=== PATIENT | female | born 1970 | race Caucasian/White ===

== ENCOUNTER 2021-12-11 14:05 | Emergency (ER) | payer SELFPAY ==
[2021-12-11 14:08] VITALS: BP 148/84; PULSE 100; RESP 25; TEMP 36; O2SAT 97; BMI 58.3
[2021-12-11 14:09] VITALS: BP 148/84; PULSE 100; RESP 25; TEMP 36; O2SAT 97
--- NOTE | 2021-12-11 14:31 | EKG12_ITS ---
Test Reason : Blood Pressure : / mmHG Vent. Rate : 095 BPM Atrial Rate : 095 BPM P-R Int : 192 ms QRS Dur : 074 ms QT Int : 350 ms P-R-T Axes : 057 062 051 degrees QTc Int : 439 ms Normal sinus rhythm Normal ECG Confirmed by ELVIN MIRANDA, INGA ([id number]), editorial clerk GIOVANI WYATT ([id number]) on 12/13/2021 10:22:29 AM Referred By: Confirmed By:INGA OCONNOR MD
--- NOTE | 2021-12-11 14:31 | RAD_ITS ---
STUDY: X-RAY CHEST REASON FOR EXAM: Female, 51 years old. One week history of shortness of breath. TECHNIQUE: Single AP portable view of the chest. COMPARISON: None. FINDINGS: EKG electrodes are seen. There is evidence of vascular congestion and CHF. There is no demonstrated pleural abnormality. There is borderline cardiomegaly. Normal mediastinum and ruthie. Normal visualized pulmonary arteries. Normal visualized aortic arch and descending thoracic aorta. There are diffuse degenerative changes of the visualized thoracic spine. Normal visualized ribs, clavicles, and shoulders. There is no demonstrated abnormality of the visualized soft tissue structures of the upper abdomen. RAD/Chest 1 View (Portable) IMPRESSION: Mesenteric congestion and CHF. Borderline cardiomegaly. Electronically Signed: Donal Wagner MD at 15:23 EDT ,
--- NOTE | 2021-12-11 14:32 | EDS_ITS ---
HPI History of Present Illness Chief Complaint: Shortness of Breath Informant: patient Narrative Narrative: 51-year-old female presenting to the emergency department with dyspnea. Patient states that she has had difficulty catching her breath and chest tightness for the past week. Is exacerbated with exertion. She denies any cough or fever. She notes chronic leg swelling. She is not able to lay flat but that is not a new issue. She currently states she has not taken any medications. She does report a smoking history was told several years ago she had the beginning of COPD. She denies any chest pain. [facility] Medical History (Updated 12/11/21 @ 16:[address] Bert Holley DO) COPD (chronic obstructive pulmonary disease) Lymphedema Tobacco abuse Home Medications furosemide [Lasix] 40 mg PO BID #14 tab 12/11/21 [Rx Last Taken Unknown] Allergy/AdvReac Type Severity Reaction Status Date / Time latex AdvReac Hives Verified 12/11/21 14:08 Penicillins [PCN] AdvReac Hives Verified 12/11/21 14:08 Surgical History Hx of cholecystectomy Previous section Social History (Updated 12/11/21 @ 14:[address] Bert Holley DO) current gender identity: female Smoking Status: Current every day smoker tobacco type: cigarettes ROS ROS ED Constitutional Constitutional ED: Denies chills, fever(s) or weight loss Eyes Eyes: Denies change in vision or diplopia ENT ENT ED: Denies ear pain, rhinorrhea or sore throat Cardiovascular Cardiovascular: Denies chest pain, orthopnea, palpitations or racing heartbeat Respiratory/Chest Respiratory/Chest: Reports dyspnea and dyspnea on exertion; Denies cough, orthopnea or sputum Gastrointestinal Gastrointestinal: Denies abdominal pain, diarrhea, nausea or vomiting Genitourinary Genitourinary ED: Denies dysuria, hematuria or urinary frequency Musculoskeletal Musculoskeletal: Denies arthralgias or myalgias Integumentary Denies abscess or rash Neurologic Neurologic: Denies headache(s) or weakness Psychiatric Psychiatric: Denies anxiety, depression, suicidal ideation or suicidal thoughts Endocrine Endocrinology: Denies polydipsia, polyphagia or polyuria Allergic/Immunologic Allergic/Immunologic ED: Denies mouth swelling, tongue swelling or urticaria EXAM Physical Exam Const Vital Signs: 12/11/21 14:08 12/11/21 14:09 12/11/21 14:48 Temperature 96.8 F L 96.8 F L Temperature Source Temporal Temporal Pulse Rate 100 100 Respiratory Rate 25 H 25 H Respiratory Effort Short of Breath Respiratory Depth Normal Respiratory Pattern Tachypnea Blood Pressure 148/84 H 148/84 H Blood Pressure Mean 105 105 Pulse Ox 97 97 Oxygen Delivery Method Room Air Room Air Room Air 12/11/21 15:55 12/11/21 15:57 Temperature 96.8 F L Temperature Source Temporal Pulse Rate 89 89 Respiratory Rate 31 H 31 H Respiratory Effort Respiratory Depth Respiratory Pattern Blood Pressure 143/68 H 143/68 H Blood Pressure Mean 93 93 Pulse Ox 94 94 Oxygen Delivery Method Room Air Room Air Positive well nourished, well developed and obese General Appearance ED: well developed Nutritional Appearance: obese HEENT Reports normocephalic, head/scalp atraumatic, TM's clear and moist mucous membranes atraumatic Tympanic Membrane ED: Yes TM's clear Eyes PERRL and EOMs intact bilaterally Neck no lymphadenopathy, supple and no JVD Resp normal respiratory effort and clear to auscultation bilaterally Cardio regular rate, regular rhythm and no murmurs GI normal to inspection, nondistended, normoactive bowel sounds and non-tender Palpation: soft Back/Spine no CVA tenderness and normal ROM Extremity Extremity Narrative: Bilateral lower extremity swelling symmetric General Extremety ED: Negative for edema General Extremity: Negative for edema Neuro oriented x3 and CN's II-XII intact bilaterally Sensorium / Orientation: alert Motor Exam: strength 5/5 throughout Psych mental status grossly normal Mood & Affect: Negative for depressed or tearful Skin no rashes or lesions noted and no wounds MDM MDM MDM Narrative Medical decision making narrative: Basic blood work was obtained which shows a hemoglobin of 14.4. D-dimer is elevated 1.06. Creatinine is normal. Troponin is normal beta natruretic peptide is also normal. My interpretation of the chest x-ray is pulmonary edema. Because the elevated D-dimer and her dyspnea CTA of the chest was ordered which does not demonstrate any pulmonary embolism. This is consistent with some mild pulmonary edema. The patient is not hypoxic or requiring supplemental oxygen. Lab Data Attestation: I reviewed the patient's lab results. Labs: Laboratory Results - last 24 hr 12/11/21 12/11/21 12/11/21 14:45 14:45 14:45 WBC 9.9 RBC 5.06 Hgb 14.4 Hct 47.3 H MCV 93.5 MCH 28.5 MCHC 30.4 L RDW Std Deviation 50.7 H RDW Coeff of Castillo 14.7 H Plt Count 354 MPV 10.6 Immature Gran % (Auto) 0.400 Neut % (Auto) 71.3 H Lymph % (Auto) 19.7 [place] % (Auto) 6.0 Eos % (Auto) 2.0 Baso % (Auto) 0.6 Absolute Neuts (auto) 7.1 Absolute Lymphs (auto) 1.95 Nucleated RBC % 0 D-Dimer Quant (PE/DVT) 1.06 H* Sodium 142 Potassium 3.7 Chloride 104 Carbon Dioxide 36.0 H Anion Gap 2 L BUN 14 Creatinine 0.69 Estim Creat Clear Calc 98.40 Est GFR (MDRD) Af Amer 115 Est GFR (MDRD) Non-Af 95 BUN/Creatinine Ratio 20.2 H Glucose 104 Calcium 9.3 Total Bilirubin 0.30 AST 15 ALT 19 Alkaline Phosphatase 104 Troponin I High Sens 4 B-Natriuretic Peptide Total Protein 7.8 Albumin 3.2 Globulin 4.6 H Albumin/Globulin Ratio 0.7 L 12/11/21 14:45 WBC RBC Hgb Hct MCV MCH MCHC RDW Std Deviation RDW Coeff of Castillo Plt Count MPV Immature Gran % (Auto) Neut % (Auto) Lymph % (Auto) [place] % (Auto) Eos % (Auto) Baso % (Auto) Absolute Neuts (auto) Absolute Lymphs (auto) Nucleated RBC % D-Dimer Quant (PE/DVT) Sodium Potassium Chloride Carbon Dioxide Anion Gap BUN Creatinine Estim Creat Clear Calc Est GFR (MDRD) Af Amer Est GFR (MDRD) Non-Af BUN/Creatinine Ratio Glucose Calcium Total Bilirubin AST ALT Alkaline Phosphatase Troponin I High Sens B-Natriuretic Peptide 11.9 Total Protein Albumin Globulin Albumin/Globulin Ratio Radiography Diagnostic Testing: Clinical Impression(s) from Imaging Studies Chest X-Ray 12/11/21 14:31 IMPRESSION: Mesenteric congestion and CHF. Borderline cardiomegaly. Electronically Signed: Donal Wagner MD at 15:23 EDT , Chest CTA 12/11/21 15:42 IMPRESSION: No demonstrated pulmonary embolism or arterial dissection. Bilateral ground glass opacities, a nonspecific finding may be secondary to underlying edema and/or an infectious process. Atherosclerosis. Degenerative changes of the thoracic spine. Electronically Signed: Summer Driver MD at 16:30 EDT , EKG Initial EKG: Attestation: I personally reviewed and interpreted this EKG as follows: Comments: Normal sinus rhythm with a ventricular rate of 95 bpm Discharge Plan Triage Chief Complaint: Shortness of Breath ED Provider: Bert Holley Dx/Rx/DC Orders Clinical Impression: Acute dyspnea, Lymphedema, Pulmonary edema Instructions: Pulmonary Edema, ED Peripheral Edema, Bilateral Prescriptions: New furosemide [Lasix] 40 mg tablet 40 mg PO BID Qty: 14 RF: 0 Primary Care Provider: Care Physician,No Primary Referrals: Yelena Cabrera [NON-STAFF] - 1 Week Care Physician,No Primary [Primary Care Provider] - Disposition Disposition: Home, Self Care
[2021-12-11 14:59] LABS: Absolute Lymphocyte Count 1.95 X10^3/uL (0.83-4.51); Absolute Neutrophil Count 7.1 X10^3/uL (2.0-7.7); Basophil# 0.06 X10^3/uL; Basophil% 0.6 % (0-1); Hematocrit 47.3 % (37-47); Hemoglobin 14.4 g/dL (12.0-15.0); Lymphocyte # 1.95 X10^3/ul (0.83-4.51); Lymphocyte % 19.7 % (19-41); Mean Corp Hgb Conc 30.4 g/dL (32-36); Mean Corpuscular Hgb 28.5 pg (27.0-32.0); Mean Corpuscular Volume 93.5 fL (81-99); Mean Platelet Vol. 10.6 fl (6.2-12.0); Monocyte# 0.59 X10^3/uL; NRBC Flagged by Analyzer 0 % (0-5); Neutrophil # 7.06 X10^3/uL (2.7-7.7); Neutrophil % 71.3 % (47-70); Platelet Count 354 K/mm3 (150-450); RBC Distribution Width CV 14.7 % (11.6-14.6); RBC Distribution Width SD 50.7 fl (35.1-43.9); Red Blood Count 5.06 M/mm3 (4.2-5.4); White Blood Count 9.9 K/mm3 (4.4-11.0)
[2021-12-11 15:17] LABS: ALB/GLOB Ratio 0.7 RATIO (0.9-2.4); AST(SGOT) 15 U/L (15-37); Alanine Aminotransfer ALT/SGPT 19 U/L (13-56); Albumin, Serum 3.2 g/dL (3.2-5.0); Alkaline Phosphatase 104 U/L (45-117); Anion Gap 2 (5-15); BUN 14 mg/dL (7-18); BUN/Creat Ratio 20.2 RATIO (10-20); Calcium,Total 9.3 mg/dL (8.5-10.1); Chloride 104 mmol/L (98-107); Creatinine, Serum 0.69 mg/dL (0.55-1.02); EST Glomerular Filtration Rate 95 mL/min (>60); Est Glom Filt Rate - Afr Amer 115 mL/min (>60); Globulin 4.6 g/dL (2.2-4.2); Glucose 104 mg/dL (74-106); Potassium 3.7 mmol/L (3.5-5.1); Protein, Total 7.8 g/dL (6.4-8.2); Sodium Level 142 mmol/L (136-145); Troponin-I HS 4 pg/mL (3.0-54.0)
--- NOTE | 2021-12-11 15:21 | CM.ED ---
Social Work Consult: No PCP, Self-pay Referral source: Dr. Rubio Met with patient in room. Introduced self and clinical social work therapist role. Patient agreeable to speak with this clinical social work therapist. This clinical social work therapist broached topic of insurance status for patient. Patient reports to be employed and to have dental and vision insurance through employer but not medical. Patient reports to be following with [facility] for medical care currently. Patient states to have had [employer]IG[employer] in the past but to now make too much money through work. Patient reports to have adequate housing, transportation, food, and a support system. Patient denies concerns in the community. This clinical social work therapist encouraged patient to pursue medicaid application again if patient medical bills are more than patient can afford as patient might qualify due to medical expenses, patient voiced understanding. Active support and listening provided. No further services requested or indicated. Claire RIVERA, JANICE
[2021-12-11 15:34] LABS: D-Dimer Quantitative (DVT/PE) 1.06 FEU/ug/m (0.27-0.49)
--- NOTE | 2021-12-11 15:42 | CT_ITS ---
STUDY: CTA CHEST REASON FOR EXAM: Female, 51 years old. Pulmonary embolism elevated d dimer RADIATION DOSAGE (If Supplied By Facility): CTDIvol = ( 12.79 ) mGy, DLP = ( 425.92 ) mGycm TECHNIQUE: The examination was performed with the intravenous administration of IV 100mL Isovue-370. Post-processing of the angiographic images was performed, with multiplanar reformation and 3D reconstruction. Individualized dose optimization techniques were used for this CT. COMPARISON: None. FINDINGS: Motion artifact degrades anatomic detail. There are bilateral groundglass opacities scattered throughout the lungs. Normal enhancement of the main pulmonary artery and right and left pulmonary arteries. Normal enhancement of the bilateral peripheral pulmonary arteries. There is no demonstrated pulmonary embolism. There is atherosclerotic calcification of the aortic arch. There is no demonstrated aortic dissection. Normal heart and pericardium. There are no coronary artery calcifications. Normal mediastinum. Normal hilar regions. Normal visualized trachea and bronchi. Normal chest wall structures. There are degenerative changes of thoracic spine. Normal visualized upper abdomen. CT/CTA Chest W/WO Contrast IMPRESSION: No demonstrated pulmonary embolism or arterial dissection. Bilateral ground glass opacities, a nonspecific finding may be secondary to underlying edema and/or an infectious process. Atherosclerosis. Degenerative changes of the thoracic spine. Electronically Signed: Summer Driver MD at 16:30 EDT ,
[2021-12-11 15:55] VITALS: BP 143/68; PULSE 89; RESP 31; O2SAT 94
[2021-12-11 15:56] VITALS: O2SAT 93
[2021-12-11 15:57] VITALS: BP 143/68; PULSE 89; RESP 31; TEMP 36; O2SAT 94
[2021-12-11 16:24] LABS: BNP,B-Type NATRIURETIC PEPTIDE 11.9 pg/mL (0-100)
[2021-12-11 17:06] VITALS: BP 120/74; PULSE 89; RESP 22; O2SAT 96
[2021-12-11] MEDS: Furosemide 40 MG Tablet PO (17:13)
== END 2021-12-11 17:24 | disposition home or self-care (01) ==
PROVIDERS: Emergency Provider Emergency Medicine; Visit Provider Emergency Medicine
DX: R06.00 Dyspnea, unspecified (principal); J81.1 Chronic pulmonary edema; I89.0 Lymphedema, not elsewhere classified; J44.9 Chronic obstructive pulmonary disease, unspecified; F17.210 Nicotine dependence, cigarettes, uncomplicated; E66.9 Obesity, unspecified
CPT/HCPCS: 71045; 71275; 80053; 83880; 84484; 85025; 85379; 93005; 99285; Q9967; A4216

== ENCOUNTER 2022-01-26 19:15 | Emergency (ER) | payer SELFPAY ==
[2022-01-26 19:16] VITALS: BP 147/82; PULSE 104; RESP 18; TEMP 36.7; O2SAT 94; BMI 56.9
--- NOTE | 2022-01-26 19:30 | EKG12_ITS ---
Test Reason : DYSRYTHMIA Blood Pressure : / mmHG Vent. Rate : 099 BPM Atrial Rate : 099 BPM P-R Int : 190 ms QRS Dur : 072 ms QT Int : 338 ms P-R-T Axes : 053 063 049 degrees QTc Int : 433 ms Normal sinus rhythm Normal ECG Confirmed by ARYAN MIRANDA, ROSE ([id number]), supervising editor news reel GIOVANI WYATT ([id number]) on 01/27/2022 11:25:06 AM Referred By: LUCINDA Confirmed By:ROSE BAEZA MD
--- NOTE | 2022-01-26 19:31 | EDS_ITS ---
HPI History of Present Illness Chief Complaint: Edema Detail of Chief Complaint: Patient presents with edema of both lower extremities Informant: patient Narrative Narrative: Patient presents to the emergency department complaint of lower leg edema times several months. She was initially seen in the emergency department about 2 months ago and started on Lasix 40 mg twice a day. A week later she was seen by her primary care physician who changed her to Lasix 40 mg once a day. Patient states that her legs have gotten progressively more swollen. Patient states that she did develop some redness and was started on antibiotics doxycycl ine which she just finished yesterday. She denies any fevers. She does complain of shortness of breath and feeling like she is drowning at times. She does have history of lymphedema. No history of CHF or kidney disease. Patient does have the beginning stages of COPD. Patient is a smoker. Prior similar symptoms: No PFSH PFSH Medical History (Updated 01/26/22 @ 22:[address] Josafat Wilson DO) COPD (chronic obstructive pulmonary disease) Lymphedema Tobacco abuse Home Medications furosemide [Lasix] 40 mg PO BID #20 tab 01/26/22 [Rx Last Taken Unknown] furosemide [Lasix] 40 mg PO DAILY 01/26/22 [History Last Taken Unknown] Allergy/AdvReac Type Severity Reaction Status Date / Time latex AdvReac Hives Verified 01/26/22 19:21 Penicillins [PCN] AdvReac Hives Verified 01/26/22 19:21 Surgical History Hx of cholecystectomy Previous section Social History (Updated 12/11/21 @ 14:[address] Bert Holley DO) Smoking Status: Current every day smoker tobacco type: cigarettes ROS ROS ED Constitutional Constitutional ED: Reports systems reviewed and no addt'l complaints, except as documented; Denies body ache(s), change in weight or chills Eyes Eyes: Denies acute decrease in peripheral vision, change in vision, double vision or loss of vision ENT ENT ED: Reports none; Denies ear pain, lip swelling, loss taste/smell, neck pain, otalgia or sore throat Cardiovascular Cardiovascular: Reports none; Denies abdominal pain, chest pain with activity, leg edema, lightheadedness, palpitations, rapid heart rate or syncope Respiratory/Chest Respiratory/Chest: Reports none and dyspnea; Denies change in mental status, dry cough, hemoptysis, shortness of breath at rest or shortness of breath with exer tion Gastrointestinal Gastrointestinal: Reports none; Denies abdominal pain, change in stool character, diarrhea, hematemesis, hematochezia, melena, rectal bleeding or vomiting Genitourinary Genitourinary ED: Reports none; Denies abdominal discomfort, anuria, dysuria, genital pain or polyuria Musculoskeletal Musculoskeletal: Reports none and other Details: Leg edema ; Denies arthralgias, back pain, difficulty walking, extremity pain, muscle weakness or myalgias Integumentary Reports none; Denies abscess or rash Neurologic Neurologic: Reports none; Denies abnormal gait, confusion, focal weakness, frequent falls, headache(s), loss of vision, numbness, paresthesias, radicular pain, vertigo or weakness Psychiatric Psychiatric: Reports systems reviewed and no addt'l complaints, except as documented and none; Denies behavioral changes, confusion, difficulty concentrating, hallucinations, suicidal ideation, tactile hallucinations or visual hallucinations Endocrine Endocrinology: Denies none, cold intolerance, excessive sweating, fatigue or heat intolerance Hematologic/Lymphatic Hematologic/Lymphatic: Reports none; Denies anemia, easy bleeding or easy bruising Allergic/Immunologic Allergic/Immunologic ED: Denies as per HPI, none, lip swelling, mouth swelling, throat swelling, tongue swelling or hives EXAM Physical Exam Const Vital Signs: 01/26/22 19:16 01/26/22 19:26 01/26/22 21:38 Temperature 98.0 F Temperature Source Temporal Pulse Rate 104 H 97 Respiratory Rate 18 15 Respiratory Effort Short of Breath Blood Pressure 147/82 H 155/81 H Blood Pressure Mean 103 105 Pulse Ox 94 96 Oxygen Delivery Method Room Air Room Air Positive well nourished and well developed General Appearance ED: well developed and NAD HEENT Reports TM's clear and moist mucous membranes normocephalic and atraumatic; Negative for trauma or tenderness Tympanic Membrane ED: Yes TM's clear Eyes PERRL and EOMs intact bilaterally General Eye ED: Negative for pale conjunctiva or scleral icterus Neck no lymphadenopathy, supple and no JVD General: Negative for tenderness Chest Wall inspection of chest normal and palpation of chest normal Chest: Negative for tenderness Resp normal respiratory effort and clear to auscultation bilaterally Effort and Inspection: Negative for respiratory distress or pain with movement Auscultation: Negative for rhonchi, wheezes or diminished lung sounds Cardio regular rate, regular rhythm, S1 normal heart sound, S2 normal heart sound and n o murmurs Peripheral Pulses: pulses 2+ throughout GI normal to inspection, nondistended, normoactive bowel sounds, soft to palpation, non-tender, non-distended and no masses Back/Spine no CVA tenderness and no thoracic nor lumbar tenderness Extremity Extremity Narrative: Patient has +3 edema both lower extremities that is pitting. Edema goes up to the thighs. Patient does have some diffuse areas of erythema to both lower extremities. Normal pulses. General Extremety ED: Negative for edema General Extremity: Negative for edema Neuro oriented x3, CN's II-XII intact bilaterally, no sensory deficits noted and gait normal Sensorium / Orientation: awake, alert, oriented to person, oriented to place and oriented to time Motor Exam: strength 5/5 throughout and strength abnormal Psych mental status grossly normal Skin no rashes or lesions noted and no wounds MDM MDM MDM Narrative Medical decision making narrative: Established on arrival. Patient had labs that showed a normal white count of 10.9. Chemistry reason remarkable. BNP was 14.3. D-dimer was elevated 1.32 chest x-ray 1 view obtained interpreted by m yself no acute disease process. Radiology in agreement. I will order CT of the chest to rule out PE. I did give patient 80 mg of Lasix IV. Care of patient will be turned over to ED physician awaiting results of CT scan. For scans negative for PE I feel she can be discharged to home with plan to increase her Lasix to 80 mg daily. Patient will then have to follow-up with primary care physician. At this point I do not feel she needs any further antibiotics for her legs she just recently finished antibiotics. She does not have a fever and has a normal white count and is not ill-appearing. I suspect some of the erythema may be related to the increased edema and skin changes related to lymphedema. Lab Data Attestation: I reviewed the patient's lab results. Labs: Laboratory Results - last 24 hr 01/26/22 01/26/22 01/26/22 19:40 19:40 19:40 WBC 10.9 RBC 4.95 Hgb 13.4 Hct 45.5 MCV 91.9 MCH 27.1 MCHC 29.5 L RDW Std Deviation 54.0 H RDW Coeff of Castillo 16.2 H Plt Count 372 MPV 10.0 Immature Gran % (Auto) 0.400 Neut % (Auto) 70.1 H Lymph % (Auto) 19.7 [place] % (Auto) 7.3 Eos % (Auto) 2.0 Baso % (Auto) 0.5 Absolute Neuts (auto) 7.7 Absolute Lymphs (auto) 2.14 Nucleated RBC % 0 D-Dimer Quant (PE/DVT) Cancelled Sodium Cancelled Potassium Cancelled Chloride Cancelled Carbon Dioxide Cancelled Anion Gap Cancelled BUN Cancelled Creatinine Cancelled Estim Creat Clear Calc Cancelled Est GFR (MDRD) Af Amer Cancelled Est GFR (MDRD) Non-Af Cancelled BUN/Creatinine Ratio Cancelled Glucose Cancelled Calcium Cancelled Troponin I High Sens Cancelled B-Natriuretic Peptide 01/26/22 01/26/22 01/26/22 19:40 20:17 20:17 WBC RBC Hgb Hct MCV MCH MCHC RDW Std Deviation RDW Coeff of Castillo Plt Count MPV Immature Gran % (Auto) Neut % (Auto) Lymph % (Auto) [place] % (Auto) Eos % (Auto) Baso % (Auto) Absolute Neuts (auto) Absolute Lymphs (auto) Nucleated RBC % D-Dimer Quant (PE/DVT) 1.32 H* Sodium 141 Potassium 3.7 Chloride 102 Carbon Dioxide 38.0 H Anion Gap 1 L BUN 17 Creatinine 0.70 Estim Creat Clear Calc 96.99 Est GFR (MDRD) Af Amer 114 Est GFR (MDRD) Non-Af 94 BUN/Creatinine Ratio 24.4 H Glucose 120 H Calcium 8.8 Troponin I High Sens 4 B-Natriuretic Peptide 14.3 Radiography Chest X-Ray - ED: 1 View Diagnostic Testing: Clinical Impression(s) from Imaging Studies Chest X-Ray 01/26/22 19:53 IMPRESSION: Stable chest. Electronically Signed: Rivka Martinez MD at 21:08 EDT , 1 view chest are obtained interpreted by myself as no acute disease process. Radiology in agreement. Discharge Plan Triage Chief Complaint: Edema ED Provider: Josafat Wilson Dx/Rx/DC Orders Clinical Impression: Lymphedema, Leg edema Instructions: ED Peripheral Edema, Bilateral, ED Lymphedema Prescriptions: New furosemide [Lasix] 40 mg tablet 40 mg PO BID Qty: 20 RF: 0 No Action furosemide [Lasix] 40 mg tablet 40 mg PO DAILY RF: 0 Primary Care Provider: Yelena Cabrera Referrals: Yelena Cabrera [Primary Care Provider] - 3-5 Days
[2022-01-26 19:53] LABS: Absolute Lymphocyte Count 2.14 X10^3/uL (0.83-4.51); Absolute Neutrophil Count 7.7 X10^3/uL (2.0-7.7); Basophil# 0.05 X10^3/uL; Basophil% 0.5 % (0-1); Eosinophil# 0.22 X10^3/uL; Hematocrit 45.5 % (37-47); Hemoglobin 13.4 g/dL (12.0-15.0); Lymphocyte # 2.14 X10^3/ul (0.83-4.51); Lymphocyte % 19.7 % (19-41); Mean Corp Hgb Conc 29.5 g/dL (32-36); Mean Corpuscular Hgb 27.1 pg (27.0-32.0); Mean Corpuscular Volume 91.9 fL (81-99); Monocyte# 0.79 X10^3/uL; Monocyte% 7.3 % (0-10); NRBC Flagged by Analyzer 0 % (0-5); Neutrophil # 7.65 X10^3/uL (2.7-7.7); Neutrophil % 70.1 % (47-70); Platelet Count 372 K/mm3 (150-450); RBC Distribution Width CV 16.2 % (11.6-14.6); Red Blood Count 4.95 M/mm3 (4.2-5.4); White Blood Count 10.9 K/mm3 (4.4-11.0)
--- NOTE | 2022-01-26 19:53 | RAD_ITS ---
EXAM: XR CHEST, 1 VIEW CLINICAL INDICATION: dyspnea TECHNIQUE: Frontal view of the chest. This report was created using [employer] report generation technology. COMPARISON: December 11, 2021. FINDINGS: LUNGS AND PLEURAL SPACES: Stable mild pulmonary vascular prominence without mame CHF. No pneumothorax. No effusion. HEART: Stable borderline cardiomegaly. MEDIASTINUM: Central airways and mediastinal contour are unremarkable. BONES/JOINTS: Unremarkable. SOFT TISSUES: Unremarkable. RAD/Chest 1 View (Portable) IMPRESSION: Stable chest. Electronically Signed: Rivka Martinez MD at 21:08 EDT ,
[2022-01-26 20:12] LABS: BNP,B-Type NATRIURETIC PEPTIDE 14.3 pg/mL (0-100)
[2022-01-26 21:38] VITALS: BP 155/81; PULSE 97; RESP 15; O2SAT 96
[2022-01-26 21:58] LABS: Anion Gap 1 (5-15); BUN 17 mg/dL (7-18); BUN/Creat Ratio 24.4 RATIO (10-20); Calcium,Total 8.8 mg/dL (8.5-10.1); Chloride 102 mmol/L (98-107); EST Glomerular Filtration Rate 94 mL/min (>60); Est Glom Filt Rate - Afr Amer 114 mL/min (>60); Estimated Creatinine Clearance 96.99 ml/min; Glucose 120 mg/dL (74-106); Potassium 3.7 mmol/L (3.5-5.1); Sodium Level 141 mmol/L (136-145); Troponin-I HS 4 pg/mL (3.0-54.0)
[2022-01-26 22:00] LABS: D-Dimer Quantitative (DVT/PE) 1.32 FEU/ug/m (0.27-0.49)
--- NOTE | 2022-01-26 22:01 | CT_ITS ---
EXAM: CTA Chest WO/W Contrast Injection HISTORY: dyspnea, elevated d-dimer TECHNIQUE: CTA Chest WO/W Contrast Injection 3D reconstructions were reviewed. A radiation dose optimization technique was used for this scan. COMPARISON: None. LIMITATIONS: None. LUNGS: No pneumonia or edema. Bilateral mosaic attenuation.. AORTA/GREAT VESSELS: No aneurysm.. PULMONARY VESSELS: Main pulmonary artery is enlarged measuring 3.4 cm in diameter. No pulmonary embolus to the subsegmental level.. PLEURA: Normal. MEDIASTINUM: Normal. UPPER ABDOMEN: Normal. BONES/SOFT TISSUES: Normal. OTHER: None. CT/CTA Chest W/WO Contrast IMPRESSION: 1. No pulmonary embolism to the subsegmental level. 2. Bilateral mosaic attenuation, suggestive of small airways disease. 3. Pulmonary artery enlargement, suggestive of pulmonary hypertension. Electronically Signed: Yo Wagoner MD at 23:19 EDT ,
[2022-01-26 23:53] VITALS: BP 137/89; PULSE 102; RESP 15; O2SAT 98
[2022-01-26] MEDS: Furosemide 100 MG/10 ML Vial 80 MG IV (23:54)
== END 2022-01-27 00:06 | disposition home or self-care (01) ==
PROVIDERS: Emergency Provider Emergency Medicine; Visit Provider Emergency Medicine
DX: I89.0 Lymphedema, not elsewhere classified (principal); J44.9 Chronic obstructive pulmonary disease, unspecified; R60.0 Localized edema; F17.210 Nicotine dependence, cigarettes, uncomplicated
CPT/HCPCS: 36415; 71045; 71275; 80048; 83605; 83880; 84484; 85025; 85379; 87040; 93005; 96374; 99284; Q9967; A4216; J1940

== ENCOUNTER 2022-02-08 10:33 | Inpatient (IN) | payer MEDICAID, SELFPAY ==
[2022-02-08] VITALS (25 sets, daily range): BP systolic 99–144; BP diastolic 70–99; PULSE 81–104; RESP 12–20; TEMP 36.3–36.7; O2SAT 82–100; BMI 52.1; BMI 63.6; BMI 63.1
--- NOTE | 2022-02-08 10:39 | ED.RN ---
O2 SATURATION READING 77-82% RA. WAVE FORM PERFECT DURING READINGS. SENT BACK TO ROOM AND NURSING STAFF IN UNIT NOTIFIED. PT DENIES RESPIRATORY SX. REPORTS FLUID RETENTION.
--- NOTE | 2022-02-08 10:57 | CT_ITS ---
STUDY: CTA CHEST REASON FOR EXAM: Female, 51 years old. Hypoxia RADIATION DOSAGE (If Supplied By Facility): CTDIvol = ( 49.35 ) mGy, DLP = ( 646.96 ) mGycm TECHNIQUE: The examination was performed with the intravenous administration of IV 100mL Isovue-370. Post-processing of the angiographic images was performed, with multiplanar reformation and 3D reconstruction. Individualized dose optimization techniques were used for this CT. COMPARISON: 01/26/2022. FINDINGS: Normal enhancement of the main pulmonary artery and right and left pulmonary arteries. There is limited enhancement of the bilateral peripheral pulmonary arteries. No evidence of central pulmonary embolism. There is prominence of the main pulmonary arteries without peripheral pulmonary vascular congestion, suggesting pulmonary hypertension. There is atherosclerotic tortuosity of the aortic arch. There is no demonstrated aortic dissection. Normal heart and pericardium. Normal mediastinum. Normal hilar regions. Normal visualized trachea and bronchi. Bilateral hazy groundglass opacities/infiltrates could reflect pulmonary edema worse than the previous exam. There are no pleural effusions. Normal chest wall structures. No demonstrated acute osseous changes. The visualized upper abdomen is essentially unremarkable. CT/CTA Chest W/WO Contrast IMPRESSION: 1. No evidence of central pulmonary embolism. Limited evaluation of the peripheral branches. 2. Bilateral hazy groundglass opacities/infiltrates could reflect pulmonary edema worse than the previous exam. 3. Prominent main pulmonary arteries which may reflect pulmonary arterial hypertension. Electronically Signed: Greg Hobson MD at 13:10 EDT ,
--- NOTE | 2022-02-08 10:57 | CT_ITS ---
STUDY: CT BRAIN WITHOUT CONTRAST REASON FOR EXAM: Female, 51 years old. 3 falls in a week D/T neuropathy RADIATION DOSAGE (If Supplied By Facility): CTDIvol = ( 44.99 ) mGy, DLP = ( 829.85 ) mGycm TECHNIQUE: Transaxial CT imaging of the brain was performed without administration of intravenous contrast material. Individualized dose optimization techniques were used for this CT. COMPARISON: No relevant priors. FINDINGS: Normal soft tissue structures. Normal calvarium. Bilateral hyperostosis frontalis. Normal size ventricles and extra-axial spaces for the patient''s age. Normal white matter tracts of the cerebral hemispheres. Normal basal ganglia and thalami. Normal brainstem. Normal cerebellum. No hydrocephalus. There is no intracranial hemorrhage. There are no findings of an acute ischemic infarction. Normal visualized paranasal sinuses. CT/Brain/Head without Contrast IMPRESSION: No evidence of acute intracranial process. Electronically Signed: Anibal Michel MD at 12:42 EDT ,
--- NOTE | 2022-02-08 10:58 | EKG12_ITS ---
Test Reason : Blood Pressure : / mmHG Vent. Rate : 101 BPM Atrial Rate : 101 BPM P-R Int : 180 ms QRS Dur : 078 ms QT Int : 350 ms P-R-T Axes : 044 065 048 degrees QTc Int : 453 ms Sinus tachycardia with occasional Premature ventricular complexes Low voltage QRS Borderline ECG Confirmed by ELVIN MIRANDA, INGA ([id number]), book or script editor GIOVANI WYATT ([id number]) on 02/11/2022 8:15:17 AM Referred By: ILA Confirmed By:INGA OCONNOR MD
--- NOTE | 2022-02-08 10:59 | EDS_ITS ---
HPI <Dr. Diana Rubio MD - Last Filed: 02/08/22 20:00> History of Present Illness Chief Complaint: Fall Informant: patient Narrative Narrative: Patient presents with generalized weakness and states she has fallen 3 times in the past week. Most recent fall was this morning. She states she fell out of her chair and EMS had to be called to help her up. She reports striking her forehead and her nose on the floor. No loss of consciousness. Her first fall also involved sliding out of her chair. Second fall was at her son's house when her leg suddenly gave out on her and fell. She denies injury from that fall. Patient does report that she was recently diagnosed with diabetes and neuropathy. She states that she is unable to take care of herself at home. PFSH <Dr. Diana Rubio MD - Last Filed: 02/08/22 20:00> [facility] Medical History COPD (chronic obstructive pulmonary disease) Diabetes Lymphedema Neuropathic pain Tobacco abuse Medical History unable to obtain Home Medications furosemide 40 mg tablet (Lasix) 40 mg PO BID #20 tabs 01/26/22 [Rx Last Taken Unknown] furosemide 40 mg tablet (Lasix) 40 mg PO DAILY 01/26/22 [History Last Taken Unknown] Allergy/AdvReac Type Severity Reaction Status Date / Time latex AdvReac Hives Verified 01/26/22 19:21 Penicillins [PCN] AdvReac Hives Verified 01/26/22 19:21 Family History unable to obtain Surgical History Hx of cholecystectomy Previous section Social History Smoking Status: Current every day smoker tobacco type: cigarettes ROS <Dr. Diana Rubio MD - Last Filed: 02/08/22 20:00> ROS ED Constitutional Constitutional ED: Denies chills or fever(s) Eyes Eyes: Denies change in vision or discharge from eye(s) ENT ENT ED: Denies discharge from eye(s), rhinorrhea or sore throat Cardiovascular Cardiovascular: Reports chest pain and other Details: Chest pain with exertion ; Denies palpitations Respiratory/Chest Respiratory/Chest: Reports dyspnea; Denies cough Gastrointestinal Gastrointestinal: Denies abdominal pain, diarrhea, nausea or vomiting Genitourinary Genitourinary ED: Denies difficulty urinating or dysuria Musculoskeletal Musculoskeletal: Denies back pain or extremity pain Integumentary Denies Abrasions or rash Neurologic Neurologic: Reports weakness; Denies headache(s) Psychiatric Psychiatric: Denies anxiety or depression Allergic/Immunologic Allergic/Immunologic ED: Denies lip swelling or urticaria EXAM <Dr. Diana Rubio MD - Last Filed: 02/08/22 20:00> Physical Exam Const Vital Signs: 02/08/22 10:33 02/08/22 10:51 02/08/22 10:53 Temperature 97.5 F L Temperature Source Temporal Pulse Rate 103 H Respiratory Rate 18 Respiratory Effort Short of Breath Respiratory Depth Shallow Blood Pressure 126/78 H Blood Pressure Mean 94 Pulse Ox 82 95 Oxygen Delivery Method Room Air Nasal Cannula Oxygen Flow Rate (L/min) 2 Fraction of Inspired Oxygen (FIO2) 02/08/22 10:53 02/08/22 11:32 02/08/22 11:32 Temperature Temperature Source Pulse Rate 98 Respiratory Rate 15 Respiratory Effort Respiratory Depth Blood Pressure Blood Pressure Mean Pulse Ox 97 97 Oxygen Delivery Method Nasal Cannula Bi-pap Oxygen Flow Rate (L/min) 2 Fraction of Inspired Oxygen (FIO2) 35 35 02/08/22 12:45 02/08/22 12:45 02/08/22 14:22 Temperature Temperature Source Pulse Rate 99 93 Respiratory Rate 16 20 H Respiratory Effort Respiratory Depth Blood Pressure 144/99 H Blood Pressure Mean 114 Pulse Ox 93 94 99 Oxygen Delivery Method Bi-pap Bi-pap Bi-pap Oxygen Flow Rate (L/min) Fraction of Inspired Oxygen (FIO2) 02/08/22 15:13 02/08/22 15:15 02/08/22 13:30 Temperature Temperature Source Pulse Rate 104 H 103 H 96 Respiratory Rate 17 14 16 Respiratory Effort Respiratory Depth Blood Pressure 117/84 H Blood Pressure Mean 95 Pulse Ox 98 100 93 Oxygen Delivery Method Mechanical Ventilator Oxygen Flow Rate (L/min) Fraction of Inspired Oxygen (FIO2) 100 100 35 Positive obese Nutritional Appearance: obese HEENT Reports normocephalic and head/scalp atraumatic Eyes PERRL and EOMs intact bilaterally Neck supple Chest Wall inspection of chest normal and palpation of chest normal Resp normal respiratory effort and clear to auscultation bilaterally Cardio regular rate and regular rhythm GI normal to inspection, nondistended, normoactive bowel sounds Palpation: soft Extremity normal to inspection Extremity Narrative: Bilateral lower extremity edema. Neuro oriented x3 and no sensory deficits noted Sensorium / Orientation: alert Motor Exam: strength 5/5 throughout Psych Psych Narrative: Sleepy but arouses to voice and answers questions. Able to carry on a conversation. Skin no rashes or lesions noted <Dr. Torin Melton MD - Last Filed: 02/09/22 07:12> Physical Exam Const Vital Signs: 02/08/22 10:33 02/08/22 10:51 02/08/22 10:53 Temperature 97.5 F L Temperature Source Temporal Pulse Rate 103 H Respiratory Rate 18 Respiratory Effort Short of Breath Respiratory Depth Shallow Blood Pressure 126/78 H Blood Pressure Mean 94 Pulse Ox 82 95 Oxygen Delivery Method Room Air Nasal Cannula Oxygen Flow Rate (L/min) 2 Fraction of Inspired Oxygen (FIO2) 02/08/22 10:53 02/08/22 11:32 02/08/22 11:32 Temperature Temperature Source Pulse Rate 98 Respiratory Rate 15 Respiratory Effort Respiratory Depth Blood Pressure Blood Pressure Mean Pulse Ox 97 97 Oxygen Delivery Method Nasal Cannula Bi-pap Oxygen Flow Rate (L/min) 2 Fraction of Inspired Oxygen (FIO2) 35 35 02/08/22 12:45 02/08/22 12:45 02/08/22 14:22 Temperature Temperature Source Pulse Rate 99 93 Respiratory Rate 16 20 H Respiratory Effort Respiratory Depth Blood Pressure 144/99 H Blood Pressure Mean 114 Pulse Ox 93 94 99 Oxygen Delivery Method Bi-pap Bi-pap Bi-pap Oxygen Flow Rate (L/min) Fraction of Inspired Oxygen (FIO2) 02/08/22 15:13 02/08/22 15:15 02/08/22 13:30 Temperature Temperature Source Pulse Rate 104 H 103 H 96 Respiratory Rate 17 14 16 Respiratory Effort Respiratory Depth Blood Pressure 117/84 H Blood Pressure Mean 95 Pulse Ox 98 100 93 Oxygen Delivery Method Mechanical Ventilator Oxygen Flow Rate (L/min) Fraction of Inspired Oxygen (FIO2) 100 100 35 MDM <Dr. Diana Rubio MD - Last Filed: 02/08/22 20:00> MDM MDM Narrative Medical decision making narrative: Head CT along with CTA of the chest ordered. EKG and lab work obtained. ABG obtained. Lab Data Attestation: I reviewed the patient's lab results. Labs: Laboratory Results - last 24 hr 02/08/22 02/08/22 11:25 11:25 WBC 12.4 H RBC 4.53 Hgb 12.3 Hct 42.6 MCV 94.0 MCH 27.2 MCHC 28.9 L RDW Std Deviation 54.6 H RDW Coeff of Castillo 16.0 H Plt Count 372 MPV 9.7 Immature Gran % (Auto) 0.600 Neut % (Auto) 73.8 H Lymph % (Auto) 17.6 L [place] % (Auto) 6.4 Eos % (Auto) 1.0 Baso % (Auto) 0.6 Absolute Neuts (auto) 9.2 H Absolute Lymphs (auto) 2.18 Nucleated RBC % 0.2 Sodium 142 Potassium 3.3 L Chloride 99 Carbon Dioxide 39.0 H Anion Gap 4 L BUN 17 Creatinine 0.94 Estim Creat Clear Calc 72.23 Est GFR (MDRD) Af Amer 81 Est GFR (MDRD) Non-Af 67 BUN/Creatinine Ratio 18.0 Glucose 160 H Calcium 8.8 Troponin I High Sens 21 ABG Data ABG results: ABG 02/08/22 02/08/22 11:21 14:05 Specimen Type ART ART Sample Site L Radial L Radial pH 7.29 L 7.23 L Bicarbonate Actual 40.7 H 41.8 H Total CO2 43 45 Base Excess 14 H 14 H O2 Saturation 91 L 92 L O2 % 35 ABG pCO2 84.1 H* 100.9 H* ABG pO2 72 L 82 Erickson Test Positive O2 Delivery Device Cannula Liter Flow 2.0 Tidal Volume 450 POC PEEP 8 Crit Call To/Read Back Yes Yes Blood Gas Notified Arabella RUBIO Clinical Comments Radiography Diagnostic Testing: Clinical Impression(s) from Imaging Studies Brain CT 02/08/22 10:57 IMPRESSION: No evidence of acute intracranial process. Electronically Signed: Anibal Michel MD at 12:42 EDT , Chest CTA 02/08/22 10:57 IMPRESSION: 1. No evidence of central pulmonary embolism. Limited evaluation of the peripheral branches. 2. Bilateral hazy groundglass opacities/infiltrates could reflect pulmonary edema worse than the previous exam. 3. Prominent main pulmonary arteries which may reflect pulmonary arterial hypertension. Electronically Signed: Greg Hobson MD at 13:10 EDT , Chest X-Ray 02/08/22 14:40 IMPRESSION: Endotracheal tube with its tip approximately 1.9 cm proximal to the cortney. No significant change. Electronically Signed: Greg Hobson MD at 15:56 EDT , Chest X-Ray 02/08/22 14:40 IMPRESSION: No significant change. Electronically Signed: Greg Hobson MD at 15:54 EDT , Chest X-Ray 02/08/22 14:40 IMPRESSION: Endotracheal tube with its tip just above the cortney. Patchy bilateral infiltrates/edema. Electronically Signed: Greg Hobson MD at 15:57 EDT , EKG Initial EKG: Attestation: I personally reviewed and interpreted this EKG as follows: Interpretation: Sinus Tachycardia (Sinus tach at 101. PVCs noted. No acute ischemia.) Treatment and Re-Evaluation Narrative: When respiratory therapy went to obtain patient's EKG they noted that her O2 sat was still reading low on 2 L and bumped her up. She seemed very sleepy. ABG was obtained and her PCO2 was elevated to 84. Her PO2 is 72. She was placed on BiPAP and then because of low tidal volumes she was placed on AVAPS. At this time she is resting comfortably will awaken and answer questions. She is on 35% FiO2 with O2 sats between 88 and 95%. Head CT reveals no acute findings. CTA of the chest reveals no obvious PE. Lab work reveals white count of 12.4 and potassium is slightly low at 3.3. Troponin is normal at 21. BNP was just checked 2 weeks ago and was normal at 12. When I went back into reevaluate the patient she was more difficult to arouse. She would shake her head but not open her eyes or follow other commands. Repeat ABG is obtained and her PCO2 has increased to 100. In light of that she does require intubation. Patient intubated on third attempt with difficult airway secondary to anterior lie. She was given 40 mg of etomidate followed by another 20 mg at the time of third elevation attempt. Chest x-ray confirms good ET tube position. Lungs remained clear. I will speak with hospitalist regarding admission. Initial chest x-ray following intubation did reveal low-lying distal ET tube. This was pulled back 1 cm and repeat chest x-ray did not show significant change. Tube was pulled back an additional 1 cm at at this time tube is in good position just proximal to the cortney. <Dr. Torin Melton MD - Last Filed: 02/09/22 07:12> MDM MDM Narrative Medical decision making narrative: Head CT along with CTA of the chest ordered. EKG and lab work obtained. ABG obtained. Assistance with intubation: I assisted with intubation of this difficult airway patient. After etomidate, ambu, and increased oxygenation, we are able to use glide scope with cricoid pressure and pass a 7.5 endotracheal tube. This was witnessed going through the cords. Stylette was removed. Good ETCO2 Change. No sounds over the gastric area. Bilateral breath sounds. We did expect this tube to be in farther than average. But because of her difficult intubation we wanted to make sure it was in. Chest x-ray then showed the tube was right above the cortney. This was removed back 1 cm and then 1 more centimeter with repeat x-rays to verify good position. Her sats dropped to the high 60s immediately after tube passage but then came back very quickly. Lab Data Labs: Laboratory Results - last 24 hr 02/08/22 02/08/22 11:25 11:25 WBC 12.4 H RBC 4.53 Hgb 12.3 Hct 42.6 MCV 94.0 MCH 27.2 MCHC 28.9 L RDW Std Deviation 54.6 H RDW Coeff of Castillo 16.0 H Plt Count 372 MPV 9.7 Immature Gran % (Auto) 0.600 Neut % (Auto) 73.8 H Lymph % (Auto) 17.6 L [place] % (Auto) 6.4 Eos % (Auto) 1.0 Baso % (Auto) 0.6 Absolute Neuts (auto) 9.2 H Absolute Lymphs (auto) 2.18 Nucleated RBC % 0.2 Sodium 142 Potassium 3.3 L Chloride 99 Carbon Dioxide 39.0 H Anion Gap 4 L BUN 17 Creatinine 0.94 Estim Creat Clear Calc 72.23 Est GFR (MDRD) Af Amer 81 Est GFR (MDRD) Non-Af 67 BUN/Creatinine Ratio 18.0 Glucose 160 H Calcium 8.8 Troponin I High Sens 21 ABG Data ABG results: ABG 02/08/22 02/08/22 11:21 14:05 Specimen Type ART ART Sample Site L Radial L Radial pH 7.29 L 7.23 L Bicarbonate Actual 40.7 H 41.8 H Total CO2 43 45 Base Excess 14 H 14 H O2 Saturation 91 L 92 L O2 % 35 ABG pCO2 84.1 H* 100.9 H* ABG pO2 72 L 82 [place]on Test Positive O2 Delivery Device Cannula Liter Flow 2.0 Tidal Volume 450 POC PEEP 8 Crit Call To/Read Back Yes Yes Blood Gas Notified Whom Ramiro RUBIO Clinical Comments Radiography Diagnostic Testing: Clinical Impression(s) from Imaging Studies Brain CT 02/08/22 10:57 IMPRESSION: No evidence of acute intracranial process. Electronically Signed: Anibal Michel MD at 12:42 EDT Reading Location ID and State: [facility] / [place] Tel , Service support , Chest CTA 02/08/22 10:57 IMPRESSION: 1. No evidence of central pulmonary embolism. Limited evaluation of the peripheral branches. 2. Bilateral hazy groundglass opacities/infiltrates could reflect pulmonary edema worse than the previous exam. 3. Prominent main pulmonary arteries which may reflect pulmonary arterial hypertension. Electronically Signed: Greg Hobson MD at 13:10 EDT , Chest X-Ray 02/08/22 14:40 IMPRESSION: Endotracheal tube with its tip approximately 1.9 cm proximal to the cortney. No significant change. Electronically Signed: Greg Hobson MD at 15:56 EDT , Chest X-Ray 02/08/22 14:40 IMPRESSION: No significant change. Electronically Signed: Greg Hobson MD at 15:54 EDT , Chest X-Ray 02/08/22 14:40 IMPRESSION: Endotracheal tube with its tip just above the cortney. Patchy bilateral infiltrates/edema. Electronically Signed: Greg Hobson MD at 15:57 EDT , <Dr. Diana Rubio MD - Last Filed: 02/08/22 20:00> Critical Care Time Critical Care Time: Yes Critical care time (excluding procedures): 30-74 minutes (40 mins), Discussing w/Patient &/or Family/Change Coordinator, Arranging Admission or Transfer and Performing Direct Patient Care at Bedside Discharge Plan Dx/Rx/DC Orders Clinical Impression: Carbon dioxide retention, Respiratory failure Disposition Disposition: Acute Care [facility]
[2022-02-08 11:25] LABS: Allen Test Positive; Base Excess 14 mmol/L (-2 to +2); Bicarbonate 40.7 mmol/L (22-26); Blood Gas Specimen Type ART; O2 Delivery Device Cannula; PO2 72 mmHG (75-100); SITE L Radial; SO2 91 % (95-99); Total Carbon Dioxide 43 mmol/L; pCO2 84.1 mmHg (35-45); pH 7.29 (7.35-7.45)
[2022-02-08 11:33] LABS: Absolute Lymphocyte Count 2.18 X10^3/uL (0.83-4.51); Absolute Neutrophil Count 9.2 X10^3/uL (2.0-7.7); Basophil# 0.07 X10^3/uL; Basophil% 0.6 % (0-1); Eosinophil# 0.12 X10^3/uL; Hematocrit 42.6 % (37-47); Hemoglobin 12.3 g/dL (12.0-15.0); Lymphocyte # 2.18 X10^3/ul (0.83-4.51); Lymphocyte % 17.6 % (19-41); Mean Corp Hgb Conc 28.9 g/dL (32-36); Mean Corpuscular Hgb 27.2 pg (27.0-32.0); Mean Platelet Vol. 9.7 fl (6.2-12.0); Monocyte# 0.79 X10^3/uL; Monocyte% 6.4 % (0-10); NRBC Flagged by Analyzer 0.2 % (0-5); Neutrophil # 9.16 X10^3/uL (2.7-7.7); Neutrophil % 73.8 % (47-70); Platelet Count 372 K/mm3 (150-450); RBC Distribution Width SD 54.6 fl (35.1-43.9); Red Blood Count 4.53 M/mm3 (4.2-5.4); White Blood Count 12.4 K/mm3 (4.4-11.0)
[2022-02-08 11:52] LABS: Anion Gap 4 (5-15); BUN 17 mg/dL (7-18); Calcium,Total 8.8 mg/dL (8.5-10.1); Chloride 99 mmol/L (98-107); Creatinine, Serum 0.94 mg/dL (0.55-1.02); EST Glomerular Filtration Rate 67 mL/min (>60); Est Glom Filt Rate - Afr Amer 81 mL/min (>60); Estimated Creatinine Clearance 72.23 ml/min; Glucose 160 mg/dL (74-106); Potassium 3.3 mmol/L (3.5-5.1); Sodium Level 142 mmol/L (136-145); Troponin-I HS 21 pg/mL (3.0-54.0)
--- NOTE | 2022-02-08 12:54 | ED.RN ---
SATS BETWEEN 88-91% ON BIPAP. PT CO2 RETAINER. RESPIRATORY AWARE. DR THORPE NOTIFIED.
--- NOTE | 2022-02-08 13:30 | CPS ---
PATIENT NOTED TO BE MORE LETHARGIC, DR. THORPE NOTIFIED. REPEAT ABG ORDER OBTAINED.
[2022-02-08 14:11] LABS: Base Excess 14 mmol/L (-2 to +2); Bicarbonate 41.8 mmol/L (22-26); Blood Gas Specimen Type ART; FI02 35; PEEP 8; PO2 82 mmHG (75-100); SITE L Radial; SO2 92 % (95-99); Total Carbon Dioxide 45 mmol/L; Vt 450; pCO2 100.9 mmHg (35-45); pH 7.23 (7.35-7.45)
--- NOTE | 2022-02-08 14:15 | ED.RN ---
SECOND BLOOD GAS SHOWED PT WORSENING ON BIPAP. MOVED TO RM 2, PREPPED FOR INTUBATION. REPORTS GIVEN TO CARLOS RN TO ASSUME CARE. DR THORPE AT BEDSIDE.
[2022-02-08] MEDS: Etomidate 20 MG/10 ML Vial 40 MG IV (14:31)
[2022-02-08] MEDS: Etomidate 20 MG/10 ML Vial IV (14:40)
--- NOTE | 2022-02-08 14:40 | RAD_ITS ---
STUDY: X-RAY CHEST REASON FOR EXAM: Female, 51 years old. INTUBATION #3 TECHNIQUE: Single AP portable view of the chest. COMPARISON: Previous of the same day done earlier. FINDINGS: Endotracheal tube and nasogastric tube is stable position. Patchy bilateral infiltrates/edema are again seen unchanged. There is no demonstrated pleural abnormality. Persistent enlargement of the cardiac silhouette. The soft tissues and mediastinal structures. RAD/CXR for Line Placement IMPRESSION: No significant change. Electronically Signed: Greg Hobson MD at 15:54 EDT ,
--- NOTE | 2022-02-08 14:40 | RAD_ITS ---
STUDY: X-RAY CHEST REASON FOR EXAM: Female, 51 years old. Intubation TECHNIQUE: Single AP portable view of the chest. COMPARISON: 01/26/2022. FINDINGS: Endotracheal tube with its tip just above the cortney. Nasogastric tube extends below the level of diaphragm. Patchy bilateral infiltrates/edema markedly worse than the previous exam. There is no demonstrated pleural abnormality. Persistent enlargement of the cardiac silhouette. Stable mediastinal and osseous structures. RAD/CXR for Line Placement IMPRESSION: Endotracheal tube with its tip just above the cortney. Patchy bilateral infiltrates/edema. Electronically Signed: Greg Hobson MD at 15:57 EDT ,
--- NOTE | 2022-02-08 14:40 | RAD_ITS ---
STUDY: X-RAY CHEST REASON FOR EXAM: Female, 51 years old. INTUBATION #2 TECHNIQUE: Single AP portable view of the chest. COMPARISON: 02/08/2022. FINDINGS: Endotracheal tube with its tip approximately 1.9 cm proximal to the cortney. Nasogastric tube extends below the level of the diaphragm. Patchy bilateral infiltrates unchanged. There is no demonstrated pleural abnormality. Persistent enlargement of the cardiac silhouette. Unchanged mediastinum and osseous structures. RAD/CXR for Line Placement IMPRESSION: Endotracheal tube with its tip approximately 1.9 cm proximal to the cortney. No significant change. Electronically Signed: Greg Hobson MD at 15:56 EDT ,
[2022-02-08] MEDS: Propofol 200 MG/20 ML Vial 60 MG IV BOLUS (15:05)
[2022-02-08] MEDS: Propofol 10MG/Ml 1,000 MG/100 ML Bottle 11.4 MG CONT INF (15:10)
--- NOTE | 2022-02-08 15:44 | PCM.HP.STD ---
HPI - General General Date of Admission: 02/08/22 HPI Narrative GIOVANI VELEZ, is a 51 F who presents to the hospital with fatigue as well as frequent falls. She had been into the hospital about 2 weeks ago and was started on Lasix for edema. During her work-up today it was noticed that she was hypoxic in the ER to 82% so she was placed on BiPAP and had an ABG drawn which demonstrated a PCO2 of 84.1 and then a repeat was drawn about 2-1/2 hours later with a PCO2 of 100.9 at which point she was intubated. There is no family at bedside so most of the history is obtained by chart review and discussion with ED physician. She did have a fall this morning which is what preempted her arrival to the ER where she had called EMS. She had hit her head but denies loss of consciousness. CT of the brain was unremarkable with no bleed in the CTA of the chest did not show any PEs, there are signs of pulmonary edema however. She also has prominent pulmonary arteries consistent with pulmonary hypertension. [facility] Medical History COPD (chronic obstructive pulmonary disease) Diabetes Lymphedema Neuropathic pain Tobacco abuse Home Medications furosemide 40 mg tablet (Lasix) 40 mg PO BID #20 tabs 01/26/22 [Rx Last Taken Unknown] furosemide 40 mg tablet (Lasix) 40 mg PO DAILY 01/26/22 [History Last Taken Unknown] Allergy/AdvReac Type Severity Reaction Status Date / Time latex AdvReac Hives Verified 01/26/22 19:21 Penicillins [PCN] AdvReac Hives Verified 01/26/22 19:21 unable to obtain Surgical History Hx of cholecystectomy Previous section Social History Smoking Status: Current every day smoker tobacco type: cigarettes ROS Review of Systems ROS Unobtainable: due to endotracheal tube Vital Signs Vital Signs Vital Signs: 02/08/22 10:33 02/08/22 10:51 02/08/22 10:53 Temperature 97.5 F L Temperature Source Temporal Pulse Rate 103 H Respiratory Rate 18 Respiratory Effort Short of Breath Respiratory Depth Shallow Blood Pressure 126/78 H Blood Pressure Mean 94 Pulse Ox 82 95 Oxygen Delivery Method Room Air Nasal Cannula Oxygen Flow Rate (L/min) 2 Fraction of Inspired Oxygen (FIO2) 02/08/22 10:53 02/08/22 11:32 02/08/22 11:32 Temperature Temperature Source Pulse Rate 98 Respiratory Rate 15 Respiratory Effort Respiratory Depth Blood Pressure Blood Pressure Mean Pulse Ox 97 97 Oxygen Delivery Method Nasal Cannula Bi-pap Oxygen Flow Rate (L/min) 2 Fraction of Inspired Oxygen (FIO2) 35 35 02/08/22 12:45 02/08/22 12:45 02/08/22 14:22 Temperature Temperature Source Pulse Rate 99 93 Respiratory Rate 16 20 H Respiratory Effort Respiratory Depth Blood Pressure 144/99 H Blood Pressure Mean 114 Pulse Ox 93 94 99 Oxygen Delivery Method Bi-pap Bi-pap Bi-pap Oxygen Flow Rate (L/min) Fraction of Inspired Oxygen (FIO2) 02/08/22 15:13 02/08/22 15:15 02/08/22 13:30 Temperature Temperature Source Pulse Rate 104 H 103 H 96 Respiratory Rate 17 14 16 Respiratory Effort Respiratory Depth Blood Pressure 117/84 H Blood Pressure Mean 95 Pulse Ox 98 100 93 Oxygen Delivery Method Mechanical Ventilator Oxygen Flow Rate (L/min) Fraction of Inspired Oxygen (FIO2) 100 100 35 Weight Weight: 418 lb 3.47 oz Body Mass Index (BMI) 63.6 Physical Exam Const General Appearance: intubated and patient mechanically ventilated HEENT normocephalic Eyes PERRL and conjunctivae normal Neck supple and no JVD Resp normal respiratory effort, no retractions and no use of accessory muscles Auscultation: diminished lung sounds; Negative for crackles, rales, rhonchi or wheezes Cardio regular rate, regular rhythm, S1 normal heart sound, S2 normal heart sound and no murmurs GI soft to palpation and non-distended; Negative for hepatosplenomegaly Extremity General Extremity: edema Skin Skin Narrative: Bilateral venous stasis changes Neuro Sensorium / Orientation: sedated on vent Psych Appearance: intubated Results Lab / Micro Data Result Diagrams: 02/08/22 11:25 02/08/22 11:25 Labs: Laboratory Results - last 24 hr 02/08/22 11:25: WBC 12.4 H, RBC 4.53, Hgb 12.3, Hct 42.6, MCV 94.0, MCH 27.2, MCHC 28.9 L, RDW Std Deviation 54.6 H, RDW Coeff of Castillo 16.0 H, Plt Count 372, MPV 9.7, Immature Gran % (Auto) 0.600, Neut % (Auto) 73.8 H, Lymph % (Auto) 17.6 L, [place] % (Auto) 6.4, Eos % (Auto) 1.0, Baso % (Auto) 0.6, Absolute Neuts (auto) 9.2 H, Absolute Lymphs (auto) 2.18, Nucleated RBC % 0.2 02/08/22 11:25: Sodium 142, Potassium 3.3 L, Chloride 99, Carbon Dioxide 39.0 H, Anion Gap 4 L, BUN 17, Creatinine 0.94, Estim Creat Clear Calc 72.23, Est GFR (MDRD) Af Amer 81, Est GFR (MDRD) Non-Af 67, BUN/Creatinine Ratio 18.0, Glucose 160 H, Calcium 8.8, Troponin I High Sens 21 ABG Data ABG results: ABG 02/08/22 02/08/22 11:21 14:05 Specimen Type ART ART Sample Site L Radial L Radial pH 7.29 L 7.23 L Bicarbonate Actual 40.7 H 41.8 H Total CO2 43 45 Base Excess 14 H 14 H O2 Saturation 91 L 92 L O2 % 35 ABG pCO2 84.1 H* 100.9 H* ABG pO2 72 L 82 Erickson Test Positive O2 Delivery Device Cannula Liter Flow 2.0 Tidal Volume 450 POC PEEP 8 Crit Call To/Read Back Yes Yes Blood Gas Notified Whom Ramiro RUBIO Clinical Comments Radiology Impression Brain CT 02/08/22 10:57 IMPRESSION: No evidence of acute intracranial process. Electronically Signed: Anibal Michel MD at 12:42 EDT Reading Location ID and State: [facility] / [place] Tel , Service support , Chest CTA 02/08/22 10:57 IMPRESSION: 1. No evidence of central pulmonary embolism. Limited evaluation of the peripheral branches. 2. Bilateral hazy groundglass opacities/infiltrates could reflect pulmonary edema worse than the previous exam. 3. Prominent main pulmonary arteries which may reflect pulmonary arterial hypertension. Electronically Signed: Greg Hobson MD at 13:10 EDT , Assessment & Plan Assessment/Plan (1) Acute respiratory failure with hypoxia and hypercapnia: PLAN: Plan 1. Acute hypoxic and hypercapnic respiratory failure secondary to possible pulmonary edema due to pulmonary hypertension ? We will start her on Lasix ? We will obtain an echo ? Continue with intubation and Young placement ? We will admit to the ICU and consult the corn sheller operator ? Continue with Pepcid for prophylaxis ? CT of the chest with indications of pulmonary edema and pulmonary hypertension 2. Super morbid obesity ? BMI is 63.6 ? Once extubated and alert we will discussed lifestyle modifications DVT: Lovenox Charges/Coding Visit Charges Inpatient E&M: 41699 Init Hosp L2
[2022-02-08 16:25] LABS: Base Excess 13 mmol/L (-2 to +2); Bicarbonate 39.5 mmol/L (22-26); Blood Gas Specimen Type ART; FI02 45; Mode AC; O2 Delivery Device Adult Vent; PEEP 5; PO2 80 mmHG (75-100); RR 14; SITE L Brach; SO2 93 % (95-99); Total Carbon Dioxide 42 mmol/L; Vt 450; pCO2 85.3 mmHg (35-45); pH 7.27 (7.35-7.45)
--- NOTE | 2022-02-08 16:43 | ECHOCS_ITS ---
Reason For Study: PHTN Procedure This was a 2D Doppler, Color Flow transthoracic echocardiogram. The study was technically difficult. Contrast injection was performed. Exam performed portable in ICU/CCU. Left Ventricle Based upon the 2D echocardiographic and contrast enhanced images obtained there appears to be grossly normal left ventricular size, wall motion, and systolic function. The estimated ejection fraction is 65 %. No evidence for diastolic dysfunction. Right Ventricle Based upon the 2D echocardiographic images obtained there appears to be grossly normal right ventricular size and systolic function. Atria Normal left atrium. Normal right atrium. No doppler evidence for ASD. Mitral Valve There is no mitral annular calcification. Normal mitral valve. Tricuspid Valve The tricuspid valve is not well visualized. Aortic Valve The aortic valve is not well visualized. Pulmonic Valve The pulmonic valve is not well visualized. Great Vessels The aortic root is not well visualized. Pericardium/Pleural No pericardial effusion. Medication Diluted definity 3ml given slow IV push to enhance endocardial definition. Doppler Measurements & Calculations MV E max ibrahima: 111.6 cm/sec Lat Peak E' Ibrahima: 11.7 cm/sec Med Peak E' Ibrahima: 9.3 cm/sec MV A max ibrahima: 83.4 cm/sec E/E' lat: 9.6 E/E' med: 12.0 MV E/A: 1.3 Ao V2 max: 142.3 cm/sec LV V1 max: 129.7 cm/sec PA V2 max: 85.7 cm/sec Ao max P.1 mmHg LV V1 max P.7 mmHg ECHO/Echo Complete W/ Contrast Interpretation Summary The study was technically difficult. Contrast injection was performed. Based upon the 2D echocardiographic and contrast enhanced images obtained there appears to be grossly normal left ventricular size, wall motion, and systolic function. The estimated ejection fraction is 65 %. No evidence for diastolic dysfunction. Ordering Physician: David Aj Performed By: Sonam Art RCS
--- NOTE | 2022-02-08 17:10 | CM.ED ---
SW Noted that patient has no insurance. However, patient is being intubated and sent to ICU2. Acute SW can follow as needed. Plan: Acute Erika RAE
[2022-02-08 17:44] LABS: Time Given 1630
[2022-02-08] MEDS: Furosemide 40 MG/4 ML Vial IV (18:05)
[2022-02-08] MEDS: Propofol 10MG/Ml 1,000 MG/100 ML Bottle 34.1 MG CONT INF ×3 (18:05→23:33)
[2022-02-08] MEDS: Nystatin Powder 15gm Bottle 1 APPLIC TOPICAL (21:25)
[2022-02-08] MEDS: Enoxaparin 30 MG/0.3 ML Syringe SC (21:25)
[2022-02-08] MEDS: Chlorhexidine 15 ML PO (21:25)
[2022-02-08] MEDS: Famotidine 200 MG/20 ML MDV 20 MG in 0.9% Normal Saline (Pres. free 8 ML 300 MG IV (21:26)
[2022-02-08] MEDS: 0.9% Saline Lock 10 ML Syringe IV (21:27)
[2022-02-09] VITALS (39 sets, daily range): BP systolic 88–123; BP diastolic 61–82; PULSE 64–92; RESP 14–21; TEMP 36.9–37.5; O2SAT 88–96
[2022-02-09] MEDS: Propofol 10MG/Ml 1,000 MG/100 ML Bottle 34.1 MG CONT INF ×3 (02:29→06:36)
[2022-02-09 04:18] LABS: Absolute Lymphocyte Count 1.57 X10^3/uL (0.83-4.51); Absolute Neutrophil Count 9.7 X10^3/uL (2.0-7.7); Basophil# 0.05 X10^3/uL; Basophil% 0.4 % (0-1); Eosinophil# 0.34 X10^3/uL; Eosinophils% 2.7 % (0-5); Hematocrit 38.7 % (37-47); Hemoglobin 11.3 g/dL (12.0-15.0); Lymphocyte # 1.57 X10^3/ul (0.83-4.51); Lymphocyte % 12.5 % (19-41); Mean Corp Hgb Conc 29.2 g/dL (32-36); Mean Corpuscular Hgb 27.2 pg (27.0-32.0); Mean Platelet Vol. 10.3 fl (6.2-12.0); Monocyte# 0.83 X10^3/uL; Monocyte% 6.6 % (0-10); NRBC Flagged by Analyzer 0.3 % (0-5); Neutrophil # 9.73 X10^3/uL (2.7-7.7); Neutrophil % 77.4 % (47-70); Platelet Count 319 K/mm3 (150-450); RBC Distribution Width CV 16.2 % (11.6-14.6); RBC Distribution Width SD 55.1 fl (35.1-43.9); Red Blood Count 4.16 M/mm3 (4.2-5.4); White Blood Count 12.6 K/mm3 (4.4-11.0)
[2022-02-09 05:08] LABS: Anion Gap 5 (5-15); BUN 15 mg/dL (7-18); BUN/Creat Ratio 22.5 RATIO (10-20); Calcium,Total 8.5 mg/dL (8.5-10.1); Chloride 99 mmol/L (98-107); Creatinine, Serum 0.67 mg/dL (0.55-1.02); EST Glomerular Filtration Rate 99 mL/min (>60); Est Glom Filt Rate - Afr Amer 120 mL/min (>60); Estimated Creatinine Clearance 101.33 ml/min; Glucose 119 mg/dL (74-106); Potassium 3.1 mmol/L (3.5-5.1); Sodium Level 143 mmol/L (136-145)
[2022-02-09] MEDS: Potassium Chloride Oral Soln 20 MEQ/15 ML UDC 40 MEQ PO (06:29)
[2022-02-09] MEDS: Potassium Chloride 10mEq/100mL 10 MEQ/100 ML IV.SOLN. 100 MEQ IV BOLUS ×4 (06:29→10:40)
--- NOTE | 2022-02-09 06:29 | CON.PCM.CC_ITS ---
Assessment & Plan Assessment/Plan (1) Acute respiratory failure with hypoxia and hypercapnia: (2) Tobacco abuse: (3) Lymphedema: PLAN: Plan RECOMMENDATIONS: 1. Transition from propofol to Precedex 2. Okay to start tube feeds 3. Add blood sugars and sliding scale insulin 4. Initiate Solu-Medrol 6. Await echocardiogram 7. Initiate Levaquin pending sputum culture IMPRESSIONS: 1. Acute on chronic combined respiratory failure Clinical suspicion for multiple processes at work. Patient does have significant bilateral infiltrates, so infection would be a consideration given leukocytosis on presentation. Patient likely also has an element of pulmonary hypertension given dilated pulmonary arteries and presentation of significant hypoxia. Patient has a smoking history with reported diagnosis of COPD. Will initiate patient on bronchodilators and IV steroids. To facilitate spontaneous breathing trials, patient will be transition to Precedex therapy. Do anticipate patient will require an ABG after a spontaneous breathing trial given significant baseline retention. Patient will likely also need to comply with noninvasive ventilation/BiPAP therapy with sleep following extubation 2. Lymphedema/morbid obesity Clinical suspicion for an element of pulmonary hypertension leading to lymphedema of the lower extremities. Patient likely also has an element of untreated obstructive sleep apnea. Patient is normotensive at this point. Could attempt diuresis. 3. Tobacco abuse/poor history/recurrent falls/diabetes mellitus Complicates care, management, recovery and prognosis. Patient will need therapy evaluations. Patient would benefit from lifestyle modification including smoking cessation and weight loss. Case management and social work will be notified. We will start with sliding scale insulin, but anticipate the need for basal insulin once tube feeds are initiated in the setting of steroid therapy TIME: 32 minutes critical care time spent addressing patient's acute on chronic respiratory failure, diabetes mellitus, lymphedema, review of all data and collaboration with care team HPI Consult Data Date of Consult: 02/09/22 HPI Narrative Reason for Consultation: Respiratory failure HPI Narrative: GIOVANI VELEZ is a 51 F, with past medical history listed below, who presents to [facility] on 02/08/2022 secondary to generalized weakness and multiple falls. Patient had fallen on the day of presentation and had called EMS for help. Patient reportedly had struck her forehead and nose on the floor but denied loss of consciousness. Patient reportedly had issues with her leg giving out previously and denied any injury from that fall. Patient was recently diagnosed with diabetes and neuropathy and reportedly had attributed her previous falls to this. Patient does carry a diagnosis of COPD, but does not appear to be on any home inhalers. In the ER patient was afebrile, but tachycardic to 103 bpm. Patient was noted to be 82% on room air and was significantly tachypneic. Patient was attempted on BiPAP, but ultimately required intubation. Laboratory work-up showed a white blood cell count of 12.4, hemoglobin of 12.3 and platelets of 372. Potassium was low at 3.3 and bicarbonate was elevated at 39. Renal function was within normal limits and glucose was elevated at 160. ABG showed significant CO2 retention with inability to compensate leading to intubation. CT of the head showed no acute process. CTA of the chest showed no PE, but hazy bilateral groundglass opacities and significant dilation of the pulmonary artery. Chest x-rays following procedures showed appropriate positioning of supportive devices. Since being in the intensive care unit, patient has done okay. Patient is oxygenating well on minimal FiO2. However, patient became very agitated this morning on spontaneous breathing trial. Patient is currently intubated and sedated and unable to provide any additional history. Review of the medical record shows patient was in the ER in November and earlier this month, but has never been hospitalized. It does not appear that the patient has had pulmonary function testing, sleep study or echocardiogram. [facility] Medical History COPD (chronic obstructive pulmonary disease) Diabetes Lymphedema Neuropathic pain Tobacco abuse Medical History unable to obtain Home Medications furosemide 40 mg tablet (Lasix) 40 mg PO BID #20 tabs 01/26/22 [Rx Last Taken Unknown] furosemide 40 mg tablet (Lasix) 40 mg PO DAILY 01/26/22 [History Last Taken Unknown] Allergy/AdvReac Type Severity Reaction Status Date / Time latex AdvReac Hives Verified 01/26/22 19:21 Penicillins [PCN] AdvReac Hives Verified 01/26/22 19:21 Family History unable to obtain unable to obtain Surgical History Hx of cholecystectomy Previous section Social History Smoking Status: Current every day smoker tobacco type: cigarettes ROS Review of Systems ROS Unobtainable: due to endotracheal tube and due to mental status Medical Records Data Attestation: I reviewed the patient's medical records Medical records narrative: Little information available at this time Lab / Micro Data Attestation: I reviewed the patient's lab results. Result Diagrams: 02/09/22 04:05 02/09/22 04:05 Labs: Laboratory Results - last 24 hr 02/08/22 11:25: WBC 12.4 H, RBC 4.53, Hgb 12.3, Hct 42.6, MCV 94.0, MCH 27.2, MCHC 28.9 L, RDW Std Deviation 54.6 H, RDW Coeff of Castillo 16.0 H, Plt Count 372, MPV 9.7, Immature Gran % (Auto) 0.600, Neut % (Auto) 73.8 H, Lymph % (Auto) 17.6 L, [place] % (Auto) 6.4, Eos % (Auto) 1.0, Baso % (Auto) 0.6, Absolute Neuts (auto) 9.2 H, Absolute Lymphs (auto) 2.18, Nucleated RBC % 0.2 02/08/22 11:25: Sodium 142, Potassium 3.3 L, Chloride 99, Carbon Dioxide 39.0 H, Anion Gap 4 L, BUN 17, Creatinine 0.94, Estim Creat Clear Calc 72.23, Est GFR (MDRD) Af Amer 81, Est GFR (MDRD) Non-Af 67, BUN/Creatinine Ratio 18.0, Glucose 160 H, Calcium 8.8, Troponin I High Sens 21 02/09/22 04:05: WBC 12.6 H, RBC 4.16 L, Hgb 11.3 L, Hct 38.7, MCV 93.0, MCH 27. 2, MCHC 29.2 L, RDW Std Deviation 55.1 H, RDW Coeff of Castillo 16.2 H, Plt Count 319, MPV 10.3, Immature Gran % (Auto) 0.400, Neut % (Auto) 77.4 H, Lymph % (Auto) 12.5 L, [place] % (Auto) 6.6, Eos % (Auto) 2.7, Baso % (Auto) 0.4, Absolute Neuts (auto) 9.7 H, Absolute Lymphs (auto) 1.57, Nucleated RBC % 0.3 02/09/22 04:05: Sodium 143, Potassium 3.1 L, Chloride 99, Carbon Dioxide 39.0 H, Anion Gap 5, BUN 15, Creatinine 0.67, Estim Creat Clear Calc 101.33, Est GFR (MDRD) Af Amer 120, Est GFR (MDRD) Non-Af 99, BUN/Creatinine Ratio 22.5 H, Glucose 119 H, Calcium 8.5 ABG Data ABG results: ABG 02/08/22 02/08/22 02/08/22 11:21 14:05 16:21 Specimen Type ART ART ART Sample Site L Radial L Radial L Brach pH 7.29 L 7.23 L 7.27 L Bicarbonate Actual 40.7 H 41.8 H 39.5 H Total CO2 43 45 42 Base Excess 14 H 14 H 13 H O2 Saturation 91 L 92 L 93 L O2 % 35 45 ABG pCO2 84.1 H* 100.9 H* 85.3 H* ABG pO2 72 L 82 80 Erickson Test Positive Respiration Rate 14 O2 Delivery Device Cannula Adult Vent Liter Flow 2.0 Vent Mode AC Tidal Volume 450 450 POC PEEP 8 5 Crit Call To/Read Back Yes Yes Yes Blood Gas Notified Whom Ramiro Rubio Blood Gas Notified Time 1630 Clinical Comments Attestation: I personally reviewed and interpreted this ABG as follows: Interpretation: Poorly compensated acute on chronic respiratory acidosis with increased AA gradient Rhythm Strip Rhythm Strip: Sinus Rhythm Rate: 86 Ectopy: None Radiology Impression Brain CT 02/08/22 10:57 IMPRESSION: No evidence of acute intracranial process. Electronically Signed: Anibal Michel MD at 12:42 EDT , Chest CTA 02/08/22 10:57 IMPRESSION: 1. No evidence of central pulmonary embolism. Limited evaluation of the peripheral branches. 2. Bilateral hazy groundglass opacities/infiltrates could reflect pulmonary edema worse than the previous exam. 3. Prominent main pulmonary arteries which may reflect pulmonary arterial hypertension. Electronically Signed: Greg Hobson MD at 13:10 EDT , Chest X-Ray 02/08/22 14:40 IMPRESSION: Endotracheal tube with its tip approximately 1.9 cm proximal to the cortney. No significant change. Electronically Signed: Greg Hobson MD at 15:56 EDT , Chest X-Ray 02/08/22 14:40 IMPRESSION: No significant change. Electronically Signed: Greg Hobson MD at 15:54 EDT , Chest X-Ray 02/08/22 14:40 IMPRESSION: Endotracheal tube with its tip just above the cortney. Patchy bilateral infiltrates/edema. Electronically Signed: Greg Hobson MD at 15:57 EDT , Charges/Coding Procedures Hospitalists Procedures: 09687 Critial Care 1st Hr
[2022-02-09] MEDS: 0.9% Saline Lock 10 ML Syringe IV ×2 (06:54→20:02)
[2022-02-09] MEDS: Ipratropium/Albuterol Sulfate 3 ML AMPUL.NEB INHALATION ×3 (07:29→19:07)
[2022-02-09] MEDS: Chlorhexidine 15 ML PO ×2 (08:37→19:57)
[2022-02-09] MEDS: Enoxaparin 30 MG/0.3 ML Syringe SC ×2 (08:52→20:01)
[2022-02-09] MEDS: Propofol 10MG/Ml 1,000 MG/100 ML Bottle 28.5 MG CONT INF (08:58)
--- NOTE | 2022-02-09 10:17 | PCM.PN.HOSP ---
Subjective Subjective Intubated and sedated, no issues overnight Objective Data Objective Data Vital Signs: Vital Signs Temp Pulse Resp BP Pulse Ox FiO2 99 F 71 14 94/73 90 50 02/09/22 04:00 02/09/22 09:24 02/09/22 09:24 02/09/22 07:00 02/09/22 09:24 02/09/22 09:24 Oxygen Flow Rate (L/min) 2 Oxygen Delivery Method Mechanical Ventilator Weight: 416 lb 10.778 oz Body Mass Index (BMI) 63.1 Intake & Output: Intake and Output for Last 24 Hours 02/08/22 02/09/22 02/10/22 03:59 03:59 03:59 Intake Total 498.08 / 569.68 598.98 / 598.98 Output Total 2400 / 2550 475 / 475 Balance -1901.92 / -1980.32 123.98 / 123.98 Lab / Micro Data Result Diagrams: 02/09/22 04:05 02/09/22 04:05 Labs: Laboratory Results - last 24 hr 02/08/22 11:25: WBC 12.4 H, RBC 4.53, Hgb 12.3, Hct 42.6, MCV 94.0, MCH 27.2, MCHC 28.9 L, RDW Std Deviation 54.6 H, RDW Coeff of Castillo 16.0 H, Plt Count 372, MPV 9.7, Immature Gran % (Auto) 0.600, Neut % (Auto) 73.8 H, Lymph % (Auto) 17.6 L, [place] % (Auto) 6.4, Eos % (Auto) 1.0, Baso % (Auto) 0.6, Absolute Neuts (auto) 9.2 H, Absolute Lymphs (auto) 2.18, Nucleated RBC % 0.2 02/08/22 11:25: Sodium 142, Potassium 3.3 L, Chloride 99, Carbon Dioxide 39.0 H, Anion Gap 4 L, BUN 17, Creatinine 0.94, Estim Creat Clear Calc 72.23, Est GFR (MDRD) Af Amer 81, Est GFR (MDRD) Non-Af 67, BUN/Creatinine Ratio 18.0, Glucose 160 H, Calcium 8.8, Troponin I High Sens 21 02/09/22 04:05: WBC 12.6 H, RBC 4.16 L, Hgb 11.3 L, Hct 38.7, MCV 93.0, MCH 27.2, MCHC 29.2 L, RDW Std Deviation 55.1 H, RDW Coeff of Castillo 16.2 H, Plt Count 319, MPV 10.3, Immature Gran % (Auto) 0.400, Neut % (Auto) 77.4 H, Lymph % (Auto) 12.5 L, [place] % (Auto) 6.6, Eos % (Auto) 2.7, Baso % (Auto) 0.4, Absolute Neuts (auto) 9.7 H, Absolute Lymphs (auto) 1.57, Nucleated RBC % 0.3 02/09/22 04:05: Sodium 143, Potassium 3.1 L, Chloride 99, Carbon Dioxide 39.0 H, Anion Gap 5, BUN 15, Creatinine 0.67, Estim Creat Clear Calc 101.33, Est GFR (MDRD) Af Amer 120, Est GFR (MDRD) Non-Af 99, BUN/Creatinine Ratio 22.5 H, Glucose 119 H, Calcium 8.5 ABG Data ABG results: ABG 02/08/22 02/08/22 02/08/22 11:21 14:05 16:21 Specimen Type ART ART ART Sample Site L Radial L Radial L Brach pH 7.29 L 7.23 L 7.27 L Bicarbonate Actual 40.7 H 41.8 H 39.5 H Total CO2 43 45 42 Base Excess 14 H 14 H 13 H O2 Saturation 91 L 92 L 93 L O2 % 35 45 ABG pCO2 84.1 H* 100.9 H* 85.3 H* ABG pO2 72 L 82 80 Erickson Test Positive Respiration Rate 14 O2 Delivery Device Cannula Adult Vent Liter Flow 2.0 Vent Mode AC Tidal Volume 450 450 POC PEEP 8 5 Crit Call To/Read Back Yes Yes Yes Blood Gas Notified Whom Ramiro Rubio Blood Gas Notified Time 1630 Clinical Comments Radiography Diagnostic Testing: Radiology Impression Brain CT 02/08/22 10:57 IMPRESSION: No evidence of acute intracranial process. Electronically Signed: Anibal Michel MD at 12:42 EDT , Chest CTA 02/08/22 10:57 IMPRESSION: 1. No evidence of central pulmonary embolism. Limited evaluation of the peripheral branches. 2. Bilateral hazy groundglass opacities/infiltrates could reflect pulmonary edema worse than the previous exam. 3. Prominent main pulmonary arteries which may reflect pulmonary arterial hypertension. Electronically Signed: Greg Hobson MD at 13:10 EDT , Chest X-Ray 02/08/22 14:40 IMPRESSION: Endotracheal tube with its tip approximately 1.9 cm proximal to the cortney. No significant change. Electronically Signed: Greg Hobson MD at 15:56 EDT Reading Location ID and State: [facility] / [place] Tel , Service support , Chest X-Ray 02/08/22 14:40 IMPRESSION: No significant change. Electronically Signed: Greg Hobson MD at 15:54 EDT Reading Location ID and State: [employer] / [place] Tel , Service support , Chest X-Ray 02/08/22 14:40 IMPRESSION: Endotracheal tube with its tip just above the cortney. Patchy bilateral infiltrates/edema. Electronically Signed: Greg Hobson MD at 15:57 EDT , Rhythm Strip Rhythm Strip: Sinus Rhythm Rate: 86 Ectopy: None Physical Exam Const General Appearance: intubated and patient mechanically ventilated HEENT normocephalic Eyes PERRL and conjunctivae normal Neck supple and no JVD Resp normal respiratory effort, no retractions and no use of accessory muscles Auscultation: diminished lung sounds; Negative for crackles, rales, rhonchi or wheezes Cardio regular rate, regular rhythm, S1 normal heart sound, S2 normal heart sound and no murmurs GI soft to palpation and non-distended; Negative for hepatosplenomegaly Extremity General Extremity: edema Skin Skin Narrative: Bilateral venous stasis changes Neuro Sensorium / Orientation: sedated on vent Psych Appearance: intubated Assessment & Plan Assessment/Plan (1) Acute respiratory failure with hypoxia and hypercapnia: PLAN: Plan 1. Acute hypoxic and hypercapnic respiratory failure secondary to possible pulmonary edema due to pulmonary hypertension ? We will start her on Lasix ? We will obtain an echo, she was also started on antibiotics and steroids given the possibility for infection and COPD ? Continue with intubation and Young placement ? We will admit to the ICU and consult the hospital nurse liaison ? Continue with Pepcid for prophylaxis ? CT of the chest with indications of pulmonary edema and pulmonary hypertension 2. Super morbid obesity ? BMI is 63.6 ? Once extubated and alert we will discussed lifestyle modifications DVT: Lovenox Charges/Coding Visit Charges Inpatient E&M: 99296 Subs Hosp L2
[2022-02-09] MEDS: Nystatin Powder 15gm Bottle 1 APPLIC TOPICAL ×2 (11:17→20:02)
[2022-02-09] MEDS: Famotidine 200 MG/20 ML MDV 20 MG in 0.9% Normal Saline (Pres. free 8 ML 300 MG IV ×2 (11:17→20:02)
[2022-02-09] MEDS: Propofol 10MG/Ml 1,000 MG/100 ML Bottle 22.8 MG CONT INF ×4 (11:19→22:14)
[2022-02-09] MEDS: Albuterol 2.5 MG/3 ML VIAL.NEB. INHALATION (11:20)
[2022-02-09] MEDS: levoFLOXacin IV 750 MG/150 ML BAG 100 MG IV (11:43)
[2022-02-09] MEDS: Insulin Lispro 100 UNIT/ML INSULN.PEN SC ×2 (11:49→17:32)
[2022-02-09 11:51] LABS: Bedside Glucose 195 mg/dL (74-106)
--- NOTE | 2022-02-09 16:10 | RAD_ITS ---
EXAM: XR ABDOMEN, 1 VIEW CLINICAL INDICATION: ng placement TECHNIQUE: Frontal supine view of the abdomen/pelvis. This report was created using [employer] report generation technology. COMPARISON: None. FINDINGS: See Impression. RAD/Abdomen Single View (Portable) IMPRESSION: 1. Transesophageal catheter identified with side-port below the GE junction and tip off the examination but probably within the distal stomach. 2. Prior cholecystectomy. 3. Unchanged appearance of the ET tube 4. Unchanged appearance of the chest including widening of the cardiomediastinal structures and hilar structures. Electronically Signed: Wil Orellana MD at 22:46 EDT ,
[2022-02-09 17:30] LABS: Bedside Glucose 215 mg/dL (74-106)
[2022-02-09] MEDS: Vital High Protein 1,000 ML 20 ML GT (17:33)
[2022-02-10] VITALS (40 sets, daily range): BP systolic 112–146; BP diastolic 58–90; PULSE 60–77; RESP 14–25; TEMP 36.9–37.7; O2SAT 90–100
[2022-02-10] MEDS: Insulin Lispro 100 UNIT/ML INSULN.PEN SC ×4 (00:30→17:06)
[2022-02-10 00:36] LABS: Bedside Glucose 202 mg/dL (74-106)
[2022-02-10] MEDS: Ipratropium/Albuterol Sulfate 3 ML AMPUL.NEB INHALATION ×4 (01:54→19:10)
[2022-02-10] MEDS: Propofol 10MG/Ml 1,000 MG/100 ML Bottle 22.8 MG CONT INF (02:15)
[2022-02-10] MEDS: Dexmedetomidine 1,000 mcg in 0.9% NS 240 mL 47.3 MCG CONT INF ×3 (03:15→15:28)
[2022-02-10 03:21] LABS: Absolute Lymphocyte Count 0.79 X10^3/uL (0.83-4.51); Absolute Neutrophil Count 11.8 X10^3/uL (2.0-7.7); Basophil# 0.02 X10^3/uL; Basophil% 0.2 % (0-1); Hematocrit 41.9 % (37-47); Hemoglobin 12.6 g/dL (12.0-15.0); Lymphocyte # 0.79 X10^3/ul (0.83-4.51); Lymphocyte % 6.1 % (19-41); Mean Corp Hgb Conc 30.1 g/dL (32-36); Mean Corpuscular Hgb 27.3 pg (27.0-32.0); Mean Corpuscular Volume 90.7 fL (81-99); Mean Platelet Vol. 10.6 fl (6.2-12.0); Monocyte# 0.36 X10^3/uL; Monocyte% 2.8 % (0-10); NRBC Flagged by Analyzer 0 % (0-5); Neutrophil # 11.81 X10^3/uL (2.7-7.7); Neutrophil % 90.4 % (47-70); Platelet Count 351 K/mm3 (150-450); RBC Distribution Width CV 16.5 % (11.6-14.6); RBC Distribution Width SD 53.7 fl (35.1-43.9); Red Blood Count 4.62 M/mm3 (4.2-5.4); White Blood Count 13.1 K/mm3 (4.4-11.0)
[2022-02-10 03:42] LABS: ALB/GLOB Ratio 0.6 RATIO (0.9-2.4); AST(SGOT) 16 U/L (15-37); Alanine Aminotransfer ALT/SGPT 17 U/L (13-56); Albumin, Serum 2.4 g/dL (3.2-5.0); Alkaline Phosphatase 91 U/L (45-117); Anion Gap 5 (5-15); BUN 14 mg/dL (7-18); BUN/Creat Ratio 18.4 RATIO (10-20); Calcium,Total 8.8 mg/dL (8.5-10.1); Chloride 100 mmol/L (98-107); Creatinine, Serum 0.76 mg/dL (0.55-1.02); EST Glomerular Filtration Rate 85 mL/min (>60); Est Glom Filt Rate - Afr Amer 103 mL/min (>60); Estimated Creatinine Clearance 89.33 ml/min; Globulin 4.2 g/dL (2.2-4.2); Glucose 206 mg/dL (74-106); Potassium 3.3 mmol/L (3.5-5.1); Protein, Total 6.6 g/dL (6.4-8.2); Sodium Level 143 mmol/L (136-145); Triglycerides 146 mg/dL
[2022-02-10] MEDS: 0.9% Saline Lock 10 ML Syringe IV ×2 (05:43→21:06)
[2022-02-10 05:51] LABS: Bedside Glucose 191 mg/dL (74-106)
--- NOTE | 2022-02-10 06:31 | PN.CC_ITS ---
Assessment & Plan Assessment/Plan (1) Acute respiratory failure with hypoxia and hypercapnia: PLAN: Plan RECOMMENDATIONS: 1. Continue antimicrobials, pending finalized culture results. 2. Obtain echocardiogram. 3. Check procalcitonin and arterial blood gas. 4. Obtain repeat chest x-ray. 5. Potassium repletion as ordered. 6. Continue bronchodilators and steroids. 7. Continue tube feeds as tolerated. 8. Continue appropriate DVT and GI prophylaxis. IMPRESSIONS: 1. Acute on chronic combined respiratory failure Possible etiologies for acute decompensation include decompensated heart failure versus COPD exacerbation secondary to bilateral pneumonia. The patient apparently has an extensive tobacco abuse history along with a questionable history of obstructive lung disease. In addition, she likely has underlying pul monary hypertension. Plan to continue empiric antimicrobials while awaiting infectious work-up. In addition, the patient will be continued on scheduled bronchodilators and IV steroids. Echocardiogram is still pending. Given stability in the patient's renal function, will also consider a trial of diuretic therapy. Plan to continue tube feeds as tolerated. The patient likely has underlying sleep disordered breathing along with alveolar hypoventilation secondary to obesity. She would benefit from outpatient pulmonary follow-up and smoking cessation. 2. Super morbid obesity/suspected sleep apnea/chronic tobacco dependency/diabetes mellitus Complicates care, management, recovery and prognosis. Continue sliding scale insulin coverage along with tube feeds as tolerated. Physical therapy will need to work with the patient once respiratory status improves. TIME: 36 minutes of critical care time, independent of procedures, was spent addressing the patient's acute on chronic combined respiratory failure, COPD with exacerbation, review of all data and collaboration with the care team. Subjective Subjective The patient was seen and examined at the bedside this morning. Events from the last 24 hours have been reviewed. Today is vent day #3. The patient remains on assist control mode mechanical ventilation with an FiO2 requirement of 60% and PEEP of 5. She is currently sedated on a combination of propofol, fentanyl and Precedex. She is currently tolerating tube feeds. The patient is documented to be overall net -1.7 L for the hospitalization. White count is elevated at 13,000. Potassium is low at 3.3. Creatinine is within normal limits. Objective Data Objective Data The patient's most recent lab work, culture data and imaging studies have all been personally reviewed. Blood and sputum cultures are pending. Vital Signs: Vital Signs Temp Pulse Resp BP Pulse Ox FiO2 98.5 F 60 14 125/80 H 92 60 02/10/22 04:00 02/10/22 06:00 02/10/22 06:00 02/10/22 06:00 02/10/22 06:00 02/10/22 06:00 Oxygen Flow Rate (L/min) 2 Oxygen Delivery Method Mechanical Ventilator Weight: 416 lb 10.778 oz Body Mass Index (BMI) 63.1 Intake & Output: Intake and Output for Last 24 Hours 02/08/22 02/09/22 02/10/22 23:59 23:59 23:59 Intake Total 320.46 / 373.31 2309.03 / 2439.33 781.67 / 781.67 Output Total 2050 / 2250 2225 / 2350 900 / 900 Balance -1729.54 / -1876.69 84.03 / 89.33 -118.33 / -118.33 Lab / Micro Data Attestation: I reviewed the patient's lab results. Result Diagrams: 02/10/22 03:10 02/10/22 03:10 Labs: Laboratory Results - last 24 hr 02/09/22 11:43: POC Glucose 195 H 02/09/22 17:14: POC Glucose 215 H 02/10/22 00:29: POC Glucose 202 H 02/10/22 03:10: WBC 13.1 H, RBC 4.62, Hgb 12.6, Hct 41.9, MCV 90.7, MCH 27.3, MCHC 30.1 L, RDW Std Deviation 53.7 H, RDW Coeff of Castillo 16.5 H, Plt Count 351, MPV 10.6, Immature Gran % (Auto) 0.500, Neut % (Auto) 90.4 H, Lymph % (Auto) 6.1 L, [place] % (Auto) 2.8, Eos % (Auto) 0.0, Baso % (Auto) 0.2, Absolute Neuts (auto) 11.8 H, Absolute Lymphs (auto) 0.79 L, Nucleated RBC % 0 02/10/22 03:10: Sodium 143, Potassium 3.3 L, Chloride 100, Carbon Dioxide 38.0 H , Anion Gap 5, BUN 14, Creatinine 0.76, Estim Creat Clear Calc 89.33, Est GFR (MDRD) Af Amer 103, Est GFR (MDRD) Non-Af 85, BUN/Creatinine Ratio 18.4, Glucose 206 H, Calcium 8.8, Total Bilirubin 0.40, AST 16, ALT 17, Alkaline Phosphatase 91, Total Protein 6.6, Albumin 2.4 L, Globulin 4.2, Albumin/Globulin Ratio 0.6 L , Triglycerides 146 02/10/22 05:43: POC Glucose 191 H Micro: Microbiology 02/08/22 17:32 Sputum, Induced/Lukens Gram Stain - Final Radiography Diagnostic Testing: Radiology Impression KUB X-Ray 02/09/22 16:10 IMPRESSION: 1. Transesophageal catheter identified with side-port below the GE junction and tip off the examination but probably within the distal stomach. 2. Prior cholecystectomy. 3. Unchanged appearance of the ET tube 4. Unchanged appearance of the chest including widening of the cardiomediastinal structures and hilar structures. Electronically Signed: Wil Orellana MD at 22:46 EDT Reading Location ID and State: [facility] / [place] Tel , Service support , Rhythm Strip Rhythm Strip: Sinus Rhythm Rate: 86 Ectopy: None Physical Exam Const General Appearance: ill appearing, intubated and patient mechanically ventilated Nutritional Appearance: morbidly obese HEENT normocephalic and head/scalp atraumatic Mouth: endotracheal tube in place and OG tube in place Eyes PERRL and EOMs intact bilaterally Neck supple General: trachea midline Chest inspection of chest normal Resp Auscultation: diminished lung sounds Cardio regular rate and regular rhythm GI normal to inspection, nondistended, normoactive bowel sounds Extremity General Extremity: edema bilateral lower extremity; Negative for clubbing Skin General Skin Exam: venous stasis and dermatitis Neuro Sensorium / Orientation: sedated on vent Charges/Coding Procedures Hospitalists Procedures: [id number] Critial Care 1st Hr
--- NOTE | 2022-02-10 06:37 | RAD_ITS ---
STUDY: X-RAY CHEST REASON FOR EXAM: Female, 51 years old. Respiratory Failure TECHNIQUE: Single AP portable view of the chest. COMPARISON: Comparison is made with prior examination dated 02/08/2022. FINDINGS: The endotracheal tube is in situ. The tip is at 2.1 cm proximal to the cortney. An orogastric tube is seen with the tip in the body of the stomach. Small right pleural effusion with atelectasis and/or infiltrate in the right lower lobe and right upper lobe. There has been improvement as compared to prior study. Mild residual changes are seen at the left lung base. There is no demonstrated pleural abnormality. Normal size heart. Normal mediastinum and ruthie. Normal visualized pulmonary arteries. Normal visualized aortic arch and descending thoracic aorta. There is a dextroscoliosis of the thoracic spine. Normal visualized ribs, clavicles, and shoulders. There is no demonstrated abnormality of the visualized soft tissue structures of the upper abdomen. RAD/Chest 1 View (Portable) IMPRESSION: Residual atelectasis and/or infiltrate in the right lung and left lung base although there has been improvement as compared to prior study. The tip of the endotracheal tube is at 2.1 cm proximal to the cortney. Electronically Signed: Donal Wagner MD at 8:31 EDT ,
[2022-02-10 06:55] LABS: Allen Test Positive; Base Excess 10 mmol/L (-2 to +2); Bicarbonate 34.3 mmol/L (22-26); Blood Gas Specimen Type ART; FI02 60; Mode AC; O2 Delivery Device Adult Vent; PEEP 5; PO2 70 mmHG (75-100); RR 14; SITE L Radial; SO2 94 % (95-99); Total Carbon Dioxide 36 mmol/L; Vt 450; pCO2 50.1 mmHg (35-45); pH 7.44 (7.35-7.45)
[2022-02-10] MEDS: Propofol 10MG/Ml 1,000 MG/100 ML Bottle 11.4 MG CONT INF ×4 (07:00→21:11)
[2022-02-10] MEDS: Potassium Chloride 10mEq/100mL 10 MEQ/100 ML IV.SOLN. 100 MEQ IV BOLUS ×4 (07:21→11:16)
[2022-02-10] MEDS: Chlorhexidine 15 ML PO ×2 (07:54→21:06)
[2022-02-10] MEDS: Enoxaparin 30 MG/0.3 ML Syringe SC ×2 (07:54→21:07)
[2022-02-10] MEDS: Famotidine 200 MG/20 ML MDV 20 MG in 0.9% Normal Saline (Pres. free 8 ML 300 MG IV ×2 (08:41→21:04)
[2022-02-10] MEDS: Furosemide 40 MG/4 ML Vial IV ×2 (08:41→17:08)
[2022-02-10] MEDS: Nystatin Powder 15gm Bottle 1 APPLIC TOPICAL ×2 (08:41→21:06)
[2022-02-10 09:21] LABS: Procalcitonin < 0.04 ng/mL (0.00-0.09)
--- NOTE | 2022-02-10 10:13 | PCM.PN.HOSP ---
Subjective Subjective Intubated and sedated. No issues overnight Objective Data Objective Data Vital Signs: Vital Signs Temp Pulse Resp BP Pulse Ox FiO2 99.1 F 71 25 H 146/58 H 100 60 02/10/22 08:58 02/10/22 08:58 02/10/22 08:58 02/10/22 08:58 02/10/22 08:58 02/10/22 08:00 Oxygen Flow Rate (L/min) 2 Oxygen Delivery Method Nasal Cannula Weight: 416 lb 10.778 oz Body Mass Index (BMI) 63.1 Intake & Output: Intake and Output for Last 24 Hours 02/09/22 02/10/22 02/11/22 03:59 03:59 03:59 Intake Total 498.08 / 569.68 2645.65 / 2769.26 610.83 / 610.83 Output Total 2400 / 2550 2125 / 2375 825 / 825 Balance -1901.92 / -1980.32 520.65 / 394.26 -214.17 / -214.17 Lab / Micro Data Result Diagrams: 02/10/22 03:10 02/10/22 03:10 Labs: Laboratory Results - last 24 hr 02/09/22 11:43: POC Glucose 195 H 02/09/22 17:14: POC Glucose 215 H 02/10/22 00:29: POC Glucose 202 H 02/10/22 03:10: WBC 13.1 H, RBC 4.62, Hgb 12.6, Hct 41.9, MCV 90.7, MCH 27.3, MCHC 30.1 L, RDW Std Deviation 53.7 H, RDW Coeff of Castillo 16.5 H, Plt Count 351, MPV 10.6, Immature Gran % (Auto) 0.500, Neut % (Auto) 90.4 H, Lymph % (Auto) 6.1 L, [place] % (Auto) 2.8, Eos % (Auto) 0.0, Baso % (Auto) 0.2, Absolute Neuts (auto) 11.8 H, Absolute Lymphs (auto) 0.79 L, Nucleated RBC % 0 02/10/22 03:10: Sodium 143, Potassium 3.3 L, Chloride 100, Carbon Dioxide 38.0 H, Anion Gap 5, BUN 14, Creatinine 0.76, Estim Creat Clear Calc 89.33, Est GFR (MDRD) Af Amer 103, Est GFR (MDRD) Non-Af 85, BUN/Creatinine Ratio 18.4, Glucose 206 H, Calcium 8.8, Total Bilirubin 0.40, AST 16, ALT 17, Alkaline Phosphatase 91, Total Protein 6.6, Albumin 2.4 L, Globulin 4.2, Albumin/Globulin Ratio 0.6 L, Triglycerides 146 02/10/22 05:43: POC Glucose 191 H 02/10/22 06:55: Procalcitonin < 0.04 Micro: Microbiology 02/08/22 17:32 Sputum, Induced/Lukens Gram Stain - Final 02/08/22 17:32 Sputum, Induced/Lukens Respiratory Culture - Preliminary Appears to be normal respiratory pierce. Further studies to follow. ABG Data ABG results: ABG 02/10/22 06:53 Specimen Type ART Sample Site L Radial pH 7.44 Bicarbonate Actual 34.3 H Total CO2 36 Base Excess 10 H O2 Saturation 94 L O2 % 60 ABG pCO2 50.1 H ABG pO2 70 L Erickson Test Positive Respiration Rate 14 O2 Delivery Device Adult Vent Vent Mode AC Tidal Volume 450 POC PEEP 5 Radiography Diagnostic Testing: Radiology Impression KUB X-Ray 02/09/22 16:10 IMPRESSION: 1. Transesophageal catheter identified with side-port below the GE junction and tip off the examination but probably within the distal stomach. 2. Prior cholecystectomy. 3. Unchanged appearance of the ET tube 4. Unchanged appearance of the chest including widening of the cardiomediastinal structures and hilar structures. Electronically Signed: Wil Orellana MD at 22:46 EDT , Chest X-Ray 02/10/22 06:37 IMPRESSION: Residual atelectasis and/or infiltrate in the right lung and left lung base although there has been improvement as compared to prior study. The tip of the endotracheal tube is at 2.1 cm proximal to the cortney. Electronically Signed: Donal Wagner MD at 8:31 EDT , Rhythm Strip Rhythm Strip: Sinus Rhythm Rate: 86 Ectopy: None Physical Exam Const General Appearance: intubated and patient mechanically ventilated HEENT normocephalic Eyes PERRL and conjunctivae normal Neck supple and no JVD Resp normal respiratory effort, no retractions and no use of accessory muscles Auscultation: diminished lung sounds; Negative for crackles, rales, rhonchi or wheezes Cardio regular rate, regular rhythm, S1 normal heart sound, S2 normal heart sound and no murmurs GI soft to palpation and non-distended; Negative for hepatosplenomegaly Extremity General Extremity: edema Skin Skin Narrative: Bilateral venous stasis changes Neuro Sensorium / Orientation: sedated on vent Psych Appearance: intubated Assessment & Plan Assessment/Plan (1) Acute respiratory failure with hypoxia and hypercapnia: PLAN: Plan 1. Acute hypoxic and hypercapnic respiratory failure secondary to possible pulmonary edema due to pulmonary hypertension ? We will start her on Lasix ? We will obtain an echo, she was also started on antibiotics and steroids given the possibility for infection and COPD ? Continue with intubation and Young placement ? We will admit to the ICU and consult the hydrologic modeler ? Continue with Pepcid for prophylaxis ? CT of the chest with indications of pulmonary edema and pulmonary hypertension 2. Super morbid obesity ? BMI is 63.6 ? Once extubated and alert we will discussed lifestyle modifications DVT: Lovenox Charges/Coding Visit Charges Inpatient E&M: 09081 Subs Hosp L2
--- NOTE | 2022-02-10 11:30 | CASEMGMT ---
RN CM called friend Olivia for initial transition planning/care coordination assessment as patient is currently intubated. LILIAN VERNON introduced self and role at [facility]. Olivia Dale is patient's cousin, whom lives with patient. Olivia willing to participate in assessment and is able to answer all questions appropriately. Care providers, pharmacy, and demographics verified. Discharge disposition unable to be determined at this time, will monitor course of treatment and progress with therapy. Per Olivia, patient had been falling at home and having difficulty ambulating stairs to second floor apartment. Dorothy has 2 sons, see contact info below. Olivia states she has no further needs or concerns at this time. CM to follow for discharge planning needs that may arise. PCP: Yelena Grider Specialists: none Preferred Pharmacy: [facility] Anabel Insurance: none Prescription Benefit: none Living Will/HPOA: none LNOK: juan carlos Irizarry [phone]; Ilda Irizarry [phone] Living Arrangements: Patient lives with cousin Olivia in a second floor apartment. Patient was independent at home and ambulating stairs. Per Olivia, patient has been having more difficulty with stairs. Patient has also fallen 3 times in the last 2 weeks. Transportation: self, cousin DME/HHC: Patient has cane and walker at home. No previous HHC or SNF. Patient smokes appoximately 1/2 pack of cigarettes per day and drinks alcohol on special occasions. Disposition Plan: TBD by course of treatment and progress with therapy. Kyra ZAVALA, RN, CM
[2022-02-10 11:51] LABS: Bedside Glucose 207 mg/dL (74-106)
[2022-02-10] MEDS: levoFLOXacin IV 750 MG/150 ML BAG 100 MG IV (12:35)
[2022-02-10] MEDS: Vital High Protein 1,000 ML 65 ML GT (14:20)
[2022-02-10 17:06] LABS: Bedside Glucose 223 mg/dL (74-106)
[2022-02-10] MEDS: Dexmedetomidine 1,000 mcg in 0.9% NS 240 mL 56.7 MCG CONT INF (21:00)
[2022-02-11] VITALS (33 sets, daily range): BP systolic 113–145; BP diastolic 51–89; PULSE 66–80; RESP 14–115; TEMP 37.7–38.6; O2SAT 91–96
[2022-02-11 00:20] LABS: Bedside Glucose 220 mg/dL (74-106)
[2022-02-11] MEDS: Insulin Lispro 100 UNIT/ML INSULN.PEN SC ×5 (00:26→23:37)
[2022-02-11] MEDS: Dexmedetomidine 1,000 mcg in 0.9% NS 240 mL 70.9 MCG CONT INF ×7 (00:55→23:40)
[2022-02-11] MEDS: Ipratropium/Albuterol Sulfate 3 ML AMPUL.NEB INHALATION ×3 (01:35→19:27)
[2022-02-11 02:58] LABS: Absolute Lymphocyte Count 0.94 X10^3/uL (0.83-4.51); Absolute Neutrophil Count 13.7 X10^3/uL (2.0-7.7); Basophil# 0.02 X10^3/uL; Basophil% 0.1 % (0-1); Hematocrit 43.3 % (37-47); Hemoglobin 12.8 g/dL (12.0-15.0); Lymphocyte # 0.94 X10^3/ul (0.83-4.51); Lymphocyte % 6.1 % (19-41); Mean Corp Hgb Conc 29.6 g/dL (32-36); Mean Corpuscular Volume 91.4 fL (81-99); Mean Platelet Vol. 10.7 fl (6.2-12.0); Monocyte# 0.66 X10^3/uL; Monocyte% 4.3 % (0-10); NRBC Flagged by Analyzer 0 % (0-5); Neutrophil # 13.69 X10^3/uL (2.7-7.7); Neutrophil % 89.1 % (47-70); Platelet Count 358 K/mm3 (150-450); RBC Distribution Width CV 16.7 % (11.6-14.6); RBC Distribution Width SD 55.3 fl (35.1-43.9); Red Blood Count 4.74 M/mm3 (4.2-5.4); White Blood Count 15.4 K/mm3 (4.4-11.0)
[2022-02-11] MEDS: Propofol 10MG/Ml 1,000 MG/100 ML Bottle 11.4 MG CONT INF ×4 (03:00→21:15)
[2022-02-11 03:14] LABS: ALB/GLOB Ratio 0.6 RATIO (0.9-2.4); AST(SGOT) 12 U/L (15-37); Alanine Aminotransfer ALT/SGPT 17 U/L (13-56); Albumin, Serum 2.4 g/dL (3.2-5.0); Alkaline Phosphatase 79 U/L (45-117); Anion Gap 4 (5-15); BUN 21 mg/dL (7-18); BUN/Creat Ratio 24.4 RATIO (10-20); Calcium,Total 8.5 mg/dL (8.5-10.1); Chloride 102 mmol/L (98-107); Creatinine, Serum 0.86 mg/dL (0.55-1.02); EST Glomerular Filtration Rate 74 mL/min (>60); Est Glom Filt Rate - Afr Amer 90 mL/min (>60); Estimated Creatinine Clearance 78.95 ml/min; Globulin 4.1 g/dL (2.2-4.2); Glucose 250 mg/dL (74-106); Potassium 3.8 mmol/L (3.5-5.1); Protein, Total 6.5 g/dL (6.4-8.2); Sodium Level 144 mmol/L (136-145)
[2022-02-11] MEDS: Vital High Protein 1,000 ML 65 ML GT ×2 (05:00→16:48)
[2022-02-11] MEDS: 0.9% Saline Lock 10 ML Syringe IV ×2 (06:14→20:35)
[2022-02-11 06:20] LABS: Bedside Glucose 215 mg/dL (74-106)
--- NOTE | 2022-02-11 06:28 | PN.CC_ITS ---
Assessment & Plan Assessment/Plan (1) Acute respiratory failure with hypoxia and hypercapnia: PLAN: Plan RECOMMENDATIONS: 1. Broaden antimicrobials and obtain MRSA screen. 2. Continue diuresis as tolerated by hemodynamics and renal function. 3. Continue tube feeds as tolerated. 4. Start bowel regimen today. 5. Continue bronchodilators and steroids. 6. Continue appropriate DVT and GI prophylaxis. IMPRESSIONS: 1. Acute on chronic combined respiratory failure Possible etiologies for acute decompensation include decompensated heart failure versus COPD exacerbation secondary to bilateral pneumonia. The patient apparently has an extensive tobacco abuse history along with a questionable history of obstructive lung disease. In addition, she likely has underlying pulmonary hypertension. Plan to continue empiric antimicrobials while awaiting infectious work-up. In addition, the patient will be continued on scheduled bronchodilators and IV steroids. Continue gentle diuresis as tolerated by hemodynamics and renal function. Plan to continue tube feeds as tolerated. The patient likely has underlying sleep disordered breathing along with alveolar hypoventilation secondary to obesity. She would benefit from outpatient pulmonary follow-up and smoking cessation. 2. Super morbid obesity/suspected sleep apnea/chronic tobacco dependency/diabetes mellitus Complicates care, management, recovery and prognosis. Continue sliding scale insulin coverage along with tube feeds as tolerated. Physical therapy will need to work with the patient once respiratory status improves. TIME: 33 minutes of critical care time, independent of procedures, was spent addressin g the patient's acute on chronic combined respiratory failure, COPD with exacerbation, review of all data and collaboration with the care team. Subjective Subjective The patient was seen and examined at the bedside this morning. Events from the last 24 hours have been reviewed. The patient did spike a fever overnight to 101.2 ?F. She remains otherwise hemodynamically stable. The patient remains on assist control mode of mechanical ventilation with an FiO2 requirement of 55% and PEEP of 5. She is currently tolerating tube feeds. The patient is currently documented to be overall net -4 L for the hospitalization. White count is elevated at 15,000. Creatinine is stable. Objective Data Objective Data The patient's most recent lab work, culture data and imaging studies have all been personally reviewed. Surface echocardiogram demonstrated an ejection fraction of 65%. Blood, urine and sputum cultures are pending. Strep and urine Legionella antigens were negative. Vital Signs: Vital Signs Temp Pulse Resp BP Pulse Ox FiO2 100 F H 68 16 134/79 H 93 55 02/11/22 04:00 02/11/22 06:00 02/11/22 06:00 02/11/22 06:00 02/11/22 06:00 02/11/22 06:00 Oxygen Flow Rate (L/min) 2 Oxygen Delivery Method Mechanical Ventilator Weight: 416 lb 10.778 oz Body Mass Index (BMI) 63.1 Intake & Output: Intake and Output for Last 24 Hours 02/09/22 02/10/22 02/11/22 23:59 23:59 23:59 Intake Total 2309.03 / 2439.33 3232.89 / 3430.19 1771.10 / 1771.10 Output Total 2225 / 2350 6100 / 6350 1350 / 1350 Balance 84.03 / 89.33 -2867.11 / -2919.81 421.10 / 421.10 Lab / Micro Data Attestation: I reviewed the patient's lab results. Result Diagrams: 02/11/22 02:42 02/11/22 02:42 Labs: Laboratory Results - last 24 hr 02/10/22 06:55: Procalcitonin < 0.04 02/10/22 11:36: POC Glucose 207 H 02/10/22 16:58: POC Glucose 223 H 02/11/22 00:16: POC Glucose 220 H 02/11/22 02:42: WBC 15.4 H, RBC 4.74, Hgb 12.8, Hct 43.3, MCV 91.4, MCH 27.0, MCHC 29.6 L, RDW Std Deviation 55.3 H, RDW Coeff of Castillo 16.7 H, Plt Count 358, MPV 10.7, Immature Gran % (Auto) 0.400, Neut % (Auto) 89.1 H, Lymph % (Auto) 6.1 L, [place] % (Auto) 4.3, Eos % (Auto) 0.0, Baso % (Auto) 0.1, Absolute Neuts (auto) 13.7 H, Absolute Lymphs (auto) 0.94, Nucleated RBC % 0 02/11/22 02:42: Sodium 144, Potassium 3.8, Chloride 102, Carbon Dioxide 38.0 H, Anion Gap 4 L, BUN 21 H, Creatinine 0.86, Estim Creat Clear Calc 78.95, Est GFR (MDRD) Af Amer 90, Est GFR (MDRD) Non-Af 74, BUN/Creatinine Ratio 24.4 H, Glucose 250 H, Calcium 8.5, Total Bilirubin 0.30, AST 12 L, ALT 17, Alkaline Phosphatase 79, Total Protein 6.5, Albumin 2.4 L, Globulin 4.1, Albumin/Globulin Ratio 0.6 L 02/11/22 06:13: POC Glucose 215 H Micro: Microbiology 02/11/22 02:45 Urine Catheter - Young Legionella Antigen - Final 02/11/22 02:45 Urine Catheter - Young Streptococcus pneumoniae Antigen (M - Final 02/08/22 17:32 Sputum, Induced/Lukens Gram Stain - Final 02/08/22 17:32 Sputum, Induced/Lukens Respiratory Culture - Preliminary Appears to be normal respiratory pierce. Further studies to follow. ABG Data ABG results: ABG 02/10/22 06:53 Specimen Type ART Sample Site L Radial pH 7.44 Bicarbonate Actual 34.3 H Total CO2 36 Base Excess 10 H O2 Saturation 94 L O2 % 60 ABG pCO2 50.1 H ABG pO2 70 L Erickson Test Positive Respiration Rate 14 O2 Delivery Device Adult Vent Vent Mode AC Tidal Volume 450 POC PEEP 5 Radiography Diagnostic Testing: Radiology Impression Echocardiogram 02/08/22 16:43 Interpretation Summary The study was technically difficult. Contrast injection was performed. Based upon the 2D echocardiographic and contrast enhanced images obtained there appears to be grossly normal left ventricular size, wall motion, and systolic function. The estimated ejection fraction is 65 %. No evidence for diastolic dysfunction. Ordering Physician: David Aj Performed By: Sonam Art RCS Chest X-Ray 02/10/22 06:37 IMPRESSION: Residual atelectasis and/or infiltrate in the right lung and left lung base although there has been improvement as compared to prior study. The tip of the endotracheal tube is at 2.1 cm proximal to the cortney. Electronically Signed: Donal Wagner MD at 8:31 EDT , Rhythm Strip Rhythm Strip: Sinus Rhythm Rate: 86 Ectopy: None Physical Exam Const General Appearance: ill appearing, intubated and patient mechanically ventilated Nutritional Appearance: morbidly obese HEENT normocephalic and head/scalp atraumatic Mouth: endotracheal tube in place and OG tube in place Eyes PERRL and EOMs intact bilaterally Neck supple General: trachea midline Chest inspection of chest normal Resp Auscultation: diminished lung sounds Cardio regular rate and regular rhythm GI normal to inspection, nondistended, normoactive bowel sounds Extremity General Extremity: edema bilateral lower extremity; Negative for clubbing Skin General Skin Exam: venous stasis and dermatitis Neuro Sensorium / Orientation: sedated on vent Charges/Coding Procedures Hospitalists Procedures: [id number] Critial Care 1st Hr
[2022-02-11] MEDS: Furosemide 40 MG/4 ML Vial IV ×2 (08:18→16:50)
[2022-02-11] MEDS: Chlorhexidine 15 ML PO ×2 (08:18→20:33)
[2022-02-11] MEDS: Enoxaparin 30 MG/0.3 ML Syringe SC ×2 (08:20→20:33)
[2022-02-11] MEDS: Nystatin Powder 15gm Bottle 1 APPLIC TOPICAL ×2 (08:21→20:33)
[2022-02-11] MEDS: Famotidine 200 MG/20 ML MDV 20 MG in 0.9% Normal Saline (Pres. free 8 ML 330 MG IV ×2 (08:36→20:34)
[2022-02-11] MEDS: Senna/Docusate Sodium 1 Tablet 2 TABLET PO ×2 (08:36→20:36)
--- NOTE | 2022-02-11 08:56 | PCM.RX.CS ---
Consult Pharmacy has been consulted to manage selected antiobiotic: Vancomycin Type of Consult: New start Labs: Sodium 144 mmol/L (136-145) 02/11/22 02:42 Potassium 3.8 mmol/L (3.5-5.1) 02/11/22 02:42 Chloride 102 mmol/L (98-107) 02/11/22 02:42 Carbon Dioxide 38.0 mmol/L (21.0-32.0) H 02/11/22 02:42 Anion Gap 4 (5-15) L 02/11/22 02:42 BUN 21 mg/dL (7-18) H 02/11/22 02:42 Creatinine 0.86 mg/dL (0.55-1.02) 02/11/22 02:42 Est GFR (MDRD) Af Amer 90 mL/min (>60) 02/11/22 02:42 Est GFR (MDRD) Non-Af 74 mL/min (>60) 02/11/22 02:42 BUN/Creatinine Ratio 24.4 RATIO (10-20) H 02/11/22 02:42 Glucose 250 mg/dL (74-106) H 02/11/22 02:42 Microbiology: Microbiology 02/08/22 17:32 Sputum, Induced/Lukens Gram Stain - Final 02/08/22 17:32 Sputum, Induced/Lukens Respiratory Culture - Final Presumptive C albicans Mixed Rani 02/11/22 02:45 Urine Catheter - Young Legionella Antigen - Final 02/11/22 02:45 Urine Catheter - Young Streptococcus pneumoniae Antigen (M - Final Weight used for dosin kg Estimated Creatinine Clearance: 140ML/MIN Goal Trough: 15-20 mcg/mL Pharmacy Plan for Drug Dosing: Give initial load dose of 2000mg IV x1, then will continue with 2000mg IV q12h. The patient's CrCl of 140ml/min was calculated using an adjusted body weight of 113.9kg which was a large difference from the CrCl of 79 ml/min using ideal body weight. Noting that and also noting that the patient is on several more IV's at this time, elected to dose at 2000mg q12h instead of another dose using an q8h frequency. Can always adjust to a dose at q8h later if levels indicate to go to that. Pharmacy Service will continue to monitor and adjust dosing as required. Follow-Up Labs: Trough Vancomycin Labs to be done on [date and time ordered]: 02/12/22 18:30
--- NOTE | 2022-02-11 08:59 | PN.HOSP_ITS ---
Subjective Subjective No issues overnight. EF of 65% on echo. We will continue to try to diurese and get her off the vent Objective Data Objective Data Vital Signs: Vital Signs Temp Pulse Resp BP Pulse Ox FiO2 100 F H 68 21 H 120/64 91 50 02/11/22 04:00 02/11/22 07:00 02/11/22 07:00 02/11/22 07:00 02/11/22 07:00 02/11/22 07:00 Oxygen Flow Rate (L/min) 2 Oxygen Delivery Method Mechanical Ventilator Weight: 416 lb 10.778 oz Body Mass Index (BMI) 63.1 Intake & Output: Intake and Output for Last 24 Hours 02/10/22 02/11/22 02/12/22 03:59 03:59 03:59 Intake Total 2645.65 / 2769.26 3185.98 / 3372.07 1492.23 / 1492.23 Output Total 2125 / 2375 6400 / 6800 800 / 800 Balance 520.65 / 394.26 -3214.02 / -3427.93 692.23 / 692.23 Lab / Micro Data Result Diagrams: 02/11/22 02:42 02/11/22 02:42 Labs: Laboratory Results - last 24 hr 02/10/22 06:55: Procalcitonin < 0.04 02/10/22 11:36: POC Glucose 207 H 02/10/22 16:58: POC Glucose 223 H 02/11/22 00:16: POC Glucose 220 H 02/11/22 02:42: WBC 15.4 H, RBC 4.74, Hgb 12.8, Hct 43.3, MCV 91.4, MCH 27.0, MCHC 29.6 L, RDW Std Deviation 55.3 H, RDW Coeff of Castillo 16.7 H, Plt Count 358, MPV 10.7, Immature Gran % (Auto) 0.400, Neut % (Auto) 89.1 H, Lymph % (Auto) 6.1 L, [place] % (Auto) 4.3, Eos % (Auto) 0.0, Baso % (Auto) 0.1, Absolute Neuts (auto) 13.7 H, Absolute Lymphs (auto) 0.94, Nucleated RBC % 0 02/11/22 02:42: Sodium 144, Potassium 3.8, Chloride 102, Carbon Dioxide 38.0 H, Anion Gap 4 L, BUN 21 H, Creatinine 0.86, Estim Creat Clear Calc 78.95, Est GFR (MDRD) Af Amer 90, Est GFR (MDRD) Non-Af 74, BUN/Creatinine Ratio 24.4 H, Glucose 250 H, Calcium 8.5, Total Bilirubin 0.30, AST 12 L, ALT 17, Alkaline Phosphatase 79, Total Protein 6.5, Albumin 2.4 L, Globulin 4.1, Albumin/Globulin Ratio 0.6 L 02/11/22 06:13: POC Glucose 215 H Micro: Microbiology 02/08/22 17:32 Sputum, Induced/Lukens Gram Stain - Final 02/08/22 17:32 Sputum, Induced/Lukens Respiratory Culture - Final Presumptive C albicans Mixed Rani 02/11/22 02:45 Urine Catheter - Young Legionella Antigen - Final 02/11/22 02:45 Urine Catheter - Young Streptococcus pneumoniae Antigen (M - Final Radiography Diagnostic Testing: Radiology Impression Echocardiogram 02/08/22 16:43 Interpretation Summary The study was technically difficult. Contrast injection was performed. Based upon the 2D echocardiographic and contrast enhanced images obtained there appears to be grossly normal left ventricular size, wall motion, and systolic function. The estimated ejection fraction is 65 %. No evidence for diastolic dysfunction. Ordering Physician: David Aj Performed By: Sonam Art RCS Rhythm Strip Rhythm Strip: Sinus Rhythm Rate: 86 Ectopy: None Physical Exam Narrative Const General Appearance: intubated and patient mechanically ventilated HEENT normocephalic Eyes PERRL and conjunctivae normal Neck supple and no JVD Resp normal respiratory effort, no retractions and no use of accessory muscles Auscultation: diminished lung sounds; Negative for crackles, rales, rhonchi or wheezes Cardio regular rate, regular rhythm, S1 normal heart sound, S2 normal heart sound and no murmurs GI soft to palpation and non-distended; Negative for hepatosplenomegaly Extremity General Extremity: edema Skin Skin Narrative: Bilateral venous stasis changes Neuro Sensorium / Orientation: sedated on vent Psych Appearance: intubated Assessment & Plan Assessment/Plan (1) Acute respiratory failure with hypoxia and hypercapnia: PLAN: Plan 1. Acute hypoxic and hypercapnic respiratory failure secondary to possible pulmonary edema due to pulmonary hypertension ? We will start her on Lasix ? Echo with an EF of 65% ? She was also started on antibiotics and steroids given the possibility for infection and COPD ? Continue with intubation and Young placement ? We will admit to the ICU and consult the visual associate ? Continue with Pepcid for prophylaxis ? CT of the chest with indications of pulmonary edema and pulmonary hypertension 2. Super morbid obesity ? BMI is 63.6 ? Once extubated and alert we will discussed lifestyle modifications DVT: Lovenox Charges/Coding Visit Charges Inpatient E&M: 94215 Subs Hosp L2
[2022-02-11 10:34] LABS: M R Staph aureus DNA By PCR Negative (Negative); Probe Check PASS; Specimen Processing Control PASS
[2022-02-11 11:21] LABS: Bedside Glucose 226 mg/dL (74-106)
[2022-02-11] MEDS: Acetaminophen 650 MG/20 ML UDC NG ×2 (12:54→20:34)
[2022-02-11 17:01] LABS: Bedside Glucose 194 mg/dL (74-106)
[2022-02-11 23:46] LABS: Bedside Glucose 257 mg/dL (74-106)
[2022-02-12] VITALS (38 sets, daily range): BP systolic 110–146; BP diastolic 46–91; PULSE 69–87; RESP 14–23; TEMP 37.7–38.6; O2SAT 90–97
[2022-02-12] MEDS: Ipratropium/Albuterol Sulfate 3 ML AMPUL.NEB INHALATION ×4 (01:36→18:51)
[2022-02-12] MEDS: Dexmedetomidine 1,000 mcg in 0.9% NS 240 mL 70.9 MCG CONT INF ×6 (03:30→22:12)
[2022-02-12] MEDS: Propofol 10MG/Ml 1,000 MG/100 ML Bottle 5.7 MG CONT INF (03:30)
[2022-02-12 04:23] LABS: Absolute Lymphocyte Count 1.35 X10^3/uL (0.83-4.51); Absolute Neutrophil Count 11.6 X10^3/uL (2.0-7.7); Basophil# 0.03 X10^3/uL; Basophil% 0.2 % (0-1); Hemoglobin 12.5 g/dL (12.0-15.0); Lymphocyte # 1.35 X10^3/ul (0.83-4.51); Lymphocyte % 9.7 % (19-41); Mean Corp Hgb Conc 29.8 g/dL (32-36); Mean Corpuscular Hgb 27.2 pg (27.0-32.0); Mean Corpuscular Volume 91.3 fL (81-99); Mean Platelet Vol. 10.2 fl (6.2-12.0); Monocyte# 0.87 X10^3/uL; Monocyte% 6.3 % (0-10); NRBC Flagged by Analyzer 0 % (0-5); Neutrophil # 11.56 X10^3/uL (2.7-7.7); Neutrophil % 83.4 % (47-70); Platelet Count 309 K/mm3 (150-450); RBC Distribution Width CV 16.9 % (11.6-14.6); RBC Distribution Width SD 56.4 fl (35.1-43.9); White Blood Count 13.9 K/mm3 (4.4-11.0)
[2022-02-12 04:40] LABS: ALB/GLOB Ratio 0.6 RATIO (0.9-2.4); AST(SGOT) 16 U/L (15-37); Alanine Aminotransfer ALT/SGPT 18 U/L (13-56); Albumin, Serum 2.4 g/dL (3.2-5.0); Alkaline Phosphatase 66 U/L (45-117); Anion Gap 6 (5-15); BUN 23 mg/dL (7-18); BUN/Creat Ratio 35.3 RATIO (10-20); Calcium,Total 8.5 mg/dL (8.5-10.1); Chloride 102 mmol/L (98-107); Creatinine, Serum 0.65 mg/dL (0.55-1.02); EST Glomerular Filtration Rate 102 mL/min (>60); Est Glom Filt Rate - Afr Amer 124 mL/min (>60); Estimated Creatinine Clearance 104.45 ml/min; Globulin 3.9 g/dL (2.2-4.2); Glucose 222 mg/dL (74-106); Potassium 4.1 mmol/L (3.5-5.1); Protein, Total 6.3 g/dL (6.4-8.2); Sodium Level 145 mmol/L (136-145)
[2022-02-12 04:59] LABS: Magnesium 2.3 mg/dL (1.6-2.6); Phosphorus 3.5 mg/dL (2.5-4.9)
[2022-02-12] MEDS: Insulin Lispro 100 UNIT/ML INSULN.PEN SC ×4 (05:29→23:52)
[2022-02-12 05:46] LABS: Bedside Glucose 199 mg/dL (74-106)
--- NOTE | 2022-02-12 05:48 | PN.CC_ITS ---
Assessment & Plan Assessment/Plan (1) Acute respiratory failure with hypoxia and hypercapnia: PLAN: Plan RECOMMENDATIONS: 1. Continue antimicrobials. Okay to discontinue vancomycin given negative MRSA screen. 2. Continue diuresis as tolerated by hemodynamics and renal function. 3. Continue tube feeds as tolerated. 4. Continue bronchodilators and steroids. 5. Continue appropriate DVT and GI prophylaxis. 6. Aggressive bowel regimen. IMPRESSIONS: 1. Acute on chronic combined respiratory failure Possible etiologies for acute decompensation include decompensated heart failure versus COPD exacerbation secondary to bilateral pneumonia. The patient apparently has an extensive tobacco abuse history along with a questionable history of obstructive lung disease. In addition, she likely has underlying pulmonary hypertension. Plan to continue empiric antimicrobials while awaiting infectious work-up. In addition, the patient will be continued on scheduled bronchodilators and IV steroids. Continue gentle diuresis as tolerated by hemodynamics and renal function. Plan to continue tube feeds as tolerated. The patient likely has underlying sleep disordered breathing along with alveolar hypoventilation secondary to obesity. She would benefit from outpatient pulmonary follow-up and smoking cessation. 2. Super morbid obesity/suspected sleep apnea/chronic tobacco dependency/diabetes mellitus Complicates care, management, recovery and prognosis. Continue sliding scale insulin coverage along with tube feeds as tolerated. Physical therapy will need to work with the patient once respiratory status improves. TIME: 31 minutes of critical care time, independent of procedures, was spent addressing the patient's acute on chronic combined respiratory failure, COPD with exacerbation, review of all data and collaboration with the care team. Subjective Subjective The patient was seen and examined at the bedside this morning. Events from the last 24 hours have been reviewed. The patient continues to have low-grade fevers but remains otherwise hemodynamically stable. She remains on assist control mode mechanical ventilation with an FiO2 requirement of 55% and PEEP of 5. The patient is documented to be overall net -6.5 L for the hospitalization. No overnight events were noted by the nursing staff. Objective Data Objective Data The patient's most recent lab work, culture data and imaging studies have all been personally reviewed. Surface echocardiogram demonstrated an ejection fraction of 65%. Blood, urine and sputum cultures are pending. Strep and urine Legionella antigens were negative. Vital Signs: Vital Signs Temp Pulse Resp BP Pulse Ox FiO2 100.3 F H 77 14 146/91 H 95 50 02/12/22 04:00 02/12/22 05:02 02/12/22 05:02 02/12/22 05:00 02/12/22 05:02 02/12/22 05:02 Oxygen Flow Rate (L/min) 2 Oxygen Delivery Method Mechanical Ventilator Weight: 416 lb 10.778 oz Body Mass Index (BMI) 63.1 Intake & Output: Intake and Output for Last 24 Hours 02/10/22 02/11/22 02/12/22 23:59 23:59 23:59 Intake Total 3232.89 / 3430.19 5820.51 / 5975.54 834.27 / 834.27 Output Total 6100 / 6350 7750 / 8100 950 / 950 Balance -2867.11 / -2919.81 -1929.49 / -2124.46 -115.73 / -115.73 Lab / Micro Data Attestation: I reviewed the patient's lab results. Result Diagrams: 02/12/22 03:55 02/12/22 03:55 Labs: Laboratory Results - last 24 hr 02/11/22 06:13: POC Glucose 215 H 02/11/22 06:40: MRSA (PCR) Negative 02/11/22 11:16: POC Glucose 226 H 02/11/22 16:53: POC Glucose 194 H 02/11/22 23:35: POC Glucose 257 H 02/12/22 03:55: WBC 13.9 H, RBC 4.60, Hgb 12.5, Hct 42.0, MCV 91.3, MCH 27.2, MCHC 29.8 L, RDW Std Deviation 56.4 H, RDW Coeff of Castillo 16.9 H, Plt Count 309, MPV 10.2, Immature Gran % (Auto) 0.400, Neut % (Auto) 83.4 H, Lymph % (Auto) 9.7 L, [place] % (Auto) 6.3, Eos % (Auto) 0.0, Baso % (Auto) 0.2, Absolute Neuts (auto) 11.6 H, Absolute Lymphs (auto) 1.35, Nucleated RBC % 0 02/12/22 03:55: Sodium 145, Potassium 4.1, Chloride 102, Carbon Dioxide 37.0 H, Anion Gap 6, BUN 23 H, Creatinine 0.65, Estim Creat Clear Calc 104.45, Est GFR (MDRD) Af Amer 124, Est GFR (MDRD) Non-Af 102, BUN/Creatinine Ratio 35.3 H, Glucose 222 H, Calcium 8.5, Total Bilirubin 0.40, AST 16, ALT 18, Alkaline Phosphatase 66, Total Protein 6.3 L, Albumin 2.4 L, Globulin 3.9, Albumin/Globulin Ratio 0.6 L 02/12/22 03:55: Phosphorus 3.5, Magnesium 2.3 02/12/22 05:27: POC Glucose 199 H Micro: Microbiology 02/08/22 17:32 Sputum, Induced/Lukens Gram Stain - Final 02/08/22 17:32 Sputum, Induced/Lukens Respiratory Culture - Final Presumptive C albicans Mixed Rani 02/11/22 02:45 Urine Catheter - Young Legionella Antigen - Final 02/11/22 02:45 Urine Catheter - Young Streptococcus pneumoniae Antigen (M - Final ABG Data ABG results: ABG 02/10/22 06:53 Specimen Type ART Sample Site L Radial pH 7.44 Bicarbonate Actual 34.3 H Total CO2 36 Base Excess 10 H O2 Saturation 94 L O2 % 60 ABG pCO2 50.1 H ABG pO2 70 L Erickson Test Positive Respiration Rate 14 O2 Delivery Device Adult Vent Vent Mode AC Tidal Volume 450 POC PEEP 5 Radiography Diagnostic Testing: Radiology Impression Echocardiogram 02/08/22 16:43 Interpretation Summary The study was technically difficult. Contrast injection was performed. Based upon the 2D echocardiographic and contrast enhanced images obtained there appears to be grossly normal left ventricular size, wall motion, and systolic function. The estimated ejection fraction is 65 %. No evidence for diastolic dysfunction. Ordering Physician: David Aj Performed By: Sonam Art RCS Chest X-Ray 02/10/22 06:37 IMPRESSION: Residual atelectasis and/or infiltrate in the right lung and left lung base although there has been improvement as compared to prior study. The tip of the endotracheal tube is at 2.1 cm proximal to the cortney. Electronically Signed: Donal Wagner MD at 8:31 EDT , Rhythm Strip Rhythm Strip: Sinus Rhythm Rate: 86 Ectopy: None Physical Exam Const General Appearance: intubated and patient mechanically ventilated Nutritional Appearance: morbidly obese HEENT normocephalic and head/scalp atraumatic Mouth: endotracheal tube in place and OG tube in place Eyes PERRL and EOMs intact bilaterally Neck supple General: trachea midline Chest inspection of chest normal Resp Auscultation: diminished lung sounds Cardio regular rate and regular rhythm GI normal to inspection, nondistended, normoactive bowel sounds Extremity General Extremity: edema bilateral lower extremity; Negative for clubbing Skin General Skin Exam: venous stasis and dermatitis Neuro Neuro Narrative: Able to follow simple commands. Sensorium / Orientation: sedated on vent Charges/Coding Procedures Hospitalists Procedures: [id number] Critial Care 1st Hr
[2022-02-12] MEDS: Acetaminophen 650 MG/20 ML UDC NG ×3 (06:14→23:24)
[2022-02-12] MEDS: Vital High Protein 1,000 ML 65 ML GT (08:23)
[2022-02-12] MEDS: Chlorhexidine 15 ML PO ×2 (08:24→21:59)
[2022-02-12] MEDS: Enoxaparin 30 MG/0.3 ML Syringe SC ×2 (08:50→21:58)
[2022-02-12] MEDS: Nystatin Powder 15gm Bottle 1 APPLIC TOPICAL ×2 (08:50→21:59)
[2022-02-12] MEDS: Furosemide 40 MG/4 ML Vial IV ×2 (08:50→17:42)
[2022-02-12] MEDS: Senna/Docusate Sodium 1 Tablet 2 TABLET PO ×2 (08:51→21:58)
[2022-02-12] MEDS: Famotidine 200 MG/20 ML MDV 20 MG in 0.9% Normal Saline (Pres. free 8 ML 330 MG IV (08:51)
--- NOTE | 2022-02-12 08:55 | PCM.PN.HOSP ---
Subjective Subjective Remains intubated and sedated, no issues overnight. Objective Data Objective Data Vital Signs: Vital Signs Temp Pulse Resp BP Pulse Ox FiO2 101.0 F H 80 14 132/82 H 91 55 02/12/22 08:00 02/12/22 08:00 02/12/22 08:00 02/12/22 08:00 02/12/22 08:00 02/12/22 08:00 Oxygen Flow Rate (L/min) 2 Oxygen Delivery Method Mechanical Ventilator Weight: 416 lb 10.778 oz Body Mass Index (BMI) 63.1 Intake & Output: Intake and Output for Last 24 Hours 02/11/22 02/12/22 02/13/22 03:59 03:59 03:59 Intake Total 3185.98 / 3372.07 5932.55 / 6090.85 1548.41 / 1548.41 Output Total 6400 / 6800 7800 / 8150 600 / 600 Balance -3214.02 / -3427.93 -1867.45 / -2059.15 948.41 / 948.41 Lab / Micro Data Result Diagrams: 02/12/22 03:55 02/12/22 03:55 Labs: Laboratory Results - last 24 hr 02/11/22 06:40: MRSA (PCR) Negative 02/11/22 11:16: POC Glucose 226 H 02/11/22 16:53: POC Glucose 194 H 02/11/22 23:35: POC Glucose 257 H 02/12/22 03:55: WBC 13.9 H, RBC 4.60, Hgb 12.5, Hct 42.0, MCV 91.3, MCH 27.2, MCHC 29.8 L, RDW Std Deviation 56.4 H, RDW Coeff of Castillo 16.9 H, Plt Count 309, MPV 10.2, Immature Gran % (Auto) 0.400, Neut % (Auto) 83.4 H, Lymph % (Auto) 9.7 L, [place] % (Auto) 6.3, Eos % (Auto) 0.0, Baso % (Auto) 0.2, Absolute Neuts (auto) 11.6 H, Absolute Lymphs (auto) 1.35, Nucleated RBC % 0 02/12/22 03:55: Sodium 145, Potassium 4.1, Chloride 102, Carbon Dioxide 37.0 H, Anion Gap 6, BUN 23 H, Creatinine 0.65, Estim Creat Clear Calc 104.45, Est GFR (MDRD) Af Amer 124, Est GFR (MDRD) Non-Af 102, BUN/Creatinine Ratio 35.3 H, Glucose 222 H, Calcium 8.5, Total Bilirubin 0.40, AST 16, ALT 18, Alkaline Phosphatase 66, Total Protein 6.3 L, Albumin 2.4 L, Globulin 3.9, Albumin/Globulin Ratio 0.6 L 02/12/22 03:55: Phosphorus 3.5, Magnesium 2.3 02/12/22 05:27: POC Glucose 199 H Micro: Microbiology 02/08/22 17:32 Sputum, Induced/Lukens Gram Stain - Final 02/08/22 17:32 Sputum, Induced/Lukens Respiratory Culture - Final Presumptive C albicans Mixed Rani 02/11/22 02:45 Urine Catheter - Young Legionella Antigen - Final 02/11/22 02:45 Urine Catheter - Young Streptococcus pneumoniae Antigen (M - Final Rhythm Strip Rhythm Strip: Sinus Rhythm Rate: 86 Ectopy: None Physical Exam Narrative Const General Appearance: intubated and patient mechanically ventilated HEENT normocephalic Eyes PERRL and conjunctivae normal Neck supple and no JVD Resp normal respiratory effort, no retractions and no use of accessory muscles Auscultation: diminished lung sounds; Negative for crackles, rales, rhonchi or wheezes Cardio regular rate, regular rhythm, S1 normal heart sound, S2 normal heart sound and no murmurs GI soft to palpation and non-distended; Negative for hepatosplenomegaly Extremity General Extremity: edema Skin Skin Narrative: Bilateral venous stasis changes Neuro Sensorium / Orientation: sedated on vent Psych Appearance: intubated Assessment & Plan Assessment/Plan (1) Acute respiratory failure with hypoxia and hypercapnia: PLAN: Plan 1. Acute hypoxic and hypercapnic respiratory failure secondary to possible pulmonary edema due to pulmonary hypertension ? We will start her on Lasix ? Echo with an EF of 65% ? She was also started on antibiotics and steroids given the possibility for infection and COPD ? Continue with intubation and Young placement ? We will admit to the ICU and consult the guest experience representative ? Continue with Pepcid for prophylaxis ? CT of the chest with indications of pulmonary edema and pulmonary hypertension 2. Super morbid obesity ? BMI is 63.6 ? Once extubated and alert we will discussed lifestyle modifications DVT: Lovenox Charges/Coding Visit Charges Inpatient E&M: 30106 Subs Hosp L2
[2022-02-12] MEDS: Polyethylene Glycol 3350 17 GM PACKET 34 GM PO (09:28)
[2022-02-12 12:06] LABS: Bedside Glucose 241 mg/dL (74-106)
--- NOTE | 2022-02-12 14:12 | CASEMGMT ---
ISATU called patient's cousin, Olivia. 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 Patient is currently on FMLA. Patient contacted [employer] and she can't complete Medicaid application until she gets her last check. She should have her last check this week. ISATU will assist patient with completing a Medicaid application when she is able. Ana Rosa COATES
[2022-02-12 17:51] LABS: Bedside Glucose 192 mg/dL (74-106)
[2022-02-12] MEDS: QUEtiapine 25 MG Tablet 50 MG PO (21:58)
[2022-02-12] MEDS: Famotidine 200 MG/20 ML MDV 20 MG in 0.9% Normal Saline (Pres. free 8 ML 300 MG IV (21:59)
[2022-02-12] MEDS: 0.9% Saline Lock 10 ML Syringe IV (22:00)
[2022-02-12] MEDS: CHLORHEXIDINE GLUC 2% CLOTH 1 EACH TOWELETTE TOPICAL (23:44)
[2022-02-13] VITALS (42 sets, daily range): BP systolic 90–122; BP diastolic 54–75; PULSE 69–99; RESP 14–29; TEMP 37–38.6; O2SAT 89–95
[2022-02-13 00:01] LABS: Bedside Glucose 216 mg/dL (74-106)
[2022-02-13] MEDS: Vital High Protein 1,000 ML 65 ML GT ×2 (00:03→20:38)
[2022-02-13] MEDS: Ipratropium/Albuterol Sulfate 3 ML AMPUL.NEB INHALATION ×4 (01:15→19:26)
[2022-02-13] MEDS: Dexmedetomidine 1,000 mcg in 0.9% NS 240 mL 56.7 MCG CONT INF (01:39)
[2022-02-13] MEDS: 0.9% Saline Lock 10 ML Syringe IV (05:32)
--- NOTE | 2022-02-13 05:47 | PN.CC_ITS ---
Assessment & Plan Assessment/Plan (1) Acute respiratory failure with hypoxia and hypercapnia: PLAN: Plan RECOMMENDATIONS: 1. Continue antimicrobials to complete 7 days of therapy. 2. Continue diuresis as tolerated by hemodynamics and renal function. 3. Maintain patient on spontaneous mode of mechanical ventilation, pending improvement in oxygenation and mentation. 4. Hold tube feeds for now. If the patient is not extubated today, tube feeds can be resumed. 5. Continue bronchodilators and steroids. 6. Continue appropriate DVT and GI prophylaxis. IMPRESSIONS: 1. Acute on chronic combined respiratory failure Possible etiologies for acute decompensation include decompensated heart failure versus COPD exacerbation secondary to bilateral pneumonia. The patient apparently has an extensive tobacco abuse history along with a questionable history of obstructive lung disease. In addition, she likely has underlying pul monary hypertension. Plan to continue empiric antimicrobials to complete 7 days of therapy. In addition, the patient will be continued on scheduled bronchodilators and IV steroids. Continue gentle diuresis as tolerated by hemodynamics and renal function. The patient likely has underlying sleep di sordered breathing along with alveolar hypoventilation secondary to obesity. She would benefit from outpatient pulmonary follow-up and smoking cessation. 2. Super morbid obesity/suspected sleep apnea/chronic tobacco dependency/diabetes mellitus Complicates care, management, recovery and prognosis. Continue sliding scale insulin coverage along with tube feeds as tolerated. Physical therapy to continue to work with the patient. TIME: 32 minutes of critical care time, independent of procedures, was spent addressing the patient's acute on chronic combined respiratory failure, COPD with exacerbation, review of all data and collaboration with the care team. Subjective Subjective The patient was seen and examined at the bedside this morning. Events from the last 24 hours have been reviewed. The patient currently has a low-grade fever but remains otherwise hemodynamically stable on assist control mode of mechanical ventilation with an FiO2 requirement of 40% and PEEP of 5. The patient is documented to be overall net -5.6 L for the hospitalization. Renal function remains stable. The patient has done relatively well on her breathing trial. However, her oxygen saturations are somewhat marginal and she is still somewhat sleepy. Objective Data Objective Data The patient's most recent lab work, culture data and imaging studies have all been personally reviewed. Surface echocardiogram demonstrated an ejection fraction of 65%. Blood, urine and sputum cultures have been unrevealing to date. Strep and urine Legionella antigens were negative. Vital Signs: Vital Signs Temp Pulse Resp BP Pulse Ox O2 Del Method O2 Flow Rate 100.2 F H 79 16 111/66 91 Mechanical Ventilator 2 02/13/22 05:00 02/13/22 05:00 02/13/22 05:17 02/13/22 05:00 02/13/22 05:00 02/13/22 05:00 02/10/22 08:00 FiO2 40 02/13/22 05:00 Oxygen Flow Rate (L/min) 2 Oxygen Delivery Method Mechanical Ventilator Weight: 416 lb 10.778 oz Body Mass Index (BMI) 63.1 Intake & Output: Intake and Output for Last 24 Hours 02/11/22 02/12/22 02/13/22 23:59 23:59 23:59 Intake Total 5820.51 / 5975.54 5212.61 / 5335.26 1826.37 / 1826.37 Output Total 7750 / 8100 5850 / 5850 350 / 350 Balance -1929.49 / -2124.46 -637.39 / -514.74 1476.37 / 1476.37 Lab / Micro Data Attestation: I reviewed the patient's lab results. Result Diagrams: 02/12/22 03:55 02/13/22 03:00 Labs: Laboratory Results - last 24 hr 02/12/22 12:00: POC Glucose 241 H 02/12/22 17:40: POC Glucose 192 H 02/12/22 23:51: POC Glucose 216 H Micro: Microbiology 02/11/22 02:45 Urine Catheter - Young Urine Culture - Preliminary Culture exhibits no growth. 02/11/22 02:45 Urine Catheter - Young Legionella Antigen - Final 02/11/22 02:45 Urine Catheter - Young Streptococcus pneumoniae Antigen (M - Final 02/08/22 17:32 Sputum, Induced/Lukens Gram Stain - Final 02/08/22 17:32 Sputum, Induced/Lukens Respiratory Culture - Final Presumptive C albicans Mixed Rani ABG Data ABG results: ABG 02/10/22 06:53 Specimen Type ART Sample Site L Radial pH 7.44 Bicarbonate Actual 34.3 H Total CO2 36 Base Excess 10 H O2 Saturation 94 L O2 % 60 ABG pCO2 50.1 H ABG pO2 70 L Erickson Test Positive Respiration Rate 14 O2 Delivery Device Adult Vent Vent Mode AC Tidal Volume 450 POC PEEP 5 Radiography Diagnostic Testing: Radiology Impression Echocardiogram 02/08/22 16:43 Interpretation Summary The study was technically difficult. Contrast injection was performed. Based upon the 2D echocardiographic and contrast enhanced images obtained there appears to be grossly normal left ventricular size, wall motion, and systolic function. The estimated ejection fraction is 65 %. No evidence for diastolic dysfunction. Ordering Physician: David Aj Performed By: Sonam Art RCS Chest X-Ray 02/10/22 06:37 IMPRESSION: Residual atelectasis and/or infiltrate in the right lung and left lung base although there has been improvement as compared to prior study. The tip of the endotracheal tube is at 2.1 cm proximal to the cortney. Electronically Signed: Donal Wagner MD at 8:31 EDT , Rhythm Strip Rhythm Strip: Sinus Rhythm Rate: 86 Ectopy: None Physical Exam Const alert General Appearance: cooperative, intubated and patient mechanically ventilated Nutritional Appearance: morbidly obese HEENT normocephalic and head/scalp atraumatic Mouth: endotracheal tube in place and OG tube in place Eyes PERRL and EOMs intact bilaterally Neck supple General: trachea midline Chest inspection of chest normal Resp Auscultation: diminished lung sounds Cardio regular rate and regular rhythm GI normal to inspection, nondistended, normoactive bowel sounds Extremity General Extremity: edema bilateral lower extremity; Negative for clubbing Skin General Skin Exam: venous stasis and dermatitis Neuro Neuro Narrative: Able to follow simple commands. Sensorium / Orientation: sedated on vent Charges/Coding Procedures Hospitalists Procedures: [id number] Critial Care 1st Hr
[2022-02-13] MEDS: Insulin Lispro 100 UNIT/ML INSULN.PEN SC ×4 (06:12→23:36)
[2022-02-13 06:15] LABS: Anion Gap 6 (5-15); BUN 28 mg/dL (7-18); BUN/Creat Ratio 37.6 RATIO (10-20); Calcium,Total 8.6 mg/dL (8.5-10.1); Chloride 102 mmol/L (98-107); Creatinine, Serum 0.74 mg/dL (0.55-1.02); EST Glomerular Filtration Rate 88 mL/min (>60); Est Glom Filt Rate - Afr Amer 106 mL/min (>60); Estimated Creatinine Clearance 91.75 ml/min; Glucose 242 mg/dL (74-106); Potassium 4.5 mmol/L (3.5-5.1); Sodium Level 144 mmol/L (136-145)
[2022-02-13 07:16] LABS: Bedside Glucose 199 mg/dL (74-106)
[2022-02-13] MEDS: Chlorhexidine 15 ML PO ×2 (10:09→20:36)
[2022-02-13] MEDS: CHLORHEXIDINE GLUC 2% CLOTH 1 EACH TOWELETTE TOPICAL (10:10)
[2022-02-13] MEDS: Furosemide 40 MG/4 ML Vial IV ×2 (10:10→18:16)
[2022-02-13] MEDS: Nystatin Powder 15gm Bottle 1 APPLIC TOPICAL ×2 (10:10→20:37)
[2022-02-13] MEDS: Senna/Docusate Sodium 1 Tablet 2 TABLET PO ×2 (10:10→20:35)
[2022-02-13] MEDS: Enoxaparin 30 MG/0.3 ML Syringe SC ×2 (10:10→20:36)
[2022-02-13] MEDS: QUEtiapine 25 MG Tablet 50 MG PO ×2 (10:11→20:36)
[2022-02-13] MEDS: Famotidine 200 MG/20 ML MDV 20 MG in 0.9% Normal Saline (Pres. free 8 ML 300 MG IV ×2 (10:13→21:01)
[2022-02-13] MEDS: Dexmedetomidine 1,000 mcg in 0.9% NS 240 mL 23.6 MCG CONT INF ×2 (13:24→23:45)
[2022-02-13 13:26] LABS: Bedside Glucose 196 mg/dL (74-106)
--- NOTE | 2022-02-13 17:58 | PN.HOSP_ITS ---
Subjective Subjective Seen and examined today in ICU, she remains on the ventilator at this time, she is lightly sedated and does answer some questions by nodding her head. Objective Data Objective Data Vital Signs: Vital Signs Temp Pulse Resp BP Pulse Ox O2 Del Method O2 Flow Rate 99.2 F H 75 15 109/59 L 90 Mechanical Ventilator 2 02/13/22 16:00 02/13/22 17:02 02/13/22 17:02 02/13/22 16:00 02/13/22 17:02 02/13/22 16:00 02/10/22 08:00 FiO2 50 02/13/22 17:02 Oxygen Flow Rate (L/min) 2 Oxygen Delivery Method Mechanical Ventilator Weight: 189 kg Body Mass Index (BMI) 63.1 Intake & Output: Intake and Output for Last 24 Hours 02/11/22 02/12/22 02/13/22 23:59 23:59 23:59 Intake Total 5820.51 / 5975.54 5212.61 / 5335.26 2142.36 / 2142.36 Output Total 7750 / 8100 5850 / 5850 2650 / 2650 Balance -1929.49 / -2124.46 -637.39 / -514.74 -507.64 / -507.64 Lab / Micro Data Result Diagrams: 02/12/22 03:55 02/13/22 03:00 Labs: Laboratory Results - last 24 hr 02/12/22 23:51: POC Glucose 216 H 02/13/22 03:00: Sodium 144, Potassium 4.5, Chloride 102, Carbon Dioxide 36.0 H, Anion Gap 6, BUN 28 H, Creatinine 0.74, Estim Creat Clear Calc 91.75, Est GFR (MDRD) Af Amer 106, Est GFR (MDRD) Non-Af 88, BUN/Creatinine Ratio 37.6 H, Glucose 242 H, Calcium 8.6 02/13/22 06:11: POC Glucose 199 H 02/13/22 13:23: POC Glucose 196 H Micro: Microbiology 02/11/22 02:41 Blood Culture (Wb) - Right Forearm Blood Culture - Preliminary No growth in 48 hours. 02/11/22 02:40 Blood Culture (Wb) - Left Forearm Blood Culture - Preliminary No growth in 48 hours. 02/11/22 02:45 Urine Catheter - Young Urine Culture - Final Culture exhibits no growth. 02/11/22 02:45 Urine Catheter - Young Legionella Antigen - Final 02/11/22 02:45 Urine Catheter - Young Streptococcus pneumoniae Antigen (M - Final 02/08/22 17:32 Sputum, Induced/Lukens Gram Stain - Final 02/08/22 17:32 Sputum, Induced/Lukens Respiratory Culture - Final Presumptive C albicans Mixed Rani Rhythm Strip Rhythm Strip: Sinus Rhythm Rate: 86 Ectopy: None Physical Exam Const alert and no apparent distress General Appearance: cooperative, well kempt and well developed HEENT normocephalic, head/scalp atraumatic and moist oral mucous membranes Eyes PERRL, EOMs intact bilaterally and conjunctivae normal Neck nuchal rigidity, supple, no JVD, thyroid normal and no carotid bruits General: trachea midline Resp normal respiratory effort, no retractions, no use of accessory muscles and clear to auscultation bilaterally Auscultation: Negative for rales, rhonchi or wheezes Cardio regular rate, regular rhythm, no murmurs, no rub and no gallops GI normal to inspection, nondistended, normoactive bowel sounds, soft to palpation, non-tender and non-distended GI Narrative: Patient is morbidly obese Extremity no clubbing, cyanosis or edema Skin no rashes or lesions noted General Skin Exam: no breakdown Neuro oriented x3, CN's II-XII intact bilaterally, no focal motor deficits and no sensory deficits noted Neuro Narrative: Patient is under light sedation, she does respond appropriately to most questions by nodding her head Speech: speech normal Psych Psych Narrative: Patient is under light sedation at this time Assessment & Plan Assessment/Plan (1) Acute respiratory failure with hypoxia and hypercapnia: PLAN: Plan 1. Acute on chronic combined respiratory failure secondary to COPD exacerbation, bilateral pneumonia, and acute diastolic congestive heart failure- continue present management, patient remains on IV Solu-Medrol, IV Lasix, and meropenem. Pulmonary medicine is participating in her care #2 bilateral community-acquired pneumonia-patient remains on meropenem at this time #3 acute exacerbation of COPD-patient is on IV Solu-Medrol and DuoNeb aerosols #4 morbid obesity-complicates care, recovery, and prognosis #5 type 2 diabetes-continue to monitor blood sugars, sliding scale insulin is being given Charges/Coding Visit Charges Inpatient E&M: 27236 Subs Hosp L3
[2022-02-13 18:26] LABS: Bedside Glucose 243 mg/dL (74-106)
[2022-02-13 23:41] LABS: Bedside Glucose 239 mg/dL (74-106)
[2022-02-14] VITALS (37 sets, daily range): BP systolic 80–159; BP diastolic 45–105; PULSE 69–120; RESP 12–28; TEMP 36.6–37.7; O2SAT 92–100
[2022-02-14] MEDS: Ipratropium/Albuterol Sulfate 3 ML AMPUL.NEB INHALATION ×4 (01:42→19:10)
[2022-02-14 03:31] LABS: Absolute Lymphocyte Count 1.44 X10^3/uL (0.83-4.51); Absolute Neutrophil Count 9.3 X10^3/uL (2.0-7.7); Basophil# 0.02 X10^3/uL; Basophil% 0.2 % (0-1); Eosinophil# 0.01 X10^3/uL; Eosinophils% 0.1 % (0-5); Hemoglobin 12.8 g/dL (12.0-15.0); Lymphocyte # 1.44 X10^3/ul (0.83-4.51); Lymphocyte % 12.6 % (19-41); Mean Corp Hgb Conc 29.8 g/dL (32-36); Mean Corpuscular Hgb 27.2 pg (27.0-32.0); Mean Corpuscular Volume 91.3 fL (81-99); Mean Platelet Vol. 10.5 fl (6.2-12.0); Monocyte# 0.58 X10^3/uL; Monocyte% 5.1 % (0-10); NRBC Flagged by Analyzer 0 % (0-5); Neutrophil % 81.6 % (47-70); Platelet Count 270 K/mm3 (150-450); RBC Distribution Width CV 16.9 % (11.6-14.6); RBC Distribution Width SD 56.1 fl (35.1-43.9); Red Blood Count 4.71 M/mm3 (4.2-5.4); White Blood Count 11.4 K/mm3 (4.4-11.0)
[2022-02-14 04:12] LABS: ALB/GLOB Ratio 0.6 RATIO (0.9-2.4); AST(SGOT) 27 U/L (15-37); Alanine Aminotransfer ALT/SGPT 43 U/L (13-56); Albumin, Serum 2.5 g/dL (3.2-5.0); Alkaline Phosphatase 61 U/L (45-117); Anion Gap 5 (5-15); BUN 33 mg/dL (7-18); BUN/Creat Ratio 48.5 RATIO (10-20); Calcium,Total 8.8 mg/dL (8.5-10.1); Chloride 102 mmol/L (98-107); Creatinine, Serum 0.68 mg/dL (0.55-1.02); EST Glomerular Filtration Rate 97 mL/min (>60); Est Glom Filt Rate - Afr Amer 118 mL/min (>60); Estimated Creatinine Clearance 99.84 ml/min; Globulin 3.9 g/dL (2.2-4.2); Glucose 262 mg/dL (74-106); Potassium 4.1 mmol/L (3.5-5.1); Protein, Total 6.4 g/dL (6.4-8.2); Sodium Level 143 mmol/L (136-145)
[2022-02-14 05:11] LABS: Bedside Glucose 236 mg/dL (74-106)
[2022-02-14] MEDS: Insulin Lispro 100 UNIT/ML INSULN.PEN SC ×2 (05:14→11:28)
--- NOTE | 2022-02-14 06:10 | PN.CC_ITS ---
Assessment & Plan Assessment/Plan (1) Acute respiratory failure with hypoxia and hypercapnia: PLAN: Plan RECOMMENDATIONS: 1. Continue antimicrobials to complete 7 days of therapy. 2. Proceed with a trial of extubation this morning. 3. Plan to extubate directly to BiPAP as a bridge to nasal cannula oxygen. 4. Speech therapy evaluation prior to advancing diet. 5. Wean oxygen for saturations greater than 90%. 6. Continue diuretic therapy as tolerated by hemodynamics and renal function. 7. Continue bronchodilators and steroids. 8. Continue appropriate DVT and GI prophylaxis. 9. Recommend empiric use of BiPAP therapy with naps and nightly. IMPRESSIONS: 1. Acute on chronic combined respiratory failure Improved. Possible etiologies for acute decompensation include decompensated heart failure versus COPD exacerbation secondary to bilateral pneumonia. The patient apparently has an extensive tobacco abuse history along with a questionable history of obstructive lung disease. In addition, she likely has underlying pulmonary hypertension. Plan to continue empiric antimicrobials to complete 7 days of therapy. In addition, the patient will be continued on scheduled bronchodilators and IV steroids. Continue gentle diuresis as tolerated by hemodynamics and renal function. The patient likely has underlying sleep disordered breathing along with alveolar hypoventilation secondary to obesity. She would benefit from outpatient pulmonary follow-up and smoking cessation. This morning, the patient did well on her breathing trial. Accordingly, we will plan to extubate directly to BiPAP therapy as a bridge to nasal cannula oxygen. 2. Super morbid obesity/suspected sleep apnea/chronic tobacco dependency/diabetes mellitus Complicates care, management, recovery and prognosis. Continue sliding scale insulin coverage. Physical therapy to continue to work with the patient. TIME: 34 minutes of critical care time, independent of procedures, was spent add ressing the patient's acute on chronic combined respiratory failure, COPD with exacerbation, review of all data and collaboration with the care team. Subjective Subjective The patient was seen and examined at the bedside this morning. Events from the last 24 hours have been reviewed. The patient is currently afebrile, he modynamically stable and maintaining appropriate oxygen saturations on spontaneous mode of mechanical ventilation with an FiO2 requirement of 45% and PEEP of 5. The patient has done well this morning on her spontaneous breathing trial. She is currently documented to be overall net -6.7 L for the h ospitalization. Renal function remains stable. Arterial blood gas obtained on her spontaneous breathing trial this morning revealed a pH of 7.43 with a PCO2 of 53 and PO2 of 68. The patient is alert and following commands appropriately. Objective Data Objective Data The patient's most recent lab work, culture data and imaging studies have all been personally reviewed. Surface echocardiogram demonstrated an ejection f raction of 65%. Blood, urine and sputum cultures have been unrevealing to date. Strep and urine Legionella antigens were negative. Vital Signs: Vital Signs Temp Pulse Resp BP Pulse Ox O2 Del Method O2 Flow Rate 99.5 F H 78 19 H 104/58 L 93 Mechanical Ventilator 2 02/14/22 00:00 02/14/22 05:06 02/14/22 05:06 02/14/22 05:00 02/14/22 05:06 02/14/22 05:00 02/10/22 08:00 FiO2 45 02/14/22 05:00 Oxygen Flow Rate (L/min) 2 Oxygen Delivery Method Mechanical Ventilator Weight: 416 lb 10.778 oz Body Mass Index (BMI) 63.1 Intake & Output: Intake and Output for Last 24 Hours 02/12/22 02/13/22 02/14/22 23:59 23:59 23:59 Intake Total 5212.61 / 5335.26 3899.97 / 3913.37 1291.83 / 1291.83 Output Total 5850 / 5850 4475 / 4475 350 / 350 Balance -637.39 / -514.74 -575.03 / -561.63 941.83 / 941.83 Lab / Micro Data Attestation: I reviewed the patient's lab results. Result Diagrams: 02/14/22 03:18 02/14/22 03:18 Labs: Laboratory Results - last 24 hr 02/13/22 03:00: Sodium 144, Potassium 4.5, Chloride 102, Carbon Dioxide 36.0 H, Anion Gap 6, BUN 28 H, Creatinine 0.74, Estim Creat Clear Calc 91.75, Est GFR (MDRD) Af Amer 106, Est GFR (MDRD) Non-Af 88, BUN/Creatinine Ratio 37.6 H, Glucose 242 H, Calcium 8.6 02/13/22 06:11: POC Glucose 199 H 02/13/22 13:23: POC Glucose 196 H 02/13/22 18:15: POC Glucose 243 H 02/13/22 23:34: POC Glucose 239 H 02/14/22 03:18: WBC 11.4 H, RBC 4.71, Hgb 12.8, Hct 43.0, MCV 91.3, MCH 27.2, MCHC 29.8 L, RDW Std Deviation 56.1 H, RDW Coeff of Castillo 16.9 H, Plt Count 270, MPV 10.5, Immature Gran % (Auto) 0.400, Neut % (Auto) 81.6 H, Lymph % (Auto) 12.6 L, [place] % (Auto) 5.1, Eos % (Auto) 0.1, Baso % (Auto) 0.2, Absolute Neuts (auto) 9.3 H, Absolute Lymphs (auto) 1.44, Nucleated RBC % 0 02/14/22 03:18: Sodium 143, Potassium 4.1, Chloride 102, Carbon Dioxide 36.0 H, Anion Gap 5, BUN 33 H, Creatinine 0.68, Estim Creat Clear Calc 99.84, Est GFR (MDRD) Af Amer 118, Est GFR (MDRD) Non-Af 97, BUN/Creatinine Ratio 48.5 H, Glucose 262 H, Calcium 8.8, Total Bilirubin 0.40, AST 27, ALT 43, Alkaline Phosphatase 61, Total Protein 6.4, Albumin 2.5 L, Globulin 3.9, Albumin/Globulin Ratio 0.6 L 02/14/22 05:08: POC Glucose 236 H Micro: Microbiology 02/11/22 02:41 Blood Culture (Wb) - Right Forearm Blood Culture - Preliminary No growth in 48 hours. 02/11/22 02:40 Blood Culture (Wb) - Left Forearm Blood Culture - Preliminary No growth in 48 hours. 02/11/22 02:45 Urine Catheter - Young Urine Culture - Final Culture exhibits no growth. 02/11/22 02:45 Urine Catheter - Young Legionella Antigen - Final 02/11/22 02:45 Urine Catheter - Young Streptococcus pneumoniae Antigen (M - Final 02/08/22 17:32 Sputum, Induced/Lukens Gram Stain - Final 02/08/22 17:32 Sputum, Induced/Lukens Respiratory Culture - Final Presumptive C albicans Mixed Rani ABG Data ABG results: ABG 02/10/22 06:53 Specimen Type ART Sample Site L Radial pH 7.44 Bicarbonate Actual 34.3 H Total CO2 36 Base Excess 10 H O2 Saturation 94 L O2 % 60 ABG pCO2 50.1 H ABG pO2 70 L Erickson Test Positive Respiration Rate 14 O2 Delivery Device Adult Vent Vent Mode AC Tidal Volume 450 POC PEEP 5 Radiography Diagnostic Testing: Radiology Impression Echocardiogram 02/08/22 16:43 Interpretation Summary The study was technically difficult. Contrast injection was performed. Based upon the 2D echocardiographic and contrast enhanced images obtained there appears to be grossly normal left ventricular size, wall motion, and systolic function. The estimated ejection fraction is 65 %. No evidence for diastolic dysfunction. Ordering Physician: David Aj Performed By: Sonam Art RCS Chest X-Ray 02/10/22 06:37 IMPRESSION: Residual atelectasis and/or infiltrate in the right lung and left lung base although there has been improvement as compared to prior study. The tip of the endotracheal tube is at 2.1 cm proximal to the cortney. Electronically Signed: Donal Wagner MD at 8:31 EDT , Rhythm Strip Rhythm Strip: Sinus Rhythm Rate: 86 Ectopy: None Physical Exam Const alert General Appearance: cooperative, intubated and patient mechanically ventilated Nutritional Appearance: morbidly obese HEENT normocephalic and head/scalp atraumatic Mouth: endotracheal tube in place and OG tube in place Eyes PERRL and EOMs intact bilaterally Neck supple General: trachea midline Chest inspection of chest normal Resp Auscultation: diminished lung sounds Cardio regular rate and regular rhythm GI normal to inspection, nondistended, normoactive bowel sounds Extremity General Extremity: edema bilateral lower extremity; Negative for clubbing Skin General Skin Exam: venous stasis and dermatitis Neuro Neuro Narrative: Able to follow simple commands. Charges/Coding Procedures Hospitalists Procedures: [id number]
[2022-02-14 07:16] LABS: Allen Test Positive; Base Excess 11 mmol/L (-2 to +2); Bicarbonate 35.5 mmol/L (22-26); Blood Gas Specimen Type ART; FI02 40; Mode PS; O2 Delivery Device Adult Vent; PEEP 5; PO2 68 mmHG (75-100); PS 5; SITE L Radial; SO2 93 % (95-99); Total Carbon Dioxide 37 mmol/L; pCO2 53.6 mmHg (35-45); pH 7.43 (7.35-7.45)
[2022-02-14] MEDS: Furosemide 40 MG/4 ML Vial IV ×2 (10:54→18:10)
[2022-02-14] MEDS: Enoxaparin 30 MG/0.3 ML Syringe SC ×2 (10:54→20:39)
[2022-02-14] MEDS: Famotidine 200 MG/20 ML MDV 20 MG in 0.9% Normal Saline (Pres. free 8 ML 300 MG IV ×2 (10:54→20:39)
[2022-02-14] MEDS: 0.9% Saline Lock 10 ML Syringe IV ×2 (10:55→18:10)
[2022-02-14] MEDS: Nystatin Powder 15gm Bottle 1 APPLIC TOPICAL ×2 (10:55→20:39)
--- NOTE | 2022-02-14 11:22 | CASEMGMT ---
SW met with patient. Introduced self and role at [facility]. Patient confirmed she was getting ready to complete a Medicaid application right before she came into the hospital. SW assisted patient in completing application and faxed it to S. SW told patient it is likely she will have to go to a [place] [facility] facility [facility] term for rehab. Patient agreed, however today is the first day she has been off the vent and awake. SW will continue to follow. Ana Rosa COATES
[2022-02-14 11:35] LABS: Bedside Glucose 197 mg/dL (74-106)
[2022-02-14] MEDS: CHLORHEXIDINE GLUC 2% CLOTH 1 EACH TOWELETTE TOPICAL (11:49)
[2022-02-14] MEDS: Polyethylene Glycol 3350 17 GM PACKET PO (13:12)
[2022-02-14] MEDS: Senna/Docusate Sodium 1 Tablet 2 TABLET PO (13:12)
--- NOTE | 2022-02-14 15:00 | CASEMGMT ---
SW received an e-mail from [facility] with patient's pending case number for Medicaid: [id number]. Ana Rosa COATES
--- NOTE | 2022-02-14 16:24 | PCM.PN.HOSP ---
Subjective Subjective Pain and examined today in ICU, she was extubated today and is currently on supplemental oxygen, she does not complain of any shortness of breath or chest discomfort. I talked briefly with critical care about her medical condition. Objective Data Objective Data Vital Signs: Vital Signs Temp Pulse Resp BP Pulse Ox O2 Del Method O2 Flow Rate 99.2 F H 114 H 18 102/73 98 Nasal Cannula 2 02/14/22 14:00 02/14/22 15:01 02/14/22 15:00 02/14/22 15:00 02/14/22 15:00 02/14/22 15:00 02/14/22 15:00 FiO2 35 02/14/22 10:00 Oxygen Flow Rate (L/min) 2 Oxygen Delivery Method Nasal Cannula Weight: 189 kg Body Mass Index (BMI) 63.1 Intake & Output: Intake and Output for Last 24 Hours 02/12/22 02/13/22 02/14/22 23:59 23:59 23:59 Intake Total 5212.61 / 5335.26 3899.97 / 3913.37 1421.83 / 1421.83 Output Total 5850 / 5850 4475 / 4475 3100 / 3100 Balance -637.39 / -514.74 -575.03 / -561.63 -1678.17 / -1678.17 Lab / Micro Data Result Diagrams: 02/14/22 03:18 02/14/22 03:18 Labs: Laboratory Results - last 24 hr 02/13/22 18:15: POC Glucose 243 H 02/13/22 23:34: POC Glucose 239 H 02/14/22 03:18: WBC 11.4 H, RBC 4.71, Hgb 12.8, Hct 43.0, MCV 91.3, MCH 27.2, MCHC 29.8 L, RDW Std Deviation 56.1 H, RDW Coeff of Castillo 16.9 H, Plt Count 270, MPV 10.5, Immature Gran % (Auto) 0.400, Neut % (Auto) 81.6 H, Lymph % (Auto) 12.6 L, [place] % (Auto) 5.1, Eos % (Auto) 0.1, Baso % (Auto) 0.2, Absolute Neuts (auto) 9.3 H, Absolute Lymphs (auto) 1.44, Nucleated RBC % 0 07/01/22 03:18: Sodium 143, Potassium 4.1, Chloride 102, Carbon Dioxide 36.0 H, Anion Gap 5, BUN 33 H, Creatinine 0.68, Estim Creat Clear Calc 99.84, Est GFR (MDRD) Af Amer 118, Est GFR (MDRD) Non-Af 97, BUN/Creatinine Ratio 48.5 H, Glucose 262 H, Calcium 8.8, Total Bilirubin 0.40, AST 27, ALT 43, Alkaline Phosphatase 61, Total Protein 6.4, Albumin 2.5 L, Globulin 3.9, Albumin/Globulin Ratio 0.6 L 02/14/22 05:08: POC Glucose 236 H 02/14/22 11:27: POC Glucose 197 H Micro: Microbiology 02/11/22 02:41 Blood Culture (Wb) - Right Forearm Blood Culture - Preliminary No growth in 48 hours. 02/11/22 02:40 Blood Culture (Wb) - Left Forearm Blood Culture - Preliminary No growth in 48 hours. 02/11/22 02:45 Urine Catheter - Young Urine Culture - Final Culture exhibits no growth. 02/11/22 02:45 Urine Catheter - Young Legionella Antigen - Final 02/11/22 02:45 Urine Catheter - Young Streptococcus pneumoniae Antigen (M - Final 02/08/22 17:32 Sputum, Induced/Lukens Gram Stain - Final 02/08/22 17:32 Sputum, Induced/Lukens Respiratory Culture - Final Presumptive C albicans Mixed Rani ABG Data ABG results: ABG 02/14/22 07:10 Specimen Type ART Sample Site L Radial pH 7.43 Bicarbonate Actual 35.5 H Total CO2 37 Base Excess 11 H O2 Saturation 93 L O2 % 40 ABG pCO2 53.6 H ABG pO2 68 L Erickson Test Positive O2 Delivery Device Adult Vent Vent Mode PS POC PEEP 5 POC Pressure Suppt 5 Rhythm Strip Rhythm Strip: Sinus Rhythm Rate: 86 Ectopy: None Physical Exam Const alert, oriented x3 and no apparent distress Constitutional Narrative: Patient is morbidly obese HEENT head/scalp atraumatic and moist oral mucous membranes Head and Scalp: normocephalic Mouth: oral and palatal mucosa normal Eyes PERRL, EOMs intact bilaterally and conjunctivae normal Neck supple and no JVD Resp normal respiratory effort, no retractions and no use of accessory muscles Cardio regular rate, regular rhythm, S1 normal heart sound and S2 normal heart sound GI normal to inspection, nondistended, normoactive bowel sounds, soft to palpation and non-tender Extremity Extremity Narrative: Patient has lymphedematous changes over her lower legs bilaterally Neuro oriented x3, CN's II-XII intact bilaterally, moves all extremities and no focal motor deficits Sensorium / Orientation: awake, alert, oriented to person and oriented to place Psych affect normal Assessment & Plan Assessment/Plan (1) Acute respiratory failure with hypoxia and hypercapnia: PLAN: Plan 1. Acute on chronic combined respiratory failure secondary to COPD exacerbation, bilateral pneumonia, and acute diastolic congestive heart failure-continue present management, patient remains on IV Solu-Medrol, IV Lasix, and meropenem. Pulmonary medicine is participating in her care, again patient was extubated this morning #2 bilateral community-acquired pneumonia-patient remains on meropenem at this time #3 acute exacerbation of COPD-patient is on IV Solu-Medrol and DuoNeb aerosols #4 morbid obesity-complicates care, recovery, and prognosis #5 type 2 diabetes-continue to monitor blood sugars, sliding scale insulin is being given Charges/Coding Visit Charges Inpatient E&M: 33201 Subs Hosp L2
[2022-02-14 18:20] LABS: Bedside Glucose 114 mg/dL (74-106)
[2022-02-14] MEDS: Acetaminophen 650 MG/20 ML UDC NG (19:49)
[2022-02-15] VITALS (23 sets, daily range): BP systolic 111–140; BP diastolic 59–78; PULSE 95–115; RESP 12–29; TEMP 36.2–37.6; O2SAT 92–100
[2022-02-15 00:31] LABS: Bedside Glucose 105 mg/dL (74-106)
[2022-02-15] MEDS: Ipratropium/Albuterol Sulfate 3 ML AMPUL.NEB INHALATION ×4 (00:49→19:17)
[2022-02-15 05:36] LABS: Bedside Glucose 118 mg/dL (74-106)
--- NOTE | 2022-02-15 05:42 | PCM.PN.INT ---
Assessment & Plan Assessment/Plan (1) Acute respiratory failure with hypoxia and hypercapnia: PLAN: Plan RECOMMENDATIONS: 1. Continue antimicrobials to complete 7 days of therapy. 2. Dietary advancement per speech therapy recommendations. 3. Recommend empiric use of BiPAP therapy with naps and nightly. 4. Wean supplemental oxygen to maintain saturations at or above 90%. 5. Continue diuretic therapy as tolerated by hemodynamics and renal function. 6. Continue bronchodilators and steroids. 7. Continue appropriate DVT prophylaxis. 8. Obtain left upper extremity duplex. 9. The patient is medically stable for transfer out of the intensive care unit. IMPRESSIONS: 1. Acute on chronic combined respiratory failure Improved. Possible etiologies for acute decompensation include decompensated heart failure versus COPD exacerbation secondary to bilateral pneumonia. The patient apparently has an extensive tobacco abuse history along with a questionable history of obstructive lung disease. In addition, she likely has underlying pulmonary hypertension. The patient will complete 7 days of antimicrobials today. She will be continued on scheduled bronchodilators and IV steroids. When she passes her swallow evaluation by speech therapy, her steroids will be transition to prednisone. Plan to continue gentle diuresis as tolerated by hemodynamics and renal function. The patient does have a history of sleep apnea for which she is noncompliant with the use of nocturnal Pap therapy. In addition, I do suspect that she likely has a component of alveolar hypoventilation secondary to her obesity. She would benefit from outpatient pulmonary follow-up and smoking cessation. 2. Super morbid obesity/sleep apnea/chronic tobacco dependency/diabetes mellitus Complicates care, management, recovery and prognosis. Continue sliding scale insulin coverage. Physical therapy to continue to work with the patient. I personally spent 3 minutes discussing the deleterious effects of continued tobacco use with the patient, including modalities which could be utilized to achieve a smoke-free lifestyle. The patient should ultimately follow-up in the pulmonary medicine clinic after discharge. This note was generated with [employer] dictation software. It may contain incorrect words, spelling, and punctuation that were not noted in checking the note before signing. Subjective Subjective The patient was seen and examined at the bedside this morning. Events from the last 24 hours have been reviewed. The patient currently has a low-grade fever but remains otherwise hemodynamically stable. She has done well from a respiratory perspective following extubation yesterday. The patient is currently maintaining appropriate oxygen saturations on 2 L/min via nasal cannula. She is documented to be overall net -10.7 L for the hospitalization. The patient remains n.p.o. following initial evaluation by speech therapy yesterday. The patient only wore her BiPAP overnight for approximately 2 hours. She does report a mild degree of shortness of breath this morning and also reports left upper extremity pain and swelling. The patient does confirm that prior to her hospitalization she was smoking 0.5 packs of cigarettes per day. She also reported that she was previously diagnosed with sleep apnea, but is noncompliant with the use of nocturnal Pap therapy in her home environment. Objective Data Objective Data The patient's most recent lab work, culture data and imaging studies have all been personally reviewed. Surface echocardiogram demonstrated an ejection fraction of 65%. Blood, urine and sputum cultures have been unrevealing to date. Strep and urine Legionella antigens were negative. Vital Signs: Vital Signs Temp Pulse Resp BP Pulse Ox O2 Del Method O2 Flow Rate 99.6 F H 106 H 22 H 132/66 H 96 Nasal Cannula 2 02/15/22 04:00 02/15/22 04:00 02/15/22 04:00 02/15/22 04:00 02/15/22 04:00 02/15/22 04:00 02/15/22 04:00 FiO2 35 02/15/22 02:00 Oxygen Flow Rate (L/min) 2 Oxygen Delivery Method Nasal Cannula Weight: 416 lb 10.778 oz Body Mass Index (BMI) 63.1 Intake & Output: Intake and Output for Last 24 Hours 02/13/22 02/14/22 02/15/22 23:59 23:59 23:59 Intake Total 3899.97 / 3913.37 1751.83 / 1751.83 120 / 120 Output Total 4475 / 4475 5000 / 5000 Balance -575.03 / -561.63 -3248.17 / -3248.17 120 / 120 Lab / Micro Data Attestation: I reviewed the patient's lab results. Result Diagrams: 02/15/22 03:50 02/14/22 03:18 Labs: Laboratory Results - last 24 hr 02/14/22 11:27: POC Glucose 197 H 02/14/22 18:08: POC Glucose 114 H 02/14/22 23:30: POC Glucose 105 02/15/22 05:30: POC Glucose 118 H Micro: Microbiology 02/11/22 02:41 Blood Culture (Wb) - Right Forearm Blood Culture - Preliminary No growth in 48 hours. 02/11/22 02:40 Blood Culture (Wb) - Left Forearm Blood Culture - Preliminary No growth in 48 hours. 02/11/22 02:45 Urine Catheter - Young Urine Culture - Final Culture exhibits no growth. 02/11/22 02:45 Urine Catheter - Young Legionella Antigen - Final 02/11/22 02:45 Urine Catheter - Young Streptococcus pneumoniae Antigen (M - Final 02/08/22 17:32 Sputum, Induced/Lukens Gram Stain - Final 02/08/22 17:32 Sputum, Induced/Lukens Respiratory Culture - Final Presumptive C albicans Mixed Rani ABG Data ABG results: ABG 02/14/22 07:10 Specimen Type ART Sample Site L Radial pH 7.43 Bicarbonate Actual 35.5 H Total CO2 37 Base Excess 11 H O2 Saturation 93 L O2 % 40 ABG pCO2 53.6 H ABG pO2 68 L Erickson Test Positive O2 Delivery Device Adult Vent Vent Mode PS POC PEEP 5 POC Pressure Suppt 5 Radiography Diagnostic Testing: Radiology Impression Echocardiogram 02/08/22 16:43 Interpretation Summary The study was technically difficult. Contrast injection was performed. Based upon the 2D echocardiographic and contrast enhanced images obtained there appears to be grossly normal left ventricular size, wall motion, and systolic function. The estimated ejection fraction is 65 %. No evidence for diastolic dysfunction. Ordering Physician: David Aj Performed By: Sonam Art RCS Chest X-Ray 02/10/22 06:37 IMPRESSION: Residual atelectasis and/or infiltrate in the right lung and left lung base although there has been improvement as compared to prior study. The tip of the endotracheal tube is at 2.1 cm proximal to the cortney. Electronically Signed: Donal Wagner MD at 8:31 EDT , Rhythm Strip Rhythm Strip: Sinus Rhythm Rate: 86 Ectopy: None Physical Exam Const alert and no apparent distress General Appearance: cooperative Nutritional Appearance: morbidly obese HEENT normocephalic, head/scalp atraumatic and moist oral mucous membranes Teeth and Gingiva: poor dentition Eyes PERRL and EOMs intact bilaterally Neck supple General: trachea midline Chest inspection of chest normal Resp normal respiratory effort Auscultation: diminished lung sounds Cardio regular rate and regular rhythm GI normal to inspection, nondistended, normoactive bowel sounds Extremity Extremity Narrative: Left upper extremity is edematous when compared to right. General Extremity: edema bilateral lower extremity; Negative for clubbing Skin General Skin Exam: venous stasis and dermatitis Neuro CN's II-XII intact bilaterally and no focal motor deficits Psych cooperative and affect normal Charges/Coding Visit Charges Inpatient E&M: 45409 Subs Hosp L3 Behavior Interventions Behavior Intervention: 26778 Smoking Cessation 3-10 min
[2022-02-15 06:12] LABS: Absolute Lymphocyte Count 3.39 X10^3/uL (0.83-4.51); Basophil# 0.03 X10^3/uL; Basophil% 0.2 % (0-1); Eosinophil# 0.19 X10^3/uL; Eosinophils% 1.1 % (0-5); Hemoglobin 12.4 g/dL (12.0-15.0); Lymphocyte # 3.39 X10^3/ul (0.83-4.51); Mean Corp Hgb Conc 28.8 g/dL (32-36); Mean Corpuscular Hgb 26.6 pg (27.0-32.0); Mean Corpuscular Volume 92.1 fL (81-99); Mean Platelet Vol. 11.4 fl (6.2-12.0); Monocyte# 1.29 X10^3/uL; Monocyte% 7.6 % (0-10); NRBC Flagged by Analyzer 0 % (0-5); Neutrophil # 11.96 X10^3/uL (2.7-7.7); Neutrophil % 70.6 % (47-70); Platelet Count 347 K/mm3 (150-450); RBC Distribution Width CV 17.2 % (11.6-14.6); Red Blood Count 4.67 M/mm3 (4.2-5.4); White Blood Count 16.9 K/mm3 (4.4-11.0)
--- NOTE | 2022-02-15 06:26 | VDUE_ITS ---
Reason For Study: Pain Left Proximal Left jugular vein is spontaneous, widely patent, phasic, with no intraluminal echogenicity noted. Left subclavian vein is spontaneous, widely patent, phasic, with no intraluminal echogenicity noted. Left Arm Left axillary vein is spontaneous, patent, phasic, competent, compressible and demonstrates augmentation. Left brachial vein is compressible. Superficial vein thrombosis is noted in the left Cephalic vein from mid bicep to antecube. Thrombus filled accessory vein noted in the proximal forearm. Left basilic vein is compressible. Left Lower Arm Left radial vein is compressible. Left ulnar vein is compressible. Patient Safety Preliminary sent to [facility]. VL/Venous Duplex US, Unilateral Interpretation Summary Superficial thrombophlebitis left cephalic vein from the mid biceps to the ante cubital space with thrombus involving accessory vein proximal forearm No evidence for acute deep vein thrombosis left upper extremity Ordering Physician: Sukhdeep Celeste Referring Physician: [facility] Performed By: Kyra Taylor RVT ?
[2022-02-15 06:30] LABS: Anion Gap 7 (5-15); BUN 29 mg/dL (7-18); BUN/Creat Ratio 42.6 RATIO (10-20); Calcium,Total 8.8 mg/dL (8.5-10.1); Chloride 103 mmol/L (98-107); Creatinine, Serum 0.68 mg/dL (0.55-1.02); EST Glomerular Filtration Rate 97 mL/min (>60); Est Glom Filt Rate - Afr Amer 117 mL/min (>60); Estimated Creatinine Clearance 99.84 ml/min; Glucose 115 mg/dL (74-106); Potassium 3.2 mmol/L (3.5-5.1); Sodium Level 147 mmol/L (136-145)
[2022-02-15] MEDS: Potassium Chloride 10mEq/100mL 10 MEQ/100 ML IV.SOLN. 100 MEQ IV BOLUS ×4 (06:52→12:00)
[2022-02-15] MEDS: CHLORHEXIDINE GLUC 2% CLOTH 1 EACH TOWELETTE TOPICAL (08:32)
[2022-02-15] MEDS: Furosemide 40 MG/4 ML Vial IV (10:33)
[2022-02-15] MEDS: Famotidine 200 MG/20 ML MDV 20 MG in 0.9% Normal Saline (Pres. free 8 ML 300 MG IV ×2 (10:37→21:05)
[2022-02-15] MEDS: Nystatin Powder 15gm Bottle 1 APPLIC TOPICAL ×2 (10:39→21:07)
[2022-02-15] MEDS: Enoxaparin 30 MG/0.3 ML Syringe SC ×2 (10:39→21:07)
--- NOTE | 2022-02-15 11:32 | PCM.PN.HOSP ---
Subjective Subjective Patient was seen and examined today, nursing states that she is very weak and will need physical therapy, patient is on 2 L of oxygen at the present time does not complain of any shortness of breath or chest discomfort. Objective Data Objective Data Vital Signs: Vital Signs Temp Pulse Resp BP Pulse Ox O2 Del Method O2 Flow Rate 99.4 F H 108 H 18 112/66 97 Nasal Cannula 2 02/15/22 09:00 02/15/22 09:00 02/15/22 09:00 02/15/22 09:00 02/15/22 09:00 02/15/22 09:00 02/15/22 09:00 FiO2 35 02/15/22 02:00 Oxygen Flow Rate (L/min) 2 Oxygen Delivery Method Nasal Cannula Weight: 189 kg Body Mass Index (BMI) 63.1 Intake & Output: Intake and Output for Last 24 Hours 02/13/22 02/14/22 02/15/22 23:59 23:59 23:59 Intake Total 3899.97 / 3913.37 1751.83 / 1751.83 740 / 740 Output Total 4475 / 4475 5000 / 5000 1100 / 1100 Balance -575.03 / -561.63 -3248.17 / -3248.17 -360 / -360 Lab / Micro Data Result Diagrams: 02/15/22 03:50 02/15/22 03:50 Labs: Laboratory Results - last 24 hr 02/14/22 11:27: POC Glucose 197 H 02/14/22 18:08: POC Glucose 114 H 02/14/22 23:30: POC Glucose 105 02/15/22 03:50: WBC 16.9 H, RBC 4.67, Hgb 12.4, Hct 43.0, MCV 92.1, MCH 26.6 L, MCHC 28.8 L, RDW Std Deviation 57.0 H, RDW Coeff of Castillo 17.2 H, Plt Count 347, MPV 11.4, Immature Gran % (Auto) 0.500, Neut % (Auto) 70.6 H, Lymph % (Auto) 20.0, [place] % (Auto) 7.6, Eos % (Auto) 1.1, Baso % (Auto) 0.2, Absolute Neuts (auto) 12.0 H, Absolute Lymphs (auto) 3.39, Nucleated RBC % 0 02/15/22 03:50: Sodium 147 H, Potassium 3.2 L, Chloride 103, Carbon Dioxide 37.0 H, Anion Gap 7, BUN 29 H, Creatinine 0.68, Estim Creat Clear Calc 99.84, Est GFR (MDRD) Af Amer 117, Est GFR (MDRD) Non-Af 97, BUN/Creatinine Ratio 42.6 H, Glucose 115 H, Calcium 8.8 02/15/22 05:30: POC Glucose 118 H Micro: Microbiology 02/11/22 02:41 Blood Culture (Wb) - Right Forearm Blood Culture - Preliminary No growth in 48 hours. 02/11/22 02:40 Blood Culture (Wb) - Left Forearm Blood Culture - Preliminary No growth in 48 hours. 02/11/22 02:45 Urine Catheter - Young Urine Culture - Final Culture exhibits no growth. 02/11/22 02:45 Urine Catheter - Young Legionella Antigen - Final 02/11/22 02:45 Urine Catheter - Young Streptococcus pneumoniae Antigen (M - Final 02/08/22 17:32 Sputum, Induced/Lukens Gram Stain - Final 02/08/22 17:32 Sputum, Induced/Lukens Respiratory Culture - Final Presumptive C albicans Mixed Rani Rhythm Strip Rhythm Strip: Sinus Rhythm Rate: 86 Ectopy: None Physical Exam Const alert, oriented x3 and no apparent distress Constitutional Narrative: Patient is morbidly obese General Appearance: cooperative, well kempt, well developed and intubated HEENT normocephalic, head/scalp atraumatic and moist oral mucous membranes Eyes PERRL, EOMs intact bilaterally and conjunctivae normal Neck supple, no JVD and thyroid normal General: trachea midline Resp normal respiratory effort, no retractions, no use of accessory muscles and clear to auscultation bilaterally Auscultation: diminished lung sounds; Negative for crackles, rales, rhonchi or wheezes Cardio regular rate, regular rhythm, S1 normal heart sound, S2 normal heart sound, no murmurs, no rub and no gallops GI normal to inspection, nondistended, normoactive bowel sounds, soft to palpation, non-tender and non-distended; Negative for hepatosplenomegaly GI Narrative: Patient is morbidly obese Extremity Extremity Narrative: Patient has lymphedematous changes over her lower legs bilaterally General Extremity: edema Skin no rashes or lesions noted Skin Narrative: Bilateral venous stasis changes General Skin Exam: no breakdown Neuro oriented x3, CN's II-XII intact bilaterally, moves all extremities, no focal motor deficits and no sensory deficits noted Neuro Narrative: Patient is under light sedation, she does respond appropriately to most questions by nodding her head Sensorium / Orientation: awake, alert, oriented to person and oriented to place Speech: speech normal Psych affect normal Psych Narrative: Patient is under light sedation at this time Assessment & Plan Assessment/Plan (1) Acute respiratory failure with hypoxia and hypercapnia: PLAN: Plan 1. Acute on chronic combined respiratory failure secondary to COPD exacerbation, bilateral pneumonia, and acute diastolic congestive heart failure-continue present management, patient remains on IV Solu-Medrol, IV Lasix, and meropenem. Pulmonary medicine is participating in her care, patient is stable for transfer to PCU at this time, she will need PT and OT #2 bilateral community-acquired pneumonia-patient remains on meropenem at this time #3 acute exacerbation of COPD-patient is on IV Solu-Medrol and DuoNeb aerosols #4 morbid obesity-complicates care, recovery, and prognosis #5 type 2 diabetes-continue to monitor blood sugars, sliding scale insulin is being given Charges/Coding Visit Charges Inpatient E&M: 24002 Subs Hosp L2
[2022-02-15] MEDS: Insulin Lispro 100 UNIT/ML INSULN.PEN SC ×3 (11:58→21:13)
[2022-02-15 12:06] LABS: Bedside Glucose 156 mg/dL (74-106)
[2022-02-15 17:56] LABS: Bedside Glucose 177 mg/dL (74-106)
[2022-02-16] VITALS (16 sets, daily range): BP systolic 114–133; BP diastolic 45–83; PULSE 54–110; RESP 12–24; TEMP 36.4–36.7; O2SAT 94–97
[2022-02-16] LABS: Bedside Glucose 156 mg/dL (74-106)
[2022-02-16 06:46] LABS: Bedside Glucose 131 mg/dL (74-106)
--- NOTE | 2022-02-16 07:01 | PCM.PN.INT ---
Assessment & Plan Assessment/Plan (1) Acute respiratory failure with hypoxia and hypercapnia: PLAN: Plan RECOMMENDATIONS: 1. Completed 7 days of antibiotics. 2. Recommend empiric use of BiPAP therapy with naps and nightly. 3. Wean supplemental oxygen to maintain saturations at or above 90%. 4. Continue bronchodilators and prednisone. Anticipate need for taper at discharge. 5. Continue appropriate DVT prophylaxis. 6. Perform walking oximetry study prior to consideration for discharge. 7. Encourage incentive spirometer use and mobilize patient as tolerated. IMPRESSIONS: 1. Acute on chronic combined respiratory failure Improved. Possible etiologies for acute decompensation include decompensated heart failure versus COPD exacerbation secondary to bilateral pneumonia. The patient apparently has an extensive tobacco abuse history along with a questionable history of obstructive lung disease. In addition, she likely has underlying pulmonary hypertension. The patient has completed 7 days of antimicrobials. She will be continued on scheduled bronchodilators and steroids. The patient does have a history of sleep apnea for which she is noncompliant with the use of nocturnal Pap therapy. In addition, I do suspect that she likely has a component of alveolar hypoventilation secondary to her obesity. She would benefit from outpatient pulmonary follow-up and smoking cessation. 2. Super morbid obesity/sleep apnea/chronic tobacco dependency/diabetes mellitus Complicates care, management, recovery and prognosis. Continue sliding scale insulin coverage. Physical therapy to continue to work with the patient. Smoking cessation counseling was provided. The patient should ultimately follow-up in the pulmonary medicine clinic after discharge. This note was generated with [employer] dictation software. It may contain incorrect words, spelling, and punctuation that were not noted in checking the note before signing. Subjective Subjective The patient was seen and examined at the bedside this morning. Events from the last 24 hours have been reviewed. The patient is currently afebrile, hemodynamically stable and maintaining appropriate oxygen saturations on nasal cannula oxygen at 2 to 3 L/min. The patient was tolerant of BiPAP overnight. She is currently documented to be overall net -12 L for the hospitalization. Objective Data Objective Data The patient's most recent lab work, culture data and imaging studies have all been personally reviewed. Surface echocardiogram demonstrated an ejection fraction of 65%. Blood, urine and sputum cultures have been unrevealing to date. Strep and urine Legionella antigens were negative. Vital Signs: Vital Signs Temp Pulse Resp BP Pulse Ox O2 Del Method O2 Flow Rate 97.9 F 102 H 24 H 132/57 H 95 Bi-pap 2 02/16/22 03:00 02/16/22 03:29 02/16/22 03:23 02/16/22 03:00 02/16/22 03:23 02/16/22 03:00 02/15/22 21:00 FiO2 30 02/16/22 03:23 Oxygen Flow Rate (L/min) 2 Oxygen Delivery Method Bi-pap Weight: 414 lb 14.559 oz Body Mass Index (BMI) 63.1 Intake & Output: Intake and Output for Last 24 Hours 02/14/22 02/15/22 02/16/22 23:59 23:59 23:59 Intake Total 1751.83 / 1751.83 1552.75 / 1552.75 240 / 240 Output Total 5000 / 5000 2650 / 2650 350 / 350 Balance -3248.17 / -3248.17 -1097.25 / -1097.25 -110 / -110 Lab / Micro Data Attestation: I reviewed the patient's lab results. Result Diagrams: 02/15/22 03:50 02/15/22 03:50 Labs: Laboratory Results - last 24 hr 02/15/22 11:58: POC Glucose 156 H 02/15/22 16:29: POC Glucose 177 H 02/15/22 21:12: POC Glucose 156 H 02/16/22 06:18: POC Glucose 131 H Micro: Microbiology 02/11/22 02:40 Blood Culture (Wb) - Left Forearm Blood Culture - Final No growth in 5 days. 02/11/22 02:41 Blood Culture (Wb) - Right Forearm Blood Culture - Final No growth in 5 days. 02/15/22 13:47 Nasal Secretion SARS-CoV-2 Antigen (Rapid) - Final 02/11/22 02:45 Urine Catheter - Young Urine Culture - Final Culture exhibits no growth. 02/11/22 02:45 Urine Catheter - Young Legionella Antigen - Final 02/11/22 02:45 Urine Catheter - Young Streptococcus pneumoniae Antigen (M - Final 02/08/22 17:32 Sputum, Induced/Lukens Gram Stain - Final 02/08/22 17:32 Sputum, Induced/Lukens Respiratory Culture - Final Presumptive C albicans Mixed Rani ABG Data ABG results: ABG 02/14/22 07:10 Specimen Type ART Sample Site L Radial pH 7.43 Bicarbonate Actual 35.5 H Total CO2 37 Base Excess 11 H O2 Saturation 93 L O2 % 40 ABG pCO2 53.6 H ABG pO2 68 L Erickson Test Positive O2 Delivery Device Adult Vent Vent Mode PS POC PEEP 5 POC Pressure Suppt 5 Radiography Diagnostic Testing: Radiology Impression Echocardiogram 02/08/22 16:43 Interpretation Summary The study was technically difficult. Contrast injection was performed. Based upon the 2D echocardiographic and contrast enhanced images obtained there appears to be grossly normal left ventricular size, wall motion, and systolic function. The estimated ejection fraction is 65 %. No evidence for diastolic dysfunction. Ordering Physician: David Aj Performed By: Sonam Art RCS Chest X-Ray 02/10/22 06:37 IMPRESSION: Residual atelectasis and/or infiltrate in the right lung and left lung base although there has been improvement as compared to prior study. The tip of the endotracheal tube is at 2.1 cm proximal to the cortney. Electronically Signed: Donal Wagner MD at 8:31 EDT , Rhythm Strip Rhythm Strip: Sinus Rhythm Rate: 86 Ectopy: None Physical Exam Const alert and no apparent distress General Appearance: cooperative Nutritional Appearance: morbidly obese HEENT normocephalic, head/scalp atraumatic and moist oral mucous membranes Teeth and Gingiva: poor dentition Eyes PERRL and EOMs intact bilaterally Neck supple General: trachea midline Chest inspection of chest normal Resp normal respiratory effort Auscultation: diminished lung sounds Cardio regular rate and regular rhythm GI normal to inspection, nondistended, normoactive bowel sounds Extremity Extremity Narrative: Left upper extremity is edematous when compared to right. General Extremity: edema bilateral lower extremity; Negative for clubbing Skin General Skin Exam: venous stasis and dermatitis Neuro CN's II-XII intact bilaterally and no focal motor deficits Psych cooperative and affect normal Charges/Coding Visit Charges Inpatient E&M: 53226 Subs Hosp L2
[2022-02-16] MEDS: Ipratropium/Albuterol Sulfate 3 ML AMPUL.NEB INHALATION ×3 (07:34→19:20)
[2022-02-16] MEDS: Nystatin Powder 15gm Bottle 1 APPLIC TOPICAL ×2 (08:23→21:18)
[2022-02-16] MEDS: Enoxaparin 30 MG/0.3 ML Syringe SC ×2 (08:23→21:17)
[2022-02-16] MEDS: predniSONE 20 MG Tablet 40 MG PO (08:27)
[2022-02-16] MEDS: Famotidine 20 MG Tablet PO ×2 (08:27→21:18)
--- NOTE | 2022-02-16 10:52 | PCM.PN.HOSP ---
Subjective Subjective Patient was seen and examined today, she remains on nasal cannula oxygen at, she has no complaints of any respiratory distress. Objective Data Objective Data Vital Signs: Vital Signs Temp Pulse Resp BP Pulse Ox O2 Del Method O2 Flow Rate 97.7 F L 105 H 18 114/45 L 95 Nasal Cannula 2 02/16/22 09:00 02/16/22 09:00 02/16/22 09:00 02/16/22 09:00 02/16/22 09:00 02/16/22 09:00 02/15/22 21:00 FiO2 30 02/16/22 07:24 Oxygen Flow Rate (L/min) 2 Oxygen Delivery Method Nasal Cannula Weight: 188.2 kg Body Mass Index (BMI) 63.1 Intake & Output: Intake and Output for Last 24 Hours 02/14/22 02/15/22 02/16/22 23:59 23:59 23:59 Intake Total 1751.83 / 1751.83 1552.75 / 1552.75 240 / 240 Output Total 5000 / 5000 2650 / 2650 350 / 350 Balance -3248.17 / -3248.17 -1097.25 / -1097.25 -110 / -110 Lab / Micro Data Result Diagrams: 02/15/22 03:50 02/15/22 03:50 Labs: Laboratory Results - last 24 hr 02/15/22 11:58: POC Glucose 156 H 02/15/22 16:29: POC Glucose 177 H 02/15/22 21:12: POC Glucose 156 H 02/16/22 06:18: POC Glucose 131 H Micro: Microbiology 02/11/22 02:40 Blood Culture (Wb) - Left Forearm Blood Culture - Final No growth in 5 days. 02/11/22 02:41 Blood Culture (Wb) - Right Forearm Blood Culture - Final No growth in 5 days. 02/15/22 13:47 Nasal Secretion SARS-CoV-2 Antigen (Rapid) - Final 02/11/22 02:45 Urine Catheter - Young Urine Culture - Final Culture exhibits no growth. 02/11/22 02:45 Urine Catheter - Young Legionella Antigen - Final 02/11/22 02:45 Urine Catheter - Young Streptococcus pneumoniae Antigen (M - Final 02/08/22 17:32 Sputum, Induced/Lukens Gram Stain - Final 06/25/22 17:32 Sputum, Induced/Lukens Respiratory Culture - Final Presumptive C albicans Mixed Rani Rhythm Strip Rhythm Strip: Sinus Rhythm Rate: 86 Ectopy: None Physical Exam Const alert, oriented x3 and no apparent distress Constitutional Narrative: Patient is morbidly obese General Appearance: cooperative, well kempt and well developed HEENT normocephalic, head/scalp atraumatic and moist oral mucous membranes Eyes PERRL, EOMs intact bilaterally and conjunctivae normal Neck nuchal rigidity, supple, no JVD, thyroid normal and no carotid bruits General: trachea midline Resp normal respiratory effort, no retractions, no use of accessory muscles and clear to auscultation bilaterally Auscultation: diminished lung sounds; Negative for crackles, rales, rhonchi or wheezes Cardio regular rate, regular rhythm, S1 normal heart sound, S2 normal heart sound, no murmurs, no rub and no gallops GI normal to inspection, nondistended, normoactive bowel sounds, soft to palpation, non-tender and non-distended; Negative for hepatosplenomegaly GI Narrative: Patient is morbidly obese Extremity no clubbing, cyanosis or edema Extremity Narrative: Patient has lymphedematous changes over her lower legs bilaterally General Extremity: edema Skin no rashes or lesions noted Skin Narrative: Bilateral venous stasis changes General Skin Exam: no breakdown Neuro oriented x3, CN's II-XII intact bilaterally, moves all extremities, no focal motor deficits and no sensory deficits noted Neuro Narrative: Patient is under light sedation, she does respond appropriately to most questions by nodding her head Sensorium / Orientation: awake, alert, oriented to person, oriented to place and sedated on vent Speech: speech normal Psych affect normal Appearance: intubated Assessment & Plan Assessment/Plan (1) Acute respiratory failure with hypoxia and hypercapnia: PLAN: Plan 1. Acute on chronic combined respiratory failure secondary to COPD exacerbation, bilateral pneumonia, and acute diastolic congestive heart failure-continue present management, patient remains on IV Solu-Medrol, IV Lasix, and meropenem. Pulmonary medicine is participating in her care, patient will need PT and OT, she will most likely need placement in a group home facility for short-term rehab services. #2 bilateral community-acquired pneumonia-patient is no longer on any antibiotic coverage at this time, patient completed 7 days of antibiotic treatment #3 acute exacerbation of COPD-patient is on prednisone and DuoNeb aerosol treatments #4 morbid obesity-complicates care, recovery, and prognosis #5 type 2 diabetes-continue to monitor blood sugars, sliding scale insulin is being given, I will start the patient on metformin at this time Charges/Coding Visit Charges Inpatient E&M: 89610 Subs Hosp L2
[2022-02-16 11:15] LABS: Bedside Glucose 233 mg/dL (74-106)
[2022-02-16] MEDS: Insulin Lispro 100 UNIT/ML INSULN.PEN SC ×3 (11:15→21:18)
[2022-02-16] MEDS: metFORMIN HCl 500 MG Tablet PO ×2 (11:27→16:09)
[2022-02-16 16:21] LABS: Bedside Glucose 297 mg/dL (74-106)
[2022-02-16 20:33] LABS: Anion Gap 5 (5-15); BUN 26 mg/dL (7-18); BUN/Creat Ratio 34.6 RATIO (10-20); Calcium,Total 9.4 mg/dL (8.5-10.1); Chloride 103 mmol/L (98-107); Creatinine, Serum 0.75 mg/dL (0.55-1.02); EST Glomerular Filtration Rate 87 mL/min (>60); Est Glom Filt Rate - Afr Amer 105 mL/min (>60); Estimated Creatinine Clearance 90.53 ml/min; Glucose 200 mg/dL (74-106); Magnesium 2.6 mg/dL (1.6-2.6); Potassium 4.5 mmol/L (3.5-5.1); Sodium Level 142 mmol/L (136-145)
[2022-02-16 21:46] LABS: Bedside Glucose 155 mg/dL (74-106)
[2022-02-17] VITALS (15 sets, daily range): BP systolic 124–158; BP diastolic 56–77; PULSE 49–102; RESP 12–21; TEMP 35.9–36.9; O2SAT 94–98
[2022-02-17 06:51] LABS: Bedside Glucose 118 mg/dL (74-106)
[2022-02-17 07:16] LABS: Anion Gap 3 (5-15); BUN 26 mg/dL (7-18); BUN/Creat Ratio 45.1 RATIO (10-20); Calcium,Total 8.9 mg/dL (8.5-10.1); Chloride 105 mmol/L (98-107); Creatinine, Serum 0.58 mg/dL (0.55-1.02); EST Glomerular Filtration Rate 118 mL/min (>60); Est Glom Filt Rate - Afr Amer 142 mL/min (>60); Estimated Creatinine Clearance 117.06 ml/min; Glucose 133 mg/dL (74-106); Potassium 3.9 mmol/L (3.5-5.1); Sodium Level 143 mmol/L (136-145)
[2022-02-17] MEDS: Ipratropium/Albuterol Sulfate 3 ML AMPUL.NEB INHALATION ×3 (07:22→19:38)
--- NOTE | 2022-02-17 08:29 | PCM.PN.INT ---
Assessment & Plan Assessment/Plan (1) Acute respiratory failure with hypoxia and hypercapnia: PLAN: Plan RECOMMENDATIONS: 1. Completed 7 days of antibiotics. 2. Recommend empiric use of BiPAP therapy with naps and nightly. 3. Wean supplemental oxygen to maintain saturations at or above 90%. 4. Continue bronchodilators and prednisone. Anticipate need for 10 to 12-day taper at discharge. 5. Continue appropriate DVT prophylaxis. 6. Perform walking oximetry study prior to consideration for discharge. 7. Encourage incentive spirometer use and mobilize patient as tolerated. IMPRESSIONS: 1. Acute on chronic combined respiratory failure Improved. Possible etiologies for acute decompensation include decompensated heart failure versus COPD exacerbation secondary to bilateral pneumonia or combination of both. The patient apparently has an extensive tobacco abuse history along with a questionable history of obstructive lung disease. In addition, she likely has underlying pulmonary hypertension. The patient has completed 7 days of antimicrobials. We will continue to monitor clinically. She will be continued on scheduled bronchodilators and steroids. The patient does have a history of sleep apnea for which she is noncompliant with the use of nocturnal Pap therapy. Patient likely has a component of alveolar hypoventilation secondary to her obesity. She would benefit from outpatient pulmonary follow-up and smoking cessation if agreeable. 2. Super morbid obesity/sleep apnea/chronic tobacco dependency/diabetes mellitus Complicates care, management, recovery and prognosis. Continue sliding scale insulin coverage. Physical therapy to continue to work with the patient. Smoking cessation counseling was provided. The patient should ultimately follow-up in the pulmonary medicine clinic after discharge. This note was generated with [employer] dictation software. It may contain incorrect words, spelling, and punctuation that were not noted in checking the note before signing. Subjective Subjective Patient did well overnight. No acute issues were reported. Patient was able to tolerate BiPAP with sleep. Nursing reports no complications with therapy. Objective Data Objective Data Vital Signs: Vital Signs Temp Pulse Resp BP Pulse Ox O2 Del Method O2 Flow Rate 35.9 C L 61 20 H 158/77 H 98 Bi-pap 2 02/17/22 04:44 02/17/22 07:23 02/17/22 07:23 02/17/22 04:44 02/17/22 07:23 02/17/22 04:50 02/16/22 21:15 FiO2 30 02/17/22 07:23 Oxygen Flow Rate (L/min) 2 Oxygen Delivery Method Bi-pap Weight: 188.2 kg Body Mass Index (BMI) 63.1 Intake & Output: Intake and Output for Last 24 Hours 02/15/22 02/16/22 02/17/22 23:59 23:59 23:59 Intake Total 1552.75 / 1552.75 600 / 660 60 / 60 Output Total 2650 / 2650 600 / 850 500 / 500 Balance -1097.25 / -1097.25 0 / -190 -440 / -440 Lab / Micro Data Attestation: I reviewed the patient's lab results. Result Diagrams: 02/15/22 03:50 02/17/22 06:26 Labs: Laboratory Results - last 24 hr 02/16/22 11:10: POC Glucose 233 H 02/16/22 16:03: POC Glucose 297 H 02/16/22 20:00: Sodium 142, Potassium 4.5, Chloride 103, Carbon Dioxide 34.0 H, Anion Gap 5, BUN 26 H, Creatinine 0.75, Estim Creat Clear Calc 90.53, Est GFR (MDRD) Af Amer 105, Est GFR (MDRD) Non-Af 87, BUN/Creatinine Ratio 34.6 H, Glucose 200 H, Calcium 9.4, Magnesium 2.6 02/16/22 21:15: POC Glucose 155 H 02/17/22 06:26: Sodium 143, Potassium 3.9, Chloride 105, Carbon Dioxide 35.0 H, Anion Gap 3 L, BUN 26 H, Creatinine 0.58, Estim Creat Clear Calc 117.06, Est GFR (MDRD) Af Amer 142, Est GFR (MDRD) Non-Af 118, BUN/Creatinine Ratio 45.1 H, Glucose 133 H, Calcium 8.9 02/17/22 06:41: POC Glucose 118 H Micro: Microbiology 02/11/22 02:40 Blood Culture (Wb) - Left Forearm Blood Culture - Final No growth in 5 days. 02/11/22 02:41 Blood Culture (Wb) - Right Forearm Blood Culture - Final No growth in 5 days. 02/15/22 13:47 Nasal Secretion SARS-CoV-2 Antigen (Rapid) - Final 02/11/22 02:45 Urine Catheter - Young Urine Culture - Final Culture exhibits no growth. 02/11/22 02:45 Urine Catheter - Young Legionella Antigen - Final 02/11/22 02:45 Urine Catheter - Young Streptococcus pneumoniae Antigen (M - Final 02/08/22 17:32 Sputum, Induced/Lukens Gram Stain - Final 02/08/22 17:32 Sputum, Induced/Lukens Respiratory Culture - Final Presumptive C albicans Mixed Rani Rhythm Strip Rhythm Strip: Sinus Rhythm Rate: 98 Ectopy: None Physical Exam Const alert and no apparent distress Constitutional Narrative: Good synchrony with BiPAP General Appearance: cooperative and on BiPAP Nutritional Appearance: morbidly obese HEENT normocephalic, head/scalp atraumatic and moist oral mucous membranes Eyes PERRL and EOMs intact bilaterally Neck supple General: trachea midline Chest inspection of chest normal Resp normal respiratory effort Auscultation: diminished lung sounds; Negative for rales, rhonchi or wheezes Cardio regular rate, regular rhythm, S1 normal heart sound, S2 normal heart sound, no murmurs, no rub and no gallops GI normal to inspection, nondistended, normoactive bowel sounds Extremity Extremity Narrative: Left upper extremity is edematous when compared to right. General Extremity: edema bilateral lower extremity; Negative for clubbing Skin General Skin Exam: venous stasis and dermatitis Neuro CN's II-XII intact bilaterally and no focal motor deficits Neuro Narrative: Able to follow simple commands. Psych cooperative and affect normal Charges/Coding Visit Charges Inpatient E&M: 26856 Subs Hosp L2
[2022-02-17] MEDS: metFORMIN HCl 500 MG Tablet PO ×2 (09:00→17:52)
[2022-02-17] MEDS: predniSONE 20 MG Tablet 40 MG PO (09:01)
[2022-02-17] MEDS: Famotidine 20 MG Tablet PO ×2 (09:02→21:06)
[2022-02-17] MEDS: Enoxaparin 30 MG/0.3 ML Syringe SC ×2 (09:02→21:06)
[2022-02-17] MEDS: Senna/Docusate Sodium 1 Tablet 2 TABLET PO (09:02)
[2022-02-17] MEDS: CHLORHEXIDINE GLUC 2% CLOTH 1 EACH TOWELETTE TOPICAL (09:04)
[2022-02-17] MEDS: Nystatin Powder 15gm Bottle 1 APPLIC TOPICAL ×2 (09:05→21:06)
[2022-02-17] MEDS: Polyethylene Glycol 3350 17 GM PACKET PO (09:06)
[2022-02-17 11:00] LABS: Bedside Glucose 131 mg/dL (74-106)
--- NOTE | 2022-02-17 13:32 | PCM.PN.HOSP ---
Subjective Subjective Doing well, no issues overnight. Maintaining her oxygen saturations on 2 L nasal cannula. Objective Data Objective Data Vital Signs: Vital Signs Temp Pulse Resp BP Pulse Ox O2 Del Method O2 Flow Rate 96.6 F L 101 H 20 H 158/77 H 98 Bi-pap 2 02/17/22 04:44 02/17/22 11:00 02/17/22 07:23 02/17/22 04:44 02/17/22 07:23 02/17/22 04:50 02/17/22 12:29 FiO2 30 02/17/22 07:23 Oxygen Flow Rate (L/min) 2 Oxygen Delivery Method Bi-pap Weight: 414 lb 14.559 oz Body Mass Index (BMI) 63.1 Intake & Output: Intake and Output for Last 24 Hours 02/16/22 02/17/22 02/18/22 03:59 03:59 03:59 Intake Total 1552.75 / 1552.75 540 / 540 Output Total 2650 / 2650 850 / 850 250 / 250 Balance -1097.25 / -1097.25 -310 / -310 -250 / -250 Lab / Micro Data Result Diagrams: 02/15/22 03:50 02/17/22 06:26 Labs: Laboratory Results - last 24 hr 02/16/22 16:03: POC Glucose 297 H 02/16/22 20:00: Sodium 142, Potassium 4.5, Chloride 103, Carbon Dioxide 34.0 H, Anion Gap 5, BUN 26 H, Creatinine 0.75, Estim Creat Clear Calc 90.53, Est GFR (MDRD) Af Amer 105, Est GFR (MDRD) Non-Af 87, BUN/Creatinine Ratio 34.6 H, Glucose 200 H, Calcium 9.4, Magnesium 2.6 02/16/22 21:15: POC Glucose 155 H 02/17/22 06:26: Sodium 143, Potassium 3.9, Chloride 105, Carbon Dioxide 35.0 H, Anion Gap 3 L, BUN 26 H, Creatinine 0.58, Estim Creat Clear Calc 117.06, Est GFR (MDRD) Af Amer 142, Est GFR (MDRD) Non-Af 118, BUN/Creatinine Ratio 45.1 H, Glucose 133 H, Calcium 8.9 02/17/22 06:41: POC Glucose 118 H 02/17/22 10:47: POC Glucose 131 H Micro: Microbiology 02/11/22 02:40 Blood Culture (Wb) - Left Forearm Blood Culture - Final No growth in 5 days. 02/11/22 02:41 Blood Culture (Wb) - Right Forearm Blood Culture - Final No growth in 5 days. 02/15/22 13:47 Nasal Secretion SARS-CoV-2 Antigen (Rapid) - Final 02/11/22 02:45 Urine Catheter - Young Urine Culture - Final Culture exhibits no growth. 02/11/22 02:45 Urine Catheter - Young Legionella Antigen - Final 02/11/22 02:45 Urine Catheter - Young Streptococcus pneumoniae Antigen (M - Final 02/08/22 17:32 Sputum, Induced/Lukens Gram Stain - Final 02/08/22 17:32 Sputum, Induced/Lukens Respiratory Culture - Final Presumptive C albicans Mixed Rani Rhythm Strip Rhythm Strip: Sinus Rhythm Rate: 98 Ectopy: None Physical Exam Const alert, oriented x3 and no apparent distress General Appearance: cooperative HEENT normocephalic and moist oral mucous membranes Eyes PERRL, EOMs intact bilaterally and conjunctivae normal Neck supple and no JVD Resp normal respiratory effort, no retractions and no use of accessory muscles Auscultation: diminished lung sounds; Negative for crackles, rales, rhonchi or wheezes Cardio regular rate, regular rhythm, S1 normal heart sound, S2 normal heart sound and no murmurs GI soft to palpation, non-tender and non-distended; Negative for hepatosplenomegaly Extremity General Extremity: edema Skin Skin Narrative: Chronic venous stasis Neuro no focal motor deficits and no sensory deficits noted Psych affect normal Appearance: appropriate Assessment & Plan Assessment/Plan (1) Acute respiratory failure with hypoxia and hypercapnia: PLAN: Plan 1.? Acute hypoxic and hypercapnic respiratory failure secondary to possible pulmonary edema due to pulmonary hypertension/COPD exacerbation/bilateral community-acquired pneumonia ?Continue with Lasix ? Echo with an EF of 65% ?She completed an antibiotic course ?Extubated on 02/14/2022 ?Appreciate pulmonology's assistance, continue with inhalers ? Continue with p.o. prednisone ? Continue with Pepcid for prophylaxis ? CT of the chest with indications of pulmonary edema and pulmonary hypertension 2.? DM2/super morbid obesity ? BMI is 63.6 ?Discussed lifestyle modifications ? Started metformin Disposition: SNF DVT: Lovenox Charges/Coding Visit Charges Inpatient E&M: 51834 Subs Hosp L2
[2022-02-17] MEDS: Insulin Lispro 100 UNIT/ML INSULN.PEN SC ×2 (17:52→21:05)
[2022-02-17 17:56] LABS: Bedside Glucose 180 mg/dL (74-106)
[2022-02-17 20:41] LABS: Bedside Glucose 162 mg/dL (74-106)
[2022-02-17] MEDS: Menthol/Lanolin/Calamine/Znox 113 GM Tube 1 APPLIC TOPICAL (21:05)
[2022-02-18] VITALS (17 sets, daily range): BP systolic 104–151; BP diastolic 74–94; PULSE 52–104; RESP 12–21; TEMP 36.5–36.7; O2SAT 87–98
[2022-02-18] MEDS: Ipratropium/Albuterol Sulfate 3 ML AMPUL.NEB INHALATION ×3 (01:57→19:29)
--- NOTE | 2022-02-18 03:35 | NURSING ---
pt took bipap off pt 87% on ra. )2 at 2lnc appilied
[2022-02-18] MEDS: Menthol/Lanolin/Calamine/Znox 113 GM Tube 1 APPLIC TOPICAL ×3 (06:42→20:47)
[2022-02-18 06:50] LABS: Bedside Glucose 103 mg/dL (74-106)
[2022-02-18 07:14] LABS: Anion Gap 2 (5-15); BUN 21 mg/dL (7-18); BUN/Creat Ratio 39.5 RATIO (10-20); Calcium,Total 8.9 mg/dL (8.5-10.1); Chloride 106 mmol/L (98-107); Creatinine, Serum 0.53 mg/dL (0.55-1.02); EST Glomerular Filtration Rate 129 mL/min (>60); Est Glom Filt Rate - Afr Amer 156 mL/min (>60); Glucose 121 mg/dL (74-106); Potassium 3.7 mmol/L (3.5-5.1); Sodium Level 143 mmol/L (136-145)
--- NOTE | 2022-02-18 08:17 | PCM.PN.INT ---
Assessment & Plan Assessment/Plan (1) Acute respiratory failure with hypoxia and hypercapnia: PLAN: Plan RECOMMENDATIONS: 1. Completed 7 days of antibiotics. 2. Recommend empiric use of BiPAP therapy with naps and nightly. Outpatient sleep study would be indicated 3. Wean supplemental oxygen to maintain saturations at or above 90%. 4. Continue bronchodilators and prednisone. Anticipate need for 10 to 12-day taper at discharge. 5. Continue appropriate DVT prophylaxis. 6. Perform walking oximetry study prior to consideration for discharge. 7. Encourage incentive spirometer use and mobilize patient as tolerated. 8. Continue with discharge planning IMPRESSIONS: 1. Acute on chronic combined respiratory failure Improved. Possible etiologies for acute decompensation include decompensated heart failure versus COPD exacerbation secondary to bilateral pneumonia or combination of both. The patient apparently has an extensive tobacco abuse history along with a questionable history of obstructive lung disease. In addition, she likely has underlying pulmonary hypertension. The patient has completed 7 days of antimicrobials. We will continue to monitor clinically. She will be continued on scheduled bronchodilators and steroids. The patient does have a history of sleep apnea for which she is noncompliant with the use of nocturnal Pap therapy. Patient likely has a component of alveolar hypoventilation secondary to her obesity. She would benefit from outpatient pulmonary follow-up and smoking cessation if agreeable. Patient should be discharged on empiric BiPAP. Sleep study as an outpatient. Anticipate continue diuresis as patient tolerates. BMP daily to monitor for complications. 2. Super morbid obesity/sleep apnea/chronic tobacco dependency/diabetes mellitus Complicates care, management, recovery and prognosis. Continue sliding scale insulin coverage. Physical therapy to continue to work with the patient. Smoking cessation counseling was provided. The patient should ultimately follow-up in the pulmonary medicine clinic after discharge. This note was generated with [employer] dictation software. It may contain incorrect words, spelling, and punctuation that were not noted in checking the note before signing. Subjective Subjective Patient did well overnight. Patient was in the bedside chair during my evaluation and reported subjective improvement in symptomatology. Patient still has shortness of breath with minimal exertion. Patient is not reporting any significant cough. Patient is attempting to elevate her legs. Objective Data Objective Data Vital Signs: Vital Signs Temp Pulse Resp BP Pulse Ox O2 Del Method O2 Flow Rate 36.6 C 100 17 120/74 96 Nasal Cannula 2 02/18/22 03:36 02/18/22 08:00 02/18/22 03:36 02/18/22 03:36 02/18/22 05:08 02/18/22 05:08 02/18/22 05:08 FiO2 30 02/18/22 01:57 Oxygen Flow Rate (L/min) 2 Oxygen Delivery Method Nasal Cannula Weight: 188.2 kg Body Mass Index (BMI) 63.1 Intake & Output: Intake and Output for Last 24 Hours 02/16/22 02/17/22 02/18/22 23:59 23:59 23:59 Intake Total 600 / 660 400 / 400 60 / 60 Output Total 600 / 850 1840 / 1840 300 / 300 Balance 0 / -190 -1440 / -1440 -240 / -240 Lab / Micro Data Attestation: I reviewed the patient's lab results. Result Diagrams: 02/15/22 03:50 02/18/22 06:30 Labs: Laboratory Results - last 24 hr 02/17/22 10:47: POC Glucose 131 H 02/17/22 17:44: POC Glucose 180 H 02/17/22 20:36: POC Glucose 162 H 02/18/22 06:30: Sodium 143, Potassium 3.7, Chloride 106, Carbon Dioxide 35.0 H, Anion Gap 2 L, BUN 21 H, Creatinine 0.53 L, Estim Creat Clear Calc 128.10, Est GFR (MDRD) Af Amer 156, Est GFR (MDRD) Non-Af 129, BUN/Creatinine Ratio 39.5 H, Glucose 121 H, Calcium 8.9 02/18/22 06:41: POC Glucose 103 Micro: Microbiology 02/11/22 02:40 Blood Culture (Wb) - Left Forearm Blood Culture - Final No growth in 5 days. 02/11/22 02:41 Blood Culture (Wb) - Right Forearm Blood Culture - Final No growth in 5 days. 02/15/22 13:47 Nasal Secretion SARS-CoV-2 Antigen (Rapid) - Final 02/11/22 02:45 Urine Catheter - Young Urine Culture - Final Culture exhibits no growth. 02/11/22 02:45 Urine Catheter - Young Legionella Antigen - Final 02/11/22 02:45 Urine Catheter - Young Streptococcus pneumoniae Antigen (M - Final 02/08/22 17:32 Sputum, Induced/Lukens Gram Stain - Final 02/08/22 17:32 Sputum, Induced/Lukens Respiratory Culture - Final Presumptive C albicans Mixed Rani Rhythm Strip Rhythm Strip: Sinus Rhythm Rate: 64 Ectopy: None Physical Exam Const alert and no apparent distress Constitutional Narrative: No conversational dyspnea on nasal cannula. Hirsutism noted. General Appearance: cooperative, intubated and patient mechanically ventilated Nutritional Appearance: morbidly obese HEENT normocephalic, head/scalp atraumatic and moist oral mucous membranes Eyes PERRL and EOMs intact bilaterally Neck supple General: trachea midline Chest inspection of chest normal Resp normal respiratory effort Auscultation: diminished lung sounds; Negative for rales, rhonchi or wheezes Cardio regular rate, regular rhythm, S1 normal heart sound, S2 normal heart sound, no murmurs, no rub and no gallops GI normal to inspection, nondistended, normoactive bowel sounds Extremity Extremity Narrative: Left upper extremity is edematous when compared to right. General Extremity: edema bilateral lower extremity; Negative for clubbing Skin General Skin Exam: venous stasis and dermatitis Neuro CN's II-XII intact bilaterally and no focal motor deficits Neuro Narrative: Able to follow simple commands. Psych cooperative and affect normal Charges/Coding Visit Charges Inpatient E&M: 47398 Subs Hosp L2
[2022-02-18] MEDS: metFORMIN HCl 500 MG Tablet PO ×2 (08:22→16:53)
[2022-02-18] MEDS: predniSONE 20 MG Tablet 40 MG PO (08:22)
--- NOTE | 2022-02-18 08:40 | NURSING ---
spo2 on 2l this am was 97%. o2 weaned down to 1l and will monitor.
[2022-02-18] MEDS: CHLORHEXIDINE GLUC 2% CLOTH 1 EACH TOWELETTE TOPICAL (09:56)
[2022-02-18] MEDS: Enoxaparin 30 MG/0.3 ML Syringe SC ×2 (09:56→20:48)
[2022-02-18] MEDS: Nystatin Powder 15gm Bottle 1 APPLIC TOPICAL ×2 (09:57→20:47)
[2022-02-18] MEDS: Famotidine 20 MG Tablet PO ×2 (09:57→20:49)
--- NOTE | 2022-02-18 10:37 | PCM.PN.HOSP ---
Subjective Subjective Doing well, remains much the same as yesterday. No issues overnight Objective Data Objective Data Vital Signs: Vital Signs Temp Pulse Resp BP Pulse Ox O2 Del Method O2 Flow Rate 97.8 F 100 20 H 120/74 95 Nasal Cannula 2 02/18/22 03:36 02/18/22 08:00 02/18/22 06:57 02/18/22 03:36 02/18/22 06:57 02/18/22 06:57 02/18/22 06:57 FiO2 30 02/18/22 01:57 Oxygen Flow Rate (L/min) 2 Oxygen Delivery Method Nasal Cannula Weight: 414 lb 14.559 oz Body Mass Index (BMI) 63.1 Intake & Output: Intake and Output for Last 24 Hours 02/17/22 02/18/22 02/19/22 03:59 03:59 03:59 Intake Total 540 / 540 340 / 340 60 / 60 Output Total 850 / 850 1590 / 1590 300 / 300 Balance -310 / -310 -1250 / -1250 -240 / -240 Lab / Micro Data Result Diagrams: 02/15/22 03:50 02/18/22 06:30 Labs: Laboratory Results - last 24 hr 02/17/22 10:47: POC Glucose 131 H 02/17/22 17:44: POC Glucose 180 H 02/17/22 20:36: POC Glucose 162 H 02/18/22 06:30: Sodium 143, Potassium 3.7, Chloride 106, Carbon Dioxide 35.0 H, Anion Gap 2 L, BUN 21 H, Creatinine 0.53 L, Estim Creat Clear Calc 128.10, Est GFR (MDRD) Af Amer 156, Est GFR (MDRD) Non-Af 129, BUN/Creatinine Ratio 39.5 H, Glucose 121 H, Calcium 8.9 02/18/22 06:41: POC Glucose 103 Micro: Microbiology 02/11/22 02:40 Blood Culture (Wb) - Left Forearm Blood Culture - Final No growth in 5 days. 02/11/22 02:41 Blood Culture (Wb) - Right Forearm Blood Culture - Final No growth in 5 days. 02/15/22 13:47 Nasal Secretion SARS-CoV-2 Antigen (Rapid) - Final 02/11/22 02:45 Urine Catheter - Young Urine Culture - Final Culture exhibits no growth. 02/11/22 02:45 Urine Catheter - Young Legionella Antigen - Final 02/11/22 02:45 Urine Catheter - Young Streptococcus pneumoniae Antigen (M - Final 02/08/22 17:32 Sputum, Induced/Lukens Gram Stain - Final 02/08/22 17:32 Sputum, Induced/Lukens Respiratory Culture - Final Presumptive C albicans Mixed Rani Rhythm Strip Rhythm Strip: Sinus Rhythm Rate: 64 Ectopy: None Physical Exam Narrative Const alert, oriented x3 and no apparent distress General Appearance: cooperative HEENT normocephalic and moist oral mucous membranes Eyes PERRL, EOMs intact bilaterally and conjunctivae normal Neck supple and no JVD Resp normal respiratory effort, no retractions and no use of accessory muscles Auscultation: diminished lung sounds; Negative for crackles, rales, rhonchi or wheezes Cardio regular rate, regular rhythm, S1 normal heart sound, S2 normal heart sound and no murmurs GI soft to palpation, non-tender and non-distended; Negative for hepatosplenomegaly Extremity General Extremity: edema Skin Skin Narrative: Chronic venous stasis Neuro no focal motor deficits and no sensory deficits noted Psych affect normal Appearance: appropriate Assessment & Plan Assessment/Plan (1) Acute respiratory failure with hypoxia and hypercapnia: PLAN: Plan 1.? Acute hypoxic and hypercapnic respiratory failure secondary to possible pulmonary edema due to pulmonary hypertension/COPD exacerbation/bilateral community-acquired pneumonia ? She is negative overall 13 L ? Echo with an EF of 65% ?She completed an antibiotic course ?Extubated on 02/14/2022 ?Appreciate pulmonology's assistance, continue with inhalers ? Continue with p.o. prednisone ? Continue with Pepcid for prophylaxis ? CT of the chest with indications of pulmonary edema and pulmonary hypertension 2.? DM2/super morbid obesity ? BMI is 63.6 ?Discussed lifestyle modifications ? Started metformin Disposition: SNF DVT: Lovenox Charges/Coding Visit Charges Inpatient E&M: 18188 Subs Hosp L2
[2022-02-18] MEDS: Insulin Lispro 100 UNIT/ML INSULN.PEN SC ×2 (11:28→16:49)
[2022-02-18 11:56] LABS: Bedside Glucose 166 mg/dL (74-106)
--- NOTE | 2022-02-18 12:01 | CASEMGMT ---
Social Work This licensed clinical social worker following up with patient in room. This licensed clinical social worker provided patient with supportive documentation for Medicaid application that was sent from [employer]. Patient voiced understanding and ability to be able to complete paperwork. This licensed clinical social worker then broached conversation about jail placement and limitations of bariatric status and medicaid pending. This licensed clinical social worker provided patient with list of nursing homes that accept bariatric patients and medicaid pending. Patient plans to look over list and is agreeable to this licensed clinical social worker coming back later today to inquire about patient choices for nursing facility. Patient with no further questions. Patient plans to look over list and call family to assist in decision making. Will continue to follow. PLAN: [facility] placement. Claire RIVERA, JANICE
--- NOTE | 2022-02-18 13:38 | CASEMGMT ---
Social Work This health and social care teacher following up with patient in room on [facility] choices. Patient reports that first choice is [facility] and second choice is [facility]. This health and social care teacher noting that patient has not completed medicaid application supportive documentation, this health and social care teacher encouraged patient to complete paperwork. Patient with no further questions. This health and social care teacher notified discharge planning assistance, Taylor. Gonsales to make referral to [facility]. PLAN: [facility], pending approval. Will continue to follow. Claire RIVERA, EULALIAS
--- NOTE | 2022-02-18 13:43 | CASEMGMT ---
Addendum entered by Ilda Urban 02/18/22 15:33: [facility] is still reviewing referral. Original Note: Discharge Medical Doctor Discharge Medical Doctor sent referral over to [facility]. Ilda Urban Discharge Medical Doctor
[2022-02-18 16:26] LABS: Bedside Glucose 185 mg/dL (74-106)
--- NOTE | 2022-02-18 17:36 | NURSING ---
agree with assessment and finding per funeral car driver lesvia
[2022-02-18] MEDS: Senna/Docusate Sodium 1 Tablet 2 TABLET PO (20:49)
[2022-02-18 22:25] LABS: Bedside Glucose 135 mg/dL (74-106)
[2022-02-19] VITALS (13 sets, daily range): BP systolic 116–130; BP diastolic 57–84; PULSE 78–111; RESP 12–21; TEMP 36.3–36.6; O2SAT 93–98
[2022-02-19] MEDS: Menthol/Lanolin/Calamine/Znox 113 GM Tube 1 APPLIC TOPICAL ×3 (06:23→21:21)
[2022-02-19 06:30] LABS: Bedside Glucose 120 mg/dL (74-106)
[2022-02-19] MEDS: Ipratropium/Albuterol Sulfate 3 ML AMPUL.NEB INHALATION ×2 (06:51→19:52)
[2022-02-19 08:00] LABS: Anion Gap 4 (5-15); BUN 18 mg/dL (7-18); BUN/Creat Ratio 33.2 RATIO (10-20); Calcium,Total 9.2 mg/dL (8.5-10.1); Chloride 106 mmol/L (98-107); Creatinine, Serum 0.54 mg/dL (0.55-1.02); EST Glomerular Filtration Rate 126 mL/min (>60); Est Glom Filt Rate - Afr Amer 153 mL/min (>60); Estimated Creatinine Clearance 125.73 ml/min; Glucose 107 mg/dL (74-106); Sodium Level 142 mmol/L (136-145)
--- NOTE | 2022-02-19 08:18 | PN.CC_ITS ---
Assessment & Plan Assessment/Plan (1) Acute respiratory failure with hypoxia and hypercapnia: PLAN: Plan RECOMMENDATIONS: 1. Completed 7 days of antibiotics. 2. Recommend empiric use of BiPAP therapy with naps and nightly. Outpatient sleep study would be indicated 3. Wean supplemental oxygen to maintain saturations at or above 90%. 4. Continue bronchodilators and wean prednisone. Anticipate need for 8-10 day taper at discharge. 5. Continue appropriate DVT prophylaxis. 6. Perform walking oximetry study prior to consideration for discharge. 7. Encourage incentive spirometer use and mobilize patient as tolerated. 8. Continue with discharge planning IMPRESSIONS: 1. Acute on chronic combined respiratory failure Improved. Possible etiologies for acute decompensation include decompensated heart failure versus COPD exacerbation secondary to bilateral pneumonia or combination of both. The patient apparently has an extensive tobacco abuse history along with a questionable history of obstructive lung disease. In addition, she likely has underlying pulmonary hypertension. The patient has completed 7 days of antimicrobials. We will continue to monitor clinically. She will be continued on scheduled bronchodilators and steroids. The patient does have a history of sleep apnea for which she is noncompliant with the use of nocturnal Pap therapy. Patient likely has a component of alveolar hypoventilation secondary to her obesity. She would benefit from outpatient pulmonary follow-up and smoking cessation if agreeable. Patient should be discharged on empiric BiPAP. Sleep study as an outpatient. May need to increase Lasix to p.o. twice daily. BMP daily to monitor for complications. 2. Super morbid obesity/sleep apnea/chronic tobacco dependency/diabetes mellitus Complicates care, management, recovery and prognosis. Continue sliding scale insulin coverage. Physical therapy to continue to work with the patient. Smoking cessation counseling was provided. The patient should ultimately follow-up in the pulmonary medicine clinic after discharge. This note was generated with [employer] dictation software. It may contain incorrect words, spelling, and punctuation that were not noted in checking the note before signing. Subjective Subjective Patient did well overnight. No acute issues were reported. Patient has been tolerating 2 L nasal cannula at rest. Patient still having significant dyspnea on exertion and feels globally weak. Objective Data Objective Data Vital Signs: Vital Signs Temp Pulse Resp BP Pulse Ox O2 Del Method O2 Flow Rate 36.5 C L 110 H 21 H 130/75 H 97 Bi-pap 2 02/19/22 04:20 02/19/22 07:26 02/19/22 07:26 02/19/22 04:20 02/19/22 07:26 02/19/22 04:23 02/18/22 20:44 FiO2 30 02/19/22 07:26 Oxygen Flow Rate (L/min) 2 Oxygen Delivery Method Bi-pap Weight: 188.2 kg Body Mass Index (BMI) 63.1 Intake & Output: Intake and Output for Last 24 Hours 02/17/22 02/18/22 02/19/22 23:59 23:59 23:59 Intake Total 400 / 400 980 / 980 0 / 0 Output Total 1840 / 1840 600 / 600 Balance -1440 / -1440 380 / 380 0 / 0 Lab / Micro Data Attestation: I reviewed the patient's lab results. Result Diagrams: 02/15/22 03:50 02/19/22 06:30 Labs: Laboratory Results - last 24 hr 02/18/22 11:26: POC Glucose 166 H 02/18/22 16:19: POC Glucose 185 H 02/18/22 20:43: POC Glucose 135 H 02/19/22 06:22: POC Glucose 120 H 02/19/22 06:30: Sodium 142, Potassium 4.0, Chloride 106, Carbon Dioxide 32.0, An ion Gap 4 L, BUN 18, Creatinine 0.54 L, Estim Creat Clear Calc 125.73, Est GFR (MDRD) Af Amer 153, Est GFR (MDRD) Non-Af 126, BUN/Creatinine Ratio 33.2 H, Glucose 107 H, Calcium 9.2 Micro: Microbiology 02/11/22 02:40 Blood Culture (Wb) - Left Forearm Blood Culture - Final No growth in 5 days. 02/11/22 02:41 Blood Culture (Wb) - Right Forearm Blood Culture - Final No growth in 5 days. 02/15/22 13:47 Nasal Secretion SARS-CoV-2 Antigen (Rapid) - Final 02/11/22 02:45 Urine Catheter - Young Urine Culture - Final Culture exhibits no growth. 02/11/22 02:45 Urine Catheter - Young Legionella Antigen - Final 02/11/22 02:45 Urine Catheter - Young Streptococcus pneumoniae Antigen (M - Final 02/08/22 17:32 Sputum, Induced/Lukens Gram Stain - Final 02/08/22 17:32 Sputum, Induced/Lukens Respiratory Culture - Final Presumptive C albicans Mixed Rani Radiography Diagnostic Testing: Radiology Impression Venous Doppler Study 02/15/22 06:26 Interpretation Summary Superficial thrombophlebitis left cephalic vein from the mid biceps to the antecubital space with thrombus involving accessory vein proximal forearm No evidence for acute deep vein thrombosis left upper extremity Ordering Physician: Sukhdeep Celeste Referring Physician: [facility] Performed By: Kyra Taylor RVT ? Rhythm Strip Rhythm Strip: Sinus Tach Rate: 100 Ectopy: None Physical Exam Const alert and no apparent distress Constitutional Narrative: No conversational dyspnea on nasal cannula. Hirsutism noted. General Appearance: cooperative, intubated, patient mechanically ventilated and on BiPAP Nutritional Appearance: morbidly obese HEENT normocephalic, head/scalp atraumatic and moist oral mucous membranes Eyes PERRL and EOMs intact bilaterally Neck supple General: trachea midline Chest inspection of chest normal Resp normal respiratory effort Auscultation: diminished lung sounds; Negative for rales, rhonchi or wheezes Cardio regular rate, regular rhythm, S1 normal heart sound, S2 normal heart sound, no murmurs, no rub and no gallops GI normal to inspection, nondistended, normoactive bowel sounds Extremity Extremity Narrative: Left upper extremity is edematous when compared to right. General Extremity: edema bilateral lower extremity; Negative for clubbing Skin General Skin Exam: venous stasis and dermatitis Neuro CN's II-XII intact bilaterally and no focal motor deficits Neuro Narrative: Able to follow simple commands. Psych cooperative and affect normal Charges/Coding Visit Charges Inpatient E&M: 77825 Subs Hosp L2
--- NOTE | 2022-02-19 09:46 | CASEMGMT ---
Discharge Timing Adjuster Ilda Discharge Timing Adjuster called Leonela at [facility] [place]. Leonela is looking over referral now and will take the referral to her care team. Leonela asked Ilda again if she was a Pao or not. Ilda explained to Leonela that she should not be a Pao at all. Ilda Urban Discharge Timing Adjuster
[2022-02-19] MEDS: Famotidine 20 MG Tablet PO ×2 (10:17→21:20)
[2022-02-19] MEDS: metFORMIN HCl 500 MG Tablet PO ×2 (10:17→17:19)
[2022-02-19] MEDS: Nystatin Powder 15gm Bottle 1 APPLIC TOPICAL ×2 (10:17→21:21)
[2022-02-19] MEDS: Furosemide 40 MG Tablet PO (10:17)
[2022-02-19] MEDS: Enoxaparin 30 MG/0.3 ML Syringe SC ×2 (10:17→21:21)
[2022-02-19] MEDS: predniSONE 20 MG Tablet 40 MG PO (10:32)
--- NOTE | 2022-02-19 11:55 | CASEMGMT ---
Discharge Lead Athlete Leonela from [facility] called. Patient has been declined due to [facility] not having the adequate staff. Ilda Discharge Lead Athlete called Marie at [facility]. Ilda faxed over referral on patient. Will continue to follow. Ilda Urban Discharge Lead Athlete
--- NOTE | 2022-02-19 11:57 | CASEMGMT ---
Social Work This social work specialist met with patient in room. Patient able to provide this social work specialist with supportive documentation for Medicaid application and included two pay stubs. This social work specialist obtaining copies of pay stubs. Pay stubs and documentation faxed to [employer], [facility]. Will continue to follow. PLAN: SNF, waiting acceptance. Claire RIVERA, JAXON-S
[2022-02-19 12:16] LABS: Bedside Glucose 122 mg/dL (74-106)
--- NOTE | 2022-02-19 12:46 | PCM.PN.HOSP ---
Subjective Subjective Doing well, no issues overnight. Objective Data Objective Data Vital Signs: Vital Signs Temp Pulse Resp BP Pulse Ox O2 Del Method O2 Flow Rate 97.9 F 98 18 116/57 L 96 Nasal Cannula 2 02/19/22 10:13 02/19/22 10:13 02/19/22 10:13 02/19/22 10:13 02/19/22 10:13 02/19/22 10:13 02/19/22 10:13 FiO2 30 02/19/22 07:26 Oxygen Flow Rate (L/min) 2 Oxygen Delivery Method Nasal Cannula Weight: 414 lb 14.559 oz Body Mass Index (BMI) 63.1 Intake & Output: Intake and Output for Last 24 Hours 02/18/22 02/19/22 02/20/22 03:59 03:59 03:59 Intake Total 340 / 340 980 / 980 480 / 480 Output Total 1590 / 1590 600 / 600 Balance -1250 / -1250 380 / 380 480 / 480 Lab / Micro Data Result Diagrams: 02/15/22 03:50 02/19/22 06:30 Labs: Laboratory Results - last 24 hr 02/18/22 16:19: POC Glucose 185 H 02/18/22 20:43: POC Glucose 135 H 02/19/22 06:22: POC Glucose 120 H 02/19/22 06:30: Sodium 142, Potassium 4.0, Chloride 106, Carbon Dioxide 32.0, Anion Gap 4 L, BUN 18, Creatinine 0.54 L, Estim Creat Clear Calc 125.73, Est GFR (MDRD) Af Amer 153, Est GFR (MDRD) Non-Af 126, BUN/Creatinine Ratio 33.2 H, Glucose 107 H, Calcium 9.2 02/19/22 11:27: POC Glucose 122 H Micro: Microbiology 02/11/22 02:40 Blood Culture (Wb) - Left Forearm Blood Culture - Final No growth in 5 days. 02/11/22 02:41 Blood Culture (Wb) - Right Forearm Blood Culture - Final No growth in 5 days. 02/15/22 13:47 Nasal Secretion SARS-CoV-2 Antigen (Rapid) - Final 02/11/22 02:45 Urine Catheter - Young Urine Culture - Final Culture exhibits no growth. 02/11/22 02:45 Urine Catheter - Young Legionella Antigen - Final 02/11/22 02:45 Urine Catheter - Young Streptococcus pneumoniae Antigen (M - Final 02/08/22 17:32 Sputum, Induced/Lukens Gram Stain - Final 02/08/22 17:32 Sputum, Induced/Lukens Respiratory Culture - Final Presumptive C albicans Mixed Rani Radiography Diagnostic Testing: Radiology Impression Venous Doppler Study 02/15/22 06:26 Interpretation Summary Superficial thrombophlebitis left cephalic vein from the mid biceps to the antecubital space with thrombus involving accessory vein proximal forearm No evidence for acute deep vein thrombosis left upper extremity Ordering Physician: Sukhdeep Celeste Referring Physician: [facility] Performed By: Kyra Taylor RVT ? Rhythm Strip Rhythm Strip: Sinus Tach Rate: 100 Ectopy: None Physical Exam Narrative Const alert, oriented x3 and no apparent distress General Appearance: cooperative HEENT normocephalic and moist oral mucous membranes Eyes PERRL, EOMs intact bilaterally and conjunctivae normal Neck supple and no JVD Resp normal respiratory effort, no retractions and no use of accessory muscles Auscultation: diminished lung sounds; Negative for crackles, rales, rhonchi or wheezes Cardio regular rate, regular rhythm, S1 normal heart sound, S2 normal heart sound and no murmurs GI soft to palpation, non-tender and non-distended; Negative for hepatosplenomegaly Extremity General Extremity: edema Skin Skin Narrative: Chronic venous stasis Neuro no focal motor deficits and no sensory deficits noted Psych affect normal Appearance: appropriate Assessment & Plan Assessment/Plan (1) Acute respiratory failure with hypoxia and hypercapnia: PLAN: Plan 1.? Acute hypoxic and hypercapnic respiratory failure secondary to possible pulmonary edema due to pulmonary hypertension/COPD exacerbation/bilateral community-acquired pneumonia ? She is negative overall 13 L, will resume her home oral Lasix ? Echo with an EF of 65% ?She completed an antibiotic course ?Extubated on 02/14/2022 ?Appreciate pulmonology's assistance, continue with inhalers ? Continue with p.o. prednisone ? Continue with Pepcid for prophylaxis ? CT of the chest with indications of pulmonary edema and pulmonary hypertension 2.? DM2/super morbid obesity ? BMI is 63.6 ?Discussed lifestyle modifications ? Started metformin Disposition: SNF DVT: Lovenox Charges/Coding Visit Charges Inpatient E&M: 48109 Subs Hosp L2
--- NOTE | 2022-02-19 13:48 | CASEMGMT ---
Discharge Quality Control Head Ilda Discharge Quality Control Head called Marie at [facility]. Left a voicemail regarding the referral. Will follow up. Ilda Urban Discharge Quality Control Head
--- NOTE | 2022-02-19 13:48 | CCN.REFER ---
Discharge K 9 Handler/ Deputy Ilda Discharge K 9 Handler/ Deputy called Marie at [place]. Left a voicemail regarding the referral. Will follow up. Ilda Urban Discharge K 9 Handler/ Deputy
[2022-02-19] MEDS: Insulin Lispro 100 UNIT/ML INSULN.PEN SC ×2 (17:19→21:22)
[2022-02-19 17:40] LABS: Bedside Glucose 166 mg/dL (74-106)
[2022-02-19] MEDS: Senna/Docusate Sodium 1 Tablet 2 TABLET PO (21:20)
[2022-02-19 22:10] LABS: Bedside Glucose 194 mg/dL (74-106)
[2022-02-20] VITALS (14 sets, daily range): BP systolic 115–145; BP diastolic 52–77; PULSE 19–108; RESP 12–94; TEMP 36.2–36.9; O2SAT 92–97
[2022-02-20] MEDS: Menthol/Lanolin/Calamine/Znox 113 GM Tube 1 APPLIC TOPICAL ×3 (05:45→20:44)
[2022-02-20 06:35] LABS: Bedside Glucose 119 mg/dL (74-106)
[2022-02-20] MEDS: Ipratropium/Albuterol Sulfate 3 ML AMPUL.NEB INHALATION ×3 (06:43→19:14)
--- NOTE | 2022-02-20 08:28 | PCM.PN.INT ---
Assessment & Plan Assessment/Plan (1) Acute respiratory failure with hypoxia and hypercapnia: PLAN: Plan RECOMMENDATIONS: 1. Completed 7 days of antibiotics. 2. Recommend empiric use of BiPAP therapy with naps and nightly. Outpatient sleep study would be indicated once at intermediate 3. Wean supplemental oxygen to maintain saturations at or above 90%. 4. Continue bronchodilators and wean prednisone. Anticipate need for 8-10 day taper at discharge. 5. Continue appropriate DVT prophylaxis. 6. Increased diuretics given positive fluid balance 7. Encourage incentive spirometer use and mobilize patient as tolerated. 8. Continue with discharge planning IMPRESSIONS: 1. Acute on chronic combined respiratory failure Improved. Possible etiologies for acute decompensation include decompensated heart failure versus COPD exacerbation secondary to bilateral pneumonia or combination of both. The patient apparently has an extensive tobacco abuse history along with a questionable history of obstructive lung disease. In addition, she likely has underlying pulmonary hypertension. The patient has completed 7 days of antimicrobials. We will continue to monitor clinically. She will be continued on scheduled bronchodilators and steroids. The patient does have a history of sleep apnea for which she is noncompliant with the use of nocturnal Pap therapy. Patient likely has a component of alveolar hypoventilation secondary to her obesity. She would benefit from outpatient pulmonary follow-up and smoking cessation if agreeable. Patient should be discharged on empiric BiPAP. Sleep study as an outpatient. Patient with positive fluid balance on daily p.o. Lasix. Will increase to twice daily. BMP daily to monitor for complications. 2. Super morbid obesity/sleep apnea/chronic tobacco dependency/diabetes mellitus Complicates care, management, recovery and prognosis. Continue sliding scale insulin coverage. Physical therapy to continue to work with the patient. Smoking cessation counseling was provided. The patient should ultimately follow-up in the pulmonary medicine clinic after discharge. This note was generated with [employer] dictation software. It may contain incorrect words, spelling, and punctuation that were not noted in checking the note before signing. Subjective Subjective Patient did well overnight. No acute issues were reported. Patient feels subjectively strong enough to be discharged. Patient denies any current chest pain. Patient has been working with therapy but gets short of breath on minimal exertion. Discharge has been delayed secondary to placement issues. Objective Data Objective Data Vital Signs: Vital Signs Temp Pulse Resp BP Pulse Ox O2 Del Method O2 Flow Rate 36.9 C 105 H 20 H 145/71 H 97 Nasal Cannula 6 02/20/22 03:03 02/20/22 07:04 02/20/22 06:43 02/20/22 03:03 02/20/22 06:43 02/20/22 06:43 02/20/22 06:43 FiO2 30 02/20/22 03:03 Oxygen Flow Rate (L/min) 6 Oxygen Delivery Method Nasal Cannula Weight: 188.2 kg Body Mass Index (BMI) 63.1 Intake & Output: Intake and Output for Last 24 Hours 02/18/22 02/19/22 02/20/22 23:59 23:59 23:59 Intake Total 980 / 980 1180 / 1180 100 / 100 Output Total 600 / 600 400 / 400 Balance 380 / 380 780 / 780 100 / 100 Lab / Micro Data Attestation: I reviewed the patient's lab results. Result Diagrams: 02/15/22 03:50 02/19/22 06:30 Labs: Laboratory Results - last 24 hr 02/19/22 11:27: POC Glucose 122 H 02/19/22 17:16: POC Glucose 166 H 02/19/22 21:16: POC Glucose 194 H 02/20/22 06:15: POC Glucose 119 H Micro: Microbiology 02/11/22 02:40 Blood Culture (Wb) - Left Forearm Blood Culture - Final No growth in 5 days. 02/11/22 02:41 Blood Culture (Wb) - Right Forearm Blood Culture - Final No growth in 5 days. 02/15/22 13:47 Nasal Secretion SARS-CoV-2 Antigen (Rapid) - Final 02/11/22 02:45 Urine Catheter - Young Urine Culture - Final Culture exhibits no growth. 02/11/22 02:45 Urine Catheter - Young Legionella Antigen - Final 02/11/22 02:45 Urine Catheter - Young Streptococcus pneumoniae Antigen (M - Final 02/08/22 17:32 Sputum, Induced/Lukens Gram Stain - Final 02/08/22 17:32 Sputum, Induced/Lukens Respiratory Culture - Final Presumptive C albicans Mixed Rani Rhythm Strip Rhythm Strip: Sinus Tach Rate: 100 Ectopy: None Physical Exam Const alert and no apparent distress Constitutional Narrative: No conversational dyspnea on nasal cannula. Hirsutism noted. General Appearance: cooperative Nutritional Appearance: morbidly obese HEENT normocephalic, head/scalp atraumatic and moist oral mucous membranes Eyes PERRL and EOMs intact bilaterally Neck supple General: trachea midline Chest inspection of chest normal Resp normal respiratory effort Auscultation: diminished lung sounds; Negative for rales, rhonchi or wheezes Cardio regular rate, regular rhythm, S1 normal heart sound, S2 normal heart sound, no murmurs, no rub and no gallops GI normal to inspection, nondistended, normoactive bowel sounds Extremity Extremity Narrative: Left upper extremity is edematous when compared to right. General Extremity: edema bilateral lower extremity; Negative for clubbing Skin General Skin Exam: venous stasis and dermatitis Neuro CN's II-XII intact bilaterally and no focal motor deficits Neuro Narrative: Able to follow simple commands. Psych cooperative and affect normal Charges/Coding Visit Charges Inpatient E&M: 68324 Subs Hosp L2
[2022-02-20 08:31] LABS: Anion Gap 6 (5-15); BUN 18 mg/dL (7-18); BUN/Creat Ratio 36.2 RATIO (10-20); Calcium,Total 8.9 mg/dL (8.5-10.1); Chloride 105 mmol/L (98-107); EST Glomerular Filtration Rate 140 mL/min (>60); Est Glom Filt Rate - Afr Amer 169 mL/min (>60); Estimated Creatinine Clearance 135.79 ml/min; Glucose 101 mg/dL (74-106); Potassium 4.3 mmol/L (3.5-5.1); Sodium Level 141 mmol/L (136-145)
--- NOTE | 2022-02-20 09:10 | CASEMGMT ---
Discharge Information Technology Assistant Ilda Discharge Information Technology Assistant called Leonela at [facility] to see if Leonela could look at patients referral again since she is CGA with a walker. Leonela said no due to staffing reasonings and if she were for some reason to decline or fall they do not have the staff to be able to help in those situations. ISATU Crisostomo notified. Ilda Urban Discharge Information Technology Assistant
--- NOTE | 2022-02-20 09:14 | CASEMGMT ---
Discharge Guidance Consultant Ilda Discharge Guidance Consultant called Marie at [place]. Voicemail box is full. Ilda will keep calling to see if facility can accept patient or not. Will keep following. Ilda Urban Discharge Guidance Consultant
[2022-02-20] MEDS: Nystatin Powder 15gm Bottle 1 APPLIC TOPICAL ×2 (09:38→20:53)
[2022-02-20] MEDS: Enoxaparin 30 MG/0.3 ML Syringe SC ×2 (09:38→20:41)
[2022-02-20] MEDS: Famotidine 20 MG Tablet PO ×2 (09:39→20:41)
--- NOTE | 2022-02-20 09:39 | CASEMGMT ---
Social Work E-mail received from [employer], [employer]. [employer] request for patient to sign a release for [employer] to speak with patient employer. This aids social worker printed form attached to e-mail. This aids social worker to patient room to give patient form and explain reason for form. Patient signing form. This aids social worker secure e-mailed signed form back to [facility]. Patient continues to be pending approval at [facility]. Will continue to follow. PLAN: [facility] pending acceptance. Claire RIVERA, JANICE
[2022-02-20] MEDS: predniSONE 10 MG Tablet 30 MG PO (09:40)
[2022-02-20] MEDS: metFORMIN HCl 500 MG Tablet PO ×2 (09:40→15:58)
[2022-02-20] MEDS: Furosemide 40 MG Tablet PO ×2 (09:40→17:30)
[2022-02-20 11:35] LABS: Bedside Glucose 157 mg/dL (74-106)
--- NOTE | 2022-02-20 12:52 | PCM.PN.HOSP ---
Subjective Subjective Doing well, no issues overnight. Maintaining oxygen saturations on 1 to 2 L nasal cannula Objective Data Objective Data Vital Signs: Vital Signs Temp Pulse Resp BP Pulse Ox O2 Del Method O2 Flow Rate 97.2 F L 102 H 20 H 115/65 95 Nasal Cannula 1 02/20/22 09:04 02/20/22 09:04 02/20/22 09:04 02/20/22 09:04 02/20/22 09:04 02/20/22 09:04 02/20/22 09:04 FiO2 30 02/20/22 03:03 Oxygen Flow Rate (L/min) 1 Oxygen Delivery Method Nasal Cannula Weight: 414 lb 14.559 oz Body Mass Index (BMI) 63.1 Intake & Output: Intake and Output for Last 24 Hours 02/19/22 02/20/22 02/21/22 03:59 03:59 03:59 Intake Total 980 / 980 1180 / 1180 580 / 580 Output Total 600 / 600 400 / 400 Balance 380 / 380 780 / 780 580 / 580 Lab / Micro Data Result Diagrams: 02/15/22 03:50 02/20/22 07:25 Labs: Laboratory Results - last 24 hr 02/19/22 17:16: POC Glucose 166 H 02/19/22 21:16: POC Glucose 194 H 02/20/22 06:15: POC Glucose 119 H 02/20/22 07:25: Sodium 141, Potassium 4.3, Chloride 105, Carbon Dioxide 30.0, Anion Gap 6, BUN 18, Creatinine 0.50 L, Estim Creat Clear Calc 135.79, Est GFR (MDRD) Af Amer 169, Est GFR (MDRD) Non-Af 140, BUN/Creatinine Ratio 36.2 H, Glucose 101, Calcium 8.9 02/20/22 11:13: POC Glucose 157 H Micro: Microbiology 02/11/22 02:40 Blood Culture (Wb) - Left Forearm Blood Culture - Final No growth in 5 days. 02/11/22 02:41 Blood Culture (Wb) - Right Forearm Blood Culture - Final No growth in 5 days. 02/15/22 13:47 Nasal Secretion SARS-CoV-2 Antigen (Rapid) - Final 02/11/22 02:45 Urine Catheter - Young Urine Culture - Final Culture exhibits no growth. 02/11/22 02:45 Urine Catheter - Young Legionella Antigen - Final 02/11/22 02:45 Urine Catheter - Oyung Streptococcus pneumoniae Antigen (M - Final 02/08/22 17:32 Sputum, Induced/Lukens Gram Stain - Final 02/08/22 17:32 Sputum, Induced/Lukens Respiratory Culture - Final Presumptive C albicans Mixed Rani Rhythm Strip Rhythm Strip: Sinus Tach Rate: 100 Ectopy: None Physical Exam Narrative Const alert, oriented x3 and no apparent distress General Appearance: cooperative HEENT normocephalic and moist oral mucous membranes Eyes PERRL, EOMs intact bilaterally and conjunctivae normal Neck supple and no JVD Resp normal respiratory effort, no retractions and no use of accessory muscles Auscultation: diminished lung sounds; Negative for crackles, rales, rhonchi or wheezes Cardio regular rate, regular rhythm, S1 normal heart sound, S2 normal heart sound and no murmurs GI soft to palpation, non-tender and non-distended; Negative for hepatosplenomegaly Extremity General Extremity: edema Skin Skin Narrative: Chronic venous stasis Neuro no focal motor deficits and no sensory deficits noted Psych affect normal Appearance: appropriate Assessment & Plan Assessment/Plan (1) Acute respiratory failure with hypoxia and hypercapnia: PLAN: Plan 1.? Acute hypoxic and hypercapnic respiratory failure secondary to possible pulmonary edema due to pulmonary hypertension/COPD exacerbation/bilateral community-acquired pneumonia ? She is negative overall 13 L, will resume her home oral Lasix and she was increased to twice daily dosing today ? Echo with an EF of 65% ?She completed an antibiotic course ?Extubated on 02/14/2022 ?Appreciate pulmonology's assistance, continue with inhalers ? Continue with p.o. prednisone ? Continue with Pepcid for prophylaxis ? CT of the chest with indications of pulmonary edema and pulmonary hypertension 2.? DM2/super morbid obesity ? BMI is 63.6 ?Discussed lifestyle modifications ? Started metformin Disposition: SNF DVT: Lovenox Charges/Coding Visit Charges Inpatient E&M: 40140 Subs Hosp L2
--- NOTE | 2022-02-20 13:17 | CASEMGMT ---
Addendum entered by Ilda Urban 02/20/22 13:49: Ilda called Pat at [facility]. Faxed over a referral. Will follow up Ilda Urban Discharge Hairspring Staker Original Note: Discharge Hairspring Staker Ilda Discharge Hairspring Staker called [place] again. Marie voicemail box is full. Business lady says she is in her office but yet does not answer. Mariela in the Business office then asked Ilda what was needed and Ilda let her know that Ilda has been trying to get a hold of Marie since yesterday. [place] then told Ilda patient is being declined. ISATU Crisostomo has been notified. Ilda Urban Discharge Hairspring Staker
--- NOTE | 2022-02-20 13:21 | CASEMGMT ---
Social Work Notified by discharge transportation planning engineer, Ilda. Patient has been declined [facility]. This social media community manager to patient room. This social media community manager communicated above information. Patient now request for [facility]. This social media community manager updated Ilda Gonsales to send referral to [facility]. PLAN: [facility], skilled. Pending acceptance. Claire RIVERA, SUSTAINABILITY DIRECTOR-S
--- NOTE | 2022-02-20 14:22 | CASEMGMT ---
Discharge Leg Man Pat from [facility] reached out. [facility] is requesting a copy of the medicaid paper work. ISATU Crisostomo has been made aware and will fax it over to [facility]. Ilda Urban Discharge Leg Man
[2022-02-20] MEDS: Insulin Lispro 100 UNIT/ML INSULN.PEN SC ×2 (15:58→20:47)
--- NOTE | 2022-02-20 16:16 | CASEMGMT ---
Discharge Real Estate Valuer Pat from [facility] reached out. Patient has been accepted. [facility] is requesting a level of care to be done. ISATU Crisostomo has been notified and will work on it. Will follow up. Ilda Discharge Real Estate Valuer
--- NOTE | 2022-02-20 16:16 | CASEMGMT ---
Social Work Notified by discharge estate planning attorney, Ilda that patient has been accepted to [facility]. This director social service updated Dr. Aj, patient medically cleared. Dr. Aj to completed transfer to extended care form and sign medication list in order for this director social service to be able to obtain Level of Care. This director social service updated patient. Patient voiced understanding and agreeable with plan to [facility], skilled. PLAN: [facility], pending Level of Care. Claire RIVERA, JAXON-S
[2022-02-20 16:20] LABS: Bedside Glucose 175 mg/dL (74-106)
--- NOTE | 2022-02-20 16:20 | TREXTCAR_ITS ---
Diet Diet Order/Speech Therapy: 02/15/22 10:39 Diet: Consistent Carb - Calorie Controlled Food consistency:: Regular Liquid Consistency:: Regular/Thin Diet Comments: slow pace, ok for meds w/thins How many daily calories?: 1800 calorie Routine Orders/Code Status Routine Lab Work: CBC and BMP Code Status: Full Code Therapies Physical Therapy: Eval and Treat Occupational Therapy: Eval and Treat Problem/Diagnosis (1) Acute respiratory failure with hypoxia and hypercapnia: Status: Acute Code(s): J96.01 - Acute respiratory failure with hypoxia; J96.02 - Acute respiratory failure with hypercapnia Plan 1.? Acute hypoxic and hypercapnic respiratory failure secondary to possible pulmonary edema due to pulmonary hypertension/COPD exacerbation/bilateral community-acquired pneumonia ? She is negative overall 13 L, will resume her home oral Lasix and she was increased to twice daily dosing today ? Echo with an EF of 65% ?She completed an antibiotic course ?Extubated on 02/14/2022 ?Appreciate pulmonology's assistance, continue with inhalers ? Continue with p.o. prednisone ? Continue with Pepcid for prophylaxis ? CT of the chest with indications of pulmonary edema and pulmonary hypertension 2.? DM2/super morbid obesity ? BMI is 63.6 ?Discussed lifestyle modifications ? Started metformin Disposition: SNF DVT: Lovenox Allergies/Procedures Done in Hospital Allergies latex Adverse Reaction (Verified 01/26/22 19:21) Hives Penicillins [PCN] Adverse Reaction (Verified 01/26/22 19:21) Hives Procedures: 2-D Echocardiogram and Intubation Type of Care/Length of Stay Estimated LOS: Convalescent Care Less Than 30 days Type of Care Needed: Skilled Rehab Potential: Good Prognosis: Good Additional Orders/Day of Discharge Day of Discharge: 02/21/22 Dietary and Speech Recommendations Dietitian Recommendations/Changes: Continue Consistent CHO, 1800 calorie controlled diet- consistency modifications per FLAT LOCKER. Discharge Plan Admission Admit Date/Time: 02/08/22 15:34 Attending Provider: David Aj [facility] Providers: David Aj ; Luis Myers ; Sukhdeep Celeste ; Mandi Sánchez NP ; Behzad Bacon Discharge Orders/Prescriptions Prescriptions: New metformin 500 mg Tablet 500 mg PO BIDCM Qty: 0 0RF prednisone 10 mg Tablet 30 mg PO BREAKFAST Qty: 0 0RF ipratropium-albuterol 0.5 mg-3 mg(2.5 mg base)/3 mL Solution For Nebulization 3 ml inhalation Q6H.RT Qty: 0 0RF Continued furosemide [Lasix] 40 mg tablet 40 mg PO BID Qty: 20 0RF Discontinued furosemide [Lasix] 40 mg tablet 40 mg PO DAILY Referrals / Follow Up: Yelena Cabrera [NON-STAFF] - [facility] [Primary Care Provider[facility] - Disposition Disposition (needs filled in before D/C Order can be placed[facility]
--- NOTE | 2022-02-20 16:31 | CASEMGMT ---
Social Work Level of Care documentation obtained and faxed to [facility]. level of care pending. PLAN: [facility], pending Level of Care. Claire RIVERA, JAXON-S
[2022-02-20 21:11] LABS: Bedside Glucose 175 mg/dL (74-106)
[2022-02-21] VITALS (9 sets, daily range): BP systolic 123–149; BP diastolic 61–89; PULSE 94–107; RESP 12–22; TEMP 36.4–36.8; O2SAT 93–97
[2022-02-21] MEDS: Menthol/Lanolin/Calamine/Znox 113 GM Tube 1 APPLIC TOPICAL (06:20)
[2022-02-21] MEDS: Ipratropium/Albuterol Sulfate 3 ML AMPUL.NEB INHALATION ×2 (06:52→13:11)
[2022-02-21 07:01] LABS: Bedside Glucose 123 mg/dL (74-106)
[2022-02-21 07:53] LABS: Anion Gap 3 (5-15); BUN 19 mg/dL (7-18); BUN/Creat Ratio 34.5 RATIO (10-20); Calcium,Total 8.9 mg/dL (8.5-10.1); Chloride 103 mmol/L (98-107); Creatinine, Serum 0.55 mg/dL (0.55-1.02); EST Glomerular Filtration Rate 124 mL/min (>60); Est Glom Filt Rate - Afr Amer 150 mL/min (>60); Estimated Creatinine Clearance 123.44 ml/min; Glucose 117 mg/dL (74-106); Potassium 3.5 mmol/L (3.5-5.1); Sodium Level 141 mmol/L (136-145)
--- NOTE | 2022-02-21 08:27 | PCM.PN.INT ---
Assessment & Plan Assessment/Plan (1) Acute respiratory failure with hypoxia and hypercapnia: PLAN: Plan RECOMMENDATIONS: 1. Completed 7 days of antibiotics. 2. Recommend empiric use of BiPAP therapy with naps and nightly. Outpatient sleep study would be indicated once at long-term 3. Wean supplemental oxygen to maintain saturations at or above 90%. 4. Continue bronchodilators and wean prednisone. Wean to 20 mg tomorrow. Anticipate need for 6-8 day taper at discharge. 5. Continue appropriate DVT prophylaxis. 6. Continue Lasix twice daily as an outpatient 7. Encourage incentive spirometer use and mobilize patient as tolerated. 8. Okay to follow-up with nurse practitioner in our office 4 weeks after discharge from long-term. Sleep study can be ordered prior to this visit. IMPRESSIONS: 1. Acute on chronic combined respiratory failure Improved. Possible etiologies for acute decompensation include decompensated heart failure versus COPD exacerbation secondary to bilateral pneumonia or combination of both. The patient apparently has an extensive tobacco abuse history along with a questionable history of obstructive lung disease. In addition, she likely has underlying pulmonary hypertension. The patient has completed 7 days of antimicrobials. We will continue to monitor clinically. She will be continued on scheduled bronchodilators and steroids. The patient does have a history of sleep apnea for which she is noncompliant with the use of nocturnal Pap therapy, but has found that helpful as an inpatient. Patient likely has a component of alveolar hypoventilation secondary to her obesity. She would benefit from outpatient pulmonary follow-up and smoking cessation if agreeable. Patient should be discharged on empiric BiPAP. Sleep study as an outpatient. Patient tolerating twice daily Lasix. This should be continued. Patient can follow-up 4 weeks after discharge from rehab with nurse practitioner in our office. 2. Super morbid obesity/sleep apnea/chronic tobacco dependency/diabetes mellitus Complicates care, management, recovery and prognosis. Continue sliding scale insulin coverage. Physical therapy to continue to work with the patient. Smoking cessation counseling was provided. The patient should ultimately follow-up in the pulmonary medicine clinic after discharge. This note was generated with [employer] dictation software. It may contain incorrect words, spelling, and punctuation that were not noted in checking the note before signing. Subjective Subjective Patient did well overnight. No acute issues were reported. Patient was able to tolerate BiPAP with sleep. Patient does have shortness of breath with exertion, but overall feels this is slowly improving. Patient states she is willing to wear a mask if she qualifies with one as an outpatient. Objective Data Objective Data Vital Signs: Vital Signs Temp Pulse Resp BP Pulse Ox O2 Del Method O2 Flow Rate 36.4 C L 99 20 H 123/61 H 95 Room Air 1 02/21/22 08:00 02/21/22 08:00 02/21/22 08:00 02/21/22 08:00 02/21/22 08:08 02/21/22 08:08 02/21/22 08:05 FiO2 30 02/21/22 06:52 Oxygen Flow Rate (L/min) 1 Oxygen Delivery Method Room Air Weight: 189.5 kg Body Mass Index (BMI) 63.1 Intake & Output: Intake and Output for Last 24 Hours 02/19/22 02/20/22 02/21/22 23:59 23:59 23:59 Intake Total 1180 / 1180 1060 / 1260 500 / 500 Output Total 400 / 400 Balance 780 / 780 1060 / 1260 500 / 500 Lab / Micro Data Attestation: I reviewed the patient's lab results. Result Diagrams: 02/15/22 03:50 02/21/22 06:25 Labs: Laboratory Results - last 24 hr 02/20/22 07:25: Sodium 141, Potassium 4.3, Chloride 105, Carbon Dioxide 30.0, Anion Gap 6, BUN 18, Creatinine 0.50 L, Estim Creat Clear Calc 135.79, Est GFR (MDRD) Af Amer 169, Est GFR (MDRD) Non-Af 140, BUN/Creatinine Ratio 36.2 H, Glucose 101, Calcium 8.9 02/20/22 11:13: POC Glucose 157 H 02/20/22 15:56: POC Glucose 175 H 02/20/22 20:47: POC Glucose 175 H 02/21/22 06:22: POC Glucose 123 H 02/21/22 06:25: Sodium 141, Potassium 3.5, Chloride 103, Carbon Dioxide 35.0 H, Anion Gap 3 L, BUN 19 H, Creatinine 0.55, Estim Creat Clear Calc 123.44, Est GFR (MDRD) Af Amer 150, Est GFR (MDRD) Non-Af 124, BUN/Creatinine Ratio 34.5 H, Glucose 117 H, Calcium 8.9 Micro: Microbiology 02/11/22 02:40 Blood Culture (Wb) - Left Forearm Blood Culture - Final No growth in 5 days. 02/11/22 02:41 Blood Culture (Wb) - Right Forearm Blood Culture - Final No growth in 5 days. 02/15/22 13:47 Nasal Secretion SARS-CoV-2 Antigen (Rapid) - Final 02/11/22 02:45 Urine Catheter - Young Urine Culture - Final Culture exhibits no growth. 02/11/22 02:45 Urine Catheter - Young Legionella Antigen - Final 02/11/22 02:45 Urine Catheter - Young Streptococcus pneumoniae Antigen (M - Final 02/08/22 17:32 Sputum, Induced/Lukens Gram Stain - Final 02/08/22 17:32 Sputum, Induced/Lukens Respiratory Culture - Final Presumptive C albicans Mixed Rani Rhythm Strip Rhythm Strip: Sinus Rhythm Rate: 94 Ectopy: None Physical Exam Const alert and no apparent distress Constitutional Narrative: No conversational dyspnea on nasal cannula. Hirsutism noted. General Appearance: cooperative Nutritional Appearance: morbidly obese HEENT normocephalic, head/scalp atraumatic and moist oral mucous membranes Eyes PERRL and EOMs intact bilaterally Neck supple General: trachea midline Chest inspection of chest normal Resp normal respiratory effort Auscultation: diminished lung sounds; Negative for rales, rhonchi or wheezes Cardio regular rate, regular rhythm, S1 normal heart sound, S2 normal heart sound, no murmurs, no rub and no gallops GI normal to inspection, nondistended, normoactive bowel sounds Extremity Extremity Narrative: Left upper extremity is edematous when compared to right. General Extremity: edema bilateral lower extremity; Negative for clubbing Skin General Skin Exam: venous stasis and dermatitis Neuro CN's II-XII intact bilaterally and no focal motor deficits Neuro Narrative: Able to follow simple commands. Psych cooperative and affect normal Charges/Coding Visit Charges Inpatient E&M: 84147 Subs Hosp L2
--- NOTE | 2022-02-21 08:42 | DS.PCM_ITS ---
Providers Date of Admission: 02/08/22 Primary Care Physician: Yelena [facility] Consultations 02/08/22 16:43 Consult: Angle Bender / Pulmonary Medicine Routine Consulting Provider: Pulmonary Medicine taryn Back Reason for Consult: hypercapnic failure EMERGENT Consult: No MD Notified: Yes Date Notified: 02/08/22 Time Notified: 15:40 Method of Notification: Text Method of Consult:: In-Person Reason For Visit: HYPERCAPNIC FAILURE Diagnosis Discharge Diagnosis (1) Acute respiratory failure with hypoxia and hypercapnia: Status: Acute Code(s): J96.01 - Acute respiratory failure with hypoxia; J96.02 - Acute respiratory failure with hypercapnia Plan 1.? Acute hypoxic and hypercapnic respiratory failure secondary to possible pulmonary edema due to pulmonary hypertension/COPD exacerbation/bilateral community-acquired pneumonia ? She is negative overall 13 L, will resume her home oral Lasix and she was increased to twice daily dosing today ? Echo with an EF of 65% ?She completed an antibiotic course ?Extubated on 02/14/2022 ?Appreciate pulmonology's assistance, continue with inhalers ? Continue with p.o. prednisone ? Continue with Pepcid for prophylaxis ? CT of the chest with indications of pulmonary edema and pulmonary hypertension 2.? DM2/super morbid obesity ? BMI is 63.6 ?Discussed lifestyle modifications ? Started metformin Disposition: SNF DVT: Lovenox Medications at Discharge Home Medications furosemide 40 mg tablet (Lasix) 40 mg PO BID #20 tabs 01/26/22 ipratropium 0.5 mg-albuterol 3 mg (2.5 mg base)/3 mL nebulization soln 3 ml inhalation Q6H.RT #0 mL 02/20/22 metformin 500 mg tablet 500 mg PO BIDCM #0 tabs 02/20/22 prednisone 10 mg tablet 30 mg PO BREAKFAST #0 tabs 02/20/22 Hospital Course Operations None Procedures 2-D Echocardiogram and Intubation Summary of Care Provided Minutes Spent on Discharge: 45 Hospital Course: Per HPI: GIOVANI VELEZ, is a 51 F who presents to the hospital with fatigue as well as frequent falls.? She had been into the hospital about 2 weeks ago and was started on Lasix for edema.? During her work-up today it was noticed that she was hypoxic in the ER to 82% so she was placed on BiPAP and had an ABG drawn which demonstrated a PCO2 of 84.1 and then a repeat was drawn about 2-1/2 hours later with a PCO2 of 100.9 at which point she was intubated.? There is no family at bedside so most of the history is obtained by chart review and discussion [facility] ED physician.? She did have a fall this morning which is what preempted her arrival to the ER where she had called EMS.? She had hit her head but denies loss of consciousness.? CT of the brain was unremarkable with no bleed in the CTA of the chest did not show any PEs, there are signs of pulmonary edema however.? She also has prominent pulmonary arteries consistent with pulmonary hypertension. Hospital Course: 1.? Acute hypoxic and hypercapnic respiratory failure secondary to possible pulmonary edema due to pulmonary hypertension/COPD exacerbation/bilateral community-acquired pneumonia ? She is negative overall 13 L, will resume her home oral Lasix and she was in creased to twice daily dosing today ? Echo with an EF of 65% ?She completed an antibiotic course ?Extubated on 02/14/2022 ?Appreciate pulmonology's assistance, continue with inhalers ? Continue with p.o. prednisone ? Continue with Pepcid for prophylaxis ? CT of the chest with indications of pulmonary edema and pulmonary hypertension ? I discussed with her the plan for discharge today she expressed understanding of the risk benefits of going and would like to go today to start her rehab. She is currently on room air at rest. I do recommend continuing with her Lasix 40 mg p.o. twice daily and outpatient monitoring of her renal function. Also recommend tapering of her prednisone, I would do another 30mg for 3 more days then 20 mg for 3 days then 10 mg for 3 days. 2.? DM2/super morbid obesity ? BMI is 63.6 ?Discussed lifestyle modifications ? Started metformin recommend continuation on on discharge Physical Exam Narrative Const alert, oriented x3 and no apparent distress General Appearance: cooperative HEENT normocephalic and moist oral mucous membranes Eyes PERRL, EOMs intact bilaterally and conjunctivae normal Neck supple and no JVD Resp normal respiratory effort, no retractions and no use of accessory muscles Auscultation: diminished lung sounds; Negative for crackles, rales, rhonchi or wheezes Cardio regular rate, regular rhythm, S1 normal heart sound, S2 normal heart sound and no murmurs GI soft to palpation, non-tender and non-distended; Negative for hepatosplenomegaly Extremity General Extremity: edema Skin Skin Narrative: Chronic venous stasis Neuro no focal motor deficits and no sensory deficits noted Psych affect normal Appearance: appropriate Weight / BMI Weight Weight: 417 lb 12.415 oz Body Mass Index (BMI) 63.1 ABG / Lab / Microbiology Data Result Diagrams: 02/15/22 03:50 02/21/22 06:25 Laboratory: Laboratory Results - last 24 hr 02/20/22 11:13: POC Glucose 157 H 02/20/22 15:56: POC Glucose 175 H 02/20/22 20:47: POC Glucose 175 H 02/21/22 06:22: POC Glucose 123 H 02/21/22 06:25: Sodium 141, Potassium 3.5, Chloride 103, Carbon Dioxide 35.0 H, Anion Gap 3 L, BUN 19 H, Creatinine 0.55, Estim Creat Clear Calc 123.44, Est GFR (MDRD) Af Amer 150, Est GFR (MDRD) Non-Af 124, BUN/Creatinine Ratio 34.5 H, Glucose 117 H, Calcium 8.9 Microbiology: Microbiology 02/11/22 02:40 Blood Culture (Wb) - Left Forearm Blood Culture - Final No growth in 5 days. 02/11/22 02:41 Blood Culture (Wb) - Right Forearm Blood Culture - Final No growth in 5 days. 02/15/22 13:47 Nasal Secretion SARS-CoV-2 Antigen (Rapid) - Final 02/11/22 02:45 Urine Catheter - Young Urine Culture - Final Culture exhibits no growth. 02/11/22 02:45 Urine Catheter - Young Legionella Antigen - Final 02/11/22 02:45 Urine Catheter - Young Streptococcus pneumoniae Antigen (M - Final 02/08/22 17:32 Sputum, Induced/Lukens Gram Stain - Final 02/08/22 17:32 Sputum, Induced/Lukens Respiratory Culture - Final Presumptive C albicans Mixed Rani Meaningful Use Info Meaningful Use Diagnoses (Choose all that apply): None applicable Discharge Plan Admission Admit Date/Time: 02/08/22 15:34 Attending Provider: David Aj [facility] Providers: David Aj ; Luis Myers ; Sukhdeep Celeste ; Mandi Sánchez NP ; Behzad Bacon Discharge Orders/Prescriptions Prescriptions: New metformin 500 mg Tablet 500 mg PO BIDCM Qty: 0 0RF prednisone 10 mg Tablet 30 mg PO BREAKFAST Qty: 0 0RF ipratropium-albuterol 0.5 mg-3 mg(2.5 mg base)/3 mL Solution For Nebulization 3 ml inhalation Q6H.RT Qty: 0 0RF Continued furosemide [Lasix] 40 mg tablet 40 mg PO BID Qty: 20 0RF Discontinued furosemide [Lasix] 40 mg tablet 40 mg PO DAILY Referrals / Follow Up: Yelena Cabrera [NON-STAFF] - [facility] [Primary Care Provider[facility] - Disposition Disposition (needs filled in before D/C Order can be placed): [facility] Facility Charges/Coding Visit Charges Inpatient E&M: 19258 Disch Hosp
[2022-02-21] MEDS: Enoxaparin 30 MG/0.3 ML Syringe SC (08:55)
[2022-02-21] MEDS: predniSONE 10 MG Tablet 30 MG PO (08:55)
[2022-02-21] MEDS: metFORMIN HCl 500 MG Tablet PO (08:55)
[2022-02-21] MEDS: Furosemide 40 MG Tablet PO (08:55)
[2022-02-21] MEDS: Famotidine 20 MG Tablet PO (08:56)
[2022-02-21] MEDS: Nystatin Powder 15gm Bottle 1 APPLIC TOPICAL (08:57)
--- NOTE | 2022-02-21 10:14 | CASEMGMT ---
Discharge Pattern Storage Clerk ISATU Oseguera has obtained the level of care. Pat at [facility] said patient can come today. Please set transportation up around 16:00 as they are waiting on a bariatric bed. ISATU Oseguera has been notified. Ilda Urban Discharge Pattern Storage Clerk
--- NOTE | 2022-02-21 10:52 | CASEMGMT ---
SW received level of care from [facility]. SW notified RN to obtain a COVID test. ISATU arranged for patient to get picked up 4p via [employer] van. SW faxed orders, 7000, level of care, and picker machine operator time to [facility]. SW notified RN and patient. ruddy Gonsales/c system planning engineer notified Pat at [facility]. Plan: d/c to [facility] under intermediate level of care on a 7000. [facility] transported via [employer] van. Ana Rosa COATES
--- NOTE | 2022-02-21 11:14 | PHA.DC.MR ---
Pharmacy Service has performed discharge medication reconciliation for this patient. The patient's discharge medication list was reviewed for discrepancies and discrepancies were resolved. Home Medications furosemide 40 mg tablet (Lasix) 40 mg PO BID #20 tabs 01/26/22 ipratropium 0.5 mg-albuterol 3 mg (2.5 mg base)/3 mL nebulization soln 3 ml inhalation Q6H.RT #0 mL 02/20/22 metformin 500 mg tablet 500 mg PO BIDCM #0 tabs 02/20/22 prednisone 10 mg tablet 30 mg PO BREAKFAST #0 tabs 02/20/22
--- NOTE | 2022-02-21 11:28 | CASEMGMT ---
COVID test faxed to [facility]. Ana Rosa Nguyen COMMERCIAL BANKER GENERAL ADMINISTRATOR
[2022-02-21 11:45] LABS: Bedside Glucose 128 mg/dL (74-106)
== END 2022-02-21 17:18 | disposition skilled nursing facility (03) ==
LOC: ED 13:40 → ICU 16:28 → PCU 02-17 06:51
PROVIDERS: Family Medicine; Internal Medicine; Internal Medicine Critical Care Medicine; Admitting Provider Family Medicine; Emergency Provider Emergency Medicine; Visit Provider Family Medicine
DX: J96.21 Acute and chronic respiratory failure with hypoxia (principal); I50.31 Acute diastolic (congestive) heart failure; J18.9 Pneumonia, unspecified organism; E87.2 Acidosis; E66.2 Morbid (severe) obesity with alveolar hypoventilation; J44.0 Chronic obstructive pulmonary disease with (acute) lower respiratory infection; J44.1 Chronic obstructive pulmonary disease with (acute) exacerbation; Z68.44 Body mass index [BMI] 60.0-69.9, adult; I27.20 Pulmonary hypertension, unspecified; J96.22 Acute and chronic respiratory failure with hypercapnia; E11.40 Type 2 diabetes mellitus with diabetic neuropathy, unspecified; E11.65 Type 2 diabetes mellitus with hyperglycemia; I89.0 Lymphedema, not elsewhere classified; F17.210 Nicotine dependence, cigarettes, uncomplicated; R29.6 Repeated falls; Z20.822 Contact with and (suspected) exposure to COVID-19; Z91.19 Patient's noncompliance with other medical treatment and regimen
CPT/HCPCS: 31500; 31720; 36415; 36600; 70450; 71045; 71275; 74018; 80048; 80053; 82803; 82962; 83735; 84100; 84145; 84478; 84484; 85025; 87040; 87070; 87086; 87205; 87426; 87449; 87641; 92526; 92610; 93005; 93306; 93971; 94002; 94003; 94640; 94660; 94762; 97110; 97162; 97166; 97530; 97535; 97802; 97803; 99251; 99285; J2185; J7040; J7050; Q9957; Q9967; A4216; C8929; G0463; J1940; J3010; J3490

== ENCOUNTER → 2022-02-26 | Outpatient (REF) | payer MEDICAID, SELFPAY ==
[2022-02-26 09:25] LABS: Hematocrit 44.5 % (37-47); Hemoglobin 12.9 g/dL (12.0-15.0); Mean Corpuscular Hgb 26.5 pg (27.0-32.0); Mean Corpuscular Volume 91.6 fL (81-99); Mean Platelet Vol. 11.1 fl (6.2-12.0); Platelet Count 298 K/mm3 (150-450); RBC Distribution Width CV 17.4 % (11.6-14.6); RBC Distribution Width SD 57.1 fl (35.1-43.9); Red Blood Count 4.86 M/mm3 (4.2-5.4); White Blood Count 11.8 K/mm3 (4.4-11.0)
[2022-02-26 09:37] LABS: Anion Gap 4 (5-15); BUN 17 mg/dL (7-18); Calcium,Total 9.4 mg/dL (8.5-10.1); Chloride 100 mmol/L (98-107); Creatinine, Serum 0.66 mg/dL (0.55-1.02); EST Glomerular Filtration Rate 101 mL/min (>60); Est Glom Filt Rate - Afr Amer 123 mL/min (>60); Glucose 138 mg/dL (74-106); Sodium Level 140 mmol/L (136-145)
== END | disposition home or self-care (01) ==
LOC: OLS.SW1020 07:50
PROVIDERS: Visit Provider Family Medicine
DX: E11.9 Type 2 diabetes mellitus without complications (principal)
CPT/HCPCS: 36415; 80048; 85027

== ENCOUNTER → 2022-03-04 | Outpatient (REF) | payer MEDICAID, SELFPAY ==
[2022-03-04 09:32] LABS: Hemoglobin A1c 7.1 % (3.8-5.6)
== END | disposition home or self-care (01) ==
LOC: OLS.SW1020 04:00
PROVIDERS: Visit Provider Family Medicine
DX: E11.9 Type 2 diabetes mellitus without complications (principal)
CPT/HCPCS: 36415; 83036

== ENCOUNTER → 2022-03-05 | Outpatient (REF) | payer MEDICAID, SELFPAY ==
[2022-03-05 09:22] LABS: Hematocrit 45.5 % (37-47); Hemoglobin 13.6 g/dL (12.0-15.0); Mean Corp Hgb Conc 29.9 g/dL (32-36); Mean Corpuscular Hgb 27.6 pg (27.0-32.0); Mean Corpuscular Volume 92.5 fL (81-99); Mean Platelet Vol. 10.6 fl (6.2-12.0); Platelet Count 262 K/mm3 (150-450); RBC Distribution Width CV 17.8 % (11.6-14.6); RBC Distribution Width SD 59.7 fl (35.1-43.9); Red Blood Count 4.92 M/mm3 (4.2-5.4); White Blood Count 12.8 K/mm3 (4.4-11.0)
[2022-03-05 09:52] LABS: Anion Gap 6 (5-15); BUN 16 mg/dL (7-18); Calcium,Total 9.3 mg/dL (8.5-10.1); Chloride 101 mmol/L (98-107); Creatinine, Serum 0.59 mg/dL (0.55-1.02); EST Glomerular Filtration Rate 114 mL/min (>60); Est Glom Filt Rate - Afr Amer 138 mL/min (>60); Glucose 105 mg/dL (74-106); Potassium 3.4 mmol/L (3.5-5.1); Sodium Level 141 mmol/L (136-145)
== END | disposition home or self-care (01) ==
LOC: OLS.SW300 07:45
PROVIDERS: Visit Provider Family Medicine
DX: R53.83 Other fatigue (principal)
CPT/HCPCS: 36415; 80048; 85027

== ENCOUNTER → 2022-03-13 | Outpatient (CLI) | payer MEDICAID, SELFPAY ==
[2022-03-13 11:34] LABS: Anion Gap 8 (5-15); BUN 16 mg/dL (7-18); BUN/Creat Ratio 23.5 RATIO (10-20); Calcium,Total 9.8 mg/dL (8.5-10.1); Chloride 99 mmol/L (98-107); Creatinine, Serum 0.68 mg/dL (0.55-1.02); EST Glomerular Filtration Rate 97 mL/min (>60); Est Glom Filt Rate - Afr Amer 118 mL/min (>60); Glucose 173 mg/dL (74-106); Sodium Level 139 mmol/L (136-145)
== END | disposition home or self-care (01) ==
LOC: LAB 09:35
DX: I89.0 Lymphedema, not elsewhere classified (principal); Z51.81 Encounter for therapeutic drug level monitoring
CPT/HCPCS: 36415; 80048

== ENCOUNTER 2022-05-19 16:01 | Inpatient (IN) | payer MEDICAID, SELFPAY ==
[2022-05-19] VITALS (27 sets, daily range): BP systolic 116–170; BP diastolic 59–131; PULSE 94–104; RESP 12–38; TEMP 35.9–36.5; O2SAT 48–100; BMI 62.8; BMI 61.2
--- NOTE | 2022-05-19 16:56 | EKG12_ITS ---
Test Reason : EDEMA Blood Pressure : / mmHG Vent. Rate : 105 BPM Atrial Rate : 105 BPM P-R Int : 186 ms QRS Dur : 078 ms QT Int : 336 ms P-R-T Axes : 040 061 042 degrees QTc Int : 444 ms Sinus tachycardia Low voltage QRS Borderline ECG Confirmed by ELVIN MIRANDA, INGA ([id number]), online editor GIOVANI WYATT ([id number]) on 05/21/2022 9:27:03 AM Referred By: NOEMI Confirmed By:INGA OCONNOR MD
--- NOTE | 2022-05-19 16:57 | ED.VIS.DYS ---
HPI History of Present Illness Chief Complaint: Edema Detail of Chief Complaint: Shortness of breath Informant: patient Onset/Context/Timing Onset: Days Context: gradual Timing: Continuous Quality: Positive for Dyspnea on exertion and Orthopnea Current Severity: Mild Maximum Severity: Mild Worsened by: Exertion and Lying flat Relieved by: Nothing Associated Symptoms Chest Pain: Positive for None Narrative Narrative: 51-year-old female history of COPD and chronic lower extremity lymphedema. Not on any home O2. States that she has been short of breath and having increasing leg swelling for days to weeks. She denies any chest pain. No hemoptysis. She denies any history of DVT or PE. She lives at home alone. She was brought in by a neighbor. She has a history of respiratory failure that occurred in January in which she was intubated. She denies any fever or chills or any new cough. PE Risk Factors: Negative for Cancer, OCP + Smoking + > 35, Prior DVT or PE, Recent immobilization, Recent surgery or Recent travel Prior similar symptoms: Yes Recent Illness/Hospitalization: No PFSH PFSH Medical History Carpal tunnel syndrome Cataract COPD (chronic obstructive pulmonary disease) Diabetes Fibromyalgia Lymphedema Neuropathic pain Tobacco abuse Home Medications ipratropium 0.5 mg-albuterol 3 mg (2.5 mg base)/3 mL nebulization soln 3 ml inhalation Q6H.RT #0 mL 02/20/22 [Rx Last Taken Unknown] metformin 500 mg tablet 500 mg PO BIDCM #0 tabs 02/20/22 [Rx Last Taken Unknown] furosemide 40 mg tablet (Lasix) 120 mg PO DAILY 05/19/22 [History Last Taken Unknown] potassium chloride 20 mEq tablet,extended release 20 meq PO DAILY 05/19/22 [History Last Taken Unknown] Allergy/AdvReac Type Severity Reaction Status Date / Time latex AdvReac Hives Verified 05/19/22 16:07 Penicillins [PCN] AdvReac Hives Verified 05/19/22 16:07 Surgical History H/O repair of rotator cuff Hx of cholecystectomy Previous section Social History Smoking Status: Current every day smoker tobacco type: cigarettes ROS ROS ED ROS Narrative Shortness of breath. Leg swelling. Review of Systems ROS Unobtainable: Denies due to encephalopathy Constitutional Constitutional ED: Denies chills or fever(s) Eyes Eyes: Denies blurry vision ENT ENT ED: Denies ear pain Cardiovascular Cardiovascular: Reports orthopnea; Denies chest pain Respiratory/Chest Respiratory/Chest: Reports dyspnea, dyspnea on exertion and orthopnea; Denies cough Gastrointestinal Gastrointestinal: Denies abdominal pain or constipation Genitourinary Genitourinary ED: Denies dysuria or hematuria Musculoskeletal Musculoskeletal: Denies arthralgias Integumentary Denies abscess Neurologic Neurologic: Denies headache(s) Psychiatric Psychiatric: Denies anxiety or depression Endocrine Endocrinology: Denies cold intolerance Hematologic/Lymphatic Hematologic/Lymphatic: Denies easy bleeding Allergic/Immunologic Allergic/Immunologic ED: Denies mouth swelling or tongue swelling EXAM Physical Exam Narrative Exam Narrative: 51-year-old female no acute distress. On room air pulse ox is 92% no hypoxia. On oxygen, she states that he has 98% on Hider. She does not look septic or toxic. H EENT exam unremarkable lightheaded nontender. Lungs clear to auscultation bilaterally. Diminished bilaterally. Heart regular rhythm rate about 95 no murmur. Chest were nontender. Abdomen morbidly obese. Soft nontender. Moving all 4 extremities. Chronic lower extremity lymphedema. 5/5 strength. Dorsi plantarflexion intact. She is awake and alert. Answering questions and following commands. Const Vital Signs: 05/19/22 16:02 05/19/22 16:05 05/19/22 16:10 Temperature 97.5 F L 97.5 F L Temperature Source Temporal Temporal Pulse Rate 98 95 Respiratory Rate 38 H 38 H Respiratory Effort Short of Breath Respiratory Depth Respiratory Pattern Tachypnea Blood Pressure 144/81 H 144/81 H Blood Pressure Mean 102 102 Pulse Ox 92 92 Oxygen Delivery Method Room Air Room Air Oxygen Flow Rate (L/min) Fraction of Inspired Oxygen (FIO2) 05/19/22 16:11 05/19/22 17:01 05/19/22 17:13 Temperature Temperature Source Pulse Rate 104 H Respiratory Rate 20 H Respiratory Effort Short of Breath Respiratory Depth Shallow Respiratory Pattern Tachypnea Blood Pressure 155/83 H Blood Pressure Mean 107 Pulse Ox 96 98 Oxygen Delivery Method Room Air Nasal Cannula Nasal Cannula Oxygen Flow Rate (L/min) 4 4 Fraction of Inspired Oxygen (FIO2) 05/19/22 17:47 05/19/22 17:27 Temperature Temperature Source Pulse Rate 100 101 H Respiratory Rate 22 H 18 Respiratory Effort Respiratory Depth Respiratory Pattern Normal Normal Blood Pressure Blood Pressure Mean Pulse Ox 97 Oxygen Delivery Method Oxygen Flow Rate (L/min) Fraction of Inspired Oxygen (FIO2) 25 Positive well nourished, well developed and obese; Negative for cachectic, contractures or unkempt General Appearance ED: well developed and NAD; Negative for unkempt, cachectic, contractures or pallor Nutritional Appearance: obese; Negative for cachectic HEENT Reports moist mucous membranes; Denies dry mucous membranes atraumatic; Negative for trauma or tenderness Mouth ED: No dry mucous membranes Mouth: No dry mucous membranes Eyes PERRL and EOMs intact bilaterally General Eye ED: Negative for pale conjunctiva or scleral icterus Neck no lymphadenopathy, supple, no meningeal signs and no JVD General: Negative for tenderness Lymph Lymphatic: Negative for other Chest Wall Chest: Negative for other Resp normal respiratory effort and clear to auscultation bilaterally Effort and Inspection: Negative for pain with movement Auscultation: diminished lung sounds; Negative for rales, rhonchi or wheezes Cardio regular rate, regular rhythm, S1 normal heart sound, S2 normal heart sound and no murmurs Rate: Negative for bradycardia or tachycardic GI non-tender, non-distended and no masses Auscultation: normoactive bowel sounds Palpation: soft; Negative for tender or guarding Extremity Negative for normal to inspection Extremity Narrative: Bilateral chronic lymphedema. General Extremety ED: Yes edema General Extremity: edema Neuro oriented x3 Sensorium / Orientation: alert, oriented to person, oriented to place and oriented to time Speech: speech normal Motor Exam: strength 5/5 throughout Psych mental status grossly normal Appearance: Negative for unkempt Attitude: No agitated Mood & Affect: Negative for depressed or anxious Thought Process: normal thought process Skin no wounds General Skin Exam: Negative for jaundice or pallor Lesions: no lesions Rashes: no rashes Trauma: Negative for abrasion or laceration MDM MDM MDM Narrative Medical decision making narrative: Four 51-year-old morbidly obese complaint shortness of breath. Had a history of respiratory failure in January. differential diagnosis would include COPD flare, CHF, asthma, pneumonia versus other etiologies. Better at 6:30 PM. Currently is on BiPap at 18/10 and 25% oxygen. Resting comfortably. Her chest x-ray looks like pulmonary edema CHF her BNP goes against that. This could just be respiratory failure with CO2 retention from COPD. She is also being given Solu-Medrol along with her albuterol and DuoNeb aerosols. I have the hospitalist on page for admission. Lab Data Attestation: I reviewed the patient's lab results. Lab results narrative: CBC shows a white count Lembach 5. H&H 11.6 and 40. Platelets 428. PT INR normal. Electrolytes show potassium of 3.4. Gap is 7. Normal BUN and creatinine. Glucose 122. BNP is only 81. Patient's blood gas shows a pH of 7.26 with a PCO2 of 84 and a PO2 of 65 this is a venous gas. Consistent with respiratory acidosis and respiratory failure. She has been placed on BiPAP. Sinus bradycardia with Labs: Laboratory Results - last 24 hr 05/19/22 05/19/22 05/19/22 16:05 16:05 16:05 WBC 11.5 H RBC 4.47 Hgb 11.6 L Hct 40.6 MCV 90.8 MCH 26.0 L MCHC 28.6 L RDW Std Deviation 58.7 H RDW Coeff of Castillo 17.5 H Plt Count 428 MPV 10.2 Immature Gran % (Auto) 0.500 Neut % (Auto) 70.9 H Lymph % (Auto) 18.8 L Stearns % (Auto) 7.3 Eos % (Auto) 1.9 Baso % (Auto) 0.6 Absolute Neuts (auto) 8.2 H Absolute Lymphs (auto) 2.16 Nucleated RBC % 0.3 PT 13.4 INR 1.1 APTT 32.2 Sodium 142 Potassium 3.4 L Chloride 100 Carbon Dioxide 35.0 H Anion Gap 7 BUN 13 Creatinine 0.73 Estim Creat Clear Calc 93.01 Est GFR (MDRD) Af Amer 108 Est GFR (MDRD) Non-Af 90 BUN/Creatinine Ratio 17.8 Glucose 122 H Calcium 9.4 B-Natriuretic Peptide 05/19/22 16:05 WBC RBC Hgb Hct MCV MCH MCHC RDW Std Deviation RDW Coeff of Castillo Plt Count MPV Immature Gran % (Auto) Neut % (Auto) Lymph % (Auto) Stearns % (Auto) Eos % (Auto) Baso % (Auto) Absolute Neuts (auto) Absolute Lymphs (auto) Nucleated RBC % PT INR APTT Sodium Potassium Chloride Carbon Dioxide Anion Gap BUN Creatinine Estim Creat Clear Calc Est GFR (MDRD) Af Amer Est GFR (MDRD) Non-Af BUN/Creatinine Ratio Glucose Calcium B-Natriuretic Peptide 81.2 ABG Data ABG results: ABG 05/19/22 17:32 Specimen Type JACKLYN Sample Site L Brach pH 7.26 L Bicarbonate Actual 38.3 H Total CO2 41 Base Excess 11 H O2 Saturation 88 L ABG pCO2 84.4 H* ABG pO2 65 L Erickson Test Positive O2 Delivery Device Cannula Liter Flow 4.0 Crit Call To/Read Back Yes Blood Gas Notified Whom wu Radiography Chest X-Ray - ED: 1 View, Read by ED Physician, Heart, Mediastinum, Bony Structures, Chronic Changes and CHF Diagnostic Testing: Clinical Impression(s) from Imaging Studies Chest X-Ray 05/19/22 17:45 IMPRESSION: Findings most suggestive of CHF. Bilateral pulmonary infiltrates are also considered. Electronically Signed: Stephan Salcedo DO at 17:56 EDT Reading Location ID and State: [address] [place] [address] Tel [phone], Service support , Chest x-ray, portable, single view interpreted myself and radiologist looks like. CHF mild bilateral pulmonary edema. Cannot rule out bilateral infiltrates. Critical Care Time Critical Care Time: Yes Critical care time (excluding procedures): 30-74 minutes, Including time spent:, Discussing w/Patient &/or Family/Tube And Rod Straightener, Discussing w/Consultants, Arranging Admission or Transfer, Performing Direct Patient Care at Bedside and - (34 min) Discharge Plan Triage Chief Complaint: Edema Other Complaint: Shortness of Breath ED Provider: Rigo Wu Dx/Rx/DC Orders Clinical Impression: Hypoxia, Respiratory failure, COPD exacerbation, Acute respiratory acidosis, Lymphedema Prescriptions: No Action metformin 500 mg Tablet 500 mg PO BIDCM Qty: 0 0RF ipratropium-albuterol 0.5 mg-3 mg(2.5 mg base)/3 mL Solution For Nebulization 3 ml inhalation Q6H.RT Qty: 0 0RF potassium chloride 20 mEq tablet extended release 20 meq PO DAILY Label Comments: TAKE 1 TABLET BY MOUTH EVERY DAY furosemide [Lasix] 40 mg tablet 120 mg PO DAILY Rx Instructions: 80MG IN MORNING, 40MG IN EVENING Primary Care Provider: Medical Yelena Encarnacion Referrals: [facility],Yelena Cabrera [Primary Care Provider] - Disposition Disposition: Acute Care Hospital [facility]
[2022-05-19 17:15] LABS: Absolute Lymphocyte Count 2.16 X10^3/uL (0.83-4.51); Absolute Neutrophil Count 8.2 X10^3/uL (2.0-7.7); Basophil# 0.07 X10^3/uL; Basophil% 0.6 % (0-1); Eosinophil# 0.22 X10^3/uL; Eosinophils% 1.9 % (0-5); Hematocrit 40.6 % (37-47); Hemoglobin 11.6 g/dL (12.0-15.0); Lymphocyte # 2.16 X10^3/ul (0.83-4.51); Lymphocyte % 18.8 % (19-41); Mean Corp Hgb Conc 28.6 g/dL (32-36); Mean Corpuscular Volume 90.8 fL (81-99); Mean Platelet Vol. 10.2 fl (6.2-12.0); Monocyte# 0.84 X10^3/uL; Monocyte% 7.3 % (0-10); NRBC Flagged by Analyzer 0.3 % (0-5); Neutrophil # 8.16 X10^3/uL (2.7-7.7); Neutrophil % 70.9 % (47-70); Platelet Count 428 K/mm3 (150-450); RBC Distribution Width CV 17.5 % (11.6-14.6); RBC Distribution Width SD 58.7 fl (35.1-43.9); Red Blood Count 4.47 M/mm3 (4.2-5.4); White Blood Count 11.5 K/mm3 (4.4-11.0)
[2022-05-19 17:29] LABS: Anion Gap 7 (5-15); BUN 13 mg/dL (7-18); BUN/Creat Ratio 17.8 RATIO (10-20); Calcium,Total 9.4 mg/dL (8.5-10.1); Chloride 100 mmol/L (98-107); Creatinine, Serum 0.73 mg/dL (0.55-1.02); EST Glomerular Filtration Rate 90 mL/min (>60); Est Glom Filt Rate - Afr Amer 108 mL/min (>60); Estimated Creatinine Clearance 93.01 ml/min; Glucose 122 mg/dL (74-106); Potassium 3.4 mmol/L (3.5-5.1); Sodium Level 142 mmol/L (136-145)
[2022-05-19 17:37] LABS: BNP,B-Type NATRIURETIC PEPTIDE 81.2 pg/mL (0-100)
[2022-05-19 17:40] LABS: Allen Test Positive; Base Excess 11 mmol/L (-2 to +2); Bicarbonate 38.3 mmol/L (22-26); O2 Delivery Device Cannula; PO2 65 mmHG (75-100); SO2 88 % (95-99); Total Carbon Dioxide 41 mmol/L; pCO2 84.4 mmHg (35-45); pH 7.26 (7.35-7.45)
[2022-05-19 17:43] LABS: Prothrombin Time (Protime)PT. 13.4 SECONDS (11.7-14.9)
[2022-05-19 17:44] LABS: International Normalized Ratio 1.1; Partial Thromboplast Time 32.2 Seconds (24.1-36.2)
--- NOTE | 2022-05-19 17:45 | RAD_ITS ---
STUDY: X-RAY CHEST REASON FOR EXAM: Female, 51 years old. Chest pain. Increased swelling of the legs with pain in the left hip and shortness of breath. TECHNIQUE: Single AP portable view of the chest. COMPARISON: 01/21/2022. FINDINGS: Endotracheal tube and enteric tube seen on the prior study, are no longer present. The lungs are hypoexpanded. There is diffuse perihilar interstitial and alveolar densities which appear greater than on the prior study. There is no demonstrated pleural abnormality. Stable cardiomegaly. Normal mediastinum and ruthie. Bilateral hilar vascular prominence. Normal visualized aortic arch and descending thoracic aorta. The thoracic spine is obscured by the mediastinum. Normal visualized ribs, clavicles, and shoulders. There is no demonstrated abnormality of the visualized soft tissue structures of the upper abdomen. RAD/Chest 1 View (Portable) IMPRESSION: Findings most suggestive of CHF. Bilateral pulmonary infiltrates are also considered. Electronically Signed: Stephan Salcedo DO at 17:56 EDT ,
[2022-05-19 18:13] LABS: Blood Gas Specimen Type VEN
[2022-05-19 18:15] LABS: SITE L Brach
--- NOTE | 2022-05-19 18:40 | HP.PCM.HOS_ITS ---
HPI - General General Date of Admission: 05/19/22 Date of Service: 05/19/22 Chief Complaint: Dyspnea, recurrent worsened lymphedema. HPI Narrative The patient is a 51 y/o F w/ PMHx: Morbid Obesity, COPD, HTN, Chronic BL LE Lymphedema, Pulmonary HTN, SANCHEZ, Diabetes mellitus type II, Tobacco use, recent prolonged admission 02/08/22-02/21/22 for Acute Hypoxic and Hypercarbic Respiratory Failure secondary to Possible Pulmonary Edema secondary to Pulmonary HTN/COPD Exacerbation/BL CAP requiring BIPAP and ICU admission with intubation at that ti al with ECHO w/ EF 65% with no evidence of diastolic dysfunction who now re- presents to the [facility] ED on 05/19/22 with history of recurrent progressively worsening dyspnea, worse with exertion, more severe over the last 24-48 hours but progressing over the last days to weeks with concurrently increasing BL LE edema. Patient had been pulled from her car by ED staff and was significantly short of breath with accessory muscle usage, increased respiratory rate and worsening fatigue and confusion. She denies any recent fevers, chills, marked cough. Upon hospitalist evaluation patient was significantly fatigued although improved respiratory status and on BiPAP with some change with stimuli but not answering questions currently. Work-up in the ED included T97.5, heart rate 98, BP 144/81, respiratory rate 38, initially 92% on room air eventually transitioned to BiPAP with respiratory rate 22, 97% with FiO2 25%, CBC with WC 11.5, hemoglobin 11.6, platelet 428 with left shift, unremarkable coags, ABG with pH 7.26, bicarb 38.3, PCO2 84.4, PO2 65 on 4 L nasal cannula, BMP with potassium 3.4, carbon oxide 35, glucose 122, BNP 81.2, rapid COVID antigen negative, chest x-ray with bilateral pulmonary infiltrates versus possible volume overload with diffuse perihilar interstitial and alveolar densities. In the ED patient ministered DuoNeb therapy as well as Solu-Medrol 125 mg IV x1. [facility] Medical History (Updated 05/19/22 @ 18:[address] Alessandra Middleton MD) Carpal tunnel syndrome Cataract COPD (chronic obstructive pulmonary disease) Diabetes Fibromyalgia Lymphedema Morbid obesity Neuropathic pain SANCHEZ (obstructive sleep apnea) Pulmonary hypertension Tobacco abuse Home Medications ipratropium 0.5 mg-albuterol 3 mg (2.5 mg base)/3 mL nebulization soln 3 ml inhalation Q6H.RT #0 mL 02/20/22 [Rx Last Taken Unknown] metformin 500 mg tablet 500 mg PO BIDCM #0 tabs 02/20/22 [Rx Last Taken Unknown] furosemide 40 mg tablet (Lasix) 120 mg PO DAILY 05/19/22 [History Last Taken Unknown] potassium chloride 20 mEq tablet,extended release 20 meq PO DAILY 05/19/22 [History Last Taken Unknown] Allergy/AdvReac Type Severity Reaction Status Date / Time latex AdvReac Hives Verified 05/19/22 16:07 Penicillins [PCN] AdvReac Hives Verified 05/19/22 16:07 unable to obtain (Encephalopathic, unable to give history.) Surgical History H/O repair of rotator cuff Hx of cholecystectomy Previous section Social History (Updated 05/19/22 @ 19:[address] Alessandra Middleton MD) Smoking Status: Current every day smoker tobacco type: cigarettes alcohol intake: never substance use type: does not use ROS Review of Systems ROS Unobtainable: due to encephalopathy Vital Signs Vital Signs Vital Signs: 05/19/22 16:02 05/19/22 16:05 05/19/22 16:10 Temperature 97.5 F L 97.5 F L Temperature Source Temporal Temporal Pulse Rate 98 95 Respiratory Rate 38 H 38 H Respiratory Effort Short of Breath Respiratory Depth Respiratory Pattern Tachypnea Blood Pressure 144/81 H 144/81 H Blood Pressure Mean 102 102 Pulse Ox 92 92 Oxygen Delivery Method Room Air Room Air Oxygen Flow Rate (L/min) Fraction of Inspired Oxygen (FIO2) 05/19/22 16:11 05/19/22 17:01 05/19/22 17:13 Temperature Temperature Source Pulse Rate 104 H Respiratory Rate 20 H Respiratory Effort Short of Breath Respiratory Depth Shallow Respiratory Pattern Tachypnea Blood Pressure 155/83 H Blood Pressure Mean 107 Pulse Ox 96 98 Oxygen Delivery Method Room Air Nasal Cannula Nasal Cannula Oxygen Flow Rate (L/min) 4 4 Fraction of Inspired Oxygen (FIO2) 05/19/22 17:47 05/19/22 17:27 Temperature Temperature Source Pulse Rate 100 101 H Respiratory Rate 22 H 18 Respiratory Effort Respiratory Depth Respiratory Pattern Normal Normal Blood Pressure Blood Pressure Mean Pulse Ox 97 Oxygen Delivery Method Oxygen Flow Rate (L/min) Fraction of Inspired Oxygen (FIO2) 25 Weight Weight: 413 lb 12.922 oz Body Mass Index (BMI) 62.8 Physical Exam Narrative Physical Examination: General: Patient encephalopathic, arouses to stimuli but falls back asleep, not alert, not answering orientation questions, seated upright in ED bed, BiPAP in place, from discussion with ED physician improved since initial respiratory distress presentation. Skin: Normal color, normal turgor, no icterus, no cyanosis. HEENT: AT/NC, EOM unable to be assessed well given encephalopathy is now, PERRLA, dry MM, no carotid bruits or discernible JVD however patient with significantly thickened neck, BiPAP in place making referred sounds difficult Lungs: Significantly diminished, distant, BiPAP in place with referred sounds, respiratory rate improved, respiratory distress significantly lessening per discussion with the ED physician based on prior initial exam, occasional very soft distant end expiratory wheeze, no obvious rhonchi or rales. Heart: Tachycardic with regular; no gallop, rub audible. Abdomen: Soft, morbidly obese, no obvious grimace with palpation but encephalopathic, difficult assess distention given habitus, distant bowel sounds, unable to discern HSM secondary to significant morbid obesity. Extremities: No cyanosis, no clubbing, significant bilateral lower extremity lymphedema extending proximally. Neurological: Patient encephalopathic, arouses to stimuli but falls back asleep, not alert, not answering orientation questions, seated upright in ED bed, BiPAP in place, from discussion with ED physician improved since initial respiratory distress presentation, cognitive function not baseline intact; pupils equally reactive to light and accommodation, cranial nerves difficult to assess given acute presentation with encephalopathy, moving extremities to stimuli, strength severely global decrease given acute presentation. Psychiatric: Affect appears encephalopathic, flat no acute evidence of depressive or anxiety feelings. Results Lab / Micro Data Result Diagrams: 05/19/22 16:05 05/19/22 16:05 Labs: Laboratory Results - last 24 hr 05/19/22 16:05: WBC 11.5 H, RBC 4.47, Hgb 11.6 L, Hct 40.6, MCV 90.8, MCH 26.0 L , MCHC 28.6 L, RDW Std Deviation 58.7 H, RDW Coeff of Castillo 17.5 H, Plt Count 428, MPV 10.2, Immature Gran % (Auto) 0.500, Neut % (Auto) 70.9 H, Lymph % (Auto) 18.8 L, Garfield % (Auto) 7.3, Eos % (Auto) 1.9, Baso % (Auto) 0.6, Absolute Neuts (auto) 8.2 H, Absolute Lymphs (auto) 2.16, Nucleated RBC % 0.3 05/19/22 16:05: PT 13.4, INR 1.1, APTT 32.2 05/19/22 16:05: Sodium 142, Potassium 3.4 L, Chloride 100, Carbon Dioxide 35.0 H , Anion Gap 7, BUN 13, Creatinine 0.73, Estim Creat Clear Calc 93.01, Est GFR (MDRD) Af Amer 108, Est GFR (MDRD) Non-Af 90, BUN/Creatinine Ratio 17.8, Glucose 122 H, Calcium 9.4 05/19/22 16:05: B-Natriuretic Peptide 81.2 Micro: Microbiology 05/19/22 17:06 Nasal Secretion SARS-CoV-2 Antigen (Rapid) - Final ABG Data ABG results: ABG 05/19/22 17:32 Specimen Type JACKLYN Sample Site L Brach pH 7.26 L Bicarbonate Actual 38.3 H Total CO2 41 Base Excess 11 H O2 Saturation 88 L ABG pCO2 84.4 H* ABG pO2 65 L Erickson Test Positive O2 Delivery Device Cannula Liter Flow 4.0 Crit Call To/Read Back Yes Blood Gas Notified Whom wu Radiology Impression Chest X-Ray 05/19/22 17:45 IMPRESSION: Findings most suggestive of CHF. Bilateral pulmonary infiltrates are also considered. Electronically Signed: Stephan Salcedo DO at 17:56 EDT Reading Location ID and State: [address] [place] [address] Tel [phone], Service support , Assessment & Plan Assessment/Plan (1) Hypoxia: (2) Respiratory failure: PLAN: Plan The patient is a 51 y/o F w/ PMHx: Morbid Obesity, COPD, HTN, Chronic BL LE Lymphedema, Pulmonary HTN, SANCHEZ, Diabetes mellitus type II, Tobacco use, recent prolonged admission 02/08/22-02/21/22 for Acute Hypoxic and Hypercarbic Respiratory Failure secondary to Possible Pulmonary Edema secondary to Pulmonary HTN/COPD Exacerbation/BL CAP requiring BIPAP and ICU admission with intubation at that time with ECHO w/ EF 65% with no evidence of diastolic dysfunction who now re- presents to the [facility] ED on 05/19/22 with history of recurrent progressively worsening dyspnea, worse with exertion, more severe over the last 24-48 hours but progressing over the last days to weeks with concurrently increasing BL LE edema. #1. Acute Hypoxic and Hypercarbic Respiratory Failure secondary to Acute on chronic COPD exacerbation complicated by Morbid Obesity, Hypoventilation Syndrome, Pulmonary HTN, lower suspicion for CHF Exacerbation (Normal BNP, ECHO recently unremarkable with no diastolic dysfunction, EF 65%): Will admit to the ICU, maintain on BIPAP, will request Shoe Stock Associate consultation, plan repeat ABG in 1 hour following transition to the ICU, continue ATC duonebs, PRN albuterol, IV methylprednisolone, HOB, IS parameters, request respiratory viral panel, sputum culture as well as procalcitonin, add abx if appropriate, currently afebrile, no marked WBC elevation or notable shift; however low threshold to add if appropriate. #2. Acute on Chronic Lymphedema: Will continue treatments as noted above, recent ECHO 02/08/22 with grossly normal LV size, wall motion and systolic function, EF 65%, no evidence of diastolic dysfunction, NPO status currently given BIPAP usage, will transition to lasix regimen IV and place snug YOJANA wraps to potentially assist additionally. #3. Hypokalemia: Admission K+ 3.4, magnesium level requested, supplementation given, repeat level in AM. #4. Normocytic anemia: Admission hemoglobin 11.6, MCV 90.8, baseline appears 12-13, given overload we will continue diuresis noted and plan repeat CBC in a.m. with further evaluation pending reassessment. #5. Hypertension: Holding oral regimen, transition to IV lasix as noted, PRN IV hydralazine also. #6. Diabetes mellitus type II: Hold oral home regimen, ADA diet once appropriate for transition off BIPAP, accu checks w/ ISS. #7. Morbid Obesity: Weight loss and lifestyle changes encouraged, nutrition consulted. #8. Tobacco Abuse: Encouraged cessation, inpatient consultation per RT, NR if desired. #9. SANCHEZ: BIPAP as noted. #10. DVT prophylaxis: SCDs, lovenox. #11. CODE status: Unable to given answer, will maintain NPO status based on most recent admission. Charges/Coding Visit Charges Inpatient E&M: 85427 Init Hosp L3
[2022-05-19] MEDS: MethylPREDNISolone 125 MG/2 ML Vial IV (18:49)
--- NOTE | 2022-05-19 18:55 | ED.RN ---
This nurse was at break and on returning was advised that aerosols were given, ABG's were resulted as well. However, I noticed the aerosol treatments were not documented in patient MAR, also on pulling solumedrol for patient, I noticed the medications for aerosol were not withdrawn from medication dispensing system. Called respiratory, Manolo, for confirmation and was advised there was noted documentation that the aerosol treatments were given but also noted proper documentation was not done.
[2022-05-19 19:27] LABS: Troponin-I HS 10 pg/mL (3.0-54.0)
[2022-05-19 20:15] LABS: Magnesium 2.3 mg/dL (1.6-2.6)
[2022-05-19 20:31] LABS: Base Excess 12 mmol/L (-2 to +2); Bicarbonate 38.8 mmol/L (22-26); Blood Gas Specimen Type ART; FI02 40; O2 Delivery Device BiPAP; PEEP 12; PO2 144 mmHG (75-100); RR 12; SITE L Radial; SO2 99 % (95-99); Total Carbon Dioxide 42 mmol/L; Vt 500; pCO2 88.2 mmHg (35-45); pH 7.25 (7.35-7.45)
[2022-05-19] MEDS: Ipratropium/Albuterol Sulfate 3 ML AMPUL.NEB INHALATION (20:44)
[2022-05-19] MEDS: Furosemide 40 MG/4 ML Vial IV (20:46)
[2022-05-19] MEDS: Enoxaparin 40 MG/0.4 ML Syringe SC (20:50)
[2022-05-19] MEDS: Potassium Chloride 10mEq/100mL 10 MEQ/100 ML IV.SOLN. 100 MEQ IV BOLUS ×2 (20:54→21:59)
[2022-05-19 20:58] LABS: Procalcitonin 0.05 ng/mL (0.00-0.09)
[2022-05-19] MEDS: 0.9% Saline Lock 10 ML Syringe IV (20:58)
[2022-05-19] MEDS: Famotidine 200 MG/20 ML MDV 20 MG in 0.9% Normal Saline (Pres. free 8 ML 300 MG IV (20:58)
[2022-05-19 21:11] LABS: Bedside Glucose 133 mg/dL (74-106)
[2022-05-20] VITALS (39 sets, daily range): BP systolic 102–133; BP diastolic 54–88; PULSE 71–105; RESP 12–26; TEMP 36.3–36.6; O2SAT 88–100
[2022-05-20] MEDS: Potassium Chloride 10mEq/100mL 10 MEQ/100 ML IV.SOLN. 100 MEQ IV BOLUS ×2 (00:06→01:17)
[2022-05-20 01:21] LABS: Base Excess 12 mmol/L (-2 to +2); Bicarbonate 38.6 mmol/L (22-26); Blood Gas Specimen Type ART; FI02 35; O2 Delivery Device BiPAP; PEEP 12; PO2 116 mmHG (75-100); RR 12; SITE L Radial; SO2 98 % (95-99); Total Carbon Dioxide 41 mmol/L; Vt 500; pCO2 77.9 mmHg (35-45)
[2022-05-20] MEDS: Insulin Lispro 100 UNIT/ML INSULN.PEN SC ×5 (02:04→21:11)
[2022-05-20 02:21] LABS: Bedside Glucose 163 mg/dL (74-106)
[2022-05-20 05:01] LABS: Absolute Lymphocyte Count 0.91 X10^3/uL (0.83-4.51); Absolute Neutrophil Count 11.3 X10^3/uL (2.0-7.7); Basophil# 0.03 X10^3/uL; Basophil% 0.2 % (0-1); Hemoglobin 12.3 g/dL (12.0-15.0); Lymphocyte # 0.91 X10^3/ul (0.83-4.51); Lymphocyte % 7.3 % (19-41); Mean Corpuscular Hgb 26.1 pg (27.0-32.0); Mean Corpuscular Volume 93.4 fL (81-99); Mean Platelet Vol. 10.3 fl (6.2-12.0); Monocyte# 0.06 X10^3/uL; Monocyte% 0.5 % (0-10); NRBC Flagged by Analyzer 0 % (0-5); Neutrophil # 11.34 X10^3/uL (2.7-7.7); Neutrophil % 91.4 % (47-70); Platelet Count 404 K/mm3 (150-450); RBC Distribution Width CV 17.4 % (11.6-14.6); RBC Distribution Width SD 60.4 fl (35.1-43.9); Red Blood Count 4.71 M/mm3 (4.2-5.4); White Blood Count 12.4 K/mm3 (4.4-11.0)
[2022-05-20] MEDS: Furosemide 40 MG/4 ML Vial IV ×3 (05:01→21:11)
[2022-05-20] MEDS: 0.9% Saline Lock 10 ML Syringe IV ×2 (05:01→21:13)
[2022-05-20 05:24] LABS: ALB/GLOB Ratio 0.6 RATIO (0.9-2.4); AST(SGOT) 31 U/L (15-37); Alanine Aminotransfer ALT/SGPT 17 U/L (13-56); Albumin, Serum 2.8 g/dL (3.2-5.0); Alkaline Phosphatase 93 U/L (45-117); Anion Gap 4 (5-15); BUN 12 mg/dL (7-18); BUN/Creat Ratio 14.8 RATIO (10-20); Calcium,Total 9.1 mg/dL (8.5-10.1); Chloride 101 mmol/L (98-107); Creatinine, Serum 0.81 mg/dL (0.55-1.02); EST Glomerular Filtration Rate 79 mL/min (>60); Est Glom Filt Rate - Afr Amer 96 mL/min (>60); Estimated Creatinine Clearance 83.82 ml/min; Glucose 180 mg/dL (74-106); Protein, Total 7.8 g/dL (6.4-8.2); Sodium Level 142 mmol/L (136-145)
--- NOTE | 2022-05-20 05:55 | RAD_ITS ---
STUDY: X-RAY CHEST REASON FOR EXAM: Female, 51 years old. Dyspnea TECHNIQUE: Single AP portable view of the chest. COMPARISON: Comparison is made with prior study 05/19/2022. FINDINGS: EKG electrodes are seen. Persistent vascular congestion and CHF although there has been improvement. Mild left basilar atelectasis. There is no demonstrated pleural abnormality. There is mild cardiac enlargement. Normal mediastinum and ruthie. Normal visualized pulmonary arteries. Normal visualized aortic arch and descending thoracic aorta. Normal visualized thoracic spine. Normal visualized ribs, clavicles, and shoulders. There is no demonstrated abnormality of the visualized soft tissue structures of the upper abdomen. RAD/Chest 1 View (Portable) IMPRESSION: Persistent mild degree of CHF. Left basilar atelectasis. Electronically Signed: Donal Wagner MD at 8:12 EDT ,
--- NOTE | 2022-05-20 06:18 | EX.PCM.CONCC ---
Assessment & Plan Assessment/Plan (1) Acute respiratory failure with hypoxia and hypercapnia: PLAN: Plan RECOMMENDATIONS: 1. Continue AVAPS therapy and wean as tolerated. 2. Goal to maintain oxygen saturations 88 to 92%. 3. Gentle diuresis as tolerated by hemodynamics and renal function. 4. Avoid sedating medications. 5. Continue scheduled bronchodilators and IV steroids. 6. Continue appropriate ICU prophylaxis. IMPRESSIONS: 1. Acute on chronic combined respiratory failure Most likely multifactorial in etiology. Although, I do suspect that the major contributing factor is likely underlying COPD, which is in a state of exacerbation secondary to a human [place] pneumo viral infection. The patient has never been formally evaluated on an outpatient basis in the pulmonary medicine clinic. I do suspect the presence of sleep disordered breathing and alveolar hypoventilation secondary to obesity. The patient appears to be responding favorably to the use of AVAPS therapy, bronchodilators and steroids, all of which will be continued. With improving mentation, the patient can be weaned from PAP therapy and transition to nasal cannula oxygen to maintain saturations in the range of 88 to 92%. Ultimately, the patient is to follow-up on an outpatient basis for a sleep study and PFTs. Smoking cessation is advisable. Gentle diuresis can be continued as well, pending stability and renal function and hemodynamic status. 2. Super morbid obesity/suspected sleep apnea/chronic tobacco dependency/diabetes mellitus Complicates care, management, recovery and prognosis. Continue sliding scale insulin coverage. Physical therapy will need to evaluate the patient once medically stabilized. TIME: 36 minutes of critical care time, independent of procedures, was spent addressing the patient's acute on chronic combined respiratory failure, COPD exacerbation secondary to human metapneumovirus infection, review of all data and collaboration with the care team. HPI Consult Data Date of Consult: 05/20/22 HPI Narrative Reason for Consultation: Acute respiratory failure, COPD exacerbation HPI Narrative: The patient is a 51-year-old female, with a history as outlined below, who presented to the emergency department on May 19 with worsening shortness of breath. The patient has a longstanding tobacco abuse history with questionable COPD of unknown severity and clinical suspicion for underlying sleep disordered breathing. She does continue to smoke cigarettes daily. The patient was last admitted to our hospital in February 2022 with acute on chronic combined respiratory failure. On presentation to the emergency department, the patient was noted to be afebrile and hemodynamically stable. She was, nevertheless, notably tachypneic. Initial laboratory evaluation revealed a white blood cell count of 12,000. Coagulation profile was within normal limits. Chemistry profile was notable for a potassium of 3.4 and bicarbonate of 35. Procalcitonin was within normal limits. Arterial blood gas demonstrated a pH of 7.25 with a PCO2 of 88 and PO2 of 144. Chest x-ray demonstrated bilateral interstitial infiltrates. The patient was subsequently started on noninvasive positive pressure ventilatory support along with bronchodilators and IV steroids. Subsequent testing in the form of a respiratory viral panel revealed that the patient was positive for human metapneumovirus. The patient currently denies any resting shortness of breath but does endorse the presence of a cough. She denies any fevers or chills. [facility] Medical History (Updated 05/20/22 @ 08:[address] Sukhdeep Celeste, ) Carpal tunnel syndrome Cataract COPD (chronic obstructive pulmonary disease) Diabetes Fibromyalgia Lymphedema Morbid obesity Neuropathic pain SANCHEZ (obstructive sleep apnea) Pulmonary hypertension Tobacco abuse Home Medications ipratropium 0.5 mg-albuterol 3 mg (2.5 mg base)/3 mL nebulization soln 3 ml inhalation Q6H.RT #0 mL 02/20/22 [Rx Last Taken Unknown] metformin 500 mg tablet 500 mg PO BIDCM #0 tabs 02/20/22 [Rx Last Taken Unknown] furosemide 40 mg tablet (Lasix) 120 mg PO DAILY 05/19/22 [History Last Taken Unknown] potassium chloride 20 mEq tablet,extended release 20 meq PO DAILY 05/19/22 [History Last Taken Unknown] Allergy/AdvReac Type Severity Reaction Status Date / Time latex AdvReac Hives Verified 05/19/22 16:07 Penicillins [PCN] AdvReac Hives Verified 05/19/22 16:07 Family History unable to obtain Surgical History H/O repair of rotator cuff Hx of cholecystectomy Previous section Social History Smoking Status: Current every day smoker tobacco type: cigarettes alcohol intake: never substance use type: does not use ROS ROS Narrative 10 systems were reviewed with pertinent positives as noted in the HPI above. Physical Exam Const Constitutional Narrative: Currently tolerating AVAPS. The patient is somnolent but easily arouses to verbal stimulation and is able to answer simple questions. She is super morbidly obese and rather unkempt in appearance. HEENT normocephalic and head/scalp atraumatic Eyes PERRL and EOMs intact bilaterally Neck supple General: trachea midline Chest inspection of chest normal Resp Effort and Inspection: tachypneic Auscultation: diminished lung sounds; Negative for rales, rhonchi or wheezes Cardio regular rate and regular rhythm GI normal to inspection, nondistended, normoactive bowel sounds Extremity General Extremity: edema bilateral (Chronic appearing lymphedema of the lower extremities); Negative for clubbing Skin General Skin Exam: venous stasis and dermatitis Neuro no focal motor deficits Psych Mood & Affect: flat affect Lab / Micro Data Result Diagrams: 05/20/22 04:52 05/20/22 04:52 Labs: Laboratory Results - last 24 hr 05/19/22 16:05: WBC 11.5 H, RBC 4.47, Hgb 11.6 L, Hct 40.6, MCV 90.8, MCH 26.0 L, MCHC 28.6 L, RDW Std Deviation 58.7 H, RDW Coeff of Castillo 17.5 H, Plt Count 428, MPV 10.2, Immature Gran % (Auto) 0.500, Neut % (Auto) 70.9 H, Lymph % (Auto) 18.8 L, [place] % (Auto) 7.3, Eos % (Auto) 1.9, Baso % (Auto) 0.6, Absolute Neuts (auto) 8.2 H, Absolute Lymphs (auto) 2.16, Nucleated RBC % 0.3 05/19/22 16:05: PT 13.4, INR 1.1, APTT 32.2 05/19/22 16:05: Sodium 142, Potassium 3.4 L, Chloride 100, Carbon Dioxide 35.0 H, Anion Gap 7, BUN 13, Creatinine 0.73, Estim Creat Clear Calc 93.01, Est GFR (MDRD) Af Amer 108, Est GFR (MDRD) Non-Af 90, BUN/Creatinine Ratio 17.8, Glucose 122 H, Calcium 9.4 05/19/22 16:05: B-Natriuretic Peptide 81.2 05/19/22 18:46: Troponin I High Sens 10 05/19/22 18:46: Magnesium 2.3 05/19/22 20:15: Procalcitonin 0.05 05/19/22 20:24: POC Glucose 133 H 05/20/22 02:01: POC Glucose 163 H 05/20/22 04:52: WBC 12.4 H, RBC 4.71, Hgb 12.3, Hct 44.0, MCV 93.4, MCH 26.1 L, MCHC 28.0 L, RDW Std Deviation 60.4 H, RDW Coeff of Castillo 17.4 H, Plt Count 404, MPV 10.3, Immature Gran % (Auto) 0.600, Neut % (Auto) 91.4 H, Lymph % (Auto) 7.3 L, [place] % (Auto) 0.5, Eos % (Auto) 0.0, Baso % (Auto) 0.2, Absolute Neuts (auto) 11.3 H, Absolute Lymphs (auto) 0.91, Nucleated RBC % 0 05/20/22 04:52: Sodium 142, Potassium 5.0, Chloride 101, Carbon Dioxide 37.0 H, Anion Gap 4 L, BUN 12, Creatinine 0.81, Estim Creat Clear Calc 83.82, Est GFR (MDRD) Af Amer 96, Est GFR (MDRD) Non-Af 79, BUN/Creatinine Ratio 14.8, Glucose 180 H, Calcium 9.1, Total Bilirubin 0.40, AST 31, ALT 17, Alkaline Phosphatase 93, Total Protein 7.8, Albumin 2.8 L, Globulin 5.0 H, Albumin/Globulin Ratio 0.6 L Micro: Microbiology 05/19/22 20:47 Mucosa - Nasopharyngeal Respiratory Panel (PCR) - Final Human [place] 05/19/22 17:06 Nasal Secretion SARS-CoV-2 Antigen (Rapid) - Final ABG Data ABG results: ABG 05/19/22 05/19/22 05/20/22 17:32 20:23 01:13 Specimen Type JACKLYN ART ART Sample Site L Brach L Radial L Radial pH 7.26 L 7.25 L 7.30 L Bicarbonate Actual 38.3 H 38.8 H 38.6 H Total CO2 41 42 41 Base Excess 11 H 12 H 12 H O2 Saturation 88 L 99 98 O2 % 40 35 ABG pCO2 84.4 H* 88.2 H* 77.9 H* ABG pO2 65 L 144 H 116 H [place]on Test Positive N/A N/A Respiration Rate 12 12 O2 Delivery Device Cannula BiPAP BiPAP Liter Flow 4.0 Tidal Volume 500 500 POC PEEP 12 12 Crit Call To/Read Back Yes Yes Yes Blood Gas Notified Whom bryce Leggett Radiology Impression Chest X-Ray 05/19/22 17:45 IMPRESSION: Findings most suggestive of CHF. Bilateral pulmonary infiltrates are also considered. Electronically Signed: Stephan Salcedo DO at 17:56 EDT Reading Location ID and State: [address] [place] [address] Tel [phone], Service support , Charges/Coding Procedures Hospitalists Procedures: [id number] Critial Care 1st Hr
[2022-05-20] MEDS: Ipratropium/Albuterol Sulfate 3 ML AMPUL.NEB INHALATION ×4 (07:03→19:15)
[2022-05-20] MEDS: Enoxaparin 40 MG/0.4 ML Syringe SC ×2 (07:48→21:11)
[2022-05-20 08:10] LABS: Bedside Glucose 178 mg/dL (74-106)
[2022-05-20] MEDS: Famotidine 200 MG/20 ML MDV 20 MG in 0.9% Normal Saline (Pres. free 8 ML 300 MG IV ×2 (08:21→21:11)
--- NOTE | 2022-05-20 10:21 | PN.HOSP_ITS ---
Subjective Subjective Patient remains on BiPAP with improved blood gas. Mentation seems to be improving and patient is more alert however remains somewhat confused. Diuresing well and is negative approximately 750 cc since admission. O xygenating well per blood gases. Objective Data Objective Data Vital Signs: Vital Signs Temp Pulse Resp BP Pulse Ox O2 Del Method O2 Flow Rate 97.5 F L 81 20 H 128/74 H 93 Bi-pap 4 05/20/22 04:00 05/20/22 08:00 05/20/22 07:03 05/20/22 06:00 05/20/22 07:03 05/20/22 08:00 05/19/22 18:05 FiO2 28 05/20/22 08:00 Oxygen Flow Rate (L/min) 4 Oxygen Delivery Method Bi-pap Weight: 183.5 kg Body Mass Index (BMI) 61.2 Intake & Output: Intake and Output for Last 24 Hours 05/18/22 05/19/22 05/20/22 23:59 23:59 23:59 Intake Total 210 / 210 210 / 210 Output Total 500 / 500 650 / 650 Balance -290 / -290 -440 / -440 Lab / Micro Data Result Diagrams: 05/20/22 04:52 05/20/22 04:52 Labs: Laboratory Results - last 24 hr 05/19/22 16:05: WBC 11.5 H, RBC 4.47, Hgb 11.6 L, Hct 40.6, MCV 90.8, MCH 26.0 L , MCHC 28.6 L, RDW Std Deviation 58.7 H, RDW Coeff of Castillo 17.5 H, Plt Count 428, MPV 10.2, Immature Gran % (Auto) 0.500, Neut % (Auto) 70.9 H, Lymph % (Auto) 18.8 L, [place] % (Auto) 7.3, Eos % (Auto) 1.9, Baso % (Auto) 0.6, Absolute Neuts (auto) 8.2 H, Absolute Lymphs (auto) 2.16, Nucleated RBC % 0.3 05/19/22 16:05: PT 13.4, INR 1.1, APTT 32.2 05/19/22 16:05: Sodium 142, Potassium 3.4 L, Chloride 100, Carbon Dioxide 35.0 H , Anion Gap 7, BUN 13, Creatinine 0.73, Estim Creat Clear Calc 93.01, Est GFR (MDRD) Af Amer 108, Est GFR (MDRD) Non-Af 90, BUN/Creatinine Ratio 17.8, Glucose 122 H, Calcium 9.4 05/19/22 16:05: B-Natriuretic Peptide 81.2 05/19/22 18:46: Troponin I High Sens 10 05/19/22 18:46: Magnesium 2.3 05/19/22 20:15: Procalcitonin 0.05 05/19/22 20:24: POC Glucose 133 H 05/20/22 02:01: POC Glucose 163 H 05/20/22 04:52: WBC 12.4 H, RBC 4.71, Hgb 12.3, Hct 44.0, MCV 93.4, MCH 26.1 L, MCHC 28.0 L, RDW Std Deviation 60.4 H, RDW Coeff of Castillo 17.4 H, Plt Count 404, MPV 10.3, Immature Gran % (Auto) 0.600, Neut % (Auto) 91.4 H, Lymph % (Auto) 7.3 L, [place] % (Auto) 0.5, Eos % (Auto) 0.0, Baso % (Auto) 0.2, Absolute Neuts (auto) 11.3 H, Absolute Lymphs (auto) 0.91, Nucleated RBC % 0 05/20/22 04:52: Sodium 142, Potassium 5.0, Chloride 101, Carbon Dioxide 37.0 H, Anion Gap 4 L, BUN 12, Creatinine 0.81, Estim Creat Clear Calc 83.82, Est GFR (MDRD) Af Amer 96, Est GFR (MDRD) Non-Af 79, BUN/Creatinine Ratio 14.8, Glucose 180 H, Calcium 9.1, Total Bilirubin 0.40, AST 31, ALT 17, Alkaline Phosphatase 93, Total Protein 7.8, Albumin 2.8 L, Globulin 5.0 H, Albumin/Globulin Ratio 0.6 L 05/20/22 07:47: POC Glucose 178 H Micro: Microbiology 05/19/22 20:47 Mucosa - Nasopharyngeal Respiratory Panel (PCR) - Final Human [place] 05/19/22 17:06 Nasal Secretion SARS-CoV-2 Antigen (Rapid) - Final ABG Data ABG results: ABG 05/19/22 05/19/2205/20/22 17:32 20:23 01:13 Specimen Type JACKLYN ART ART Sample Site L Brach L Radial L Radial pH 7.26 L 7.25 L 7.30 L Bicarbonate Actual 38.3 H 38.8 H 38.6 H Total CO2 41 42 41 Base Excess 11 H 12 H 12 H O2 Saturation 88 L 99 98 O2 % 40 35 ABG pCO2 84.4 H* 88.2 H* 77.9 H* ABG pO2 65 L 144 H 116 H Erickson Test Positive N/A N/A Respiration Rate 12 12 O2 Delivery Device Cannula BiPAP BiPAP Liter Flow 4.0 Tidal Volume 500 500 POC PEEP 12 12 Crit Call To/Read Back Yes Yes Yes Blood Gas Notified Whom bryce Leggett Radiography Diagnostic Testing: Radiology Impression Chest X-Ray 05/19/22 17:45 IMPRESSION: Findings most suggestive of CHF. Bilateral pulmonary infiltrates are also considered. Electronically Signed: Stephan Salcedo DO at 17:56 EDT , Chest X-Ray 05/20/22 05:55 IMPRESSION: Persistent mild degree of CHF. Left basilar atelectasis. Electronically Signed: Donal Wagner MD at 8:12 EDT , Physical Exam Const alert, no apparent distress and well nourished Constitutional Narrative: Morbidly obese white female lying flat in bed, remains on BiPAP, appears comfortable and nontoxic, no signs of respiratory extremis at this time and seems to be tolerating BiPAP well, remains a bit confused but more alert Orientation / Consciousness: confused HEENT head/scalp atraumatic HEENT Narrative: Dentition is poor, Mallampati is 3-4, no thrush, mucous membranes are dry from BiPAP Resp no retractions and no use of accessory muscles Resp Narrative: Diffusely diminished secondary to body habitus, remains on BiPAP with no signs of extremis, auscultation difficult secondary to body habitus Cardio regular rate, regular rhythm, S1 normal heart sound, S2 normal heart sound, no murmurs, no rub, no gallops and no clicks Cardio Narrative: Distant secondary to body habitus GI soft to palpation, non-tender and non-distended GI Narrative: Large protuberant abdomen with significant pannus Extremity Extremity Narrative: Bilateral lower extremity chronic venous stasis changes, 2-3+ pitting edema, no cyanosis or clubbing Skin skin turgor normal, no jaundice, no petechiae and no mottling Skin Narrative: Skin on lower extremity abnormal as noted below General Skin Exam: crusts, dry skin, hypertrophy, lichenification and venous stasis Rashes: no rashes Trauma: no lacerations or abrasions Hair: other Significant hirsutism Neuro moves all extremities and no focal motor deficits Neuro Narrative: Alert and able to follow commands however remains somewhat confused Assessment & Plan Assessment/Plan (1) Acute respiratory failure with hypoxia and hypercapnia: (2) Acute respiratory acidosis: (3) Leukocytosis: (4) Diabetes mellitus type 2 in obese: PLAN: Plan Acute on chronic hypoxic and hypercapnic respiratory failure -Suspect multifactorial--> COPD/human metapneumovirus infection/HFpEF/SANCHEZ/OHS -Viral PCR positive for human metapneumovirus -Patient does not follow with pulmonary as an outpatient--> most definitely will need follow-up for PFTs and sleep study after discharge -High suspicion of SANCHEZ/obesity hypoventilation syndrome -Once stabilized we will need to check ABG on room air and calculate AA gradient -Dissipate the patient will need chronic O2 supplementation at the time of discharge -Markedly hypercapnic on presentation and it appears her baseline PCO2 is likely in the 60s -Sats okay to be 88 to 92% with chronic hypercapnia -Continue diuresis -Patient diuresing well and already negative approximately 750 cc -Continue steroids and wean to prednisone at discharge -Continue aggressive pulmonary toilet -Appreciate pulmonary input Leukocytosis -Appears to be chronic and at her baseline -Continue to monitor -Very low suspicion for infection -Procalcitonin is negative DM-2 -Hemoglobin A1c was performed in January when she was here and found to be 7.1. -Blood sugars also elevated as patient is currently on Solu-Medrol -Start sliding scale every 6 hours while patient is n.p.o. -Once able to take p.o. we will start cardiac/carb controlled diet Decompensated HFpEF/suspected secondary PAH--> who group 3 -Continue diuresis as above -Echocardiogram February 08, 2022 shows an EF of 65% and grossly normal LV size and wall motion with no evidence of diastolic dysfunction however I suspect she has RV dysfunction based on her body habitus at baseline PCO2 unfortunately the study overall was poor given body habitus -Monitor I's and O's -Daily weights Suspected COPD -See above -Patient will need outpatient pulmonary follow-up and PFTs once clinically stabilized Morbid obesity -BMI 61.5 -Recommend weight loss -Complicates treatment, prognosis, outcomes Tobacco abuse -Recommend cessation -Nicotine patch as needed DVT prophylaxis -Lovenox 40 mg subcu twice daily CODE STATUS -Full code Charges/Coding Visit Charges Inpatient E&M: 96160 Subs Hosp L2
[2022-05-20 11:30] LABS: Bedside Glucose 164 mg/dL (74-106)
[2022-05-20] MEDS: Acetaminophen 325 MG Tablet 650 MG PO (13:08)
--- NOTE | 2022-05-20 14:18 | CASEMGMT ---
RN CM in to pt room, pt up in chair with bipap on and respiratory in completing treatment. Per respiratory, pt did not wake for treatment. Assessment deferred at this time.
--- NOTE | 2022-05-20 14:45 | CHAPLAIN ---
Type of Pastoral Visit _x__ Initial Visit ___ Follow-up Visit ___ On-call Visit ___ General Patient Visit ___ Spiritual Assessment ___ Family Conference ___ Bereavement ___ Rapid Response ___ Code Blue ___ Other (describe below) Pastoral Care Referral From _x__ Patient ___ Family _x__ Nurse ___ Physician ___ Mechanical Ordnance Assembler ___ Solar Installer Pv ___ Other (describe below) Sacrament/Intervention _x__ Active listening ___ Anointing ___ Rastafari ___ Bereavement ___ Communion ___ Nikki exploration ___ _x__ Life review _x__ Prayer ___ Reconciliation ___ Sacrament of Sick _x__ Supportive presence ___ Wedding ___ Other (describe below) Pastoral Comments RN asked this patient if she would like a visit from this store clerk checker and she said yes; pt speaks of her health, recent change in life with more debility, being an java web user interface developer; pt welcomes supportive presence and prayer; pt was having some exertion due to speaking and so this store clerk checker ended visit
[2022-05-20] MEDS: Ibuprofen 400 MG Tablet PO (15:28)
[2022-05-20 17:30] LABS: Bedside Glucose 205 mg/dL (74-106)
[2022-05-20 21:40] LABS: Bedside Glucose 159 mg/dL (74-106)
[2022-05-21] VITALS (26 sets, daily range): BP systolic 107–134; BP diastolic 55–84; PULSE 72–99; RESP 12–24; TEMP 36.3–36.9; O2SAT 90–98
[2022-05-21 03:14] LABS: Hematocrit 35.8 % (37-47); Hemoglobin 10.1 g/dL (12.0-15.0); Mean Corp Hgb Conc 28.2 g/dL (32-36); Mean Platelet Vol. 10.1 fl (6.2-12.0); Platelet Count 377 K/mm3 (150-450); RBC Distribution Width CV 17.7 % (11.6-14.6); RBC Distribution Width SD 60.2 fl (35.1-43.9); Red Blood Count 3.89 M/mm3 (4.2-5.4); White Blood Count 11.5 K/mm3 (4.4-11.0)
[2022-05-21 04:32] LABS: Anion Gap 1 (5-15); BUN 23 mg/dL (7-18); BUN/Creat Ratio 28.8 RATIO (10-20); Calcium,Total 8.9 mg/dL (8.5-10.1); Chloride 102 mmol/L (98-107); Cholesterol 126 mg/dL (200); EST Glomerular Filtration Rate 80 mL/min (>60); Est Glom Filt Rate - Afr Amer 97 mL/min (>60); Estimated Creatinine Clearance 84.87 ml/min; Glucose 192 mg/dL (74-106); High Density Lipoprotein 30 mg/dL; Magnesium 2.1 mg/dL (1.6-2.6); Phosphorus 3.8 mg/dL (2.5-4.9); Potassium 3.9 mmol/L (3.5-5.1); Sodium Level 144 mmol/L (136-145); Thyroid Stim Hormone (TSH) 0.68 uIU/mL (0.358-3.74); Triglycerides 85 mg/dL; Very Low Density Lipoprotein 17 mg/dL (5-40)
[2022-05-21] MEDS: Furosemide 40 MG/4 ML Vial IV ×3 (05:37→17:58)
[2022-05-21] MEDS: 0.9% Saline Lock 10 ML Syringe IV ×4 (05:38→21:12)
--- NOTE | 2022-05-21 06:11 | PCM.PN.INT ---
Assessment & Plan Assessment/Plan (1) Acute respiratory failure with hypoxia and hypercapnia: PLAN: Plan RECOMMENDATIONS: 1. Continue AVAPS therapy with naps and nightly. 2. Goal to maintain oxygen saturations 88 to 92%. 3. Gentle diuresis as tolerated by hemodynamics and renal function. 4. Continue scheduled bronchodilators and IV steroids. Anticipate prednisone taper at discharge. 5. Continue appropriate ICU prophylaxis. 6. The patient is medically stable for transfer out of the intensive care unit. IMPRESSIONS: 1. Acute on chronic combined respiratory failure Most likely multifactorial in etiology. Although, I do suspect that the major contributing factor is likely underlying COPD, which is in a state of exacerbation secondary to a human [place] pneumo viral infection. The patient has never been formally evaluated on an outpatient basis in the pulmonary medicine clinic. I do suspect the presence of sleep disordered breathing and alveolar hypoventilation secondary to obesity. The patient responded favorably to the use of noninvasive positive pressure ventilatory support along with scheduled bronchodilators, IV steroids and diuretics. Plan to continue the aforementioned without change. She will be continued on AVAPS therapy with naps and nightly. Plan to continue nasal cannula oxygen to maintain saturations in the range of 88 to 92%. Ultimately, the patient is to follow-up on an outpatient basis for a sleep study and PFTs. Smoking cessation is advisable. Gentle diuresis can be continued as well, pending stability in renal function and hemodynamic status. 2. Super morbid obesity/suspected sleep apnea/chronic tobacco dependency/diabetes mellitus Complicates care, management, recovery and prognosis. Continue sliding scale insulin coverage. Physical therapy to work with the patient. This note was generated with [employer] dictation software. It may contain incorrect words, spelling, and punctuation that were not noted in checking the note before signing. Subjective Subjective The patient was seen and examined at the bedside this morning. Events from the last 24 hours have been reviewed. The patient is currently afebrile, hemodynamically stable and maintaining appropriate oxygen saturations on AVAPS with an FiO2 requirement of 30%. The patient was able to be weaned to nasal cannula oxygen yesterday and did quite well. She was then placed back on PAP therapy for overnight support with sleep. She does report that her shortness of breath has improved. However, she does continue to have a nonproductive cough. Objective Data Objective Data The patient's most recent lab work, culture data and imaging studies have all been personally reviewed. Respiratory viral panel was positive for human metapneumovirus. Vital Signs: Vital Signs Temp Pulse Resp BP Pulse Ox O2 Del Method O2 Flow Rate 97.8 F 84 24 H 113/68 90 Bi-pap 2 05/21/22 04:00 05/21/22 05:00 05/21/22 05:00 05/21/22 05:00 05/21/22 05:00 05/21/22 05:00 05/21/22 02:00 FiO2 30 05/21/22 05:00 Oxygen Flow Rate (L/min) 2 Oxygen Delivery Method Bi-pap Weight: 405 lb 10.409 oz Body Mass Index (BMI) 61.2 Intake & Output: Intake and Output for Last 24 Hours 05/19/22 05/20/22 05/21/22 23:59 23:59 23:59 Intake Total 210 / 210 220 / 220 Output Total 500 / 500 2750 / 2750 350 / 350 Balance -290 / -290 -2530 / -2530 -350 / -350 Lab / Micro Data Attestation: I reviewed the patient's lab results. Result Diagrams: 05/21/22 02:50 05/21/22 02:50 Labs: Laboratory Results - last 24 hr 05/20/22 07:47: POC Glucose 178 H 05/20/22 11:12: POC Glucose 164 H 05/20/22 17:07: POC Glucose 205 H 05/20/22 21:10: POC Glucose 159 H 05/21/22 02:50: WBC 11.5 H, RBC 3.89 L, Hgb 10.1 L, Hct 35.8 L, MCV 92.0, MCH 26.0 L, MCHC 28.2 L, RDW Std Deviation 60.2 H, RDW Coeff of Castillo 17.7 H, Plt Count 377, MPV 10.1 05/21/22 02:50: Sodium 144, Potassium 3.9, Chloride 102, Carbon Dioxide 41.0 H, Anion Gap 1 L, BUN 23 H, Creatinine 0.80, Estim Creat Clear Calc 84.87, Est GFR (MDRD) Af Amer 97, Est GFR (MDRD) Non-Af 80, BUN/Creatinine Ratio 28.8 H, Glucose 192 H, Calcium 8.9, Phosphorus 3.8, Magnesium 2.1, Triglycerides 85, Cholesterol 126, LDL Cholesterol 79, VLDL Cholesterol 17, HDL Cholesterol 30 L, TSH 0.68 Micro: Microbiology 05/19/22 20:47 Mucosa - Nasopharyngeal Respiratory Panel (PCR) - Final Human [place] 05/19/22 17:06 Nasal Secretion SARS-CoV-2 Antigen (Rapid) - Final Radiography Diagnostic Testing: Radiology Impression Chest X-Ray 05/20/22 05:55 IMPRESSION: Persistent mild degree of CHF. Left basilar atelectasis. Electronically Signed: Donal Wagner MD at 8:12 EDT , Physical Exam Const alert and no apparent distress General Appearance: cooperative Nutritional Appearance: morbidly obese HEENT normocephalic and head/scalp atraumatic Eyes PERRL and EOMs intact bilaterally Neck supple General: trachea midline Chest inspection of chest normal Resp Effort and Inspection: actively coughing Auscultation: wheezes and diminished lung sounds; Negative for rales or rhonchi Cardio regular rate and regular rhythm GI normal to inspection, nondistended, normoactive bowel sounds Extremity General Extremity: edema bilateral (Chronic appearing lymphedema of the lower extremities); Negative for clubbing Skin General Skin Exam: venous stasis and dermatitis Neuro CN's II-XII intact bilaterally, moves all extremities and no focal motor deficits Psych cooperative and affect normal Charges/Coding Visit Charges Inpatient E&M: 97670 Subs Hosp L3
[2022-05-21] MEDS: Ipratropium/Albuterol Sulfate 3 ML AMPUL.NEB INHALATION ×4 (06:56→19:54)
[2022-05-21] MEDS: Acetaminophen 325 MG Tablet 650 MG PO ×3 (07:56→21:12)
[2022-05-21] MEDS: Insulin Lispro 100 UNIT/ML INSULN.PEN SC ×4 (07:57→21:13)
[2022-05-21 08:21] LABS: Bedside Glucose 177 mg/dL (74-106)
[2022-05-21] MEDS: Enoxaparin 40 MG/0.4 ML Syringe SC ×2 (09:43→21:22)
[2022-05-21] MEDS: Nystatin Powder 15gm Bottle 1 APPLIC TOPICAL ×2 (09:43→21:13)
--- NOTE | 2022-05-21 10:48 | CASEMGMT ---
LILIAN VERNON Assessment: Face to Face with pt for initial transition planning/care coordination assessment. LILIAN VERNON introduced self and role at [facility], pt voices understanding and consents to assessment. Pt is A/O x4 and answers all questions appropriately at this time. Pt sitting up in chair with oxygen on in no distress. Care providers, pharmacy, and demographics verified/updated. Admitting Dx: acute respiratory failure, COPD exac PCP:[facility] Specialists:Pt states she is trying to be set up with pulm but cannot get transportation. Preferred Pharmacy: [facility] Insurance: [facility] Prescription Benefit: yes LW/HPOA: Pt denies having a LW/DPOA and denies need for info regarding AD. LNOK: Olivia Dale, cousin Living Arrangements: Pt lives with a different cousin than above and his in a second story apartment with 21 steps to enter. Pt states there is a rail on one side. She states she uses the rail for some of the steps and then crawls up the other steps to enter. Pt states she is looking into AL that is on the ground floor. She reports 1 fall in the last month and 4 falls this year. Pt states she can dress self other than lower body dressing. Her cousin's bathes her and does the cooking and housekeeping tasks of the home. Transportation: Pt does not drive and states she cannot get [employer] transportation to get to the [facility]. DME/HHC/SNF: Pt has a quad cane, FWW, rollator, shower chair, grab bar in the bathroom and BGM. Pt has sufficient supplies for the BGM but does not have any insulin at home. States she was not sent home with it from the SNF. Pt has been in to [facility] in the past. Pt states she [place]. States this is a mobile home and he is willing to put a ramp up for her. He works during the day but his is a stay at home mom. She has not yet discussed this with her son. She states she was ready to call him shortly. Discussed with patient options of HHC vs SNF. Pt wants to discuss with son first. Pt states no further concerns/needs. CM to follow. Advised pt to ask CM if any further question/concerns/needs arise, voices understanding. Pt Goal: Home Plan: TBD, asked SW for transportation info for patient, will need insulin upon dc.
[2022-05-21] MEDS: Ibuprofen 400 MG Tablet PO ×2 (11:19→17:58)
--- NOTE | 2022-05-21 11:25 | CASEMGMT ---
SW met with patient as she is going to need SNF placement at discharge. SW introduced self and role at [facility]. Patient confirmed she is going to need to go to a usp for rehab. SW provided patient with a list of?usp facilities including quality and resource use data and consistent with patient?s preferred geographic region, medical needs, and insurance network were provided from the [facility] Guide. SW did notify patient that some of the facilities do have weight limits so she may be limited. Patient verbalized understanding. SW asked patient to pick 3-4 places she would be okay with and SW will check with facilities. SW also spoke with patient about her interest in assisted living. SW let patient know that SW will make a referral for the Assisted Living Waiver. SW explained this is not a fast process, but SW will get it started. SW made a referral to [facility] fo AL waiver program via their website. Ana Rosa Nguyen SALON SALES CONSULTANT [employer]ON
[2022-05-21 11:41] LABS: Bedside Glucose 193 mg/dL (74-106)
--- NOTE | 2022-05-21 12:07 | PCM.PN.HOSP ---
Subjective Subjective Better today. She is off continuous BiPAP and on 2 to 3 L nasal cannula and maintaining sats without any difficulty. She denies any difficulty breathing and mental status is back to baseline. She states that she was to follow-up with a dialysis chief equipment technician because of her swelling. We discussed that this is likely related to her pulmonary issues with COPD/obesity hypoventilation syndrome/obstructive sleep apnea/and now with acute human metapneumovirus infection. She is agreeable to follow-up with pulmonary after discharge however she states transportation is an issue and she has been unsuccessful in calling transportation. I indicated I would discuss this with our case management to help her arrange this for follow-up in the future. She is aware that she will likely need half-way facility at discharge and does not want to go back to [facility] where she did previously. Objective Data Objective Data Vital Signs: Vital Signs Temp Pulse Resp BP Pulse Ox O2 Del Method O2 Flow Rate 98 F 90 22 H 109/55 L 94 Nasal Cannula 3 05/21/22 11:00 05/21/22 11:01 05/21/22 11:00 05/21/22 11:00 05/21/22 11:00 05/21/22 11:43 05/21/22 11:43 FiO2 30 05/21/22 06:00 Oxygen Flow Rate (L/min) 3 Oxygen Delivery Method Nasal Cannula Weight: 184 kg Body Mass Index (BMI) 61.2 Intake & Output: Intake and Output for Last 24 Hours 05/19/22 05/20/22 05/21/22 23:59 23:59 23:59 Intake Total 210 / 210 220 / 220 180 / 180 Output Total 500 / 500 2750 / 2750 2100 / 2100 Balance -290 / -290 -2530 / -2530 -1920 / -1920 Lab / Micro Data Result Diagrams: 05/21/22 02:50 05/21/22 02:50 Labs: Laboratory Results - last 24 hr 05/20/22 17:07: POC Glucose 205 H 05/20/22 21:10: POC Glucose 159 H 05/21/22 02:50: WBC 11.5 H, RBC 3.89 L, Hgb 10.1 L, Hct 35.8 L, MCV 92.0, MCH 26.0 L, MCHC 28.2 L, RDW Std Deviation 60.2 H, RDW Coeff of Castillo 17.7 H, Plt Count 377, MPV 10.1 05/21/22 02:50: Sodium 144, Potassium 3.9, Chloride 102, Carbon Dioxide 41.0 H, Anion Gap 1 L, BUN 23 H, Creatinine 0.80, Estim Creat Clear Calc 84.87, Est GFR (MDRD) Af Amer 97, Est GFR (MDRD) Non-Af 80, BUN/Creatinine Ratio 28.8 H, Glucose 192 H, Calcium 8.9, Phosphorus 3.8, Magnesium 2.1, Triglycerides 85, Cholesterol 126, LDL Cholesterol 79, VLDL Cholesterol 17, HDL Cholesterol 30 L, TSH 0.68 05/21/22 07:55: POC Glucose 177 H 05/21/22 11:15: POC Glucose 193 H Micro: Microbiology 05/19/22 20:47 Mucosa - Nasopharyngeal Respiratory Panel (PCR) - Final Human [place] 05/19/22 17:06 Nasal Secretion SARS-CoV-2 Antigen (Rapid) - Final Physical Exam Const alert, oriented x3, no apparent distress and well nourished Constitutional Narrative: Morbidly obese white female sitting up in a chair at the bedside, now on nasal cannula at 2 to 3 L, appears comfortable and nontoxic Orientation / Consciousness: confused HEENT head/scalp atraumatic and moist oral mucous membranes HEENT Narrative: Mallampati 4, dentition is poor, no thrush Head and Scalp: normocephalic Resp normal respiratory effort, no retractions, no use of accessory muscles and clear to auscultation bilaterally Resp Narrative: Diffusely diminished secondary to body habitus, no adventitious sounds noted Auscultation: Negative for crackles, rales, rhonchi or wheezes Cardio regular rate, regular rhythm, S1 normal heart sound, S2 normal heart sound, no murmurs, no rub, no gallops and no clicks Cardio Narrative: Better exam with patient sitting up today GI soft to palpation, non-tender and non-distended GI Narrative: Large protuberant abdomen with significant pannus Extremity Extremity Narrative: Bilateral lower extremity chronic venous stasis changes, 2+ pitting edema, no cyanosis or clubbing Skin skin turgor normal, no jaundice, no petechiae and no mottling Skin Narrative: Skin on lower extremity abnormal as noted below General Skin Exam: crusts, dry skin, hypertrophy, lichenification and venous stasis Rashes: no rashes Trauma: no lacerations or abrasions Hair: other Significant hirsutism Neuro oriented x3, CN's II-XII intact bilaterally, moves all extremities and no focal motor deficits Speech: speech normal Psych affect normal Psych Narrative: Very pleasant and appropriately interactive Assessment & Plan Assessment/Plan (1) Acute respiratory failure with hypoxia and hypercapnia: (2) Acute respiratory acidosis: (3) Leukocytosis: (4) Diabetes mellitus type 2 in obese: PLAN: Plan Acute on chronic hypoxic and hypercapnic respiratory failure -Suspect multifactorial--> COPD/human metapneumovirus infection/HFpEF/SANCHEZ/OHS -Viral PCR positive for human metapneumovirus -Patient does not follow with pulmonary as an outpatient--> most definitely will need follow-up for PFTs and sleep study after discharge -Off continuous BiPAP on 2 to 3 L nasal cannula -High suspicion of SANCHEZ/obesity hypoventilation syndrome -Once stabilized we will need to check ABG on room air and calculate AA gradient--> will likely be able to do this prior to discharge -Anticipate the patient will need chronic O2 supplementation at the time of discharge -Markedly hypercapnic on presentation and it appears her baseline PCO2 is likely in the 60s -Sats okay to be 88 to 92% with chronic hypercapnia -Continue diuresis but decrease Lasix to 40 mg IV push twice daily as BUN is starting to rise -Patient negative a little over 3 L for hospitalization -Decrease methylprednisolone to 40 every 8 to 40 twice daily and likely convert to prednisone tomorrow 40 mg daily -Continue aggressive pulmonary toilet -Appreciate pulmonary input Leukocytosis -Appears to be chronic and at her baseline--> remained stable at 11.5 today -Continue to monitor -Very low suspicion for infection -Procalcitonin is negative DM-2 -Hemoglobin A1c was performed in January when she was here and found to be 7.1. -Blood sugars also elevated as patient is currently on Solu-Medrol -Start sliding scale every 6 hours while patient is n.p.o. -Now on cardiac/carb controlled diet Decompensated HFpEF/suspected secondary PAH--> who group 3 -Continue diuresis as above -Echocardiogram February 08, 2022 shows an EF of 65% and grossly normal LV size and wall motion with no evidence of diastolic dysfunction however I suspect she has RV dysfunction based on her body habitus at baseline PCO2 unfortunately the study overall was poor given body habitus -Monitor I's and O's -Daily weights Suspected COPD -See above -Patient will need outpatient pulmonary follow-up and PFTs once clinically stabilized Morbid obesity -BMI 61.5 -Recommend weight loss -Complicates treatment, prognosis, outcomes Tobacco abuse -Recommend cessation -Nicotine patch as needed DVT prophylaxis -Lovenox 40 mg subcu twice daily CODE STATUS -Full code Charges/Coding Visit Charges Inpatient E&M: 38511 Subs Hosp L2
--- NOTE | 2022-05-21 12:20 | CASEMGMT ---
Social Work SW notified by RNCM, Layla, that pt in need of transportation resources. SW gathered resources for [employer], [employer], and [employer] transportation and provided them to pt in pt room. Pt listened as SW offered education on each transportation program. Pt thankful, reported resources would be beneficial to help in getting to medical appointments. Pt denied any further needs. ELLIE De León
--- NOTE | 2022-05-21 15:09 | CASEMGMT ---
Addendum entered by Ana Rosa Nguyen 05/21/22 15:46: SW checked back in with patient and her three choices in no particular order of preference are: [facility], [facility], and [facility]. SW let patient know that SW will work on referrals and get back to her once SW has more information. Ana Rosa COATES Original Note: SW spoke with patient and asked if she has chosen any correction facilities. Patient said she glanced at the list, but didn't pick any. SW found the list, gave it to patient and asked that she look through the list. SW told her SW will check back. Ana Rosa COATES
--- NOTE | 2022-05-21 15:52 | CASEMGMT ---
Discharge Basket Assembler Ilda fox/hector assistant womens volleyball coach sent referral to [facility] and [place] via [facility]. Will follow up. Ilda Urban Discharge Basket Assembler
[2022-05-21 16:36] LABS: Bedside Glucose 184 mg/dL (74-106)
[2022-05-21 21:41] LABS: Bedside Glucose 273 mg/dL (74-106)
[2022-05-22] VITALS (18 sets, daily range): BP systolic 124–145; BP diastolic 61–81; PULSE 70–98; RESP 12–21; TEMP 36.2–36.3; O2SAT 89–96
[2022-05-22] MEDS: Insulin Lispro 100 UNIT/ML INSULN.PEN SC ×4 (06:25→21:39)
[2022-05-22 06:45] LABS: Bedside Glucose 181 mg/dL (74-106)
[2022-05-22] MEDS: Ipratropium/Albuterol Sulfate 3 ML AMPUL.NEB INHALATION ×4 (06:54→19:49)
[2022-05-22 06:57] LABS: Absolute Lymphocyte Count 0.87 X10^3/uL (0.83-4.51); Absolute Neutrophil Count 8.3 X10^3/uL (2.0-7.7); Basophil# 0.01 X10^3/uL; Basophil% 0.1 % (0-1); Hematocrit 38.5 % (37-47); Hemoglobin 10.8 g/dL (12.0-15.0); Lymphocyte # 0.87 X10^3/ul (0.83-4.51); Mean Corp Hgb Conc 28.1 g/dL (32-36); Mean Corpuscular Hgb 25.9 pg (27.0-32.0); Mean Corpuscular Volume 92.3 fL (81-99); Mean Platelet Vol. 9.7 fl (6.2-12.0); Monocyte# 0.49 X10^3/uL; NRBC Flagged by Analyzer 0 % (0-5); Neutrophil # 8.32 X10^3/uL (2.7-7.7); Neutrophil % 85.6 % (47-70); Platelet Count 370 K/mm3 (150-450); RBC Distribution Width CV 17.7 % (11.6-14.6); RBC Distribution Width SD 60.3 fl (35.1-43.9); Red Blood Count 4.17 M/mm3 (4.2-5.4); White Blood Count 9.7 K/mm3 (4.4-11.0)
[2022-05-22 07:19] LABS: Anion Gap 2 (5-15); BUN 24 mg/dL (7-18); BUN/Creat Ratio 35.7 RATIO (10-20); Calcium,Total 9.1 mg/dL (8.5-10.1); Chloride 100 mmol/L (98-107); Creatinine, Serum 0.67 mg/dL (0.55-1.02); EST Glomerular Filtration Rate 98 mL/min (>60); Est Glom Filt Rate - Afr Amer 119 mL/min (>60); Estimated Creatinine Clearance 101.33 ml/min; Glucose 181 mg/dL (74-106); Magnesium 2.5 mg/dL (1.6-2.6); Phosphorus 4.1 mg/dL (2.5-4.9); Potassium 3.8 mmol/L (3.5-5.1); Sodium Level 142 mmol/L (136-145)
--- NOTE | 2022-05-22 08:50 | CASEMGMT ---
Discharge Market Gardener Ilda called Zohra at [facility] referral is going to be reviewed this morning. Ilda also reached out to Marleny at the [facility]. Plan: [facility] vs [facility], Waiting Acceptance
--- NOTE | 2022-05-22 09:02 | CASEMGMT ---
Discharge Trade Analyst Ilda d/c technical services assistant heard from Marleny at [facility] has to deny patient due to her being over their weight limit. Ilda sent referral to [facility]. Tried calling Shi and her phone goes to [facility]. Ilda called [facility] and spoke to Katie and she will review. Plan: [facility] vs [facility], Waiting Acceptance Ilda Urban Discharge Trade Analyst
[2022-05-22] MEDS: Nystatin Powder 15gm Bottle 1 APPLIC TOPICAL ×2 (09:07→21:39)
[2022-05-22] MEDS: Furosemide 40 MG/4 ML Vial IV (09:07)
[2022-05-22] MEDS: Petrolatum 33% Tube 1 APPLIC TOPICAL (09:07)
[2022-05-22] MEDS: Enoxaparin 40 MG/0.4 ML Syringe SC ×2 (09:21→21:49)
--- NOTE | 2022-05-22 11:44 | CASEMGMT ---
Discharge Molder Bench Ilda fox/hector assistant head cashier called Zohra at [facility]. Zohra is talking with therapy to check weight limits on machines for therapy most are 350. Ilda called Katie abreu Egan she asked if patient will need a bi pap will follow up. Ilda Urban Discharge Molder Bench
--- NOTE | 2022-05-22 13:47 | PCM.PN.INT ---
Assessment & Plan Assessment/Plan (1) Acute respiratory failure with hypoxia and hypercapnia: PLAN: Plan RECOMMENDATIONS: 1. Continue AVAPS therapy with naps and nightly. 2. Goal to maintain oxygen saturations 88 to 92%. 3. Gentle diuresis as tolerated by hemodynamics and renal function. 4. Continue scheduled bronchodilators and IV steroids. Anticipate prednisone taper at discharge. 5. Continue appropriate ICU prophylaxis. 6. Outpatient pulmonary follow-up within 2 weeks of discharge as recommended. IMPRESSIONS: 1. Acute on chronic combined respiratory failure Improving. Most likely multifactorial in etiology. Although, I do suspect that the major contributing factor is likely underlying COPD, which is in a state of exacerbation secondary to a human [place] pneumo viral infection. The patient has never been formally evaluated on an outpatient basis in the pulmonary medicine clinic. I do suspect the presence of sleep disordered breathing and alveolar hypoventilation secondary to obesity. The patient responded favorably to the use of noninvasive positive pressure ventilatory support along with scheduled bronchodilators, IV steroids and diuretics. Plan to continue the aforementioned without change. She will be continued on AVAPS therapy with naps and nightly. Plan to continue nasal cannula oxygen to maintain saturations in the range of 88 to 92%. Ultimately, the patient is to follow-up on an outpatient basis for a sleep study and PFTs. Smoking cessation is advisable. Gentle diuresis can be continued as well, pending stability in renal function and hemodynamic status. 2. Super morbid obesity/suspected sleep apnea/chronic tobacco dependency/diabetes mellitus Complicates care, management, recovery and prognosis. Continue sliding scale insulin coverage. Physical therapy to work with the patient. This note was generated with [employer] dictation software. It may contain incorrect words, spelling, and punctuation that were not noted in checking the note before signing. Subjective Subjective The patient was seen and examined at the bedside this morning. Events from the last 24 hours have been reviewed. The patient is currently afebrile, hemodynamically stable and maintaining appropriate oxygen saturations on 2 L/min via nasal cannula. The patient is documented to be overall net -8 L for the hospitalization. The patient remains on scheduled bronchodilators, IV steroids and Lasix. Objective Data Objective Data The patient's most recent lab work, culture data and imaging studies have all been personally reviewed. Respiratory viral panel was positive for human metapneumovirus. Vital Signs: Vital Signs Temp Pulse Resp BP Pulse Ox O2 Del Method O2 Flow Rate 97.4 F L 95 20 H 124/67 H 94 Nasal Cannula 2 05/22/22 09:15 05/22/22 11:08 05/22/22 11:08 05/22/22 09:15 05/22/22 10:30 05/22/22 09:15 05/22/22 10:30 FiO2 30 05/22/22 00:14 Oxygen Flow Rate (L/min) 2 Oxygen Delivery Method Nasal Cannula Weight: 405 lb 10.409 oz Body Mass Index (BMI) 61.2 Intake & Output: Intake and Output for Last 24 Hours 05/20/22 05/21/22 05/22/22 23:59 23:59 23:59 Intake Total 220 / 220 480 / 600 600 / 600 Output Total 2750 / 2750 2425 / 3625 3775 / 3775 Balance -2530 / -2530 -1945 / -3025 -3175 / -3175 Lab / Micro Data Attestation: I reviewed the patient's lab results. Result Diagrams: 05/22/22 06:25 05/22/22 06:25 Labs: Laboratory Results - last 24 hr 05/21/22 16:09: POC Glucose 184 H 05/21/22 21:10: POC Glucose 273 H 05/22/22 06:24: POC Glucose 181 H 05/22/22 06:25: WBC 9.7, RBC 4.17 L, Hgb 10.8 L, Hct 38.5, MCV 92.3, MCH 25.9 L, MCHC 28.1 L, RDW Std Deviation 60.3 H, RDW Coeff of Castillo 17.7 H, Plt Count 370, MPV 9.7, Immature Gran % (Auto) 0.300, Neut % (Auto) 85.6 H, Lymph % (Auto) 9.0 L, [place] % (Auto) 5.0, Eos % (Auto) 0.0, Baso % (Auto) 0.1, Absolute Neuts (auto) 8.3 H, Absolute Lymphs (auto) 0.87, Nucleated RBC % 0 05/22/22 06:25: Sodium 142, Potassium 3.8, Chloride 100, Carbon Dioxide 40.0 H, Anion Gap 2 L, BUN 24 H, Creatinine 0.67, Estim Creat Clear Calc 101.33, Est GFR (MDRD) Af Amer 119, Est GFR (MDRD) Non-Af 98, BUN/Creatinine Ratio 35.7 H, Glucose 181 H, Calcium 9.1, Phosphorus 4.1, Magnesium 2.5 Micro: Microbiology 05/19/22 20:47 Mucosa - Nasopharyngeal Respiratory Panel (PCR) - Final Human [place] 05/19/22 17:06 Nasal Secretion SARS-CoV-2 Antigen (Rapid) - Final Radiography Diagnostic Testing: Radiology Impression Chest X-Ray 05/20/22 05:55 IMPRESSION: Persistent mild degree of CHF. Left basilar atelectasis. Electronically Signed: Donal Wagner MD at 8:12 EDT , Physical Exam Const alert and no apparent distress Constitutional Narrative: Sitting in bedside recliner. General Appearance: cooperative Nutritional Appearance: morbidly obese HEENT normocephalic and head/scalp atraumatic Eyes PERRL and EOMs intact bilaterally Neck supple General: trachea midline Chest inspection of chest normal Resp Auscultation: wheezes and diminished lung sounds; Negative for rales or rhonchi Cardio regular rate and regular rhythm GI normal to inspection, nondistended, normoactive bowel sounds Extremity General Extremity: edema bilateral (Chronic appearing lymphedema of the lower extremities); Negative for clubbing Skin General Skin Exam: venous stasis and dermatitis Neuro CN's II-XII intact bilaterally, moves all extremities and no focal motor deficits Psych cooperative and affect normal Charges/Coding Visit Charges Inpatient E&M: 48502 Subs Hosp L2
--- NOTE | 2022-05-22 14:33 | CASEMGMT ---
ISATU updated patient that out of her [address] take her. Yulisa and [facility] are still pending. Yulisa said they would be able to take patient as long as they can get a bipap for patient. ISATU told patient ISATU will let her know. Ana Rosa COATES
--- NOTE | 2022-05-22 14:39 | TREXTCAR_ITS ---
Diet Diet Order/Speech Therapy: 05/20/22 11:14 ADA [Diet: Consistent Carb - Calorie Controlled] Dietary Modifications:: Cardiac / Heart Healthy Is pt able to select menu?: No How many daily calories?: 1800 calorie Routine Orders/Code Status Suppository Frequency: Daily PRN O2 Liters per Minute: 2 O2 Frequency: Continuous (Keep sats 88 to 92%) Keep PO Greater than or Equal to (%): 88 Routine Lab Work: CBC (In 1 week) and BMP (In 1 week) Code Status: Full Code Suggestions for Active Care Change Position every (hours): 2 Therapies Physical Therapy: Eval and Treat Occupational Therapy: Eval and Treat Problem/Diagnosis (1) Acute respiratory failure with hypoxia and hypercapnia: Status: Acute Code(s): J96.01 - Acute respiratory failure with hypoxia; J96.02 - Acute respiratory failure with hypercapnia Allergies/Procedures Done in Hospital Allergies latex Adverse Reaction (Verified 05/19/22 16:07) Hives Penicillins [PCN] Adverse Reaction (Verified 05/19/22 16:07) Hives Procedures: None Type of Care/Length of Stay Estimated LOS: Convalescent Care Less Than 30 days Type of Care Needed: Skilled Rehab Potential: Good Prognosis: Good Additional Orders/Day of Discharge Additional Orders: BiPAP with AutoPap settings nightly and with naps Day of Discharge: 05/22/22 Dietary and Speech Recommendations Dietitian Recommendations/Changes: will adjust diet to cardiac, 1800 calorie controlled diet; 1500mL fluid restriction as indicated. Discharge Plan Admission Admit Date/Time: 05/19/22 19:17 Attending Provider: Bettie Kim Primary Care Provider: [facility] Yelena Encarnacion Consulting Providers: Alessandra Middleton ; Sukhdeep Celeste Discharge Orders/Prescriptions Prescriptions: No Action metformin 500 mg Tablet 500 mg PO BIDCM Qty: 0 0RF ipratropium-albuterol 0.5 mg-3 mg(2.5 mg base)/3 mL Solution For Nebulization 3 ml inhalation Q6H.RT Qty: 0 0RF potassium chloride 20 mEq tablet extended release 20 meq PO DAILY Label Comments: TAKE 1 TABLET BY MOUTH EVERY DAY furosemide [Lasix] 40 mg tablet 120 mg PO DAILY Rx Instructions: 80MG IN MORNING, 40MG IN EVENING [facility] -
--- NOTE | 2022-05-22 14:53 | CASEMGMT ---
Discharge Textile Screen Printer Ilda fox/hector research lab assistant got a call from Zohra at [facility]. Patient has been denied. Plan: Rajiv Márquez Acceptance Ilda Urban Discharge Textile Screen Printer
--- NOTE | 2022-05-22 15:14 | CASEMGMT ---
Discharge Office Manager Ilda fox/hector assistant manager retail sent referral to [facility]. Plan: [facility] vs [facility], Waiting Acceptance Ilda Urban Discharge Office Manager
--- NOTE | 2022-05-22 15:46 | CASEMGMT ---
ISATU received a call from [facility] indicating they can accept patient. However, they will have to get a bipap and won't have that until tomorrow. ISATU will also need to obtain a level of care from [facility]. ISATU will notify patient that [facility] can accept her and she will likely go tomorrow. Plan: d/c to [facility] likely tomorrow once [facility] obtains a bipap and ISATU gets level of care. Ana Rosa Nguyen [employer]
[2022-05-22 15:50] LABS: Bedside Glucose 198 mg/dL (74-106)
--- NOTE | 2022-05-22 15:55 | PCM.PN.HOSP ---
Subjective Subjective Patient states she feeling much better overall. Tolerating BiPAP at night without any difficulty and now just on 2 L nasal cannula. Objective Data Objective Data Vital Signs: Vital Signs Temp Pulse Resp BP Pulse Ox O2 Del Method O2 Flow Rate 97.4 F L 98 20 H 130/61 H 95 Nasal Cannula 2 05/22/22 15:15 05/22/22 15:44 05/22/22 15:44 05/22/22 15:35 05/22/22 15:15 05/22/22 15:15 05/22/22 15:15 FiO2 30 05/22/22 00:14 Oxygen Flow Rate (L/min) 2 Oxygen Delivery Method Nasal Cannula Weight: 184 kg Body Mass Index (BMI) 61.2 Intake & Output: Intake and Output for Last 24 Hours 05/20/22 05/21/22 05/22/22 23:59 23:59 23:59 Intake Total 220 / 220 480 / 600 600 / 600 Output Total 2750 / 2750 2425 / 3625 3775 / 3775 Balance -2530 / -2530 -1945 / -3025 -3175 / -3175 Lab / Micro Data Result Diagrams: 05/22/22 06:25 05/22/22 06:25 Labs: Laboratory Results - last 24 hr 05/21/22 16:09: POC Glucose 184 H 05/21/22 21:10: POC Glucose 273 H 05/22/22 06:24: POC Glucose 181 H 05/22/22 06:25: WBC 9.7, RBC 4.17 L, Hgb 10.8 L, Hct 38.5, MCV 92.3, MCH 25.9 L, MCHC 28.1 L, RDW Std Deviation 60.3 H, RDW Coeff of Castillo 17.7 H, Plt Count 370, MPV 9.7, Immature Gran % (Auto) 0.300, Neut % (Auto) 85.6 H, Lymph % (Auto) 9.0 L, Glasscock % (Auto) 5.0, Eos % (Auto) 0.0, Baso % (Auto) 0.1, Absolute Neuts (auto) 8.3 H, Absolute Lymphs (auto) 0.87, Nucleated RBC % 0 05/22/22 06:25: Sodium 142, Potassium 3.8, Chloride 100, Carbon Dioxide 40.0 H, Anion Gap 2 L, BUN 24 H, Creatinine 0.67, Estim Creat Clear Calc 101.33, Est GFR (MDRD) Af Amer 119, Est GFR (MDRD) Non-Af 98, BUN/Creatinine Ratio 35.7 H, Glucose 181 H, Calcium 9.1, Phosphorus 4.1, Magnesium 2.5 05/22/22 10:57: POC Glucose 198 H Micro: Microbiology 05/19/22 20:47 Mucosa - Nasopharyngeal Respiratory Panel (PCR) - Final Human [place] 05/19/22 17:06 Nasal Secretion SARS-CoV-2 Antigen (Rapid) - Final Physical Exam Const alert, oriented x3, no apparent distress and well nourished Constitutional Narrative: Morbidly obese white female sitting up in a chair at the bedside, now on nasal cannula at 2 L, appears comfortable and nontoxic HEENT head/scalp atraumatic and moist oral mucous membranes HEENT Narrative: Titian is poor, Mallampati is 3-4, no thrush Resp normal respiratory effort, no retractions, no use of accessory muscles and clear to auscultation bilaterally Resp Narrative: Diffusely diminished secondary to body habitus, no adventitious sounds noted Auscultation: Negative for crackles, rales, rhonchi or wheezes Cardio regular rate, regular rhythm, S1 normal heart sound, S2 normal heart sound, no murmurs, no rub, no gallops and no clicks GI soft to palpation, non-tender and non-distended GI Narrative: Large protuberant abdomen with significant pannus Extremity Extremity Narrative: Bilateral lower extremity chronic venous stasis changes, 2+ pitting edema, no cyanosis or clubbing Neuro oriented x3, moves all extremities and no focal motor deficits Speech: speech normal Psych affect normal Psych Narrative: Very pleasant and appropriately interactive Assessment & Plan Assessment/Plan (1) Acute respiratory failure with hypoxia and hypercapnia: PLAN: Plan Acute on chronic hypoxic and hypercapnic respiratory failure -Suspect multifactorial--> COPD/human metapneumovirus infection/HFpEF/SANCHEZ/OHS -Viral PCR positive for human metapneumovirus -Patient does not follow with pulmonary as an outpatient--> most definitely will need follow-up for PFTs and sleep study after discharge -BiPAP at at bedtime and with naps -On continuous 2 L nasal cannula -High suspicion of SANCHEZ/obesity hypoventilation syndrome -Markedly hypercapnic on presentation and it appears her baseline PCO2 is likely in the 60s -Sats okay to be 88 to 92% with chronic hypercapnia -Continue diuresis but change to p.o. Lasix 80 mg p.o. twice daily -Discontinue methylprednisolone and start prednisone 40 mg daily -Continue aggressive pulmonary toilet -Appreciate pulmonary input Leukocytosis -Appears to be chronic and at her baseline--> remained stable at 11.5 today -Continue to monitor -Very low suspicion for infection -Procalcitonin is negative DM-2 -Hemoglobin A1c was performed in January when she was here and found to be 7.1. -Blood sugars also elevated as patient is currently on Solu-Medrol -Start sliding scale every 6 hours while patient is n.p.o. -Now on cardiac/carb controlled diet Decompensated HFpEF/suspected secondary PAH--> who group 3 -Continue diuresis as above -Echocardiogram February 08, 2022 shows an EF of 65% and grossly normal LV size and wall motion with no evidence of diastolic dysfunction however I suspect she has RV dysfunction based on her body habitus at baseline PCO2 unfortunately the study overall was poor given body habitus -Monitor I's and O's -Daily weights Suspected COPD -See above -Patient will need outpatient pulmonary follow-up and PFTs once clinically stabilized Morbid obesity -BMI 61.5 -Recommend weight loss -Complicates treatment, prognosis, outcomes Tobacco abuse -Recommend cessation -Nicotine patch as needed DVT prophylaxis -Lovenox 40 mg subcu twice daily CODE STATUS -Full code Charges/Coding Visit Charges Inpatient E&M: 05681 Subs Hosp L2
[2022-05-22 16:36] LABS: Bedside Glucose 201 mg/dL (74-106)
[2022-05-22] MEDS: Furosemide 80 MG Tablet PO (17:38)
[2022-05-22 22:10] LABS: Bedside Glucose 178 mg/dL (74-106)
[2022-05-23] VITALS (14 sets, daily range): BP systolic 123–144; BP diastolic 67–113; PULSE 50–105; RESP 12–24; TEMP 36.3–36.6; O2SAT 94–96
[2022-05-23] MEDS: Ipratropium/Albuterol Sulfate 3 ML AMPUL.NEB INHALATION ×4 (03:12→15:39)
[2022-05-23] MEDS: LORazepam 1 MG Tablet PO (03:55)
[2022-05-23] MEDS: Insulin Lispro 100 UNIT/ML INSULN.PEN SC ×2 (06:32→11:20)
[2022-05-23 06:56] LABS: Bedside Glucose 179 mg/dL (74-106)
[2022-05-23] MEDS: Petrolatum 33% Tube 1 APPLIC TOPICAL (08:20)
[2022-05-23] MEDS: Nystatin Powder 15gm Bottle 1 APPLIC TOPICAL (08:21)
[2022-05-23] MEDS: Enoxaparin 40 MG/0.4 ML Syringe SC (08:21)
[2022-05-23] MEDS: 0.9% Saline Lock 10 ML Syringe IV (08:21)
[2022-05-23] MEDS: Furosemide 80 MG Tablet PO (08:22)
--- NOTE | 2022-05-23 08:22 | PN.CC_ITS ---
Assessment & Plan Assessment/Plan (1) Acute respiratory failure with hypoxia and hypercapnia: PLAN: Plan RECOMMENDATIONS: 1. Continue AVAPS therapy with naps and nightly. 2. Goal to maintain oxygen saturations 88 to 92%. 3. Gentle diuresis as tolerated by hemodynamics and renal function. 4. Continue scheduled bronchodilators and IV steroids. Anticipate prednisone taper at discharge. 5. Continue appropriate ICU prophylaxis. 6. Outpatient pulmonary follow-up within 2 weeks of discharge as recommended. 7. We will sign off. Please call with any additional questions. IMPRESSIONS: 1. Acute on chronic combined respiratory failure Improving. Most likely multifactorial in etiology. Although, I do suspect that the major contributing factor is likely underlying COPD, which is in a state of exacerbation secondary to a human Jefferson pneumo viral infection. The patient has never been formally evaluated on an outpatient basis in the pulmonary medicine clinic. I do suspect the presence of sleep disordered breathing and alveolar hypoventilation secondary to obesity. The patient responded favorably to the use of noninvasive positive pressure ventilatory support along with scheduled bronchodilators, IV steroids and diuretics. Plan to continue the aforementioned without change. She will be continued on AVAPS therapy with naps and nightly. Plan to continue nasal cannula oxygen to maintain saturations in the range of 88 to 92%. Ultimately, the patient is to follow-up on an outpatient basis for a sleep study and PFTs. Smoking cessation is advisable. Gentle diuresis can be continued as well, pending stability in renal function and hemodynamic status. 2. Super morbid obesity/suspected sleep apnea/chronic tobacco dependency/diabetes mellitus Complicates care, management, recovery and prognosis. Continue sliding scale insulin coverage. Physical therapy to work with the patient. This note was generated with XMOS dictation software. It may contain incorrect words, spelling, and punctuation that were not noted in checking the note before signing. Subjective Subjective The patient was seen and examined at the bedside this morning. Events from the last 24 hours have been reviewed. The patient is currently afebrile, hemodynamically stable and maintaining appropriate oxygen saturations on 3 L/min via nasal cannula. No overnight issues were identified. Objective Data Objective Data The patient's most recent lab work, culture data and imaging studies have all been personally reviewed. Respiratory viral panel was positive for human metapneumovirus. Vital Signs: Vital Signs Temp Pulse Resp BP Pulse Ox O2 Del Method O2 Flow Rate 97.9 F 50 L 18 144/113 H 96 Nasal Cannula 3 05/23/22 03:30 05/23/22 07:21 05/23/22 07:21 05/23/22 03:30 05/23/22 07:21 05/23/22 07:21 05/23/22 07:21 FiO2 30 05/23/22 00:10 Oxygen Flow Rate (L/min) 3 Oxygen Delivery Method Nasal Cannula Weight: 392 lb 10.292 oz Body Mass Index (BMI) 61.2 Intake & Output: Intake and Output for Last 24 Hours 05/21/22 05/22/22 05/23/22 23:59 23:59 23:59 Intake Total 480 / 600 1080 / 1080 Output Total 2425 / 3625 5925 / 5925 850 / 850 Balance -1945 / -3025 -4845 / -4845 -850 / -850 Lab / Micro Data Attestation: I reviewed the patient's lab results. Result Diagrams: 05/22/22 06:25 05/23/22 08:10 Labs: Laboratory Results - last 24 hr 05/22/22 10:57: POC Glucose 198 H 05/22/22 16:10: POC Glucose 201 H 05/22/22 21:37: POC Glucose 178 H 05/23/22 06:31: POC Glucose 179 H Micro: Microbiology 05/19/22 20:47 Mucosa - Nasopharyngeal Respiratory Panel (PCR) - Final Human [place] 05/19/22 17:06 Nasal Secretion SARS-CoV-2 Antigen (Rapid) - Final Radiography Diagnostic Testing: Radiology Impression Chest X-Ray 05/20/22 05:55 IMPRESSION: Persistent mild degree of CHF. Left basilar atelectasis. Electronically Signed: Donal Wagner MD at 8:12 EDT , Physical Exam Const alert and no apparent distress Constitutional Narrative: Sitting in bedside recliner. General Appearance: cooperative Nutritional Appearance: morbidly obese HEENT normocephalic and head/scalp atraumatic Eyes PERRL and EOMs intact bilaterally Neck supple General: trachea midline Chest inspection of chest normal Resp Auscultation: wheezes and diminished lung sounds; Negative for rales or rhonchi Cardio regular rate and regular rhythm GI normal to inspection, nondistended, normoactive bowel sounds Extremity General Extremity: edema bilateral (Chronic appearing lymphedema of the lower extremities); Negative for clubbing Skin General Skin Exam: venous stasis and dermatitis Neuro CN's II-XII intact bilaterally, moves all extremities and no focal motor deficits Psych cooperative and affect normal Charges/Coding Visit Charges Inpatient E&M: 24788 Subs Hosp L2
[2022-05-23 08:40] LABS: Anion Gap 5 (5-15); BUN 24 mg/dL (7-18); BUN/Creat Ratio 34.7 RATIO (10-20); Chloride 99 mmol/L (98-107); Creatinine, Serum 0.69 mg/dL (0.55-1.02); EST Glomerular Filtration Rate 95 mL/min (>60); Est Glom Filt Rate - Afr Amer 115 mL/min (>60); Glucose 162 mg/dL (74-106); Potassium 3.8 mmol/L (3.5-5.1); Sodium Level 144 mmol/L (136-145)
[2022-05-23] MEDS: predniSONE 20 MG Tablet 40 MG PO (08:40)
--- NOTE | 2022-05-23 08:57 | CASEMGMT ---
Physician let SW know bipap settings will be 16/8. SW called [facility] and spoke with global marketing manager, Jackie and she said they cannot take patient on the AVAPS setting. SW let her know that physician said patient does not need AVAPS and will be fine on the bipap setting. Mary wanted patient trialed overnight on the bipap setting to make sure she does not need the AVAPS. ISATU notified physician and she spoke with RN and Respiratory Therapist. Ana Rosa COATES
[2022-05-23 11:41] LABS: Bedside Glucose 188 mg/dL (74-106)
--- NOTE | 2022-05-23 12:00 | CASEMGMT ---
ISATU sent bipap settings to [facility] via [email or web address] ([employer]). ISATU called [facility] and spoke with Jackie, cane stripper. ISATU let Jackie know that patient has been on bipap since and doing fine. ISATU asked if she could re-consider patient trialing bipap overnight and take her today. Jackie said she does not know if she can get the bipap today. ISATU asked if she would have it tomorrow. Jackie said she does not know if she will be able to get it until Thursday. ISATU asked if she could let ISATU know. Ana Rosa Nguyen [employer]ON
--- NOTE | 2022-05-23 13:21 | CASEMGMT ---
ISATU called Minerva at [facility] to see if they found out if they can get a bipap before Thursday. Minerva put SW on hold. When Minerva came back on the phone she said their telephone clerk telegraph office is not willing to take patient now. She feels she needs a facility that has more respiratory assistance. ISATU will check with patient on other options. ISATU spoke with patient and let her know that [facility] was going to accept her, but now they have backed out. Patient was open to ISATU sending referrals to [facility], [facility], and [facility]. ISATU asked Ilda d/c emergency planning and response manager and she will send referrals. ISATU notified physician. Ana Rosa COATES
--- NOTE | 2022-05-23 13:39 | CASEMGMT ---
Discharge Continuous Churn Buttermaker Ilda lima assistant to the president sent referrals to [place] of [facility] and [facility] Del[facility]. Plan: Waiting for a SNF acceptance Ilda Urban Discharge Continuous Churn Buttermaker
--- NOTE | 2022-05-23 14:00 | PCM.PN.HOSP ---
Subjective Subjective No significant issues overnight other than a panic attacks which since has resolved. Patient states she is feeling well. Remains on 2 L supplemental oxygen at rest and BiPAP at night. Currently awaiting acceptance at a facility. Patient has diuresed over 10 L. Objective Data Objective Data Vital Signs: Vital Signs Temp Pulse Resp BP Pulse Ox O2 Del Method O2 Flow Rate 97.4 F L 89 16 123/67 H 94 Nasal Cannula 2 05/23/22 09:30 05/23/22 11:06 05/23/22 11:06 05/23/22 09:30 05/23/22 12:18 05/23/22 09:30 05/23/22 12:18 FiO2 30 05/23/22 09:45 Oxygen Flow Rate (L/min) 2 Oxygen Delivery Method Nasal Cannula Weight: 178.1 kg Body Mass Index (BMI) 61.2 Intake & Output: Intake and Output for Last 24 Hours 05/21/22 05/22/22 05/23/22 23:59 23:59 23:59 Intake Total 480 / 600 1080 / 1080 480 / 480 Output Total 2425 / 3625 5925 / 5925 850 / 850 Balance -1945 / -3025 -4845 / -4845 -370 / -370 Lab / Micro Data Result Diagrams: 05/22/22 06:25 05/23/22 08:10 Labs: Laboratory Results - last 24 hr 05/22/22 10:57: POC Glucose 198 H 05/22/22 16:10: POC Glucose 201 H 05/22/22 21:37: POC Glucose 178 H 05/23/22 06:31: POC Glucose 179 H 05/23/22 08:10: Sodium 144, Potassium 3.8, Chloride 99, Carbon Dioxide 40.0 H, Anion Gap 5, BUN 24 H, Creatinine 0.69, Estim Creat Clear Calc 98.40, Est GFR (MDRD) Af Amer 115, Est GFR (MDRD) Non-Af 95, BUN/Creatinine Ratio 34.7 H, Glucose 162 H, Calcium 9.0 05/23/22 11:18: POC Glucose 188 H Micro: Microbiology 05/19/22 20:47 Mucosa - Nasopharyngeal Respiratory Panel (PCR) - Final Human [place] 05/19/22 17:06 Nasal Secretion SARS-CoV-2 Antigen (Rapid) - Final Physical Exam Const alert, oriented x3, no apparent distress and well nourished Constitutional Narrative: Morbidly obese white female sitting up in a chair at the bedside, appears comfortable nontoxic HEENT head/scalp atraumatic and moist oral mucous membranes HEENT Narrative: Mallampati 3-4, dentition is poor, no thrush Head and Scalp: normocephalic Resp normal respiratory effort, no retractions, no use of accessory muscles and clear to auscultation bilaterally Resp Narrative: Diffusely diminished but clear Auscultation: Negative for crackles, rales, rhonchi or wheezes Cardio regular rate, regular rhythm, S1 normal heart sound, S2 normal heart sound, no murmurs, no rub, no gallops, no clicks and no JVD GI normal to inspection, nondistended, normoactive bowel sounds, soft to palpation and non-tender GI Narrative: Large pannus Extremity Extremity Narrative: Significant bilateral extremity lymphedema, no cyanosis or clubbing, onychomycosis bilateral lower extremities Skin no jaundice, no petechiae and no mottling General Skin Exam: crusts, dry skin, lichenification and venous stasis Neuro oriented x3, moves all extremities and no focal motor deficits Speech: speech normal Psych affect normal Assessment & Plan Assessment/Plan (1) Acute respiratory failure with hypoxia and hypercapnia: PLAN: Plan Acute on chronic hypoxic and hypercapnic respiratory failure -Suspect multifactorial--> COPD/human metapneumovirus infection/HFpEF/SANCHEZ/OHS -Viral PCR positive for human metapneumovirus -Patient does not follow with pulmonary as an outpatient--> most definitely will need follow-up for PFTs and sleep study after discharge -BiPAP 01/04 at at bedtime and with naps -On continuous 2 L nasal cannula -High suspicion of SANCHEZ/obesity hypoventilation syndrome -Markedly hypercapnic on presentation and it appears her baseline PCO2 is likely in the 60s -Sats okay to be 88 to 92% with chronic hypercapnia -Sinew p.o. Lasix 80 mg twice daily -Continue prednisone 40 mg daily would start taper on 05/25/2022 -Continue aggressive pulmonary toilet -Appreciate pulmonary input Leukocytosis -Resolved DM-2 -Hemoglobin A1c was performed in January when she was here and found to be 7.1. -Blood sugars have been elevated during hospitalization secondary to steroid use -Start sliding scale every 6 hours while patient is n.p.o. -Now on cardiac/carb controlled diet Decompensated HFpEF/suspected secondary PAH--> who group 3 -Continue diuresis as above -Echocardiogram February 08, 2022 shows an EF of 65% and grossly normal LV size and wall motion with no evidence of diastolic dysfunction however I suspect she has RV dysfunction based on her body habitus at baseline PCO2 unfortunately the study overall was poor given body habitus -Patient has diuresed 10.5 L for hospital stay -Monitor I's and O's -Daily weights Suspected COPD -See above -Patient will need outpatient pulmonary follow-up and PFTs once clinically stabilized Morbid obesity -BMI 61.5 -Recommend weight loss -Complicates treatment, prognosis, outcomes Tobacco abuse -Recommend cessation -Nicotine patch as needed DVT prophylaxis -Lovenox 40 mg subcu twice daily CODE STATUS -Full code Charges/Coding Visit Charges Inpatient E&M: 70572 Subs Hosp L2
--- NOTE | 2022-05-23 14:20 | CASEMGMT ---
ISATU spoke with patient and she is in agreement with [facility]. ISATU notified physician. ISATU faxed orders to [facility]. Ilda D/C materials planning analyst arranged for patient to get picked up at 1630 via [facility]. ISATU will send COVID test once resulted. SW received level of care from [facility]. ISATU completed 7000 on HENS. ISATU also faxed these to [facility]. Plan: d/c to [facility] under intermediate level of care on a 7000. [facility] transported via [facility]. Ana Rosa COATES
--- NOTE | 2022-05-23 14:29 | CASEMGMT ---
Discharge Blade Operator [facility]. Patient can go when medically ready. [facility] can also have a bi-pap for patient today ISATU Lazoica notified. Plan: [facility], When medically ready. Ilda Urban Discharge Blade Operator
--- NOTE | 2022-05-23 14:47 | PCM.DC.SUM ---
Providers Date of Admission: 05/19/22 Date of Discharge: 05/23/22 Primary Care Physician: [facility] Consultations 05/19/22 19:41 Consult: Phys Therapist / Pulmonary Medicine Routine Consulting Provider: Sukhdeep Celeste Reason for Consult: Acute Respiratory Failure, COPD exacerbation EMERGENT Consult: No MD Notified: Yes Date Notified: 05/19/22 Time Notified: 19:23 Method of Notification: Text Reason For Visit: ACUTE RESPIRATORY FAILURE, COPD EXACERBATION Diagnosis Discharge Diagnosis (1) Acute respiratory failure with hypoxia and hypercapnia: Status: Acute Code(s): J96.01 - Acute respiratory failure with hypoxia; J96.02 - Acute respiratory failure with hypercapnia Medications at Discharge Home Medications ipratropium 0.5 mg-albuterol 3 mg (2.5 mg base)/3 mL nebulization soln 3 ml inhalation Q6H.RT #0 mL 02/20/22 metformin 500 mg tablet 500 mg PO BIDCM #0 tabs 02/20/22 potassium chloride 20 mEq tablet,extended release 20 meq PO DAILY 05/19/22 Petrolatum 33% [Eucerin Eqivalent] 1 applic topical DAILY ##0 05/22/22 acetaminophen 325 mg tablet (Tylenol) 650 mg PO Q4H PRN PRN Fever, pain 1-05/26 #0 tabs 05/22/22 enoxaparin 40 mg/0.4 mL subcutaneous syringe 40 mg (0.4 mL) subcut BID #0 mL 05/22/22 furosemide 80 mg tablet (Lasix) 80 mg PO BID #60 tabs 05/22/22 nystatin 100,000 unit/gram topical powder (Nyamyc) 1 applic topical BID #0 grams 05/22/22 prednisone 10 mg tablet 10 mg PO DAILY #30 tabs 05/22/22 Hospital Course Operations None Procedures None Summary of Care Provided Minutes Spent on Discharge: 38 Hospital Course: Ms. Irizarry is a 51-year-old morbidly obese white female who presented to the emergency department at [facility] with shortness of breath and worsening lymphedema. She had a recent admission early in the summer for acute hypoxic and hypercapnic respiratory failure and required intubation. Her echo at that time showed an EF of 65% with no evidence of diastolic dysfunction however it was suspected she had significant pulmonary hypertension. She presented to the emergency department on 05/19/2022 complaining of progressively worsening shortness of breath that was worse with exertion and more severe over the last 24 to 48 hours prior to presentation. She had to be pulled from her car by the ED staff and was significantly short of breath with accessory muscle usage and an increased respiratory rate with worsening fatigue and confusion. She denied any recent fevers, chills, marked cough.? Upon hospitalist evaluation patient was significantly fatigued although improved respiratory status and on BiPAP with some change with stimuli but not answering questions currently. Work-up in the ED included T97.5, heart rate 98, BP 144/81, respiratory rate 38, initially 92% on room air eventually transitioned to BiPAP with respiratory rate 22, 97% with FiO2 25%, CBC with WC 11.5, hemoglobin 11.6, platelet 428 with left shift, unremarkable coags, ABG with pH 7.26, bicarb 38.3, PCO2 84.4, PO2 65 on 4 L nasal cannula, BMP with potassium 3.4, carbon oxide 35, glucose 122, BNP 81.2, rapid COVID antigen negative, chest x-ray with bilateral pulmonary infiltrates versus possible volume overload with diffuse perihilar interstitial and alveolar densities.? In the ED patient ministered DuoNeb therapy as well as Solu-Medrol 125 mg IV x1. Given the fact she was maintained on BiPAP she was admitted to the ICU. Respiratory viral panel was obtained and she was found to be positive for human metapneumovirus. She was treated supportively for this with steroids and aggressive pulmonary toilet and was diuresed aggressively and was overall 10.5 L negative for hospitalization. Her lower extremity swelling was markedly improved and her breathing improved dramatically. It is felt that her respiratory failure was likely related to a multitude of things including COPD/ASNCHEZ/obesity hypoventilation syndrome/viral pneumonia/and heart failure with preserved ejection fraction. She was able to be transitioned off continuous BiPAP to nasal cannula and her nasal cannula was weaned to 2 L with oxygen saturations anywhere from 94 to 98%. She was maintained on BiPAP at 16/8 while sleeping and with naps. She will need outpatient follow-up for PFTs and a sleep study after discharge from her skilled facility. She was transition from IV to p.o. Lasix 80 mg p.o. twice daily and a prednisone taper as ordered. She will need a follow-up CBC and BMP within the next 3 to 5 days. She was discharged to [facility] in stable condition on 05/23/2022 for ongoing occupational and physical therapy. Discharge diagnoses: Acute on chronic hypoxic and hypercapnic respiratory failure Leukocytosis-resolved Human metapneumovirus infection DM-2 HFpEF now compensated Secondary pulmonary hypertension-who group 3 Suspected COPD Morbid obesity Chronic venous stasis Tobacco abuse Physical Exam Const alert, oriented x3, no apparent distress and well nourished Constitutional Narrative: Morbidly obese white female sitting up in a chair at the bedside, appears comfortable nontoxic General Appearance: cooperative, comfortable, well kempt and well developed Orientation / Consciousness: awake Exam Limitations: no limitations HEENT normocephalic, head/scalp atraumatic and moist oral mucous membranes HEENT Narrative: Mallampati 3-4, no thrush, dentition is poor Eyes PERRL, EOMs intact bilaterally and conjunctivae normal Eyes Narrative: Scleral icterus Neck no lymphadenopathy, supple and no JVD Neck Narrative: Neck is short and thick, trachea midline, no thyroid Resp normal respiratory effort, no retractions, no use of accessory muscles and clear to auscultation bilaterally Resp Narrative: Diffusely diminished but clear Auscultation: Negative for crackles, rales, rhonchi or wheezes Cardio regular rate, regular rhythm, S1 normal heart sound, S2 normal heart sound, no murmurs, no rub, no gallops, no clicks and no JVD GI normal to inspection, nondistended, normoactive bowel sounds, soft to palpation and non-tender GI Narrative: Large pannus Extremity Extremity Narrative: Significant bilateral extremity lymphedema, no cyanosis or clubbing, onychomycosis bilateral lower extremities Skin no jaundice, no petechiae and no mottling General Skin Exam: crusts, dry skin, lichenification and venous stasis Neuro oriented x3, CN's II-XII intact bilaterally, moves all extremities and no focal motor deficits Speech: speech normal Psych affect normal Psych Narrative: Very pleasant and appropriately interactive Weight / BMI Weight Weight: 178.1 kg Body Mass Index (BMI) 61.2 ABG / Lab / Microbiology Data Result Diagrams: 05/22/22 06:25 05/23/22 08:10 Laboratory: Laboratory Results - last 24 hr 05/22/22 10:57: POC Glucose 198 H 05/22/22 16:10: POC Glucose 201 H 05/22/22 21:37: POC Glucose 178 H 05/23/22 06:31: POC Glucose 179 H 05/23/22 08:10: Sodium 144, Potassium 3.8, Chloride 99, Carbon Dioxide 40.0 H, Anion Gap 5, BUN 24 H, Creatinine 0.69, Estim Creat Clear Calc 98.40, Est GFR (MDRD) Af Amer 115, Est GFR (MDRD) Non-Af 95, BUN/Creatinine Ratio 34.7 H, Glucose 162 H, Calcium 9.0 05/23/22 11:18: POC Glucose 188 H Microbiology: Microbiology 05/19/22 20:47 Mucosa - Nasopharyngeal Respiratory Panel (PCR) - Final Human [place] 05/19/22 17:06 Nasal Secretion SARS-CoV-2 Antigen (Rapid) - Final Meaningful Use Info Meaningful Use Diagnoses (Choose all that apply): None applicable Discharge Plan Admission Admit Date/Time: 05/19/22 19:17 Primary Reason for Your Visit: Acute hypoxic and hypercapnic respiratory failure Attending Provider: Bettie Kim [facility] Providers: Alessandra Middleton ; Sukhdeep Celeste Discharge Orders/Prescriptions Prescriptions: New acetaminophen [Tylenol] 325 mg Tablet 650 mg PO Q4H PRN PRN (Reason: Fever, pain 1-05/26) Qty: 0 0RF nystatin [Nyamyc] 100,000 unit/gram Powder 1 applic topical BID Qty: 0 0RF Protocol: *Topical Application Instructions APPLICATION INSTRUCTIONS: Apply to groin/abd folds enoxaparin 40 mg/0.4 mL Syringe 40 mg subcut BID Qty: 0 0RF Petrolatum 33% [Eucerin Eqivalent] 1 applic topical DAILY Qty: 0 0RF furosemide [Lasix] 80 mg tablet 80 mg PO BID Qty: 60 0RF prednisone 10 mg tablet 10 mg PO DAILY Qty: 30 0RF Rx Instructions: 4 tablets x 3 days, 3 tablets x 3 days, 2 tablets x 3 days, 1 tablet x 3 days Continued metformin 500 mg Tablet 500 mg PO BIDCM Qty: 0 0RF ipratropium-albuterol 0.5 mg-3 mg(2.5 mg base)/3 mL Solution For Nebulization 3 ml inhalation Q6H.RT Qty: 0 0RF potassium chloride 20 mEq tablet extended release 20 meq PO DAILY Label Comments: TAKE 1 TABLET BY MOUTH EVERY DAY Discontinued furosemide [Lasix] 40 mg tablet 120 mg PO DAILY Rx Instructions: 80MG IN MORNING, 40MG IN EVENING Referrals / Follow Up: Sukhdeep Celeste DO [Med Staff - Active Staff] - Within 1 Month [facility] [Primary Care Provider] - Within 1 Month Disposition Disposition (needs filled in before D/C Order can be placed): Residential Facility Charges/Coding Visit Charges Inpatient E&M: 34336 SNF Disch >30 Min
--- NOTE | 2022-05-23 14:51 | PHA.DC.MR ---
Pharmacy Service has performed discharge medication reconciliation for this patient. The patient's discharge medication list was reviewed for discrepancies and discrepancies were resolved. Home Medications ipratropium 0.5 mg-albuterol 3 mg (2.5 mg base)/3 mL nebulization soln 3 ml inhalation Q6H.RT #0 mL 02/20/22 metformin 500 mg tablet 500 mg PO BIDCM #0 tabs 02/20/22 potassium chloride 20 mEq tablet,extended release 20 meq PO DAILY 05/19/22 Petrolatum 33% [Eucerin Eqivalent] 1 applic topical DAILY ##0 05/22/22 acetaminophen 325 mg tablet (Tylenol) 650 mg PO Q4H PRN PRN Fever, pain 1-05/26 #0 tabs 05/22/22 enoxaparin 40 mg/0.4 mL subcutaneous syringe 40 mg (0.4 mL) subcut BID #0 mL 05/22/22 furosemide 80 mg tablet (Lasix) 80 mg PO BID #60 tabs 05/22/22 nystatin 100,000 unit/gram topical powder (Nyamyc) 1 applic topical BID #0 grams 05/22/22 prednisone 10 mg tablet 10 mg PO DAILY #30 tabs 05/22/22
--- NOTE | 2022-05-23 14:59 | CASEMGMT ---
Discharge Physical Aerodynamicist Ilda fox/hector surgical first assistant called and set up transportation with [facility] with a slate picker time of 4:30pm. Ilda told [facility] that patient is 405 lbs but could go by wheel chair. Staff and patient made aware and [facility]. Plan: Alex Urban Discharge Physical Aerodynamicist
--- NOTE | 2022-05-23 15:55 | CASEMGMT ---
[facility] faxed COVID test results to Alex Cooper. Ana Rosa Nguyen REGULATORY COORDINATOR OCCUPATIONAL PSYCHOLOGIST
[2022-05-23 18:16] LABS: Bedside Glucose 186 mg/dL (74-106)
== END 2022-05-23 18:53 | disposition skilled nursing facility (03) | DRG 133 ==
LOC: ED 18:35 → ICU 20:06 → PCU 05-22 08:49
PROVIDERS: Admitting Provider Family Medicine; Emergency Provider Emergency Medicine; Visit Provider Internal Medicine
DX: J96.22 Acute and chronic respiratory failure with hypercapnia (principal); I50.33 Acute on chronic diastolic (congestive) heart failure; J12.3 Human metapneumovirus pneumonia; I27.29 Other secondary pulmonary hypertension; E87.29 Other acidosis; Z68.44 Body mass index [BMI] 60.0-69.9, adult; E66.2 Morbid (severe) obesity with alveolar hypoventilation; J44.1 Chronic obstructive pulmonary disease with (acute) exacerbation; J44.0 Chronic obstructive pulmonary disease with (acute) lower respiratory infection; E11.40 Type 2 diabetes mellitus with diabetic neuropathy, unspecified; E11.65 Type 2 diabetes mellitus with hyperglycemia; J96.21 Acute and chronic respiratory failure with hypoxia; M79.7 Fibromyalgia; E87.6 Hypokalemia; F17.210 Nicotine dependence, cigarettes, uncomplicated; I89.0 Lymphedema, not elsewhere classified; Z79.84 Long term (current) use of oral hypoglycemic drugs; Z20.822 Contact with and (suspected) exposure to COVID-19
CPT/HCPCS: 36415; 36600; 71045; 80048; 80053; 80061; 82803; 82962; 83735; 83880; 84100; 84145; 84443; 84484; 85025; 85027; 85610; 85730; 87426; 87633; 87811; 93005; 94002; 94003; 94640; 94667; 94668; 94762; 97110; 97116; 97162; 97166; 97530; 97535; 97803; 99251; 99285; 99406; A4216; G0463; J1940; J3490

== ENCOUNTER → 2022-06-09 | Outpatient (CLI) | payer MEDICAID, SELFPAY ==
[2022-06-09 14:01] LABS: Anion Gap 11 (5-15); BUN 19 mg/dL (7-18); BUN/Creat Ratio 19.8 RATIO (10-20); Calcium,Total 9.6 mg/dL (8.5-10.1); Chloride 96 mmol/L (98-107); Creatinine, Serum 0.96 mg/dL (0.55-1.02); EST Glomerular Filtration Rate 65 mL/min (>60); Est Glom Filt Rate - Afr Amer 79 mL/min (>60); Glucose 188 mg/dL (74-106); Magnesium 1.5 mg/dL (1.6-2.6); Potassium 3.6 mmol/L (3.5-5.1); Sodium Level 133 mmol/L (136-145)
== END | disposition home or self-care (01) ==
PROVIDERS: Visit Provider Family Medicine
DX: E87.6 Hypokalemia (principal)
CPT/HCPCS: 36415; 80048; 83735

== ENCOUNTER 2022-06-19 23:32 | Emergency (ER) | payer MEDICAID, SELFPAY ==
[2022-06-19 23:33] VITALS: PULSE 116; RESP 17; TEMP 36.8; O2SAT 97; BMI 54.6
--- NOTE | 2022-06-19 23:37 | ED.VIS.DYS ---
HPI History of Present Illness Chief Complaint: Shortness of Breath Narrative Narrative: 51-year-old female here with shortness of breath. History of COPD, fibromyalgia, lymphedema, SANCHEZ, pulmonary hypertension, tobacco abuse. The patient states she developed acute onset of shortness of breath at approximately 7 PM, 5 hours prior to arrival. Shortness of breath is worse with exertion, improved by rest. She does note lower extremity edema and is worse than her baseline. Denies cough or fever. Denies chest pain. The patient denies recent surgery in the last 4 weeks or immobilization in the last 3 days, denies previous diagnosis of DVT or PE, hemoptysis, unilateral leg swelling or malignancy with treatment the last 6 months. No estrogen use noted. [facility] Medical History Carpal tunnel syndrome Cataract COPD (chronic obstructive pulmonary disease) Diabetes Diabetes mellitus type 2 in obese Fibromyalgia Lymphedema Lymphedema Morbid obesity Neuropathic pain Obesity hypoventilation syndrome SANCHEZ (obstructive sleep apnea) Pulmonary hypertension Tobacco abuse Home Medications ipratropium 0.5 mg-albuterol 3 mg (2.5 mg base)/3 mL nebulization soln 3 ml inhalation Q6H.RT #0 mL 02/20/22 [Rx Last Taken Unknown] metformin 500 mg tablet 500 mg PO BIDCM #0 tabs 02/20/22 [Rx Last Taken Unknown] potassium chloride 20 mEq tablet,extended release 20 meq PO DAILY 05/19/22 [History Last Taken Unknown] Petrolatum 33% [Eucerin Eqivalent] 1 applic topical DAILY ##0 05/22/22 [Rx Last Taken Unknown] acetaminophen 325 mg tablet (Tylenol) 650 mg PO Q4H PRN PRN Fever, pain 1-05/26 #0 tabs 05/22/22 [Rx Last Taken Unknown] enoxaparin 40 mg/0.4 mL subcutaneous syringe 40 mg (0.4 mL) subcut BID #0 mL 05/22/22 [Rx Last Taken Unknown] furosemide 80 mg tablet (Lasix) 80 mg PO BID #60 tabs 05/22/22 [Rx Last Taken Unknown] nystatin 100,000 unit/gram topical powder (Nyamyc) 1 applic topical BID #0 grams 05/22/22 [Rx Last Taken Unknown] prednisone 10 mg tablet 10 mg PO DAILY #30 tabs 05/22/22 [Rx Last Taken Unknown] Allergy/AdvReac Type Severity Reaction Status Date / Time latex AdvReac Hives Verified 06/19/22 23:42 Penicillins [PCN] AdvReac Hives Verified 06/19/22 23:42 Surgical History H/O repair of rotator cuff Hx of cholecystectomy Previous section Social History Smoking Status: Former smoker alcohol intake: never substance use type: does not use ROS ROS ED ROS Narrative Constitutional: Denies fever HEENT: Denies sore throat Neck: Denies neck pain Cardiovascular: Denies chest pain, syncope, endorses worsening lower extremity edema Respiratory: Endorses shortness of breath, denies cough GI: Denies nausea vomiting or abdominal pain : Denies changes in urinary habits Musculoskeletal: Denies muscle or joint pain Neurologic: Denies numbness weakness or loss of sensation Skin denies rash EXAM Physical Exam Narrative Exam Narrative: Nursing triage notes reviewed, Vital signs reviewed Constitutional: please see mdm HENT: MMM Eyes: Pupils equal round and reactive to light, Extraocular muscles intact Neck: No stridor, no JVD, full neck ROM Lungs: Heart: Regular rate and rhythm, No murmurs, No rubs and No gallops, 2+ distal pulses (radial, femoral, posterior tibial) in all extremities Abdomen: Soft, there is no tenderness, rigidity, rebound or guarding, no obvious peritoneal signs, no palpable pulsatile abdominal masses, no auscultated abdominal bruit : No CVAT Extremities: Venous stasis changes bilateral lower extremities, no obvious lytic changes, no bullae no crepitus, compartments are soft. 2+ pitting edema bilateral Neuro: No focal neurological deficits, cranial nerves II through XII intact, 5/5 strength in all extremities. Intact sensation to light touch in all extremities, 2+ reflexes bilateral patella dens. Normal gait. No ataxia. Skin: No rash or lesions noted Const Vital Signs: 06/19/22 23:33 06/19/22 23:40 06/19/22 23:40 Temperature 98.2 F Temperature Source Temporal Pulse Rate 116 H Respiratory Rate 17 Respiratory Effort Short of Breath Respiratory Depth Deep Respiratory Pattern Tachypnea Blood Pressure 99/72 Blood Pressure Mean 81 Pulse Ox 97 Oxygen Delivery Method Room Air Room Air MDM MDM MDM Narrative Medical decision making narrative: 51-year-old female here with shortness of breath in setting of pulmonary hypertension, COPD. Low risk Wells score, low suspicion for PE. No cough, fever loss of taste or smell, sick contact suggest COVID or flu. Patient was initially tachycardic otherwise hemodynamically stable and afebrile. Lungs were without prolonged expiratory phase, no wheezes. Concern for infectious etiology such as pneumonia. Concern for ACS, arrhythmia also concern for anemia, volume overload. Obtained a broad lab and imaging work-up to further elucidate etiology patient complains. Lab Data Attestation: I reviewed the patient's lab results. Lab results narrative: CBC with leukocytosis, no severe anemia, no thrombocytopenia BMP with hypokalemia, no anion gap, no acute kidney injury Troponin is negative, no evidence of myocardial ischemia BNP within normal limits making volume overload less likely Labs: Laboratory Results - last 24 hr 06/20/22 06/20/22 06/20/22 00:10 00:10 00:10 WBC 12.4 H RBC 5.18 Hgb 13.9 Hct 43.9 MCV 84.7 MCH 26.8 L MCHC 31.7 L RDW Std Deviation 57.7 H RDW Coeff of Castillo 19.2 H Plt Count 295 MPV 9.8 Immature Gran % (Auto) 0.300 Neut % (Auto) 70.5 H Lymph % (Auto) 21.0 [place] % (Auto) 6.4 Eos % (Auto) 1.3 Baso % (Auto) 0.5 Absolute Neuts (auto) 8.7 H Absolute Lymphs (auto) 2.60 Nucleated RBC % 0 Sodium 140 Potassium 3.0 L Chloride 96 L Carbon Dioxide 34.0 H Anion Gap 10 BUN 14 Creatinine 0.86 Estim Creat Clear Calc 78.95 Est GFR (MDRD) Af Amer 89 Est GFR (MDRD) Non-Af 74 BUN/Creatinine Ratio 16.2 Glucose 182 H Calcium 8.9 Troponin I High Sens 6 B-Natriuretic Peptide 5.1 Radiography Chest X-Ray - ED: Read by ED Physician Diagnostic Testing: Clinical Impression(s) from Imaging Studies Chest X-Ray 06/20/22 00:00 IMPRESSION: No evidence of active intrathoracic disease. Electronically Signed: Libra Miller MD at 0:54 EDT , I have personally reviewed the patient's chest x-ray. Chest x-ray is unremarkable for pulmonary edema, pneumothorax, pneumonia or focal cardiopulmonary abnormality. EKG Initial EKG: Attestation: I personally reviewed and interpreted this EKG as follows: Comments: EKG with normal sinus rhythm, normal axis, no STEMI no arrhythmia such as atrial fibrillation Treatment and Re-Evaluation Narrative: On reevaluation the patient remained hemodynamically stable. Lungs remained without wheezing or focal consolidation. She does not have any respiratory distress. Labs images for review evidence of pneumonia, arrhythmia, anemia or myocardial ischemia. No indication for hospitalization at this time. Told patient to wear compression stockings, keep legs elevated, follow with her primary care physician for outpatient diuretic titration. Patient was hemodynamically stable appropriate discharge home. No indication for hospitalization at this time Discharge Plan Triage Chief Complaint: Shortness of Breath ED Provider: Vern Stewart Dx/Rx/DC Orders Clinical Impression: Acute dyspnea, History of COPD Instructions: ED Dyspnea, ED Peripheral Edema, Bilateral Prescriptions: No Action metformin 500 mg Tablet 500 mg PO BIDCM Qty: 0 0RF ipratropium-albuterol 0.5 mg-3 mg(2.5 mg base)/3 mL Solution For Nebulization 3 ml inhalation Q6H.RT Qty: 0 0RF potassium chloride 20 mEq tablet extended release 20 meq PO DAILY Label Comments: TAKE 1 TABLET BY MOUTH EVERY DAY acetaminophen [Tylenol] 325 mg Tablet 650 mg PO Q4H PRN PRN (Reason: Fever, pain 1-05/26) Qty: 0 0RF nystatin [Nyamyc] 100,000 unit/gram Powder 1 applic topical BID Qty: 0 0RF Protocol: *Topical Application Instructions APPLICATION INSTRUCTIONS: Apply to groin/abd folds enoxaparin 40 mg/0.4 mL Syringe 40 mg subcut BID Qty: 0 0RF Petrolatum 33% [Eucerin Eqivalent] 1 applic topical DAILY Qty: 0 0RF furosemide [Lasix] 80 mg tablet 80 mg PO BID Qty: 60 0RF prednisone 10 mg tablet 10 mg PO DAILY Qty: 30 0RF Rx Instructions: 4 tablets x 3 days, 3 tablets x 3 days, 2 tablets x 3 days, 1 tablet x 3 days Primary Care Provider: Vicente Voss Referrals: [facility] [Non-Staff] - Activity Restrictions/Additional Instructions: Please follow-up with your primary care physician at the next billable appointment for titration of Lasix. Disposition Disposition: Home, Self Care
[2022-06-19 23:40] VITALS: BP 99/72; O2SAT 97
--- NOTE | 2022-06-19 23:55 | EKG12_ITS ---
Test Reason : SOB Blood Pressure : / mmHG Vent. Rate : 104 BPM Atrial Rate : 104 BPM P-R Int : 188 ms QRS Dur : 078 ms QT Int : 348 ms P-R-T Axes : 051 059 010 degrees QTc Int : 457 ms Sinus tachycardia Low voltage QRS Borderline ECG Confirmed by ARYAN MIRANDA, ROSE ([id number]), associate entertainment editor GIOVANI WYATT ([id number]) on 06/23/2022 1:16:42 PM Referred By: VICKIE Confirmed By:ROSE BAEZA MD
--- NOTE | 2022-06-20 | RAD_ITS ---
STUDY: X-RAY CHEST REASON FOR EXAM: Female, 51 years old. SOB TECHNIQUE: PA and lateral. COMPARISON: 05/20/2022. FINDINGS: LUNGS: No consolidation. No pneumothorax. MEDIASTINUM: Unremarkable. CARDIAC SILHOUETTE: Not enlarged. BONES AND SOFT TISSUES: Degenerative changes in the dorsal spine. Surgical clips right upper abdomen cholecystectomy. RAD/Chest PA and Lateral IMPRESSION: No evidence of active intrathoracic disease. Electronically Signed: Libra Miller MD at 0:54 EDT ,
[2022-06-20 00:16] LABS: Absolute Neutrophil Count 8.7 X10^3/uL (2.0-7.7); Basophil# 0.06 X10^3/uL; Basophil% 0.5 % (0-1); Eosinophil# 0.16 X10^3/uL; Eosinophils% 1.3 % (0-5); Hematocrit 43.9 % (37-47); Hemoglobin 13.9 g/dL (12.0-15.0); Mean Corp Hgb Conc 31.7 g/dL (32-36); Mean Corpuscular Hgb 26.8 pg (27.0-32.0); Mean Corpuscular Volume 84.7 fL (81-99); Mean Platelet Vol. 9.8 fl (6.2-12.0); Monocyte# 0.79 X10^3/uL; Monocyte% 6.4 % (0-10); NRBC Flagged by Analyzer 0 % (0-5); Neutrophil # 8.71 X10^3/uL (2.7-7.7); Neutrophil % 70.5 % (47-70); Platelet Count 295 K/mm3 (150-450); RBC Distribution Width CV 19.2 % (11.6-14.6); RBC Distribution Width SD 57.7 fl (35.1-43.9); Red Blood Count 5.18 M/mm3 (4.2-5.4); White Blood Count 12.4 K/mm3 (4.4-11.0)
[2022-06-20 00:40] LABS: BNP,B-Type NATRIURETIC PEPTIDE 5.1 pg/mL (0-100)
[2022-06-20 00:43] LABS: Anion Gap 10 (5-15); BUN 14 mg/dL (7-18); BUN/Creat Ratio 16.2 RATIO (10-20); Calcium,Total 8.9 mg/dL (8.5-10.1); Chloride 96 mmol/L (98-107); Creatinine, Serum 0.86 mg/dL (0.55-1.02); EST Glomerular Filtration Rate 74 mL/min (>60); Est Glom Filt Rate - Afr Amer 89 mL/min (>60); Estimated Creatinine Clearance 78.95 ml/min; Glucose 182 mg/dL (74-106); Sodium Level 140 mmol/L (136-145); Troponin-I HS 6 pg/mL (3.0-54.0)
== END 2022-06-20 02:30 | disposition home or self-care (01) ==
PROVIDERS: Emergency Provider Emergency Medicine; PCP Family Medicine; Visit Provider Emergency Medicine
DX: R06.00 Dyspnea, unspecified (principal); J44.9 Chronic obstructive pulmonary disease, unspecified; I27.20 Pulmonary hypertension, unspecified; E11.40 Type 2 diabetes mellitus with diabetic neuropathy, unspecified; E66.2 Morbid (severe) obesity with alveolar hypoventilation; Z87.891 Personal history of nicotine dependence; Z79.84 Long term (current) use of oral hypoglycemic drugs; Z79.899 Other long term (current) drug therapy
CPT/HCPCS: 71046; 80048; 83880; 84484; 85025; 87428; 93005; 99285; A4216

== ENCOUNTER 2022-08-19 14:18 | Inpatient (IN) | payer MEDICAID, SELFPAY ==
[2022-08-19] VITALS (9 sets, daily range): BP systolic 117–159; BP diastolic 70–96; PULSE 82–99; RESP 14–20; TEMP 36.4–36.6; O2SAT 86–100; BMI 58.8; BMI 58.2
[2022-08-19 15:02] LABS: Absolute Lymphocyte Count 1.51 X10^3/uL (0.83-4.51); Absolute Neutrophil Count 8.6 X10^3/uL (2.0-7.7); Basophil# 0.05 X10^3/uL; Basophil% 0.5 % (0-1); Eosinophil# 0.22 X10^3/uL; Hematocrit 42.7 % (37-47); Hemoglobin 12.5 g/dL (12.0-15.0); Lymphocyte # 1.51 X10^3/ul (0.83-4.51); Lymphocyte % 13.8 % (19-41); Mean Corp Hgb Conc 29.3 g/dL (32-36); Mean Corpuscular Hgb 26.9 pg (27.0-32.0); Monocyte# 0.59 X10^3/uL; Monocyte% 5.4 % (0-10); NRBC Flagged by Analyzer 0 % (0-5); Neutrophil # 8.55 X10^3/uL (2.7-7.7); Neutrophil % 77.8 % (47-70); Platelet Count 378 K/mm3 (150-450); RBC Distribution Width CV 18.9 % (11.6-14.6); RBC Distribution Width SD 63.8 fl (35.1-43.9); Red Blood Count 4.64 M/mm3 (4.2-5.4)
[2022-08-19 15:16] LABS: BNP,B-Type NATRIURETIC PEPTIDE 7.7 pg/mL (0-100)
[2022-08-19 15:19] LABS: ALB/GLOB Ratio 0.7 RATIO (0.9-2.4); AST(SGOT) 10 U/L (15-37); Alanine Aminotransfer ALT/SGPT 15 U/L (13-56); Albumin, Serum 3.3 g/dL (3.2-5.0); Alkaline Phosphatase 97 U/L (45-117); Anion Gap 5 (5-15); BUN 16 mg/dL (7-18); BUN/Creat Ratio 20.5 RATIO (10-20); Calcium,Total 9.3 mg/dL (8.5-10.1); Chloride 101 mmol/L (98-107); Creatinine, Serum 0.78 mg/dL (0.55-1.02); EST Glomerular Filtration Rate 83 mL/min (>60); Est Glom Filt Rate - Afr Amer 100 mL/min (>60); Estimated Creatinine Clearance 86.08 ml/min; Globulin 4.7 g/dL (2.2-4.2); Glucose 124 mg/dL (74-106); Potassium 3.3 mmol/L (3.5-5.1); Sodium Level 142 mmol/L (136-145)
--- NOTE | 2022-08-19 16:44 | EDS_ITS ---
HPI <LEELEE Diego - Last Filed: 08/19/22 22:38> History of Present Illness Chief Complaint: Edema Narrative Narrative: Patient presents today with worsening lymphedema in her legs. She states her PCP sent her here because her 80 mg BID Lasix does not seem to be helping with the lymphedema in her legs. Patient states she does have some orthopnea due to the fluid she is retaining and cannot lie flat. When she is sitting up she does not feel as short of breath. She has a history of COPD, fibromyalgia, SANCHEZ, and pulmonary hypertension. She denies chest pain, fever, chills, recent illness, and abdominal pain. PFSH <LEELEE Diego - Last Filed: 08/19/22 22:38> [facility] Medical History (Updated 08/19/22 @ 22:38 by LEELEE Diego) Carpal tunnel syndrome Cataract COPD (chronic obstructive pulmonary disease) Diabetes Diabetes mellitus type 2 in obese Fibromyalgia Lymphedema Lymphedema Morbid obesity Neuropathic pain Obesity hypoventilation syndrome SANCHEZ (obstructive sleep apnea) Pulmonary hypertension Tobacco abuse Home Medications ipratropium 0.5 mg-albuterol 3 mg (2.5 mg base)/3 mL nebulization soln 3 ml inhalation Q6H.RT #0 mL 02/20/22 [Rx Last Taken Unknown] metformin 500 mg tablet 500 mg PO BIDCM #0 tabs 02/20/22 [Rx Last Taken Unknown] potassium chloride 20 mEq tablet,extended release 20 meq PO BID 05/19/22 [History Last Taken Unknown] furosemide 80 mg tablet (Lasix) 80 mg PO BID #60 tabs 05/22/22 [Rx Last Taken Unknown] Allergy/AdvReac Type Severity Reaction Status Date / Time latex AdvReac Hives Verified 08/19/22 14:19 Penicillins [PCN] AdvReac Hives Verified 08/19/22 14:19 Family History (Updated 08/19/22 @ 20:[address] Cash Jimenez MD) Other Cancer Diabetes Surgical History H/O oophorectomy H/O repair of rotator cuff Hx of cholecystectomy Previous section Social History Smoking Status: Former smoker alcohol intake: never substance use type: does not use ROS <LEELEE Diego - Last Filed: 08/19/22 22:38> ROS ED Constitutional Constitutional ED: Denies chills, fever(s) or sweats Eyes Eyes: Denies blurry vision or change in vision ENT ENT ED: Denies ear pain, rhinorrhea or sore throat Cardiovascular Cardiovascular: Reports orthopnea; Denies chest pain, palpitations or racing heartbeat Respiratory/Chest Respiratory/Chest: Reports dyspnea, dyspnea on exertion and orthopnea; Denies cough Gastrointestinal Gastrointestinal: Denies abdominal pain, diarrhea, nausea or vomiting Genitourinary Genitourinary ED: Denies dysuria, hematuria or urinary frequency Musculoskeletal Musculoskeletal: Denies back pain or myalgias Integumentary Denies abscess, Abrasions or rash Neurologic Neurologic: Denies headache(s) or weakness Psychiatric Psychiatric: Denies anxiety, depression or suicidal ideation EXAM <LEELEE Diego - Last Filed: 08/19/22 22:38> Physical Exam Const Vital Signs: 08/19/22 14:19 08/19/22 17:05 08/19/22 19:15 Temperature 97.6 F L Temperature Source Temporal Pulse Rate 89 89 Respiratory Rate 16 18 Respiratory Effort Short of Breath Blood Pressure 145/96 H 129/73 H Blood Pressure Mean 112 91 Pulse Ox 96 86 Oxygen Delivery Method Room Air Room Air Oxygen Flow Rate (L/min) 08/19/22 19:19 08/19/22 19:46 08/19/22 20:08 Temperature Temperature Source Pulse Rate 89 90 Respiratory Rate 14 20 H Respiratory Effort Blood Pressure 159/70 H 126/74 H Blood Pressure Mean 99 91 Pulse Ox 96 97 93 Oxygen Delivery Method Nasal Cannula Nasal Cannula Room Air Oxygen Flow Rate (L/min) 4 2 08/19/22 20:18 08/19/22 20:20 Temperature Temperature Source Pulse Rate Respiratory Rate Respiratory Effort Blood Pressure Blood Pressure Mean Pulse Ox 90 89 Oxygen Delivery Method Room Air Room Air Oxygen Flow Rate (L/min) Positive obese General Appearance ED: NAD Nutritional Appearance: obese HEENT Reports moist mucous membranes Negative for trauma Eyes PERRL and EOMs intact bilaterally Neck supple Chest Wall inspection of chest normal Resp normal respiratory effort and clear to auscultation bilaterally Cardio regular rate, regular rhythm and no murmurs GI non-tender, non-distended and no masses Palpation: soft Extremity Extremity Narrative: 2+ pitting edema in the lower legs bilaterally. Lower legs are edematous bilaterally. No erythema to the legs bilaterally. DP pulses intact bilaterally. Good capillary refill in lower extremities bilaterally and sensation intact. Neuro oriented x3, CN's II-XII intact bilaterally and no sensory deficits noted Sensorium / Orientation: alert Motor Exam: strength 5/5 throughout Psych mental status grossly normal Skin no rashes or lesions noted, no wounds and skin turgor normal <Dr. Diana Rubio MD - Last Filed: 08/19/22 23:34> Physical Exam Const Vital Signs: 08/19/22 14:19 08/19/22 17:05 08/19/22 19:15 Temperature 97.6 F L Temperature Source Temporal Pulse Rate 89 89 Respiratory Rate 16 18 Respiratory Effort Short of Breath Blood Pressure 145/96 H 129/73 H Blood Pressure Mean 112 91 Pulse Ox 96 86 Oxygen Delivery Method Room Air Room Air Oxygen Flow Rate (L/min) 08/19/22 19:19 08/19/22 19:46 08/19/22 20:08 Temperature Temperature Source Pulse Rate 89 90 Respiratory Rate 14 20 H Respiratory Effort Blood Pressure 159/70 H 126/74 H Blood Pressure Mean 99 91 Pulse Ox 96 97 93 Oxygen Delivery Method Nasal Cannula Nasal Cannula Room Air Oxygen Flow Rate (L/min) 4 2 08/19/22 20:18 08/19/22 20:20 Temperature Temperature Source Pulse Rate Respiratory Rate Respiratory Effort Blood Pressure Blood Pressure Mean Pulse Ox 90 89 Oxygen Delivery Method Room Air Room Air Oxygen Flow Rate (L/min) [facility] <LEELEE Diego - Last Filed: 08/19/22 22:38> [facility] Narrative Medical decision making narrative: Patient was given 40 mg IV Lasix. A bilateral venous duplex ultrasound obtained due to patient's worsening lymphedema and did not show a DVT bilaterally. She was having some shortness of breath during initial presentation but was 96% on room air. She suddenly became hypoxic at 86% on room air a few hours after this. Patient was put on 4 L of oxygen at this time and was weaned to 2 L of oxygen where she stayed at 96%. Patient was taken off oxygen and fell back down to 90% on room air. She was then ambulated and went to 89% on room air. Patient will be admitted for her hypoxia. Patient is compliant with plan. Chest x-ray suggested left-sided pneumonia. However, patient states that she was diagnosed with pneumonia a few months ago in the left lung and is not having any fevers, cough, elevated white blood cell count, or signs of pneumonia. This could be scar tissue and will not be treated at this time. Lab Data Attestation: I reviewed the patient's lab results. Lab results narrative: Lymphocytes 13.8, potassium 3.3, carbon dioxide 36, BNP 7.7 Labs: Laboratory Results - last 24 hr 08/19/22 08/19/22 08/19/22 14:53 14:53 14:55 WBC 11.0 RBC 4.64 Hgb 12.5 Hct 42.7 MCV 92.0 MCH 26.9 L MCHC 29.3 L RDW Std Deviation 63.8 H RDW Coeff of Castillo 18.9 H Plt Count 378 MPV 9.0 Immature Gran % (Auto) 0.500 Neut % (Auto) 77.8 H Lymph % (Auto) 13.8 L [place] % (Auto) 5.4 Eos % (Auto) 2.0 Baso % (Auto) 0.5 Absolute Neuts (auto) 8.6 H Absolute Lymphs (auto) 1.51 Nucleated RBC % 0 Sodium 142 Potassium 3.3 L Chloride 101 Carbon Dioxide 36.0 H Anion Gap 5 BUN 16 Creatinine 0.78 Estim Creat Clear Calc 86.08 Est GFR (MDRD) Af Amer 100 Est GFR (MDRD) Non-Af 83 BUN/Creatinine Ratio 20.5 H Glucose 124 H Calcium 9.3 Total Bilirubin 0.40 AST 10 L ALT 15 Alkaline Phosphatase 97 B-Natriuretic Peptide 7.7 Total Protein 8.0 Albumin 3.3 Globulin 4.7 H Albumin/Globulin Ratio 0.7 L Radiography Diagnostic Testing: Clinical Impression(s) from Imaging Studies Chest X-Ray 08/19/22 16:59 IMPRESSION: Left sided pneumonia. Electronically Signed: Alejandro Sharma MD at 17:18 EST Reading Location ID and State: [facility] / [place] , Service support , Venous Duplex 08/19/22 17:28 IMPRESSION: There is no demonstrated deep venous thrombosis. Electronically Signed: Alejandro Sharma MD at 18:25 EST , <Dr. Diana Rubio MD - Last Filed: 08/19/22 23:34> [facility] Lab Data Labs: Laboratory Results - last 24 hr 08/19/22 08/19/22 08/19/22 14:53 14:53 14:55 WBC 11.0 RBC 4.64 Hgb 12.5 Hct 42.7 MCV 92.0 MCH 26.9 L MCHC 29.3 L RDW Std Deviation 63.8 H RDW Coeff of Castillo 18.9 H Plt Count 378 MPV 9.0 Immature Gran % (Auto) 0.500 Neut % (Auto) 77.8 H Lymph % (Auto) 13.8 L [place] % (Auto) 5.4 Eos % (Auto) 2.0 Baso % (Auto) 0.5 Absolute Neuts (auto) 8.6 H Absolute Lymphs (auto) 1.51 Nucleated RBC % 0 Sodium 142 Potassium 3.3 L Chloride 101 Carbon Dioxide 36.0 H Anion Gap 5 BUN 16 Creatinine 0.78 Estim Creat Clear Calc 86.08 Est GFR (MDRD) Af Amer 100 Est GFR (MDRD) Non-Af 83 BUN/Creatinine Ratio 20.5 H Glucose 124 H Calcium 9.3 Total Bilirubin 0.40 AST 10 L ALT 15 Alkaline Phosphatase 97 B-Natriuretic Peptide 7.7 Total Protein 8.0 Albumin 3.3 Globulin 4.7 H Albumin/Globulin Ratio 0.7 L Radiography Diagnostic Testing: Clinical Impression(s) from Imaging Studies Chest X-Ray 08/19/22 16:59 IMPRESSION: Left sided pneumonia. Electronically Signed: Alejandro Sharma MD at 17:18 EST , Venous Duplex 08/19/22 17:28 IMPRESSION: There is no demonstrated deep venous thrombosis. Electronically Signed: Alejandro Sharma MD at 18:25 EST , Treatment and Re-Evaluation Narrative: Patient seen and evaluated with FAZAL. I personally interviewed and examined the patient. I was involved in all aspects of patient's orders, interpretation of results, and treatment. Patient presents to the ER secondary to increased edema of the bilateral lower extremities. She has a history of chronic venous stasis. Her PCP felt she should come the emergency room due to increased swelling. They have tried increasing her Lasix at home without significant improvement. Patient denies significant shortness of breath. She states she did have a recent cold but is now feeling improved. She has been able to get up and ambulate but states it is more difficult with her legs being more swollen. She states in the past she has been seen at the wound care center for leg wraps but was unable to afford them. Patient sitting upright in bed no acute distress. Head and neck examination unremarkable. Heart is regular rate and rhythm. Lung sounds are clear. Abdomen is soft and nontender. Lower extremity examination reveals bilateral chronic venous skin changes and edema. Lab work obtained including BNP. Venous ultrasound of the lower extremities obtained along with chest x-ray. CBC unremarkable. Chemistry studies significant for slightly low potassium at 3.3. LFTs are unremarkable. BNP is normal at 7.7. Chest x-ray is read as left lower lobe infiltrates, however lung sounds are clear to this area. Patient has no cough, fever, or white count. Venous ultrasound of the lower extremities reveals no evidence of DVT. Nursing staff went back in to recheck the patient's vital signs. Sitting at rest she was satting 86%. She was placed on oxygen for short time. We attempted to wean her off of oxygen again and she again desaturated to 87% while sitting at rest. She is given 40 mg of IV Lasix and patient is discussed with hospitalist for admission. Discharge Plan Dx/Rx/DC Orders Clinical Impression: Hypoxia, Shortness of breath, Lymphedema, COPD (chronic obstructive pulmonary disease) Disposition Disposition: [facility] Discharge Date/Time: 08/19/22 22:05
--- NOTE | 2022-08-19 16:59 | RAD_ITS ---
STUDY: X-RAY CHEST REASON FOR EXAM: Female, 52 years old. CHEST PAIN SOB TECHNIQUE: XR Chest 1 View COMPARISON: 06/20/2022 FINDINGS: There is no demonstrated pleural abnormality. Left lower lobe infiltrate. Normal size heart. Normal mediastinum and ruthie. Normal visualized pulmonary arteries. Normal visualized aortic arch and descending thoracic aorta. Normal visualized thoracic spine. Normal visualized ribs, clavicles, and shoulders. There is no demonstrated abnormality of the visualized soft tissue structures of the upper abdomen. RAD/Chest 1 View (Portable) IMPRESSION: Left sided pneumonia. Electronically Signed: Alejandro Sharma MD at 17:18 EST ,
--- NOTE | 2022-08-19 17:28 | US_ITS ---
STUDY: VENOUS DOPPLER ULTRASOUND - BILATERAL LOWER EXTREMITY REASON FOR EXAM: Female, 52 years old. LEG PAIN AND SWELLING BILATERAL LEG SWELLING OFF AND ON FOR OVER A YEAR TECHNIQUE: Ultrasound evaluation of the deep vein system to include alicia-scale imaging and compression was performed. Alicia-scale imaging and Doppler sonographic evaluation, including duplex spectral analysis and qualitative color flow sonography, was performed. COMPARISON: None. FINDINGS: Common Femoral Vein: Normal compression, spontaneity and augmentation. Normal color Doppler. Common Femoral Vein/Greater Saphenous Junction: Normal compression, spontaneity and augmentation. Normal color Doppler. Superficial Femoral Proximal: Normal compression, spontaneity and augmentation. Normal color Doppler. Superficial Femoral Middle: Normal compression, spontaneity and augmentation. Normal color Doppler. Superficial Femoral Distal: Normal compression, spontaneity and augmentation. Normal color Doppler. Popliteal Vein: Normal compression, spontaneity and augmentation. Normal color Doppler. Posterior Tibial Vein: Normal compression, spontaneity and augmentation. Normal color Doppler. Peroneal Vein: Normal compression, spontaneity and augmentation. Normal color Doppler. There is no demonstrated deep venous thrombosis. US/Venous Duplex Imag/Neel Extrem IMPRESSION: There is no demonstrated deep venous thrombosis. Electronically Signed: Alejandro Sharma MD at 18:25 EST Reading Location ID and State: [facility] / [place] , Service support ,
[2022-08-19] MEDS: traMADol 50 MG Tablet PO (18:22)
[2022-08-19] MEDS: Furosemide 40 MG/4 ML Vial IV (19:20)
--- NOTE | 2022-08-19 20:35 | PCM.HP.STD ---
HPI - General General Date of Admission: 08/19/22 Date of Service: 08/19/22 Chief Complaint: Bilateral edema HPI Narrative GIOVANI VELEZ, is a 52 F with a significant history of COPD; diabetes mellitus; and lymphedema who presents emergency department with swelling of her bilateral legs. Her symptoms been going on for about a year. Patient report that she has been to the hospital for about 3 times and other reason for her bilateral legs has not been found. Her PCP sent her in to the ED because the etiology of her symptoms is unknown. Associated with her symptoms is orthopnea and proximal nocturnal dyspnea. At the emergency department patient oxygen saturation was 86% on room air. She was subsequently placed in supplemental oxygen. She was later weaned off. When she sat by the bedside her oxygen saturation was 87%. [facility] Medical History (Updated 08/20/22 @ 03:[address] Cash Jimenez MD) Carpal tunnel syndrome Cataract COPD (chronic obstructive pulmonary disease) Diabetes Diabetes mellitus type 2 in obese Fibromyalgia Lymphedema Lymphedema Morbid obesity Neuropathic pain Obesity hypoventilation syndrome SANCHEZ (obstructive sleep apnea) Pulmonary hypertension Tobacco abuse Home Medications ipratropium 0.5 mg-albuterol 3 mg (2.5 mg base)/3 mL nebulization soln 3 ml inhalation Q6H.RT #0 mL 02/20/22 [Rx Last Taken Unknown] metformin 500 mg tablet 500 mg PO BIDCM #0 tabs 02/20/22 [Rx Last Taken Unknown] potassium chloride 20 mEq tablet,extended release 20 meq PO BID 05/19/22 [History Last Taken Unknown] furosemide 80 mg tablet (Lasix) 80 mg PO BID #60 tabs 05/22/22 [Rx Last Taken Unknown] Allergy/AdvReac Type Severity Reaction Status Date / Time latex AdvReac Hives Verified 08/19/22 14:19 Penicillins [PCN] AdvReac Hives Verified 08/19/22 14:19 Family History (Updated 08/19/22 @ 20:[address] Cash Jimenez MD) Other Cancer Diabetes Surgical History H/O oophorectomy H/O repair of rotator cuff Hx of cholecystectomy Previous section Social History Smoking Status: Former smoker alcohol intake: never substance use type: does not use ROS ROS Narrative Pertinent positives and pertinent negatives as noted in HPI. All other systems were reviewed and are negative Vital Signs Vital Signs Vital Signs: 08/19/22 14:19 08/19/22 17:05 08/19/22 19:15 Temperature 97.6 F L Temperature Source Temporal Pulse Rate 89 89 Respiratory Rate 16 18 Respiratory Effort Short of Breath Blood Pressure 145/96 H 129/73 H Blood Pressure Mean 112 91 Pulse Ox 96 86 Oxygen Delivery Method Room Air Room Air Oxygen Flow Rate (L/min) 08/19/22 19:19 08/19/22 19:46 08/19/22 20:08 Temperature Temperature Source Pulse Rate 89 90 Respiratory Rate 14 20 H Respiratory Effort Blood Pressure 159/70 H 126/74 H Blood Pressure Mean 99 91 Pulse Ox 96 97 93 Oxygen Delivery Method Nasal Cannula Nasal Cannula Room Air Oxygen Flow Rate (L/min) 4 2 08/19/22 20:18 08/19/22 20:20 Temperature Temperature Source Pulse Rate Respiratory Rate Respiratory Effort Blood Pressure Blood Pressure Mean Pulse Ox 90 89 Oxygen Delivery Method Room Air Room Air Oxygen Flow Rate (L/min) Weight Weight: 175.54 kg Body Mass Index (BMI) 58.8 Physical Exam Narrative Physical exam: General: Well-nourished, well-developed. Head: Normocephalic, atraumatic, no tenderness Eyes: Vision is grossly intact. EOMI ENT, no trauma, moist mucous membranes, no rhinorrhea Neck: Nontender, No thyromegaly. CVS: Regular rate and rhythm. S1-S2 present. No murmur, gallop or rub. Respiratory : Diminished, chest wall nontender, no wheezing Abdomen: Soft, nontender, nondistended, normal bowel sounds, no masses : Deferred Back: Nontender, no CVA tenderness, no midline spinal tenderness, deformities, step-offs Extremities: Bilateral lower leg edema. Skin: Normal color, no trauma, abrasions Neuro: Alert, oriented, cranial nerves II through XII grossly intact. Psychiatry: Normal mood. Normal affect. Not depressed. Not anxious. Results Lab / Micro Data Result Diagrams: 08/19/22 14:53 08/19/22 14:55 Labs: Laboratory Results - last 24 hr 08/19/22 14:53: WBC 11.0, RBC 4.64, Hgb 12.5, Hct 42.7, MCV 92.0, MCH 26.9 L, MCHC 29.3 L, RDW Std Deviation 63.8 H, RDW Coeff of Castillo 18.9 H, Plt Count 378, MPV 9.0, Immature Gran % (Auto) 0.500, Neut % (Auto) 77.8 H, Lymph % (Auto) 13.8 L, Graham % (Auto) 5.4, Eos % (Auto) 2.0, Baso % (Auto) 0.5, Absolute Neuts (auto) 8.6 H, Absolute Lymphs (auto) 1.51, Nucleated RBC % 0 08/19/22 14:53: B-Natriuretic Peptide 7.7 08/19/22 14:55: Sodium 142, Potassium 3.3 L, Chloride 101, Carbon Dioxide 36.0 H, Anion Gap 5, BUN 16, Creatinine 0.78, Estim Creat Clear Calc 86.08, Est GFR (MDRD) Af Amer 100, Est GFR (MDRD) Non-Af 83, BUN/Creatinine Ratio 20.5 H, Glucose 124 H, Calcium 9.3, Total Bilirubin 0.40, AST 10 L, ALT 15, Alkaline Phosphatase 97, Total Protein 8.0, Albumin 3.3, Globulin 4.7 H, Albumin/Globulin Ratio 0.7 L Radiology Impression Chest X-Ray 08/19/22 16:59 IMPRESSION: Left sided pneumonia. Electronically Signed: Alejandro Sharma MD at 17:18 EST , Venous Duplex 08/19/22 17:28 IMPRESSION: There is no demonstrated deep venous thrombosis. Electronically Signed: Alejandro Sharma MD at 18:25 EST , Assessment & Plan Assessment/Plan (1) Heart failure: (2) Lymphedema: PLAN: Plan Chronic heart failure with preserved ejection fraction/obesity hypoventilation syndrome/lymphedema. I doubt whether patient is in acute heart failure. Orders may be chronic. Likely patient will require supplemental oxygenation at home. On home Lasix 80 mg p.o. twice daily trial of Lasix 80 mg IV twice daily ordered. Escalate home potassium supplementation. Daily weights. Strict intake and output. Check BNP Chest x-ray was interpreted by radiologist as left-sided pneumonia. Upon my personal review present checks x-ray compared to previous is unchanged. I disagree with left-sided pneumonia. Patient has no fever and there is no leukocytosis Likely chronic from congestive heart failure. Hypokalemia Potassium of 3.3 Supplements. Trend BMP. Diabetes mellitus Patient with hyperglycemia on presentation Hold home metformin Monitor Accu-Cheks Correction scale insulin ordered. DVT prophylaxis Subcutaneous Lovenox ordered. Charges/Coding Visit Charges Inpatient E&M: 78812 Init Hosp L3
[2022-08-20] VITALS (16 sets, daily range): BP systolic 122–139; BP diastolic 56–70; PULSE 82–99; RESP 12–20; TEMP 36.4–36.8; O2SAT 84–100
[2022-08-20] MEDS: Ipratropium/Albuterol Sulfate 3 ML AMPUL.NEB INHALATION ×4 (00:20→19:52)
[2022-08-20] MEDS: Enoxaparin 40 MG/0.4 ML Syringe SC ×3 (00:30→21:08)
[2022-08-20] MEDS: Potassium Chloride Oral Tablet 20 MEQ 40 MEQ PO ×3 (00:30→21:07)
[2022-08-20 01:31] LABS: Bedside Glucose 101 mg/dL (74-106)
--- NOTE | 2022-08-20 05:55 | ECHOCS_ITS ---
Version 2 Reason For Study: DYSPNEA Procedure This was a 2D Doppler, Color Flow transthoracic echocardiogram. The study was technically difficult. Contrast injection was performed. Exam performed portable in patient room. Left Ventricle Normal LV size. Left ventricular systolic function is normal. The estimated ejection fraction is 65 %. No evidence for diastolic dysfunction. No regional wall motion abnormalities noted. Right Ventricle Normal RV size. Normal systolic function. Atria Normal left atrium. Normal right atrium. No doppler evidence for ASD. Mitral Valve There is no mitral annular calcification. Normal mitral valve. Trivial mitral valve insufficiency. Tricuspid Valve Normal tricuspid valve. Trivial tricuspid valve insufficiency. Unable to estimate RV systolic pressure/pulmonary artery pressure due to technically difficult study. Aortic Valve Trisinus/trileaflet aortic valve. Normal aortic valve. Pulmonic Valve The pulmonic valve is not well visualized. Great Vessels The aortic root is not well visualized. Pericardium/Pleural No pericardial effusion. Medication Diluted definity 4ml given slow IV push to enhance endocardial definition. Time Measurements MV dec time: 0.15 sec Doppler Measurements & Calculations MV E max ibrahima: 94.1 cm/sec Lat Peak E' Ibrahima: 14.0 cm/sec Med Peak E' Ibrahima: 14.2 cm/sec MV A max ibrahima: 78.9 cm/sec E/E' lat: 6.7 E/E' med: 6.6 MV E/A: 1.2 MV V2 max: 95.3 cm/sec Ao V2 max: 113.8 cm/sec MV max P.7 mmHg MV dec slope: 1162 cm/sec2 Ao max P.2 mmHg MV V2 mean: 63.2 cm/sec Ao V2 mean: 77.7 cm/sec MV mean P.8 mmHg Ao mean P.8 mmHg MV V2 VTI: 22.8 cm Ao V2 VTI: 23.7 cm AV (velocity ratio): 0.93 LV V1 max: 107.9 cm/sec PA V2 max: 104.2 cm/sec LV V1 max P.7 mmHg PA V2 mean: 71.8 cm/sec LV V1 mean P.6 mmHg LV V1 mean: 76.0 cm/sec LV V1 VTI: 21.9 cm ECHO/Echo Complete W/ Contrast Interpretation Summary The study was technically difficult. Contrast injection was performed. Left ventricular systolic function is normal. The estimated ejection fraction is 65 %. Trivial mitral valve insufficiency. Trivial tricuspid valve insufficiency. Unable to estimate RV systolic pressure/pulmonary artery pressure due to [employer] [place] difficult study. No evidence for diastolic dysfunction. Ordering Physician: Cash Jimenez Referring Physician: Vicente Voss MD Performed By: Sonam Art RCS
[2022-08-20 06:10] LABS: Absolute Lymphocyte Count 1.96 X10^3/uL (0.83-4.51); Absolute Neutrophil Count 6.5 X10^3/uL (2.0-7.7); Basophil# 0.03 X10^3/uL; Basophil% 0.3 % (0-1); Eosinophil# 0.13 X10^3/uL; Eosinophils% 1.4 % (0-5); Hematocrit 39.3 % (37-47); Hemoglobin 11.4 g/dL (12.0-15.0); Lymphocyte # 1.96 X10^3/ul (0.83-4.51); Lymphocyte % 21.2 % (19-41); Mean Corpuscular Hgb 27.2 pg (27.0-32.0); Mean Corpuscular Volume 93.8 fL (81-99); Monocyte# 0.65 X10^3/uL; NRBC Flagged by Analyzer 0 % (0-5); Neutrophil # 6.45 X10^3/uL (2.7-7.7); Neutrophil % 69.8 % (47-70); Platelet Count 354 K/mm3 (150-450); RBC Distribution Width CV 18.8 % (11.6-14.6); RBC Distribution Width SD 64.7 fl (35.1-43.9); Red Blood Count 4.19 M/mm3 (4.2-5.4); White Blood Count 9.3 K/mm3 (4.4-11.0)
[2022-08-20 06:32] LABS: Anion Gap 2 (5-15); BUN 13 mg/dL (7-18); BUN/Creat Ratio 19.7 RATIO (10-20); Calcium,Total 8.7 mg/dL (8.5-10.1); Chloride 103 mmol/L (98-107); Creatinine, Serum 0.66 mg/dL (0.55-1.02); EST Glomerular Filtration Rate 100 mL/min (>60); Est Glom Filt Rate - Afr Amer 121 mL/min (>60); Estimated Creatinine Clearance 101.73 ml/min; Glucose 135 mg/dL (74-106); Potassium 3.4 mmol/L (3.5-5.1); Sodium Level 144 mmol/L (136-145)
[2022-08-20 07:05] LABS: Bedside Glucose 122 mg/dL (74-106)
--- NOTE | 2022-08-20 07:42 | PN.HOSP_ITS ---
Subjective Subjective Has a headache, but did not have her BiPAP last night. Objective Data Objective Data Vital Signs: Vital Signs Temp Pulse Resp BP Pulse Ox O2 Del Method O2 Flow Rate 36.4 C L 88 16 129/70 H 100 Nasal Cannula 2 08/20/22 03:55 08/20/22 07:19 08/20/22 07:19 08/20/22 03:55 08/20/22 07:19 08/20/22 07:19 08/20/22 07:19 Oxygen Flow Rate (L/min) 2 Oxygen Delivery Method Nasal Cannula Weight: 173.726 kg Body Mass Index (BMI) 58.2 Intake & Output: Intake and Output for Last 24 Hours 08/18/22 08/19/22 08/20/22 23:59 23:59 23:59 Output Total 1100 / 1100 Balance -1100 / -1100 Lab / Micro Data Result Diagrams: 08/20/22 05:26 08/20/22 05:26 Labs: Laboratory Results - last 24 hr 08/19/22 14:53: WBC 11.0, RBC 4.64, Hgb 12.5, Hct 42.7, MCV 92.0, MCH 26.9 L, MCHC 29.3 L, RDW Std Deviation 63.8 H, RDW Coeff of Castillo 18.9 H, Plt Count 378, MPV 9.0, Immature Gran % (Auto) 0.500, Neut % (Auto) 77.8 H, Lymph % (Auto) 13.8 L, [place] % (Auto) 5.4, Eos % (Auto) 2.0, Baso % (Auto) 0.5, Absolute Neuts (auto) 8.6 H, Absolute Lymphs (auto) 1.51, Nucleated RBC % 0 08/19/22 14:53: B-Natriuretic Peptide 7.7 08/19/22 14:55: Sodium 142, Potassium 3.3 L, Chloride 101, Carbon Dioxide 36.0 H , Anion Gap 5, BUN 16, Creatinine 0.78, Estim Creat Clear Calc 86.08, Est GFR (MDRD) Af Amer 100, Est GFR (MDRD) Non-Af 83, BUN/Creatinine Ratio 20.5 H, Glucose 124 H, Calcium 9.3, Total Bilirubin 0.40, AST 10 L, ALT 15, Alkaline Phosphatase 97, Total Protein 8.0, Albumin 3.3, Globulin 4.7 H, Albumin/Globulin Ratio 0.7 L 08/19/22 23:22: POC Glucose 101 08/20/22 05:26: WBC 9.3, RBC 4.19 L, Hgb 11.4 L, Hct 39.3, MCV 93.8, MCH 27.2, MCHC 29.0 L, RDW Std Deviation 64.7 H, RDW Coeff of Castillo 18.8 H, Plt Count 354, MPV 10.0, Immature Gran % (Auto) 0.300, Neut % (Auto) 69.8, Lymph % (Auto) 21.2, [place] % (Auto) 7.0, Eos % (Auto) 1.4, Baso % (Auto) 0.3, Absolute Neuts (auto) 6.5, Absolute Lymphs (auto) 1.96, Nucleated RBC % 0 08/20/22 05:26: Sodium 144, Potassium 3.4 L, Chloride 103, Carbon Dioxide 39.0 H , Anion Gap 2 L, BUN 13, Creatinine 0.66, Estim Creat Clear Calc 101.73, Est GFR (MDRD) Af Amer 121, Est GFR (MDRD) Non-Af 100, BUN/Creatinine Ratio 19.7, Glucose 135 H, Calcium 8.7 08/20/22 06:23: POC Glucose 122 H Radiography Diagnostic Testing: Radiology Impression Chest X-Ray 08/19/22 16:59 IMPRESSION: Left sided pneumonia. Electronically Signed: Alejandro Sharma MD at 17:18 EST , Venous Duplex 08/19/22 17:28 IMPRESSION: There is no demonstrated deep venous thrombosis. Electronically Signed: Alejandro Sharma MD at 18:25 EST , Physical Exam Const alert and no apparent distress Constitutional Narrative: On oxygen. No respiratory distress. No conversational dyspnea. Peers older than stated age Resp normal respiratory effort, no retractions, no use of accessory muscles and clear to auscultation bilaterally Cardio regular rate, regular rhythm, S1 normal heart sound and S2 normal heart sound GI normal to inspection, nondistended, normoactive bowel sounds Extremity Extremity Narrative: Profound lymphedematous changes with lichenification of her lower extremities. Neuro oriented x3 and CN's II-XII intact bilaterally Assessment & Plan Assessment/Plan (1) Heart failure: PLAN: HFpEF, acute EF 65% On furosemide 80 BID No obvious pulmonary edema on CXR She has gained 60 pounds over the past several months. Patient does not weigh herself every day. Advised the patient to buy a scale when she does go home and to weigh herself every day. (2) Lymphedema: PLAN: As above Concern for pulmonary HTN EF 65%. PAP unable to be determined. (3) Hypoxia: PLAN: 2/2 CHF Doubt pneumonia (I did not appreciate on my review of CXR) Other possibilties: SANCHEZ, obesity hypoventilation Will need outpt PSG (4) Hypokalemia: PLAN: Replaced Check magnesium PLAN: Plan Chronic stable conditions: * Diabetes mellitus 2: Patient with hyperglycemia on presentation. Hold home metformin. Monitor Accu-Cheks.Correction scale insulin ordered. * Morbid obesity: weight loss advised. Bariatric eval would be appropriate. * SANCHEZ: BiPAP to be brought in by family. DVT prophylaxis: Subcutaneous Lovenox ordered. Charges/Coding Visit Charges Inpatient E&M: 73807 Subs Hosp L2
[2022-08-20 08:48] LABS: Magnesium 2.4 mg/dL (1.6-2.6)
[2022-08-20] MEDS: Furosemide 100 MG/10 ML Vial 80 MG IV ×2 (09:13→17:17)
[2022-08-20] MEDS: 0.9% Saline Lock 10 ML Syringe IV (09:32)
[2022-08-20] MEDS: Acetaminophen 500 MG Tablet 1000 MG PO (11:12)
[2022-08-20] MEDS: Insulin Lispro 100 UNIT/ML INSULN.PEN SC (11:15)
[2022-08-20 11:40] LABS: Bedside Glucose 161 mg/dL (74-106)
--- NOTE | 2022-08-20 13:42 | CPS ---
pt placed back on 2 lpm. saturation to 92%, nurse aware
[2022-08-20] MEDS: Nystatin Powder 15gm Bottle 1 APPLIC TOPICAL ×2 (15:18→21:08)
--- NOTE | 2022-08-20 16:00 | CPS ---
placed pt on her PAP machine. 90% SpO2
--- NOTE | 2022-08-20 16:05 | CPS ---
Bled in 2lpm O2 to pt's home AutoPap d/t SpO2=89%. informed Christiano QUINTANA.
[2022-08-20 17:15] LABS: Bedside Glucose 141 mg/dL (74-106)
--- NOTE | 2022-08-20 17:20 | CASEMGMT ---
LILIAN CM: Attempted to meet with pt x2 to complete DC Planning assessment. Pt receiving care and unavailable to complete assessment. Will reattempt at a later time. Sophie Lofton RN CM
[2022-08-20 21:01] LABS: Bedside Glucose 134 mg/dL (74-106)
[2022-08-21] VITALS (7 sets, daily range): BP systolic 121; BP diastolic 65–76; PULSE 77–87; RESP 16–21; TEMP 36.6–36.7; O2SAT 94–99
[2022-08-21] MEDS: Ipratropium/Albuterol Sulfate 3 ML AMPUL.NEB INHALATION ×3 (02:01→13:16)
[2022-08-21] MEDS: Acetaminophen 500 MG Tablet 1000 MG PO (02:03)
[2022-08-21] MEDS: Nystatin Powder 15gm Bottle 1 APPLIC TOPICAL ×2 (05:07→14:32)
[2022-08-21 06:55] LABS: Bedside Glucose 103 mg/dL (74-106)
[2022-08-21 07:11] LABS: Anion Gap 6 (5-15); BUN 18 mg/dL (7-18); BUN/Creat Ratio 26.6 RATIO (10-20); Calcium,Total 8.7 mg/dL (8.5-10.1); Chloride 99 mmol/L (98-107); Creatinine, Serum 0.68 mg/dL (0.55-1.02); EST Glomerular Filtration Rate 97 mL/min (>60); Est Glom Filt Rate - Afr Amer 118 mL/min (>60); Estimated Creatinine Clearance 98.73 ml/min; Glucose 116 mg/dL (74-106); Potassium 3.5 mmol/L (3.5-5.1); Sodium Level 143 mmol/L (136-145)
--- NOTE | 2022-08-21 07:45 | PN.HOSP_ITS ---
Subjective Subjective No events overnight. Got her BiPAP and used it last night. Objective Data Objective Data Vital Signs: Vital Signs Temp Pulse Resp BP Pulse Ox O2 Del Method O2 Flow Rate 36.7 C 78 19 H 121/65 H 97 Nasal Cannula 2 08/21/22 02:05 08/21/22 07:10 08/21/22 07:10 08/21/22 02:05 08/21/22 07:32 08/21/22 07:32 08/21/22 07:32 Oxygen Flow Rate (L/min) 2 Oxygen Delivery Method Nasal Cannula Weight: 173.726 kg Body Mass Index (BMI) 58.2 Intake & Output: Intake and Output for Last 24 Hours 08/19/22 08/20/22 08/21/22 23:59 23:59 23:59 Intake Total 500 / 500 Output Total 1100 / 1100 3200 / 3200 1200 / 1200 Balance -1100 / -1100 -3200 / -3200 -700 / -700 Lab / Micro Data Result Diagrams: 08/20/22 05:26 08/21/22 05:57 Labs: Laboratory Results - last 24 hr 08/20/22 05:26: Magnesium 2.4 08/20/22 11:11: POC Glucose 161 H 08/20/22 16:54: POC Glucose 141 H 08/20/22 20:40: POC Glucose 134 H 08/21/22 05:57: Sodium 143, Potassium 3.5, Chloride 99, Carbon Dioxide 38.0 H, Anion Gap 6, BUN 18, Creatinine 0.68, Estim Creat Clear Calc 98.73, Est GFR (MDRD) Af Amer 118, Est GFR (MDRD) Non-Af 97, BUN/Creatinine Ratio 26.6 H, Glucose 116 H, Calcium 8.7 08/21/22 06:31: POC Glucose 103 Radiography Diagnostic Testing: Radiology Impression Echocardiogram 08/20/22 05:55 Interpretation Summary The study was technically difficult. Contrast injection was performed. Left ventricular systolic function is normal. The estimated ejection fraction is 65 %. Trivial mitral valve insufficiency. Trivial tricuspid valve insufficiency. Unable to estimate RV systolic pressure/pulmonary artery pressure due to technically difficult study. No evidence for diastolic dysfunction. Ordering Physician: Cash Jimenez Referring Physician: Vicente Voss MD Performed By: Sonam Art RCS Physical Exam Const alert and no apparent distress Resp normal respiratory effort, no retractions, no use of accessory muscles and clear to auscultation bilaterally Cardio regular rate, regular rhythm, S1 normal heart sound and S2 normal heart sound Extremity Extremity Narrative: lymphedema w lichenification of LE. Assessment & Plan Assessment/Plan (1) Heart failure: PLAN: HFpEF, acute EF 65% On furosemide 80 BID No obvious pulmonary edema on CXR She has gained 60 pounds over the past several months. Patient does not weigh herself every day. Advised the patient to buy a scale when she does go home and to weigh herself every day. Patient stated that she gained 60 pounds over the past several months but look ing at her weights in our system, patient actually weighed more back in January, February and May. Patient was in the 180 kg range and currently she is 173. Patient at home states that she abides by a 1.5 L liquid intake per day. She is adamant that she does not drink any more than that. She also abides by a low- salt diet and does not eat much. Mended that she get a scale and keep a record of her weight. I did acknowledge that it may be difficult for her to get a scale that may accommodate her size and weight but scale that she can get just so that she would have something that she can measure her weight and keep track of as awake could add up slowly. (2) Lymphedema: PLAN: As above Concern for pulmonary HTN EF 65%. PAP unable to be determined. Patient would likely benefit from lymphedema wraps. (3) Hypoxia: PLAN: 2/2 CHF Doubt pneumonia (I did not appreciate on my review of CXR) Other possibilties: SANCHEZ, obesity hypoventilation Will need home oxygen eval prior to discharge (4) Hypokalemia: PLAN: Replaced Check magnesium PLAN: Plan Chronic stable conditions: * Diabetes mellitus 2: Patient with hyperglycemia on presentation. Hold home metformin. Monitor Accu-Cheks.Correction scale insulin ordered. * Morbid obesity: weight loss advised. Bariatric eval would be appropriate. * SANCHEZ: BiPAP to be brought in by family. DVT prophylaxis: Subcutaneous Lovenox ordered. Charges/Coding Visit Charges Inpatient E&M: 53749 Subs Hosp L2
--- NOTE | 2022-08-21 10:29 | DCINST_ITS ---
Discharge Instructions Diet Discharge Diet: Low fat / Low cholesterol and 6 Cup Fluid Restriction Activity Discharge Activity: Return to Normal Activity Dressing / Incision Call your doctor if you observe: Shortness of breath Follow Up Care Please Follow Up With: Wound Care When: 1 week for lymphedema Test Results: Test results from this visit will be discussed in further detail at your follow- up appointment, if applicable. Discharge Plan Admission Admit Date/Time: 08/19/22 20:26 Primary Reason for Your Visit: CHF exacerbation. Attending Provider: Vicente Madrid Primary Care Provider: Vicente Voss Consulting Providers: Cash Jimenez Instructions Additional Instructions / Restrictions: Daily weights. Keep track of your weight and notify physician if you gain more than 2 pounds in 1 day or 3 pounds in 1 week. Discharge Orders/Prescriptions Prescriptions: Continued metformin 500 mg Tablet 500 mg PO BIDCM Qty: 0 0RF ipratropium-albuterol 0.5 mg-3 mg(2.5 mg base)/3 mL Solution For Nebulization 3 ml inhalation Q6H.RT Qty: 0 0RF potassium chloride 20 mEq tablet extended release 20 meq PO BID Label Comments: TAKE 1 TABLET BY MOUTH EVERY DAY furosemide [Lasix] 80 mg tablet 80 mg PO BID Qty: 60 0RF Referrals / Follow Up: Vicente Voss MD [Primary Care Provider] - Within 2 Weeks Disposition Disposition (needs filled in before D/C Order can be placed): Home, Self Care
--- NOTE | 2022-08-21 10:35 | PCM.DC.SUM ---
Providers Date of Admission: 08/19/22 Primary Care Physician: Vicente Voss MD Reason For Visit: ACUTE HEART FAILURE Diagnosis Discharge Diagnosis (1) Heart failure: Status: Acute Code(s): I50.9 - Heart failure, unspecified Plan: HFpEF, acute EF 65% On furosemide 80 BID No obvious pulmonary edema on CXR She has gained 60 pounds over the past several months. Patient does not weigh herself every day. Advised the patient to buy a scale when she does go home and to weigh herself every day. Patient stated that she gained 60 pounds over the past several months but looking at her weights in our system, patient actually weighed more back in January, February and May. Patient was in the 180 kg range and currently she is 173. Patient at home states that she abides by a 1.5 L liquid intake per day. She is adamant that she does not drink any more than that. She also abides by a low-salt diet and does not eat much. Mended that she get a scale and keep a record of her weight. I did acknowledge that it may be difficult for her to get a scale that may accommodate her size and weight but scale that she can get just so that she would have something that she can measure her weight and keep track of as awake could add up slowly. Add lisinopril to her regimen and continue with the furosemide 80 mg twice daily. Recommend she follow-up with cardiology as outpatient (2) Lymphedema: Status: Acute Code(s): I89.0 - Lymphedema, not elsewhere classified Plan: As above Concern for pulmonary HTN EF 65%. PAP unable to be determined. Patient would likely benefit from lymphedema wraps. (3) Hypoxia: Status: Acute Code(s): R09.02 - Hypoxemia Plan: 2/2 CHF Doubt pneumonia (I did not appreciate on my review of CXR) Other possibilties: SANCHEZ, obesity hypoventilation Will need home oxygen eval prior to discharge (4) Hypokalemia: Status: Acute Code(s): E87.6 - Hypokalemia Plan: Replaced Check magnesium Plan Chronic stable conditions: Diabetes mellitus 2: Patient with hyperglycemia on presentation. Hold home metformin. Monitor Accu-Cheks.Correction scale insulin ordered. Morbid obesity: weight loss advised. Bariatric eval would be appropriate. SANCHEZ: BiPAP to be brought in by family. DVT prophylaxis: Subcutaneous Lovenox ordered. Medications at Discharge Home Medications ipratropium 0.5 mg-albuterol 3 mg (2.5 mg base)/3 mL nebulization soln 3 ml inhalation Q6H.RT #0 mL 02/20/22 metformin 500 mg tablet 500 mg PO BIDCM #0 tabs 02/20/22 potassium chloride 20 mEq tablet,extended release 20 meq PO BID 05/19/22 furosemide 80 mg tablet (Lasix) 80 mg PO BID #60 tabs 05/22/22 lisinopril 10 mg tablet 10 mg PO DAILY #30 tabs 08/21/22 Hospital Course Operations None Procedures 2-D Echocardiogram Summary of Care Provided Minutes Spent on Discharge: 28 Weight / BMI Weight Weight: 173.726 kg Body Mass Index (BMI) 58.2 ABG / Lab / Microbiology Data Result Diagrams: 08/20/22 05:26 08/21/22 05:57 Laboratory: Laboratory Results - last 24 hr 08/20/22 11:11: POC Glucose 161 H 08/20/22 16:54: POC Glucose 141 H 08/20/22 20:40: POC Glucose 134 H 08/21/22 05:57: Sodium 143, Potassium 3.5, Chloride 99, Carbon Dioxide 38.0 H, Anion Gap 6, BUN 18, Creatinine 0.68, Estim Creat Clear Calc 98.73, Est GFR (MDRD) Af Amer 118, Est GFR (MDRD) Non-Af 97, BUN/Creatinine Ratio 26.6 H, Glucose 116 H, Calcium 8.7 08/21/22 06:31: POC Glucose 103 Radiography Diagnostic Testing: Radiology Impression Echocardiogram 08/20/22 05:55 Interpretation Summary The study was technically difficult. Contrast injection was performed. Left ventricular systolic function is normal. The estimated ejection fraction is 65 %. Trivial mitral valve insufficiency. Trivial tricuspid valve insufficiency. Unable to estimate RV systolic pressure/pulmonary artery pressure due to technically difficult study. No evidence for diastolic dysfunction. Ordering Physician: Cash Jimenez Referring Physician: Vicente Voss MD Performed By: Sonam Art RCS D/C Instructions Discharge Diet: Low fat / Low cholesterol and 6 Cup Fluid Restriction Call your doctor if you observe: Shortness of breath Please Follow Up With: Wound Care When: 1 week for lymphedema Meaningful Use Info Meaningful Use Diagnoses (Choose all that apply): None applicable and CHF CHF YOJANA/ARB ordered at discharge?: Yes Documented LVEF (%): 65 Discharge Plan Admission Admit Date/Time: 08/19/22 20:26 Primary Reason for Your Visit: CHF exacerbation. Attending Provider: Vicente Madrid Primary Care Provider: Vicente Voss Consulting Providers: Cash Jimenez Instructions Additional Instructions / Restrictions: Daily weights. Keep track of your weight and notify physician if you gain more than 2 pounds in 1 day or 3 pounds in 1 week. Discharge Orders/Prescriptions Prescriptions: New lisinopril 10 mg tablet 10 mg PO DAILY Qty: 30 0RF Continued metformin 500 mg Tablet 500 mg PO BIDCM Qty: 0 0RF ipratropium-albuterol 0.5 mg-3 mg(2.5 mg base)/3 mL Solution For Nebulization 3 ml inhalation Q6H.RT Qty: 0 0RF potassium chloride 20 mEq tablet extended release 20 meq PO BID Label Comments: TAKE 1 TABLET BY MOUTH EVERY DAY furosemide [Lasix] 80 mg tablet 80 mg PO BID Qty: 60 0RF Referrals / Follow Up: Vicente Voss MD [Primary Care Provider] - Within 2 Weeks [facility] [Provider Group] - Within 1 Month Disposition Disposition (needs filled in before D/C Order can be placed): Home, Self Care Charges/Coding Visit Charges Inpatient E&M: 21679 Disch Hosp
--- NOTE | 2022-08-21 10:52 | CASEMGMT ---
Addendum entered by Layla Allan 08/21/22 11:39: TC to [facility] [place], spoke with Nelli, she is aware the lisinopril called in was supposed to go to [facility]. She states she will trf this to them. Addendum entered by Layla Allan 08/21/22 11:35: Pt did not qualify for home oxygen. Original Note: LILIAN VERNON Assessment: Face to Face with pt for initial transition planning/care coordination assessment. LILIAN VERNON introduced self and role at [facility], pt voices understanding and consents to assessment. Pt is A/O x4 and answers all questions appropriately at this time. Pt sitting up in chair with oxygen on in no distress. Care providers, pharmacy, and demographics verified/updated. Admitting Dx: acute heart failure PCP:Bipin at [facility] Specialists:Pt denies. Preferred Pharmacy: [facility] Insurance: [facility] Prescription Benefit: yes LNOK: Olivia Dale, cousin Living Arrangements: Pt lives with her cousing Olivia's son, Dario and his in a second story apartment with 21 steps to enter with a rail on one side. Pt reports she is mostly indep in ADL's. She states sometimes she needs help from Dario's . States she does her own cooking and cleaning. Pt reports she can now ambulate up the steps to enter the home and very rarely leaves the home. Transportation: Pt does not drive. Dario's , Rashi provides transportation. She states Dario will be transporting her home. DME/HHC/SNF: Pt has a quad cane, FWW, rollator, shower chair, CPAP, grab bar in the bathroom and a BGM. States she has sufficient supply of lancets and strips for her BGM. Pt states she does not take insulin. Pt denies hx of HHC and has been to [facility] and [facility] in the past. Pt states no concerns with going home at time of dc. Discussed with pt that her board states she needs 1-2 assist with cane. Pt states that she can ambulate on own with cane. She denies need for any home health therapy or nursing for education. Pt states she feels safe to go home. She is aware that she will be tested to see if she qualifies for oxygen. Discussed local in network DME companies and pt chooses [employer] should she need it. Pt denies need for RN CM to discuss her dc plan with any family members. Pt states no further concerns/needs. CM to follow. Advised pt to ask CM if any further question/concerns/needs arise, voices understanding. Pt Goal: Home Plan: Home, pending oxygen testing. Discussed with pt nurse.
[2022-08-21] MEDS: Furosemide 100 MG/10 ML Vial 80 MG IV (11:08)
[2022-08-21] MEDS: Potassium Chloride Oral Tablet 20 MEQ 40 MEQ PO (11:08)
[2022-08-21] MEDS: Enoxaparin 40 MG/0.4 ML Syringe SC (11:08)
[2022-08-21 13:01] LABS: Bedside Glucose 128 mg/dL (74-106)
== END 2022-08-21 14:45 | disposition home or self-care (01) | DRG 194 ==
LOC: ED 20:48 → MS2 20:52
PROVIDERS: Admitting Provider Hospitalist; Emergency Provider Emergency Medicine; PCP Family Medicine
DX: I50.33 Acute on chronic diastolic (congestive) heart failure (principal); E66.2 Morbid (severe) obesity with alveolar hypoventilation; E11.40 Type 2 diabetes mellitus with diabetic neuropathy, unspecified; I27.20 Pulmonary hypertension, unspecified; J44.9 Chronic obstructive pulmonary disease, unspecified; Z68.43 Body mass index [BMI] 50.0-59.9, adult; E11.65 Type 2 diabetes mellitus with hyperglycemia; E87.6 Hypokalemia; I89.0 Lymphedema, not elsewhere classified; M79.7 Fibromyalgia; R09.02 Hypoxemia; Z79.84 Long term (current) use of oral hypoglycemic drugs; Z87.891 Personal history of nicotine dependence; Z79.899 Other long term (current) drug therapy
CPT/HCPCS: 36415; 71045; 80048; 80053; 82962; 83735; 83880; 85025; 93306; 93970; 94640; 99282; 99406; Q9957; A4216; C8929; J1938